=== PATIENT | male | born 1940 | race Caucasian/White ===

== ENCOUNTER → 2019-12-14 | Outpatient (CLI) | payer OTHER ==
[~2019-12-14] MED LIST: HOLD METFORMIN - RECEIVED CONTRAST 20 ML VIAL IV SCH; IOHEXOL 350 MG/ML 100 ML (OMNIPAQUE 350) VIAL IV ONE; NS 100 ML (IVPB) BAG IV ONE; RT-ALBUTEROL SULF 2.5 MG/3 ML PRE-MIX VIAL INH ONE
[2019-12-14 13:11] LABS: ABG BASE EXCESS -2.5 MMOL/L (-2.5-2.5); ABG OXYGEN SATURATION 98 % (94-100); ABG PCO2 32 MMHG (35-45); ABG PH 7.44 (7.37-7.43); ABG PO2 82 MMHG (79-93); ABG TCO2 22.3 MMOL/L (21.0-31.0)
[2019-12-14 13:12] LABS: ALLENS TEST YES-POS; INSPIRED O2 ROOM AIR; VENTILATOR NO
[2019-12-14 13:26] LABS: CREATININE SERUM 1.19 MG/DL (0.60-1.30)
--- NOTE | 2019-12-14 15:09 | Diagnostic Imaging Report ---
EXAMINATION: CT Chest with intravenous contrast. TECHNIQUE: Multiple contiguous axial images were obtained through the chest after the uneventful administration of intravenous contrast. All CT scans use one or more of the following dose optimizing techniques: automated exposure control, MA and/or KvP adjustment based on a patient size and exam type, or iterative reconstruction. HISTORY: COUGH,DYSPNEA... COMPARISON: None available. FINDINGS: There is no edema or pneumonia. No pleural effusion. No pneumothorax. No suspicious nodules. Heart size is normal. No pericardial effusion. Aorta is normal in caliber. There is no axillary or supraclavicular lymphadenopathy. There is no mediastinal lymphadenopathy. There are mild coronary artery calcifications. There is mild hepatic steatosis. There are no suspicious osseus lesions. IMPRESSION: 1. No acute abnormality in the chest. 2. Hepatic steatosis. Dictated by: Dictated on workstation # [id number]
== END ==
LOC: RAD 12:20
PROVIDERS: ATTEND Nurse Practitioner Family
DX: G47.33 Obstructive sleep apnea (adult) (pediatric) (principal); R06.89 Other abnormalities of breathing; R06.00 Dyspnea, unspecified; R05 Cough; K76.0 Fatty (change of) liver, not elsewhere classified; F17.200 Nicotine dependence, unspecified, uncomplicated
CPT/HCPCS: 36415; 71260; 82565; 82805; 84520; 94060; 94726; 94729

== ENCOUNTER → 2021-02-04 | Outpatient (CLI) | payer OTHER ==
--- NOTE | 2021-02-04 13:13 | Diagnostic Imaging Report ---
PROCEDURE: CT chest without contrast. TECHNIQUE: Multiple contiguous axial images were obtained through the chest without the use of intravenous contrast. Auto Exposure Controls were utilized during the CT exam to meet ALARA standards for radiation dose reduction. INDICATION: Right-sided chest pain, shortness of air, cough. CORRELATION: 12/14/2019. FINDINGS: Heart size normal with scattered mild to moderate coronary artery calcification. Thoracic aortic contour unremarkable. A few small subcentimeter mediastinal lymph nodes. No pathologically enlarged mediastinal lymph nodes. Small hiatal hernia is present. Evaluation of the mediastinal structures is limited given lack of contrast. The lung grayson are clear of infiltrate. There is prominent pericardial fat along the anterior mediastinum with slight asymmetrically elevated right anterior diaphragm accounting for blunting of the costophrenic angle. No effusion. There is a 17 mm exophytic mass off the anterior superior left renal pole. Mild hepatic steatosis. Mildly advanced degenerative changes thoracic spine. IMPRESSION: 1. Negative for acute abnormality of the chest. 2. Exophytic mass superior pole left kidney. While this may very well reflect a small cyst, it is incompletely characterized on this study. Consideration for renal ultrasound evaluation. 3. Small hiatal hernia. Dictated by: Dictated on workstation # [id number]
== END ==
LOC: RAD 10:20
PROVIDERS: ATTEND Nurse Practitioner Family
DX: J45.909 Unspecified asthma, uncomplicated (principal); N28.89 Other specified disorders of kidney and ureter; K44.9 Diaphragmatic hernia without obstruction or gangrene
CPT/HCPCS: 71250

== ENCOUNTER → 2021-04-16 | Outpatient (CLI) | payer OTHER ==
[2021-04-16 12:56] LABS: BASOPHILS % (AUTO) 0 % (0-10); EOSINOPHILS # (AUTO) 0.2 10^3/uL (0.0-0.3); EOSINOPHILS % (AUTO) 2 % (0-10); HEMATOCRIT 45 % (40-54); HEMOGLOBIN 15.2 g/dL (13.3-17.7); LYMPHOCYTES # (AUTO) 1.9 10^3/uL (1.0-4.0); LYMPHOCYTES % (AUTO) 21 % (12-44); MEAN CORPUSCULAR HEMOGLOBIN 29 pg (25-34); MEAN CORPUSCULAR HGB CONC 34 g/dL (32-36); MEAN CORPUSCULAR VOLUME 87 fL (80-99); MEAN PLATELET VOLUME 9.9 fL (9.0-12.2); MONOCYTES # (AUTO) 0.7 10^3/uL (0.0-1.0); MONOCYTES % (AUTO) 8 % (0-12); NEUTROPHILS # (AUTO) 6.5 10^3/uL (1.8-7.8); NEUTROPHILS % (AUTO) 69 % (42-75); PLATELET COUNT 301 10^3/uL (130-400); WHITE BLOOD COUNT 9.4 10^3/uL (4.3-11.0)
[2021-04-16 13:14] LABS: BAND NEUTROPHILS 0 %; BASOPHILS % (MANUAL) 0 %; EOSINOPHILS % (MANUAL) 3 %; LYMPHOCYTES % (MANUAL) 22 %; MONOCYTES % (MANUAL) 6 %; NEUTROPHILS % (MANUAL) 69 %; RBC MORPH NORMAL
--- NOTE | 2021-04-16 13:54 | Diagnostic Imaging Report ---
INDICATION: ASTHMA COMPARISON: None FINDINGS: Frontal and lateral views of the chest demonstrate normal heart size and pulmonary vascularity. The lungs are clear. There are no signs of infiltrate, pleural effusions or pneumothoraces. The visualized osseous structures show no acute abnormalities. IMPRESSION: 1. No acute process. No signs of infiltrates, effusions or pneumothoraces. Dictated by: Dictated on workstation # [id number]
== END ==
LOC: RAD 12:31
PROVIDERS: ATTEND Nurse Practitioner Family
DX: J45.909 Unspecified asthma, uncomplicated (principal)
CPT/HCPCS: 36415; 71046; 85007; 85027

== ENCOUNTER 2021-12-12 22:50 | Inpatient (IN) | payer MEDICARE, OTHER ==
[~2021-12-12] VITALS: Ht 175.3 cm; Wt 113.2 kg
[2021-12-13] VITALS (13 sets, daily range): BP systolic 111–157; BP diastolic 52–87
--- OUTSIDE RECORDS SUMMARY | 2021-12-13 00:03 | XMS REPORT | Encounter Summary ---
[facility] Address Unknown Phone Unavailable Care Team Providers Care Charge Auditor Name Role Phone YOSI TENORIO PCP Unavailable Insurance Providers: All historical and current Section Date Range: From patient's date of to the date document was create d. This section includes the names of all active insurance providers for the alejo nolasco Insurance Provider Type of Coverage Plan Name Start of Policy [place] End of Policy Coverage Group Number Member ID Insurance Provider's Telephone N umber Policy Clif[place]'s Name Patient's Relationship to Policy [place] MEDICARE (WNR) MEDICARE (M) PART A Sep 28, 2007 PART A [id number] SIMEONEFFIEY PATIENT MEDICARE (WNR) MEDICARE (M) PART B Sep 28, 2007 PART B [id number] SAMANTHA HENDRIX PATIENT Selected Encounter This section includes the information on record at [place] for the Encounter. Date/Time Encounter Type Encounter Description Reason Provider Source Mar 10, 2021 02:31 PM Outpatient Encounter ADMIN PAT ACTIVTIES (REBECCANO NCT) IHE Encounter Template Text not used by [facility] Assessments - Encounter Diagnoses No Data Provided for This Section Plan of Treatment: Future Appointments (+ 6 months) and Future Tests (+/- 45 day s) The Plan of Treatment section includes future care activities for the patient fr om all [place] treatment facilities. This section includes future appointments and fu ture orders which are active, pending or scheduled. Future Appointments This section includes appointments that were scheduled t o occur 6 months from the date of the Encounter, up to a maximum of 20 appointme nts. The data comes from all [place] treatment facilities. Appointment Date/Time Appointment Type Appointment Facili ty Name Mar 12, 2021 10:00 AM AMBULATORY - MEDICINE [facility] Mar 25, 2021 03:00 PM AMBULATORY - MEDICINE [facility] April 02, 2021 10:00 AM AMBULATORY - MEDICINE [facility] April 02, 2021 01:30 PM AMBULATORY - MEDICINE [facility] April 07, 2021 09:30 AM AMBULATORY - NONE [facility] April 16, 2021 10:00 AM AMBULATORY - MEDICINE [facility] Apr 30, 2021 10:00 AM AMBULATORY - MEDICINE [facility] May 04, 2021 11:30 AM AMBULATORY - REHAB MEDICINE [facility] May 07, 2021 10:00 AM AMBULATORY - MEDICINE [facility] May 07, 2021 12:30 PM AMBULATORY - MEDICINE [facility] May 14, 2021 10:00 AM AMBULATORY - MEDICINE [facility] May 22, 2021 08:00 AM AMBULATORY - NONE [facility] May 28, 2021 10:00 AM AMBULATORY - MEDICINE [facility] Jun 02, 2021 01:30 PM AMBULATORY - REHAB MEDICINE [facility] Jun 04, 2021 10:00 AM AMBULATORY - MEDICINE [facility] Jun 11, 2021 09:00 AM AMBULATORY - PSYCHIATRY [facility] Jun 11, 2021 10:00 AM AMBULATORY - MEDICINE [facility] Jun 15, 2021 08:00 AM AMBULATORY - NONE [facility] Jul 06, 2021 10:00 AM AMBULATORY - MEDICINE [facility] Jul 20, 2021 10:00 AM AMBULATORY - PSYCHIATRY [facility] Surgical Procedures: All associated to the encounter No Data Provided for This Section Lab Results: +/- 30 days of the encounter This section includes the Chemistry and Hematology Lab R esults on record with [place] for the patient. Radiology Reports and Pathology Report s are provided separately, in subsequent sections. Lab Results This section contains the Chemistry/Hematology Results chinmay t were resulted 30 days before or 30 days after the date of the Encounter. Date/Time Source Result Type Result - Unit Interpretation Reference Range Comment April 02, 2021 02:00 PM [facility] COVID-19 DIAGNOSTIC (RESP PANEL) Specimen Type: NASOPHARYNX No comment entered. Ordering Provider: YOSI TENORIO Report Released Date/Time: April 02, 2021 02:17 PM Reporting Lab: [facility] [address] [facility] [id number] Performing Lab: LEO RavindraMichelle [facility] [address] [facility] [phone] B.PERTUSSIS,PCR Not Detected Not Detect ed *B.PARAPERTUSSIS PCR Not Detected Not D etected *INFLUENZA A PCR Not Detected Not Detec eneida *INFLUENZA B PCR Not Detected Not Detec eneida *ADENOVIRUS PCR Not Detected Not Detect ed *PARAINF VIRUS 1 PCR Not Detected Not D etected *PARAINF VIRUS 2 PCR Not Detected Not D etected *PARAINF VIRUS 3 PCR Not Detected Not D etected *METAPNEUMOVIRUS,HUM Not Detected Not D etected *RSV RNA QUAL PCR Not Detected Not Dete cted *PARAINF VIRUS 4 PCR Not Detected Not D etected *CORONAVIRUS 229E Not Detected Not Dete cted *CORONAVIRUS NL63 Not Detected Not Dete cted *CORONAVIRUS HKU1 Not Detected Not Dete cted *CORONAVIRUS OC43 Not Detected Not Dete cted *CHLAMYDIA PNEUMONIAE PCR Not Detected Not Detected *MYCOPLASMA PNEUMONIAE PCR Not Detected Not Detected *RHINOVIRUS/ENTEROVIRUS Not Detected No t Detected COVID-19 (BIOFIRE) Not Detected Not Det ected Vital Signs: All taken on the encounter date No Data Provided for This Section Immunizations: All administered on the encounter date No Data Provided for This Section Social History: Smoking Status (Most current) and Tobacco Use (All prior to enco unter date) This section includes the most current, and the historical, smoking and tobacco- related health factors from the [place] facility where the Encounter took place. Current Smoking Status This section includes the most current smoking, or tobacco -related health factor, from the [place] facility where the Encounter took place. Date/Time Current Smoking Status Comment Facility Jan 20, 2021 11:30 AM [place]-TOBACCO NEVER USED [facility] Tobacco Use History This section includes a history of the smoking, or tobacco -related health factors, that were collected on or before the date of the Encoun ter. The data comes from the [place] facility where the Encounter took place. Date/Time Smoking Status/Tobacco Use Comment Facil ity Dec 21, 2018 02:42 PM NON-TOBACCO USER [facility] Dec 30, 2017 08:55 AM NON-TOBACCO USER [facility] Dec 09, 2014 09:17 AM CURRENT NON-SMOKER [facility] Dec 09, 2014 09:17 AM LIFETIME NON-TOBACCO USER [facility] Dec 12, 2013 01:11 PM CURRENT NON-SMOKER [facility] Dec 12, 2013 01:11 PM LIFETIME NON-TOBACCO USER [facility] Aug 07, 2012 12:47 PM CURRENT NON-SMOKER [facility] Aug 07, 2012 12:47 PM LIFETIME NON-TOBACCO USER [facility] Jun 05, 2012 12:37 PM NON-TOBACCO USER [facility] Nov 04, 2011 09:02 AM NON-TOBACCO USER has not smoked for 25 years [facility] Oct 12, 2011 08:23 AM CURRENT NON-SMOKER [facility] Oct 12, 2011 08:23 AM LIFETIME NON-TOBACCO USER [facility] Oct 12, 2011 08:23 AM NON-TOBACCO USER [facility] Aug 15, 2006 01:28 PM NON-SMOKER [facility] Aug 15, 2006 01:28 PM NON-TOBACCO USER [facility] Sep 07, 2005 09:58 AM NON-SMOKER [facility] Sep 07, 2005 09:58 AM NON-TOBACCO USER [facility] April 08, 2003 08:44 AM CURRENT NON-SMOKER [facility] April 08, 2003 08:44 AM LIFETIME NON-SMOKER [facility] April 08, 2003 08:44 AM LIFETIME NON-TOBACCO USER [facility] April 08, 2003 08:44 AM NON-SMOKER [facility] April 08, 2003 08:44 AM NON-TOBACCO USER [facility] Advance Directives: All historical and current No Data Provided for This Section Radiology Reports: +/- 30 days of the encounter No Data Provided for This Section Pathology Reports: +/- 30 days of the encounter No Data Provided for This Section Encounter Notes: All associated encounter notes This section contains the clinical notes associated to the Encounter. Date/Time Encounter Note(s) Provider Source Mar 10, 2021 02:31 PM ADMINISTRATIVE NOTE: LOCAL TITLE: [place]-ADMIN [facility] STANDARD TITLE: ADMINISTRATIVE NOTE DATE OF NOTE: MAR 10, 2021@14:31 ENTRY DATE: MAR 10, 2021@14:31:23 AUTHOR: HAMMAD PALMA EXP COSIGNER: URGENCY: STATUS: COMPLETED [facility] Administrative Note: RECORDS RECEIVED TODAY by: Fax Nature of report:encounter and procedure Date(s) of record(s):03/10/2021 Sending democrat:[place] [address] [place] /marty/ HAMMAD JOHN Signed: 03/10/2021 14:32 [facility]
--- OUTSIDE RECORDS SUMMARY | 2021-12-13 00:03 | XMS REPORT ---
Author Author [facility] SAMANTHA goldstein Organization Department [facility] Address Unknown Phone Unavailable Care Team Providers Care Novelty Worker Name Role Phone YOSI TENORIO PCP Unavailable [...] PART A Sep 28, 2007 PART A [id number] SIMEONEFFIEY PATIENT MEDICARE (WNR) MEDICARE (M) PART B Sep 28, 2007 PART B [id number] SIMEONSAMANTHA PATIENT Selected Encounter This section includes the information on [place] at [place] for the Encounter. Date/Time Encounter Type Encounter Description Reason Provider Source Mar 06, 2021 09:03 AM Outpatient Encounter ADMIN PAT ACTIVTIES (MASNO NCT) IHE Encounter Template Text not used by [place] Assessments - Encounter Diagnoses No Data Provided for This Section Plan of Treatment: Future Appointments (+ 6 months) and Future Tests (+/- 45 day s) The Plan of Treatment section includes future care activities for the patient fr om all [place] treatment facilities. This section includes future appointments and fu ture orders which are active, pending or scheduled. Future Appointments This section includes appointments that were scheduled t o occur 6 months from the date of the Encounter, up to a maximum of 20 appointme nts. The data comes from all [place] treatment facilities. Appointment Date/Time Appointment Type Appointment Chelseai tangela Vann Mar 12, 2021 10:00 AM AMBULATORY - MEDICINE [facility] Mar 25, 2021 03:00 PM AMBULATORY - MEDICINE [facility] April 02, 2021 10:00 AM AMBULATORY - MEDICINE [facility] April 02, 2021 01:30 PM AMBULATORY - MEDICINE [facility] April 07, 2021 09:30 AM AMBULATORY - NONE [facility] April 16, 2021 10:00 AM AMBULATORY - MEDICINE [facility] Apr 30, 2021 10:00 AM AMBULATORY - MEDICINE [facility] May 04, 2021 11:30 AM AMBULATORY - REHAB MEDICINE [facility] May 07, 2021 10:00 AM AMBULATORY - MEDICINE [facility] May 07, 2021 12:30 PM AMBULATORY - MEDICINE [facility] May 14, 2021 10:00 AM AMBULATORY - MEDICINE [facility] May 22, 2021 08:00 AM AMBULATORY - NONE [facility] May 28, 2021 10:00 AM AMBULATORY - MEDICINE [facility] Jun 02, 2021 01:30 PM AMBULATORY - REHAB MEDICINE [facility] Jun 04, 2021 10:00 AM AMBULATORY - MEDICINE [facility] Jun 11, 2021 09:00 AM AMBULATORY - PSYCHIATRY [facility] Jun 11, 2021 10:00 AM AMBULATORY - MEDICINE [facility] Jun 15, 2021 08:00 AM AMBULATORY - NONE [facility] Jul 06, 2021 10:00 AM AMBULATORY - MEDICINE [facility] Jul 20, 2021 10:00 AM AMBULATORY - PSYCHIATRY [facility] Active, Pending, and Scheduled Orders This section includes a listing of several types of activ e, pending, and scheduled orders, including clinic medications orders, diagnosti c test orders, procedure orders and consult orders; where the start date of th e order is 45 days before the date of the Encounter or 45 days after the date o f the Encounter. The data comes from all [place] treatment facilities. Test Date/Time Test Type Test Details Facility Name Jan 21, 2021 12:47 PM Laboratory - Chemistry Order CELIAC DI SEASE PANEL (QUEST) 2 RED SERUM-NO GEL SKB [facility] Surgical Procedures: All associated to the encounter No Data Provided for This Section Lab Results: +/- 30 days of the encounter This section includes the Chemistry and Hematology Lab R esults on record with [place] for the patient. Radiology Reports and Pathology Report s are provided separately, in subsequent sections. Lab Results This section contains the Chemistry/Hematology Results chinmay t were resulted 30 days before or 30 days after the date of the Encounter. Date/Time Source Result Type Result - Unit Interpretation Reference Range Comment April 02, 2021 02:00 PM [facility] COVID-19 DIAGNOSTIC (RESP PANEL) Specimen Type: NASOPHARYNX No comment entered. Ordering Provider: YOSI TENORIO Report Released Date/Time: April 02, 2021 02:17 PM Reporting Lab: [facility] [address] [facility] [id number] Performing Lab: [facility] [address] [id number] B.PERTUSSIS,PCR Not Detected Not Detect ed *B.PARAPERTUSSIS [...] and tobacco- related health factors from the [place] facility where the Encounter took place. Current Smoking Status This section includes the most current smoking, or tobacco -related health factor, from the [place] facility where the Encounter took place. Date/Time Current Smoking Status Comment Facility Jun 12, 2018 01:16 PM [place]-TOBACCO QUIT 15 YRS OR MORE [facility] Tobacco Use History This section includes a history of the smoking, or tobacco -related health factors, that were collected on or before the date of the Encoun ter. The data comes from the [place] facility where the Encounter took place. Date/Time Smoking Status/Tobacco Use Comment [facility] it Jun 12, 2018 01:16 PM [place]-TOB[place] QUIT 15 YRS OR MORE [facility] Sep 24, 2015 08:23 AM [facility] 07, 2014 12:58 PM NON-TOBACCO USER [facility] Oct 01, 2014 02:57 PM NON-TOBACCO USER [facility] Jul 08, 2011 11:42 AM NON-TOBACCO USER [facility] Sep 21, 2007 09:37 AM NON-TOBACCO USER Pt. reports he quit smoking over 20 years ago. [facility] Advance Directives: All historical and current No Data Provided for This Section Radiology Reports: +/- 30 days of the encounter No Data Provided for This Section Pathology Reports: +/- 30 days of the encounter No Data Provided for This Section Encounter Notes: All associated encounter notes This section contains the clinical notes associated to the Encounter. Date/Time Encounter Note(s) Provider Source Mar 06, 2021 09:03 AM RESPIRATORY THERAPY FLOWSHEE T: LOCAL TITLE: [place]-RESPIRATORY THERAPY. STANDARD TITLE: RESPIRATORY THERAPY FLOWSHEET DATE OF NOTE: MAR 06, 2021@09:03 ENTRY DATE: MAR 06, 2021@09:04:02 AUTHOR: ALMA DELIA THOMSON COSIGNER: RADHA ROLLE URGENCY: STATUS: COMPLETED Camila from Dr. Villanueva's office in [place], [place] called and left message with this clinic requesting a 30 day data download. Camila requested the download be faxed to [phone]. Pt's CPAP remotely accessed. 30 day download faxed via Right[employer]ax to requested number. AHI WNL with 97% compliance. /marty/ ALMA DELIA THOMSON CHARGE NURSE/CPFT Signed: 03/06/2021 09:08 /marty/ RADHA ROLLE STAFF PHYSICIAN/BLOCK SORTER Cosigned: 03/06/2021 09:20 ALMA DELIA THOMSON [facility]
--- OUTSIDE RECORDS SUMMARY | 2021-12-13 00:04 | XMS REPORT ---
Author Author [facility] SAMANTHA goldstein Organization Department [facility] Address Unknown Phone Unavailable Care Team Providers Care History Faculty Member Name Role Phone YOSI TENORIO PCP Unavailable [...] PART A Sep 28, 2007 PART A [id number] SIMEONEFFIEY PATIENT MEDICARE (WNR) MEDICARE (M) PART B Sep 28, 2007 PART B [id number] SIMEONSAMANTHA PATIENT Selected Encounter This section includes the information on record at [place] for the Encounter. Date/Time Encounter Type Encounter Description Reason Provider Source May 28, 2021 10:53 AM Outpatient Encounter ADMIN PAT ACTIVTIES (MASNO NCT) IHE Encounter Template Text not used by [place] Assessments - Encounter Diagnoses No Data Provided for This Section Plan of Treatment: Future Appointments (+ 6 months) and Future Tests (+/- 45 day s) The Plan of Treatment section includes future care activities for the patient fr om all [place] treatment facilities. This section includes future appointments and fu ture orders which are active, pending or scheduled. Future Appointments This section includes appointments that were scheduled t o occur 6 months from the date of the Encounter, up to a maximum of 20 appointme nts. The data comes from all [place] treatment facilities. Appointment Date/Time Appointment Type Appointment Facili ty Name Jun 02, 2021 01:30 PM AMBULATORY - REHAB MEDICINE [facility] Jun 04, 2021 10:00 AM AMBULATORY - MEDICINE LEO [facility]OPEZ [facility] Jun 11, 2021 09:00 AM AMBULATORY - PSYCHIATRY [facility] Jun 11, 2021 10:00 AM AMBULATORY - MEDICINE LEO [facility]OPE[facility] Jun 15, 2021 08:00 AM AMBULATORY - NONE [facility] Jul 06, 2021 10:00 AM AMBULATORY - MEDICINE [facility] Jul 20, 2021 10:00 AM AMBULATORY - PSYCHIATRY [facility] Aug 05, 2021 02:30 PM AMBULATORY - NONE [facility] Aug 13, 2021 09:30 AM AMBULATORY - PSYCHIATRY [facility] Aug 14, 2021 01:30 PM AMBULATORY - REHAB MEDICINE [facility]O [facility] Aug 25, 2021 02:00 PM AMBULATORY - PSYCHIATRY [facility] Aug 25, 2021 03:00 PM AMBULATORY - MEDICINE [facility] Sep 03, 2021 08:00 AM AMBULATORY - NONE [facility] Sep 03, 2021 10:00 AM AMBULATORY - MEDICINE LEO LOPE[facility] Sep 10, 2021 10:00 AM AMBULATORY - MEDICINE LEO LOPE[facility] Sep 17, 2021 10:00 AM AMBULATORY - MEDICINE LEO LOPE[facility] Sep 23, 2021 08:30 AM AMBULATORY - NONE [facility] [place] [facility] Oct 02, 2021 10:30 AM AMBULATORY - REHAB MEDICINE [facility] Nov 02, 2021 11:30 AM [facility]BULATORY - MEDICINE [facility] Nov 18, 2021 10:30 AM AMBULATORY - MEDICINE [facility] Surgical Procedures: All associated to the encounter No Data Provided for This Section Lab Results: +/- 30 days of the encounter No Data Provided for This Section Vital Signs: All taken on the encounter date No Data Provided for This Section Immunizations: All administered on the encounter date No Data Provided for This Section Social History: Smoking Status (Most current) and Tobacco Use (All prior to enco unter date) This section includes the most current, and the historical, smoking and tobacco- related health factors from the [place] facility where the Encounter took place. Current Smoking Status This section includes the most current smoking, or tobacco -related health factor, from the [place] facility where the Encounter took place. Date/Time Current Smoking Status Comment Facility Jun 12, 2018 01:16 PM VA-TOBACCO QUIT 15 YRS OR MORE [facility]ISTA L[facility] Tobacco Use History This section includes a history of the smoking, or tobacco -related health factors, that were collected on or before the date of the Encoun ter. The data comes from the [place] facility where the Encounter took place. Date/Time Smoking Status/Tobacco Use Comment [facility] Jun 12, 2018 01:16 PM [place]-TOBACCO QUIT 15 YRS OR MORE [facility]A LOPE[facility] Sep 24, 2015 08:23 AM NON-TOBACCO USER LEO LOPEZ [facility] Nov 07, 2014 12:58 PM NON-TOBACCO USER LEO LOPEZ [facility] Oct 01, 2014 02:57 PM NON-TOBACCO USER LEO LOPEZ [facility] Jul 08, 2011 11:42 AM NON-TOBACCO USER LEO RavindraMichelle LOPEZ [facility] Sep 21, 2007 09:37 AM NON-TOBACCO USER Pt. reports he quit smoking over 20 years ago. [facility] Advance Directives: All historical and current No Data Provided for This Section Radiology Reports: +/- 30 days of the encounter No Data Provided for This Section Pathology Reports: +/- 30 days of the encounter No Data Provided for This Section Encounter Notes: All associated encounter notes This section contains the clinical notes associated to the Encounter. Date/Time Encounter Note(s) Provider Source May 28, 2021 10:53 AM ADMINISTRATIVE NOTE: LOCAL TITLE: [place]-ADMIN [facility] STANDARD TITLE: ADMINISTRATIVE NOTE DATE OF NOTE: MAY 28, 2021@10:53 ENTRY DATE: MAY 28, 2021@10:53:41 AUTHOR: ELANA PATTERSON V EXP COSIGNER: URGENCY: STATUS: COMPLETED [facility] Administrative Note: C-1 For rtc with Ali, did answer but was busy and could not schedule at this time. letter sent as reminder /marty/ ELANA PATTERSON Signed: 05/28/2021 10:54 ELANA PATTERSON [facility]
--- OUTSIDE RECORDS SUMMARY | 2021-12-13 00:04 | XMS REPORT ---
Author Author [facility] SAMANTHA goldstein Organization Department [facility] Address Unknown Phone Unavailable Care Team Providers Care Consumer Loan Specialist Name Role Phone YOSI TENORIO PCP Unavailable [...] PART A Sep 28, 2007 PART A [id number] SIMEONEFFIEY PATIENT MEDICARE (WNR) MEDICARE (M) PART B Sep 28, 2007 PART B [id number] SIMEONSAMANTHA PATIENT Selected Encounter This section includes the information on record at [place] for the Encounter. Date/Time Encounter Type Encounter Description Reason Provider Source Jun 10, 2021 10:01 AM Outpatient Encounter ADMIN PAT ACTIVTIES (MASNO NCT) IHE Encounter Template Text not used by [place] Assessments - Encounter Diagnoses No Data Provided for This Section Plan of Treatment: Future Appointments (+ 6 months) and Future Tests (+/- 45 day s) The Plan of Treatment section includes future care activities for the patient fr om all [place] treatment facilities. This section includes future appointments and fu ture orders which are active, pending or scheduled. Future Appointments This section includes appointments that were scheduled t o occur 6 months from the date of the Encounter, up to a maximum of 20 appointme nts. The data comes from all [place] treatment facilities. Appointment Date/Time Appointment Type Appointment Facili ty Name Jun 11, 2021 09:00 AM AMBULATORY - PSYCHIATRY LEO LOPEZ [facility] Jun 11, 2021 10:00 AM AMBULATORY - MEDICINE LEO WaiteMichelle JESSICA [facility] Jun 15, 2021 08:00 AM AMBULATORY - NONE [facility] [place] [facility] Jul 06, 2021 10:00 AM AMBULATORY - MEDICINE [facility] Jul 20, 2021 10:00 AM AMBULATORY - PSYCHIATRY [facility] Aug 05, 2021 02:30 PM AMBULATORY - NONE [facility] [place] [facility] Aug 13, 2021 09:30 AM AMBULATORY - PSYCHIATRY LEO WaiteMichelle JESSICA [facility] Aug 14, 2021 01:30 PM AMBULATORY - REHAB MEDICINE LEO LOPEZ [facility] Aug 25, 2021 02:00 PM AMBULATORY - PSYCHIATRY [facility] Aug 25, 2021 03:00 PM AMBULATORY - MEDICINE [facility] Sep 03, 2021 08:00 AM AMBULATORY - NONE [facility] [place] Sep 03, 2021 10:00 AM AMBULATORY - MEDICINE LEO Chandler FRANKLINYohana [facility] Sep 10, 2021 10:00 AM AMBULATORY - MEDICINE LEO LOPEZ [facility] Sep 17, 2021 10:00 AM AMBULATORY - MEDICINE LEO LOPEZ [facility] Sep 23, 2021 08:30 AM AMBULATORY - NONE [facility] [place] [place] Oct 02, 2021 10:30 AM AMBULATORY - REHAB MEDICINE LEO LOPEZ [facility] Nov 02, 2021 11:30 AM AMBULATORY - MEDICINE [facility] Nov 18, 2021 10:30 AM AMBULATORY - MEDICINE [facility] Nov 19, 2021 01:00 PM AMBULATORY - REHAB MEDICINE LEO WaiteMichelle FRANKLINYohana [facility] Dec 07, 2021 06:30 PM AMBULATORY - PSYCHIATRY LEO LOPEZ [facility] Surgical Procedures: All associated to the encounter No Data Provided for This Section Lab Results: +/- 30 days of the encounter This section includes the Chemistry and Hematology Lab R esults on record with [place] for the patient. Radiology Reports and Pathology Report s are provided separately, in subsequent sections. Lab Results This section contains the Chemistry/Hematology Results chinmay t were resulted 30 days before or 30 days after the date of the Encounter. Date/Time Source Result Type Result - Unit Interpretation Reference Range Comment Jul 06, 2021 10:44 AM [facility] COMPREHENSIVE METABOLIC PA ASTON Specimen Type: PLASMA Comment: Race unknown, if multiply result by 1.210 Ordering Provider: YOSI TENORIO Report Released Date/Time: Jul 06, 2021 10:37 AM Reporting Lab: LEO LOPEZ [facility] [address] [facility] [address] Performing Lab: LEO LOPEZ [facility] [address] [facility] [address] *CREATININE 1.13 mg/dL 0.70-1.30 UREA NITROGEN mg/dL 13 mg/dL 9-25 GLUCOSE 180 mg/dL H 70-99 SODIUM 140 mEq/L 136-145 POTASSIUM 4.1 mEq/L 3.5-5 CALCIUM (mg/dL) 8.7 mg/dL 8.4-10.2 PROTEIN,TOTAL 7.0 g/dL 6-8.6 ALBUMIN 4.1 g/dL 3.4-5 TOTAL BILIRUBIN 0.4 mg/dL 0.2-1.0 ASPARTATE TRANSAMINASE 18 U/L 5-34 ALANINE AMINOTRANSFERASE 24 U/L 8-40 ANION GAP 10.2 8-16 CHLORIDE 107 mEq/L 98-107 CO2 23.0 mEq/L 22-31 ALKALINE PHOSPHATASE 77 U/L 40-150 EGFR 62.8 Jul 06, 2021 10:44 AM [facility] ERYTHROCYTE SEDIMENTATION RATE Specimen Type: BLOOD No comment entered. Ordering Provider: YOSI TENORIO Report Released Date/Time: Jul 06, 2021 10:37 AM Reporting Lab: LEO LOPEZ [facility] [address] [facility] [address] Performing Lab: LEO WaiteMichelle JESSICA [facility] [address] [facility] [address] ERYTHROCYTE SEDIMENTATION RATE 5 mm/hr 0-20 Jul 06, 2021 10:44 AM [facility] CBC & DIFF Specimen T ype: BLOOD No comment entered. Ordering Provider: YOSI TENORIO Report Released Date/Time: Jul 06, 2021 10:37 AM Reporting Lab: LEO LOPEZ [facility] [address] [facility] [address] Performing Lab: LEO LOPEZ [facility] [address] [facility] [address] WBC 6.4 K/cmm 3.60-11.20 RBC 4.89 M/ul 4.1-5.7 HGB 14.6 g/dl 13.1-16.8 HCT 43.3 % 38.2-48.4 MCV 88.5 fl 80.1-98.5 MCH 29.9 pg 27.0-34.0 MCHC 33.7 g/dl 33.0-36.0 PLATELET COUNT 298 K/cmm 150-400 MPV 10.1 fl 7.5-11.2 RDW 13.0 % 11.8-15.1 LYMPHOCYTES, AUTO% 20.2 % NEUTROPHILS, AUTO % 67.7 % MONOCYTES, AUTO% 7.5 % MONOCYTES, ABSOLUTE 0.5 K/cmm 0.19-0.80 NEUTROPHILS, ABSOLUTE 4.3 K/cmm 2.10-8.0 0 EOSINOPHILS, ABSOLUTE 0.2 K/cmm 0.00-0.6 0 BASOPHILS, ABSOLUTE 0.1 K/cmm 0.00-0.20 EOSINOPHILS, AUTO% 3.1 % BASOPHILS, AUTO% 0.9 % LYMPHOCYTES, ABSOLUTE 1.3 K/cmm 0.77-4.5 0 IMMATURE GRANS, ABSOLUTE 0.04 K/cmm 0.00 -0.05 IMMATURE GRANS, AUTO % 0.6 % Vital Signs: All taken on the encounter date No Data Provided for This Section Immunizations: All administered on the encounter date No Data Provided for This Section Social History: Smoking Status (Most current) and Tobacco Use (All prior to enco unter date) This section includes the most current, and the historical, smoking and tobacco- related health factors from the [place] facility where the Encounter took place. Current Smoking Status This section includes the most current smoking, or tobacco -related health factor, from the [place] facility where the Encounter took place. Date/Time Current Smoking Status [facility] Facility Jun 12, 2018 01:16 PM VA-TOBACCO QUIT 15 YRS OR MORE CALISTA LOPEZ [facility] Tobacco Use History This section includes a history of the smoking, or tobacco -related health factors, that were collected on or before the date of the Encoun ter. The data comes from the [place] facility where the Encounter took place. Date/Time Smoking Status/Tobacco Use Comment Chelsea salcedo Jun 12, 2018 01:16 PM VA-TOBACCO QUIT 15 YRS OR MORE CALISTA LOPEZ [facility] Sep 24, 2015 08:23 AM NON-TOBACCO USER LEO LOPEZ [facility] Honey Nov 07, 2014 12:58 PM NON-TOBACCO USER LEO LOPEZ [facility] Oct 01, 2014 02:57 PM NON-TOBACCO USER LEO Arteaga RIGOBERTOYohana [facility] Jul 08, 2011 11:42 AM NON-TOBACCO USER LEO LOPEZ [facility] Sep 21, 2007 09:37 AM NON-TOBACCO USER Pt. reports he quit smoking over 20 years ago. LEO LOPEZ [facility] Advance Directives: All historical and current No Data Provided for This Section Radiology Reports: +/- 30 days of the encounter No Data Provided for This Section Pathology Reports: +/- 30 days of the encounter No Data Provided for This Section Encounter Notes: All associated encounter notes This section contains the clinical notes associated to the Encounter. Date/Time Encounter Note(s) Provider Source Jun 10, 2021 10:01 AM ADMINISTRATIVE NOTE: LOCAL TITLE: [place]-ADMIN [facility] STANDARD TITLE: ADMINISTRATIVE NOTE DATE OF NOTE: JUN 10, 2021@10:01 ENTRY DATE: JUN 10, 2021@10:01:39 AUTHOR: HASMUKH LUCIA EXP COSIGNER: URGENCY: STATUS: COMPLETED [facility] Administrative Note: Administrative notes: Spoke with the to confirm 06/[address] Monterroso. /marty/ HASMUKH LUCIA Signed: 06/10/2021 10:01 [facility]UC[facility]
--- OUTSIDE RECORDS SUMMARY | 2021-12-13 00:04 | XMS REPORT | Encounter Summary ---
[facility] Address Unknown Phone Unavailable Care Team Providers Care Lawn Caretaker Name Role Phone YOSI TENORIO PCP Unavailable [...] PART A Sep 28, 2007 PART A [id number] SIMEONEFFIEY PATIENT MEDICARE (WNR) MEDICARE (M) PART B Sep 28, 2007 PART B [id number] SAMANTHA HENDRIX PATIENT Selected Encounter This section includes the information on record at [place] for the Encounter. Date/Time Encounter Type Encounter Description Reason Provider Source Jun 05, 2021 01:38 PM Outpatient Encounter ADMIN PAT ACTIVTIES (REBECCANO NCT) IHE Encounter Template Text not used by [facility] Assessments - Encounter Diagnoses No Data Provided for This Section Plan of Treatment: Future Appointments (+ 6 months) and Future Tests (+/- 45 day s) The Plan of Treatment section includes future care activities for the patient fr om all [place] treatment facilities. This section includes future appointments and fu ture orders which are active, pending or scheduled. Future Appointments This section includes appointments that were scheduled t o occur 6 months from the date of the Encounter, up to a maximum of 20 appointme nts. The data comes from all [place] treatment facilities. Appointment Date/Time Appointment Type Appointment Facili ty Name Jun 11, 2021 09:00 AM AMBULATORY - PSYCHIATRY LEO Arteaga JESSICA [facility] Jun 11, 2021 10:00 AM AMBULATORY - MEDICINE LEO LOPEZ [facility] Jun 15, 2021 08:00 AM AMBULATORY - NONE [facility] [place] [facility] Jul 06, 2021 10:00 AM AMBULATORY - MEDICINE [facility] Jul 20, 2021 10:00 AM AMBULATORY - PSYCHIATRY [facility] Aug 05, 2021 02:30 PM AMBULATORY - NONE [facility] [place] [facility] Aug 13, 2021 09:30 AM AMBULATORY - PSYCHIATRY LEO LOPEZ [facility] Aug 14, 2021 01:30 PM AMBULATORY - REHAB MEDICINE LEO LOPEZ [facility] Aug 25, 2021 02:00 PM AMBULATORY - PSYCHIATRY [facility] Aug 25, 2021 03:00 PM AMBULATORY - MEDICINE [facility] Sep 03, 2021 08:00 AM AMBULATORY - NONE [facility] [place] [facility] Sep 03, 2021 10:00 AM AMBULATORY - MEDICINE LEO LOPEZ [facility] Sep 10, 2021 10:00 AM AMBULATORY - MEDICINE LEO LOPEZ [facility] Sep 17, 2021 10:00 AM AMBULATORY - MEDICINE LEO LOPEZ [facility] Sep 23, 2021 08:30 AM AMBULATORY - NONE [facility] [place] [facility] Oct 02, 2021 10:30 AM AMBULATORY - REHAB MEDICINE LEO LOPEZ [facility] Nov 02, 2021 11:30 AM AMBULATORY - MEDICINE [facility] Nov 18, 2021 10:30 AM AMBULATORY - MEDICINE [facility] Nov 19, 2021 01:00 PM AMBULATORY - REHAB MEDICINE LEO LOPEZ [facility] Surgical Procedures: All associated to the [...] and tobacco- related health factors from the [place] facility where the Encounter took place. Current Smoking Status This section includes the most current smoking, or tobacco -related health factor, from the [place] facility where the Encounter took place. Date/Time Current Smoking Status Comment Facility Jan 20, 2021 11:30 AM VA-TOBACCO NEVER USED [facility] Tobacco Use History This section includes a history of the smoking, or tobacco -related health factors, that were collected on or before the date of the Encoun ter. The data comes from the [place] facility where the Encounter took place. Date/Time Smoking Status/Tobacco Use Comment [facility] it Dec 21, 2018 02:42 PM NON-TOBACCO USER [facility] Dec 30, 2017 08:55 AM NON-TOBACCO USER [facility] Dec 09, 2014 09:17 AM CURRENT NON-SMOKER [facility] Dec 09, 2014 09:17 AM LIFETIME NON-TOBACCO USER [facility] Dec 12, 2013 01:11 PM CURRENT NON-SMOKER [facility] Dec 12, 2013 01:11 PM LIFETIME NON-TOBACCO USER [facility] Aug 07, 2012 12:47 PM CURRENT NON-SMOKER [facility] Aug 07, 2012 12:47 PM LIFETIME NON-TOBACCO USER [facility] Jun 05, 2012 12:37 PM NON-TOBACCO USER [facility] Nov 04, 2011 09:02 AM NON-TOBACCO USER has not smoked for 25 years [facility] Oct 12, 2011 08:23 AM CURRENT NON-SMOKER [facility] Oct 12, 2011 08:23 AM LIFETIME NON-TOBACCO USER JOHN [facility] Oct 12, 2011 08:23 AM NON-TOBACCO USER [facility] Aug 15, 2006 01:28 PM NON-SMOKER [facility] Aug 15, 2006 01:28 PM NON-TOBACCO USER [facility] Sep 07, 2005 09:58 AM NON-SMOKER [facility] Sep 07, 2005 09:58 AM NON-TOBACCO USER [facility] April 08, 2003 08:44 AM CURRENT NON-SMOKER [facility] April 08, 2003 08:44 AM LIFETIME NON-SMOKER [facility] April 08, 2003 08:44 AM LIFETIME NON-TOBACCO USER [facility] April 08, 2003 08:44 AM NON-SMOKER [facility] April 08, 2003 08:44 AM NON-TOBACCO USER [facility] Advance Directives: All historical and current No Data Provided for This Section Radiology Reports: +/- 30 days of the encounter No Data Provided for This Section Pathology Reports: +/- 30 days of the encounter No Data Provided for This Section Encounter Notes: All associated encounter notes This section contains the clinical notes associated to the Encounter. Date/Time Encounter Note(s) Provider Source Jun 05, 2021 01:38 PM ADMINISTRATIVE NOTE: LOCAL TITLE: [place]-ADMIN [facility] STANDARD TITLE: ADMINISTRATIVE NOTE DATE OF NOTE: JUN 05, 2021@13:38 ENTRY DATE: JUN 05, 2021@13:39:01 AUTHOR: HAMMAD PALMA EXP COSIGNER: URGENCY: STATUS: COMPLETED [facility] Administrative Note: RECORDS RECEIVED TODAY by: Fax Nature of report:rx for ventolin Date(s) of record(s):06/05/2021 Sending constitution party:[place] [facility] // HAMMAD JOHN Signed: 06/05/2021 13:39 HAMMAD PALMA OC
--- OUTSIDE RECORDS SUMMARY | 2021-12-13 00:04 | XMS REPORT ---
Author Author [facility] SAMANTHA goldstein Organization Department [facility] Address Unknown Phone Unavailable Care Team Providers Care Adviser Sales Name Role Phone YOSI TENORIO PCP Unavailable [...] PART A Sep 28, 2007 PART A [id number] SIMEONEFFIEY PATIENT MEDICARE (WNR) MEDICARE (M) PART B Sep 28, 2007 PART B [id number] SIMEONSAMANTHA PATIENT Selected Encounter This section includes the information on record at [place] for the Encounter. Date/Time Encounter Type Encounter Description Reason Provider Source May 29, 2021 12:10 PM Outpatient Encounter ADMIN PAT ACTIVTIES (MASNO NCT) IHE Encounter Template Text not used by [place] Assessments - Encounter Diagnoses No Data Provided for This Section Plan of Treatment: Future Appointments (+ 6 months) and Future Tests (+/- 45 day s) The Plan of Treatment section includes future care activities for the patient fr om all [place] treatment facilities. This section includes future appointments and fu ture orders which are active, pending or scheduled. Future Appointments This section includes appointments that were scheduled t o occur 6 months from the date of the Encounter, up to a maximum of 20 appointme nts. The data comes from all [place] treatment facilities. Appointment Date/Time Appointment Type Appointment Facili ty Name Jun 02, 2021 01:30 PM AMBULATORY - REHAB MEDICINE LEO LOPEZ [facility] Jun 04, 2021 10:00 AM AMBULATORY - MEDICINE LEO LOPEZ [facility] Jun 11, 2021 09:00 AM AMBULATORY - PSYCHIATRY LEO LOPEZ [facility] Jun 11, 2021 10:00 AM AMBULATORY - MEDICINE LEO LOPEZ [facility] Jun 15, 2021 08:00 AM AMBULATORY - NONE [facility] [place] Jul 06, 2021 10:00 AM AMBULATORY - MEDICINE [facility] Jul 20, 2021 10:00 AM AMBULATORY - PSYCHIATRY [facility] Aug 05, 2021 02:30 PM AMBULATORY - NONE [facility] [place] [facility] Aug 13, 2021 09:30 AM AMBULATORY - PSYCHIATRY LEO LOPEZ [facility] Aug 14, 2021 01:30 PM AMBULATORY - REHAB MEDICINE LEO LOPEZ [facility] Aug 25, 2021 02:00 PM AMBULATORY - PSYCHIATRY [facility] Aug 25, 2021 03:00 PM AMBULATORY - MEDICINE [facility] Sep 03, 2021 08:00 AM AMBULATORY - NONE [facility] [place] [facility] Sep 03, 2021 10:00 AM AMBULATORY - MEDICINE LEO LOPEZ [facility] Sep 10, 2021 10:00 AM AMBULATORY - MEDICINE LEO LOPEZ [facility] Sep 17, 2021 10:00 AM AMBULATORY - MEDICINE LEO LOPEZ [facility] Sep 23, 2021 08:30 AM AMBULATORY - NONE [facility] [place] Oct 02, 2021 10:30 AM AMBULATORY - REHAB MEDICINE LEO LOPEZ [facility] Nov 02, 2021 11:30 AM AMBULATORY [...] and tobacco- related health factors from the [place] facility where the Encounter took place. Current Smoking Status This section includes the most current smoking, or tobacco -related health factor, from the [place] facility where the Encounter took place. Date/Time Current Smoking Status Comment Facility Jun 12, 2018 01:16 PM [place]-TOBACCO QUIT 15 YRS OR MORE [place]IST[place] LOPEZ [facility] Tobacco Use History This section includes a history of the smoking, or tobacco -related health factors, that were collected on or before the date of the Encoun ter. The data comes from the [place] facility where the Encounter took place. Date/Time Smoking Status/Tobacco Use Comment [facility] Jun 12, 2018 01:16 PM [place]-TOBACCO QUIT 15 YRS OR MORE [place] LOPEZ [facility] Sep 24, 2015 08:23 AM [facility] Nov 07, 2014 12:58 PM NON-TOBACCO USER LEO LOPEZ [facility] Oct 01, 2014 02:57 PM NON-TOBACCO USER LEO LOPEZ [facility] Jul 08, 2011 11:42 AM NON-TOBACCO USER LEO LOPEZ [facility] Sep 21, 2007 09:37 AM NON-TOBACCO USER Pt. reports he quit smoking over 20 years ago. LEO LOPEZ [facility] Advance Directives: All historical and current No Data Provided for This Section Radiology Reports: +/- 30 days of the encounter No Data Provided for This Section Pathology Reports: +/- 30 days of the encounter No Data Provided for This Section Encounter Notes: All associated encounter notes This section contains the clinical notes associated to the Encounter. Date/Time Encounter Note(s) Provider Source May 29, 2021 12:10 PM ADMINISTRATIVE NOTE: LOCAL TITLE: [place]-ADMIN MSA STANDARD TITLE: ADMINISTRATIVE NOTE DATE OF NOTE: MAY 29, 2021@12:10 ENTRY DATE: MAY 29, 2021@12:10:21 AUTHOR: MICHELLE HERNANDEZIGNER: URGENCY: STATUS: COMPLETED Patient was contacted prior to his upcoming appointment: 06/02/@1:30pm /marty/ MICHELLE HERNANDEZ MSA Signed: 05/29/2021 12:12 MICHELLE HERNANDEZ [facility]
--- OUTSIDE RECORDS SUMMARY | 2021-12-13 00:04 | XMS REPORT ---
Author Author [facility] SAMANTHA goldstein Organization Department [facility] Address Unknown Phone Unavailable Care Team Providers Care Home Health Care Respiratory Therapist Name Role Phone YOSI TENORIO PCP Unavailable [...] PART A Sep 28, 2007 PART A [id number] SIMEONEFFIEY PATIENT MEDICARE (WNR) MEDICARE (M) PART B Sep 28, 2007 PART B [id number] SIMEONEFFIEY PATIENT Selected Encounter This section includes the [place] at [place] for the Encounter. Date/Time Encounter Type Encounter Description Reason Provider Source May 27, 2021 10:29 AM Outpatient Encounter ADMIN PAT ACTIVTIES (MASNO NCT) IHE Encounter Template Text not used by [place] Assessments - Encounter Diagnoses No Data Provided [...] Date/Time Appointment Type Appointment Facili ty Name May 28, 2021 10:00 AM AMBULATORY - MEDICINE LEO LOPEZ [facility] Jun 02, 2021 01:30 PM AMBULATORY - REHAB MEDICINE LEO LOPEZ [facility] Jun 04, 2021 10:00 AM AMBULATORY - MEDICINE LEO WaiteMichelle JESSICA [facility] Jun 11, 2021 09:00 AM AMBULATORY - PSYCHIATRY LEO LOPEZ [facility] Jun 11, 2021 10:00 AM AMBULATORY - MEDICINE LEO LOPEZ [facility] Jun 15, 2021 08:00 AM AMBULATORY - NONE [place] [facility] [place] [facility] Jul 06, 2021 10:00 AM [facility] Jul 20, 2021 10:00 AM [facility] Aug 05, 2021 02:30 PM [facility] [place] Aug 13, 2021 09:30 AM AMBULATORY - PSYCHIATRY LEO WaiteMichelle JESSICA [facility] Aug 14, 2021 01:30 PM AMBULATORY - REHAB MEDICINE LEO LOPEZ [facility] Aug 25, 2021 02:00 PM AMBULATORY - PSYCHIATRY [facility] Aug 25, 2021 03:00 PM [facility] Sep 03, 2021 08:00 AM [facility] Sep 03, 2021 10:00 AM AMBULATORY - MEDICINE LEO WaiteMichelle JESSICA [facility] Sep 10, 2021 10:00 AM AMBULATORY - MEDICINE LEO RavindraMichelle RIGOBERTOYohana [facility] Sep 17, 2021 10:00 AM AMBULATORY - MEDICINE LEO RavindraMichelle LOPEZ [facility] Sep 23, 2021 08:30 AM [facility] Oct 02, 2021 10:30 AM AMBULATORY - REHAB MEDICINE LEO RavindraMichelle JESSICA [facility] Nov 02, 2021 11:30 AM AMBULATORY - MEDICINE [facility] Surgical Procedures: All associated to the [...] QUIT 15 YRS OR MORE [place] LOPEZ [facility] Tobacco Use History This section includes a history of the smoking, or tobacco -related health factors, that were collected on or before the date of the Encoun ter. The data comes from the [place] facility where the Encounter took place. Date/Time Smoking Status/Tobacco Use Comment [facility] Jun 12, 2018 01:16 PM [place]-TOBAC[place] QUIT 15 YRS OR MORE [place] LOPEZ [facility] Sep 24, 2015 08:23 AM NON-TOBACCO USER LEO WaiteMichelle LOPEZ [facility] Nov 07, 2014 12:58 PM NON-TOBACCO USER LEO LOPEZ [facility] Oct 01, 2014 02:57 PM NON-TOBACCO USER LEO RavindraMichelle LOPEZ [facility] Jul 08, 2011 11:42 AM NON-TOBACCO USER LEO RavindraMichelle LOPEZ [facility] Sep 21, 2007 09:37 AM NON-TOBACCO USER Pt. reports he quit smoking over 20 years ago. LEO LOPEZ [facility] Advance Directives: All historical and current No Data Provided for This Section Radiology Reports: +/- 30 days of the encounter No Data Provided for This Section Pathology Reports: +/- 30 days of the encounter No Data Provided for This Section Encounter Notes: All associated encounter notes This section contains the clinical notes associated to the Encounter. Date/Time Encounter Note(s) Provider Source May 27, 2021 10:29 AM ADMINISTRATIVE NOTE: LOCAL TITLE: [place]-ADMIN [facility] STANDARD TITLE: ADMINISTRATIVE NOTE DATE OF NOTE: MAY 27, 2021@10:29 ENTRY DATE: MAY 27, 2021@10:29:50 AUTHOR: DAVID ZULETA COSIGNER: URGENCY: STATUS: COMPLETED Scheduling: NO ANSWER/NO MACHINE On [id number] an attempt was made to contact to schedule appointment in [facility] [id number] clinic. There was no answer to my call and no way to leave message. [facility] [id number]. /es/ DAVID ZULETA Signed: 05/27/2021 10:30 DAVID ZULETA [facility]
--- OUTSIDE RECORDS SUMMARY | 2021-12-13 00:04 | XMS REPORT | Encounter Summary ---
[facility] Address Unknown Phone Unavailable Care Team Providers Care Core Winding Operator Name Role Phone YOSI TENORIO PCP Unavailable [...] PART A Sep 28, 2007 PART A [id number] SIMEONEFFIEY PATIENT MEDICARE (WNR) MEDICARE (M) PART B Sep 28, 2007 PART B [id number] SAMANTHA HENDRIX PATIENT Selected Encounter This section includes the information on record at [place] for the Encounter. Date/Time Encounter Type Encounter Description Reason Provider Source Jun 05, 2021 11:54 AM Outpatient Encounter ADMIN PAT ACTIVTIES (REBECCANO NCT) IHE Encounter Template Text not used by [place] Assessments - Encounter Diagnoses No Data Provided for This Section Plan of Treatment: Future Appointments (+ 6 months) and Future Tests (+/- 45 day s) The Plan of Treatment section includes future care activities for the patient fr om all [place] treatment facilities. This section includes future appointments and fu ture orders which are active, pending or scheduled. Future Appointments This section includes appointments that were scheduled t o occur 6 months from the date of the Encounter, up to a maximum of 20 appointme nts. The data comes from all [place] treatment facilities. Appointment Date/Time Appointment Type Appointment Facili ty Name Jun 11, 2021 09:00 AM AMBULATORY - PSYCHIATRY LEO Arteaga [facility] Jun 11, 2021 10:00 AM AMBULATORY - MEDICINE LEO LOPEZ [facility] Jun 15, 2021 08:00 AM AMBULATORY - NONE [facility] [place] [facility] Jul 06, 2021 10:00 AM AMBULATORY - MEDICINE [facility] Jul 20, 2021 10:00 AM AMBULATORY - PSYCHIATRY [facility] Aug 05, 2021 02:30 PM AMBULATORY - NONE [facility] [place] [facility] Aug 13, 2021 09:30 AM AMBULATORY - PSYCHIATRY LEO [facility] Aug 14, 2021 01:30 PM AMBULATORY - REHAB MEDICINE LEO LOPEZ [facility] Aug 25, 2021 02:00 PM AMBULATORY - PSYCHIATRY [facility] Aug 25, 2021 03:00 PM AMBULATORY - MEDICINE [facility] Sep 03, 2021 08:00 AM AMBULATORY - NONE [facility] [place] [facility] Sep 03, 2021 10:00 AM AMBULATORY - MEDICINE LEO LOPEZ [facility] Sep 10, 2021 10:00 AM AMBULATORY - MEDICINE LEO LOPEZ [facility] Sep 17, 2021 10:00 AM AMBULATORY - MEDICINE LEO LOPEZ [facility] Sep 23, 2021 08:30 AM AM[facility]UL[facility]ORY - NONE [facility] [place] [facility] Oct 02, 2021 10:30 AM AMBULATORY - REHAB MEDICINE LEO LOPE[facility] Nov 02, 2021 11:30 AM AMBULATORY - MEDICINE [facility] Nov 18, 2021 10:30 AM AMBULATORY - MEDICINE [facility] Nov 19, 2021 01:00 PM AMBULATORY - REHAB MEDICINE [facility]O [facility] Surgical Procedures: All associated to the encounter [...] and tobacco- related health factors from the [place] facility where the Encounter took place. Current Smoking Status This section includes the most current smoking, or tobacco -related health factor, from the [place] facility where the Encounter took place. Date/Time Current Smoking Status Comment Facility Jan 20, 2021 11:30 AM [place]-TOBACCO NEVER USED [facility] Tobacco Use History This section includes a history of the smoking, or tobacco -related health factors, that were collected on or before the date of the Encoun ter. The data comes from the [place] facility where the Encounter took place. Date/Time Smoking Status/Tobacco Use Comment [facility] it Dec 21, 2018 02:42 PM NON-TOBACCO USER [facility] Dec 30, 2017 08:55 AM NON-TOBACCO USER [facility] Dec 09, 2014 09:17 AM CURRENT NON-SMOKER [facility] Dec 09, 2014 09:17 AM LIFETIME NON-TOBACCO USER [facility] Dec 12, 2013 01:11 PM CURRENT NON-SMOKER JOHN [facility] Dec 12, 2013 01:11 PM LIFETIME NON-TOBACCO USER [facility] Aug 07, 2012 12:47 PM CURRENT NON-SMOKER JOHN [facility] Aug 07, 2012 12:47 PM LIFETIME NON-TOBACCO USER [facility] Jun 05, 2012 12:37 PM NON-TOBACCO USER [facility] Nov 04, 2011 09:02 AM NON-TOBACCO USER has not smoked for 25 years [facility] Oct 12, 2011 08:23 AM CURRENT NON-SMOKER JOHN [facility] Oct 12, 2011 08:23 AM LIFETIME NON-TOBACCO USER JOHN [facility] Oct 12, 2011 08:23 AM NON-TOBACCO USER [facility] Aug 15, 2006 01:28 PM NON-SMOKER JOHN [facility] Aug 15, 2006 01:28 PM NON-TOBACCO USER [facility] Sep 07, 2005 09:58 AM NON-SMOKER [facility] Sep 07, 2005 09:58 AM NON-TOBACCO USER [facility] April 08, 2003 08:44 AM CURRENT NON-SMOKER [facility] April 08, 2003 08:44 AM LIFETIME NON-SMOKER [facility] April 08, 2003 08:44 AM LIFETIME NON-TOBACCO USER [facility] April 08, 2003 08:44 AM NON-SMOKER JOHN [facility] April 08, 2003 08:44 AM NON-TOBACCO USER JOHN [facility] Advance Directives: All historical and current No [...] Encounter Note(s) Provider Source Jun 05, 2021 11:54 AM ADMINISTRATIVE NOTE: LOCAL TITLE: [place]-ADMIN [facility] STANDARD TITLE: ADMINISTRATIVE NOTE DATE OF NOTE: JUN 05, 2021@11:54 ENTRY DATE: JUN 05, 2021@11:54:12 AUTHOR: HAMMAD PALMA EXP COSIGNER: URGENCY: STATUS: COMPLETED [place] Administrative Note: RECORDS RECEIVED TODAY by: Fax Nature of report:progress notes Date(s) of record(s):05/22/2021 Sending green party:[place] [facility] // HAMMAD JOHN Signed: 06/05/2021 11:55 HAMMAD PALMA OC
--- OUTSIDE RECORDS SUMMARY | 2021-12-13 00:05 | XMS REPORT | Encounter Summary ---
[facility] Address Unknown Phone Unavailable Care Team Providers Care Card Dealer Name Role Phone YOSI TENORIO PCP Unavailable [...] PART A Sep 28, 2007 PART A [id number] SIMEONEFFIEY PATIENT MEDICARE (WNR) MEDICARE (M) PART B Sep 28, 2007 PART B [id number] SAMANTHA HENDRIX PATIENT Selected Encounter This section includes the information on record at [place] for the Encounter. Date/Time Encounter Type Encounter Description Reason Provider Source Jul 07, 2021 08:44 AM Outpatient Encounter ADMIN PAT ACTIVTIES (REBECCANO NCT) IHE Encounter Template Text not used by [place] Assessments - Encounter Diagnoses No Data Provided for This Section Plan of Treatment: Future Appointments (+ 6 months) and Future Tests (+/- 45 day s) The Plan of Treatment section includes future care activities for the patient fr om all [place] treatment facilities. This section includes future appointments and fu ture orders which are active, pending or scheduled. Future Appointments This section includes appointments that were scheduled t o occur 6 months from the date of the Encounter, up to a maximum of 20 appointme nts. The data comes from all [place] treatment facilities. Appointment Date/Time Appointment Type Appointment Facili ty Name Jul 20, 2021 10:00 AM AMBULATORY - PSYCHIATRY [facility] Aug 05, 2021 02:30 PM AMBULATORY - NONE [facility] [place] [facility] 15 Aug 13, 2021 09:30 AM AMBULATORY - PSYCHIATRY LEO LOPEZ [facility] Aug 14, 2021 01:30 PM AMBULATORY - REHAB MEDICINE LEO LOPEZ [facility] Aug 25, 2021 02:00 PM AMBULATORY - PSYCHIATRY [facility] Aug 25, 2021 03:00 PM AMBULATORY - MEDICINE [facility] Sep 03, 2021 08:00 AM [facility] [place] [facility] Sep 03, 2021 10:00 AM AMBULATORY - MEDICINE LEO LOPEZ [facility] Sep 10, 2021 10:00 AM AMBULATORY - MEDICINE LEO LOPEZ [facility] Sep 17, 2021 10:00 AM AMBULATORY - MEDICINE LEO LOPEZ [facility] Sep 23, 2021 08:30 AM AMBULATORY - NONE [facility] [place] [facility] Oct 02, 2021 10:30 AM AMBULATORY - REHAB MEDICINE LEO LOPEZ [facility] Nov 02, 2021 11:30 AM AMBULATORY - MEDICINE [facility] Nov 18, 2021 10:30 AM AMBULATORY - MEDICINE [facility] Nov 19, 2021 01:00 PM AMBULATORY - REHAB MEDICINE LEO LOPEZ [facility] Dec 07, 2021 06:30 PM AMBULATORY - PSYCHIATRY LEO LOPEZ [facility] Dec 10, 2021 03:00 PM AMBULATORY - NONE [facility] [place] [facility] Dec 21, 2021 01:30 PM AMBULATORY - NONE [facility] [place] [facility] 15 Dec 24, 2021 09:00 AM AMBULATORY - PSYCHIATRY [facility] Surgical Procedures: All associated to the encounter No Data Provided for This Section Lab Results: +/- 30 days of the encounter This section includes the Chemistry and Hematology Lab R esults on record with [place] for the patient. Radiology Reports and Pathology Report s are provided separately, in subsequent sections. Lab Results This section contains the Chemistry/Hematology Results chinmay t were resulted 30 days before or 30 days after the date of the Encounter. Date/Time Source Result Type Result - Unit Interpretation Reference Range Comment Jul 06, 2021 10:44 AM [facility] COMPREHENSIVE METABOLIC PA ASTON Specimen Type: PLASMA Comment: Race unknown, if multiply result by 1.210 Ordering Provider: YOSI TENORIO Report Released Date/Time: Jul 06, 2021 10:37 AM Reporting Lab: LEO LOPEZ [facility] [address] [facility] [id number] Performing Lab: LEO LOPEZ [facility] [address] [facility] [address] *CREATININE 1.13 mg/dL 0.70-1.30 UREA NITROGEN mg/dL [...] EGFR 62.8 Jul 06, 2021 10:44 AM [facility] ERYTHROCYTE SEDIMENTATION RATE Specimen Type: BLOOD No comment entered. Ordering Provider: YOSI TENORIO Report Released Date/Time: Jul 06, 2021 10:37 AM Reporting Lab: LEO LOPEZ [facility] [address] [facility] [address] Performing Lab: LEO LOPEZ [facility] [address] [facility] [address] ERYTHROCYTE SEDIMENTATION RATE 5 mm/hr 0-20 Jul 06, 2021 10:44 AM [facility] CBC & DIFF Specimen T ype: BLOOD No comment entered. Ordering Provider: YOSI TENORIO Report Released Date/Time: Jul 06, 2021 10:37 AM Reporting Lab: LEO LOPEZ [facility] [address] [facility] [address] Performing Lab: LEO LOPEZ [facility] [address] [facility] [address] WBC 6.4 K/cmm 3.60-11.20 RBC 4.89 M/ul [...] and tobacco- related health factors from the [place] facility where the Encounter took place. Current Smoking Status This section includes the most current smoking, or tobacco -related health factor, from the [place] facility where the Encounter took place. Date/Time Current Smoking Status Comment Facility Jan 20, 2021 11:30 AM [place]-TOBACCO NEVER USED [facility] Tobacco Use History This section includes a history of the smoking, or tobacco -related health factors, that were collected on or before the date of the Encoun ter. The data comes from the [place] facility where the Encounter took place. Date/Time Smoking Status/Tobacco Use Comment [facility] it Dec 21, 2018 02:42 PM NON-TOBACCO USER [facility] Dec 30, 2017 08:55 AM NON-TOBACCO USER [...] 08, 2003 08:44 AM NON-TOBACCO USER [facility] Advance Directives: All historical and current No Data Provided for This Section Radiology Reports: +/- 30 days of the encounter No Data Provided for This Section Pathology Reports: +/- 30 days of the encounter No Data Provided for This Section Encounter Notes: All associated encounter notes This section contains the clinical notes associated to the Encounter. Date/Time Encounter Note(s) Provider Source Jul 07, 2021 08:44 AM ADMINISTRATIVE NOTE: LOCAL TITLE: [place]-ADMINISTRATIVE NOTE (Gaudencio SWEENEY) STANDARD TITLE: ADMINISTRATIVE NOTE DATE OF NOTE: JUL 07, 2021@08:44 ENTRY DATE: JUL 07, 2021@08:44:16 AUTHOR: YOSI TENORIO COSIGNER: URGENCY: STATUS: COMPLETED [place]-ADMINISTRATIVE NOTE (BP,O) Has ADDENDA reviewed lab- lab is normal, glucose is elevated as pt. ate 2 donuts, please call and inform pt., thank you /marty/ YOSI CEJA Signed: 07/07/2021 08:44 Receipt Acknowledged By: 07/07/2021 09:17 /marty/ JOSE ROBERTO WALKER ACE, LPN 07/07/2021 ADDENDUM STATUS: COMPLETED [place]-DIAG RESULT (PERSON OR PHONE): LABORATORY Other results were normal. Comments: Lab normal. /marty/ JOSE ROBERTO GONZALEZ LPN Signed: 07/07/2021 09:19 YOSI TENORIO OC
--- OUTSIDE RECORDS SUMMARY | 2021-12-13 00:05 | XMS REPORT | Encounter Summary ---
Author [facility] Address Unknown Phone Unavailable Care Team Providers Care Director Paid Media Name Role Phone YOSI TENORIO PCP Unavailable [...] PART A Sep 28, 2007 PART A [id number] SIMEONEFFIEY PATIENT MEDICARE (WNR) MEDICARE (M) PART B Sep 28, 2007 PART B [id number] SAMANTHA HENDRIX PATIENT Selected Encounter This section includes the information on record at [place] for the Encounter. Date/Time Encounter Type Encounter Description Reason Provider Source Jan 29, 2021 03:58 PM Outpatient Encounter ADMIN PAT ACTIVTIES (MASNO NCT) IHE Encounter Template Text not used by [facility] Assessments - Encounter Diagnoses No Data Provided for This Section Plan of Treatment: Future Appointments (+ 6 months) and Future Tests (+/- 45 day s) The Plan of Treatment section includes future care activities for the patient fr om all [place] treatment facilities. This section includes future appointments and fu ture orders which are active, pending or scheduled. Future Appointments This section includes appointments that were scheduled t o occur 6 months from the date of the Encounter, up to a maximum of 20 appointme nts. The data comes from all [place] treatment facilities. Appointment Date/Time Appointment Type Appointment Facili tangela Vann Feb 26, 2021 02:00 PM AMBULATORY - MEDICINE [facility] Mar 12, 2021 10:00 AM AMBULATORY - MEDICINE [facility] Mar 25, 2021 03:00 PM [facility]INE [facility] April 02, 2021 10:00 AM AMBULATORY - MEDICINE [facility] April 02, 2021 01:30 PM AMBULATORY - MEDICINE [facility] April 07, 2021 09:30 AM AMBULATORY - NONE [facility] JOVANY MARQUIS April 16, 2021 10:00 AM AMBULATORY - MEDICINE [facility] Apr 30, 2021 10:00 AM AMBULATORY - MEDICINE [facility] May 04, 2021 11:30 AM AMBULATORY - REHAB MEDICINE [facility] May 07, 2021 10:00 AM AMBULATORY - MEDICINE [facility] May 07, 2021 12:30 PM AMBULATORY - MEDICINE [facility] May 14, 2021 10:00 AM AMBULATORY - MEDICINE [facility] May 22, 2021 08:00 AM AMBULATORY - NONE [facility] JOVANY MARQUIS May 28, 2021 10:00 AM AMBULATORY - MEDICINE [facility] Jun 02, 2021 01:30 PM AMBULATORY - REHAB MEDICINE [facility] Jun 04, 2021 10:00 AM AMBULATORY - MEDICINE [facility] Jun 11, 2021 09:00 AM AMBULATORY - PSYCHIATRY [facility] Jun 11, 2021 10:00 AM AMBULATORY - MEDICINE [facility] Jun 15, 2021 08:00 AM AMBULATORY - NONE [facility] DARREN MARQUISN Jul 06, 2021 10:00 AM AMBULATORY - MEDICINE [facility] Active, Pending, and Scheduled Orders This [...] the Encounter. The data comes from all [place] treatment facilities. Test Date/Time Test Type Test Details Facility Name Jan 21, 2021 12:47 PM Laboratory - Chemistry Order CELIAC DI SEASE PANEL (QUEST) 2 RED SERUM-NO GEL SKB D[facility]A PHILLIPS Surgical Procedures: All associated to the encounter No Data Provided for This Section Lab Results: +/- 30 days of the encounter This section includes the Chemistry and Hematology Lab R esults on record with [place] for the patient. Radiology Reports and Pathology Report s are provided separately, in subsequent sections. Lab Results This section contains the Chemistry/Hematology Results chinmay t were resulted 30 days before or 30 days after the date of the Encounter. Date/Time Source Result Type Result - Unit Interpretation Reference Range Comment Jan 20, 2021 09:06 AM [facility] COMPREHENSIVE METABOLIC PA ASTON Specimen Type: PLASMA Comment: Race unknown, if multiply result by 1.210 Ordering Provider: YOSI TENORIO Report Released Date/Time: Jan 08, 2021 10:27 AM Reporting Lab: [facility] [address] [facility] [address] Performing Lab: [facility] [address] [facility] [address] *CREATININE 1.07 mg/dL 0.70-1.30 UREA NITROGEN mg/dL 12 mg/dL 9-25 GLUCOSE 125 mg/dL H 70-99 SODIUM 139 mEq/L 136-145 POTASSIUM 4.2 mEq/L 3.5-5 CALCIUM (mg/dL) 8.6 mg/dL 8.4-10.2 PROTEIN,TOTAL 7.3 g/dL 6-8.6 ALBUMIN 4.4 g/dL 3.4-5 TOTAL BILIRUBIN 0.7 mg/dL 0.2-1.0 ASPARTATE TRANSAMINASE 31 U/L 5-34 ALANINE AMINOTRANSFERASE 47 U/L H 8-40 ANION GAP 8.3 8-16 CHLORIDE 107 mEq/L 98-107 CO2 24.0 mEq/L 22-31 ALKALINE PHOSPHATASE 73 U/L 40-150 EGFR 66.8 Jan 20, 2021 09:06 AM D[facility] PHILLIPS LIPID PROFILE(HDL,TRIG,CHO L,LDL) Specimen Type: PLASMA Comment: Race unknown, if multiply result by 1.210 Ordering Provider: YOSI TENORIO Report Released Date/Time: Jan 08, 2021 10:27 AM Reporting Lab: [facility] [address] [facility] [address] Performing Lab: [facility] [address] [facility] [address] CHOLESTEROL 219 mg/dL H 0-200 TRIGS 130 mg/dL 0-150 HDL-CHOLESTEROL 44 mg/dL > 40 LDL (CALC) 149.0 mg/dL Jan 20, 2021 09:06 AM [facility] TSH Specimen T ype: SERUM No comment entered. Ordering Provider: YOSI TENORIO Report Released Date/Time: Jan 08, 2021 10:27 AM Reporting Lab: [facility] [address] [facility] [address] Performing Lab: [facility] [place] [address] [facility] [address] TSH 2.99 uIU/mL 0.47-5 Jan 20, 2021 09:06 AM [facility] PROSTATIC SPECIFIC ANTIGEN (TOTAL) Specimen Type: SERUM No comment entered. Ordering Provider: YOSI TENORIO Report Released Date/Time: Jan 08, 2021 10:27 AM Reporting Lab: [facility] [place] [address] [facility] [address] Performing Lab: [facility] [address] [facility] [address] PROSTATIC SPECIFIC ANTIGEN(TOTAL) 0.4 ng/mL 0-4 Jan 20, 2021 09:06 AM [facility] CBC & DIFF Specimen T ype: BLOOD No comment entered. Ordering Provider: YOSI TENORIO Report Released Date/Time: Jan 08, 2021 10:27 AM Reporting Lab: [facility] [address] [facility] [address] Performing Lab: [facility] [place] [id number] [facility] [address] WBC 6.5 K/cmm 3.60-11.20 RBC 5.12 M/ul 4.1-5.7 HGB 15.2 g/dl 13.1-16.8 HCT 44.6 % 38.2-48.4 MCV 87.1 fl 80.1-98.5 MCH 29.7 pg 27.0-34.0 MCHC 34.1 g/dl 33.0-36.0 PLATELET COUNT 293 K/cmm 150-400 MPV 10.3 fl 7.5-11.2 RDW 12.4 % 11.8-15.1 LYMPHOCYTES, AUTO% 25.8 % NEUTROPHILS, AUTO % 59.4 % MONOCYTES, AUTO% 10.0 % MONOCYTES, ABSOLUTE 0.7 K/cmm 0.19-0.80 NEUTROPHILS, ABSOLUTE 3.9 K/cmm 2.10-8.0 0 EOSINOPHILS, ABSOLUTE 0.2 K/cmm 0.00-0.6 0 BASOPHILS, ABSOLUTE 0.0 K/cmm 0.00-0.20 EOSINOPHILS, AUTO% 3.7 % BASOPHILS, AUTO% 0.6 % LYMPHOCYTES, ABSOLUTE 1.7 K/cmm 0.77-4.5 0 IMMATURE GRANS, ABSOLUTE 0.03 K/cmm 0.00 -0.05 IMMATURE GRANS, AUTO % 0.5 % Vital Signs: All taken on the encounter date No Data Provided for This Section Immunizations: All administered on the encounter date No Data Provided for This Section Social History: Smoking Status (Most current) and Tobacco Use (All prior to enco unter date) This section includes the most current, and the historical, smoking and tobacco- related health factors from the [place] facility where the Encounter took place. Current Smoking Status This section includes the most current smoking, or tobacco -related health factor, from the [place] facility where the Encounter took place. Date/Time Current Smoking Status Comment Facility Jan 20, 2021 11:30 AM [place]-TOBACCO NEVER USED [facility] Tobacco Use History This section includes a history of the smoking, or tobacco -related health factors, that were collected on or before the date of the Encoun ter. The data comes from the [place] facility where the Encounter took place. Date/Time Smoking Status/Tobacco Use Comment [facility] Dec 21, 2018 02:42 PM NON-TOBACCO USER [...] the Encounter. Date/Time Encounter Note(s) Provider Source Jan 29, 2021 03:58 PM ADMINISTRATIVE NOTE: [facility] TITLE: TN-ADMINISTRATIVE NOTE (BP,O) STANDARD TITLE: ADMINISTRATIVE NOTE DATE OF NOTE: JAN 29, 2021@15:58 ENTRY DATE: JAN 29, 2021@15:58:40 AUTHOR: YOSI TENORIO COSIGNER: URGENCY: STATUS: COMPLETED reviewed lab- fbs sl. elevated at 125, limit sweets and carbs., chol. sl. elevated at 219, low fat diet, exercise as tolerated, the rest of the lab is normal, celiac panel is ordered, pt. needs to come in for this lab, he was asking about this, please call and inform pt., thank you /es/ YOSI PAGAN-DELFINA Signed: 01/29/2021 16:12 Receipt Acknowledged By: * AWAITING SIGNATURE * JOSE ROBERTO GONZALEZ,YOSI JOHN OC
--- OUTSIDE RECORDS SUMMARY | 2021-12-13 00:05 | XMS REPORT | Encounter Summary ---
[facility] Address Unknown Phone Unavailable Care Team Providers Care Insurance Sales Specialist Name Role Phone YOSI TENORIO PCP [...] PART A Sep 28, 2007 PART A [id number] SIMEONEFFIEY PATIENT MEDICARE (WNR) MEDICARE (M) PART B Sep 28, 2007 PART B [id number] SAMANTHA HENDRIX PATIENT Selected Encounter This section includes the information on record at [place] for the Encounter. Date/Time Encounter Type Encounter Description Reason Provider Source Jun 10, 2021 12:27 PM Outpatient Encounter ADMIN PAT ACTIVTIES (REBECCANO NCT) IHE Encounter Template Text not used by [facility] Assessments - Encounter Diagnoses No Data Provided for This Section Plan of Treatment: Future Appointments (+ 6 months) and Future Tests (+/- 45 day s) The Plan of Treatment section includes future care activities for the patient fr om all [place] treatment facilities. This section includes future appointments and fu ture orders which are active, pending or scheduled. Future Appointments This section includes appointments that were scheduled t o occur 6 months from the date of the Encounter, up to a maximum of 20 appointme nts. The data comes from all [place] treatment facilities. Appointment Date/Time Appointment Type Appointment Facili ty Name Jun 11, 2021 09:00 AM AMBULATORY - PSYCHIATRY [facility] WaiteMichelle [facility] Jun 11, 2021 10:00 AM AMBULATORY - MEDICINE [facility] Jun 15, 2021 08:00 AM AMBULATORY - NONE [facility] Jul 06, 2021 10:00 AM AMBULATORY - MEDICINE [facility] Jul 20, 2021 10:00 AM AMBULATORY - PSYCHIATRY [facility] Aug 05, 2021 02:30 PM AMBULATORY - NONE [facility] Aug 13, 2021 09:30 AM AMBULATORY - PSYCHIATRY [facility] Aug 14, 2021 01:30 PM AMBULATORY - REHAB MEDICINE [facility] Aug 25, 2021 02:00 PM AMBULATORY - PSYCHIATRY [facility] Aug 25, 2021 03:00 PM AMBULATORY - MEDICINE [facility] Sep 03, 2021 08:00 AM AMBULATORY - NONE [facility] Sep 03, 2021 10:00 AM AMBULATORY - MEDICINE [facility] Sep 10, 2021 10:00 AM AMBULATORY - MEDICINE [facility] Sep 17, 2021 10:00 AM AMBULATORY - MEDICINE [facility] Sep 23, 2021 08:30 AM AMBULATORY - NONE [facility] Oct 02, 2021 10:30 AM AMBULATORY - REHAB MEDICINE [facility] Nov 02, 2021 11:30 AM AMBULATORY - MEDICINE [facility] Nov 18, 2021 10:30 AM AMBULATORY - MEDICINE [facility] Nov 19, 2021 01:00 PM AMBULATORY - REHAB MEDICINE [facility] Dec 07, 2021 06:30 PM AMBULATORY - PSYCHIATRY [facility] Surgical Procedures: All associated to the encounter No Data Provided for This Section Lab Results: +/- 30 days of the encounter This section includes the Chemistry and Hematology Lab R esults on record with [place] for the patient. Radiology Reports and Pathology Report s are provided separately, in subsequent sections. Lab Results This section contains the Chemistry/Hematology Results chinmay t were resulted 30 days before or 30 days after the date of the Encounter. Date/Time Source Result Type Result - Unit Interpretation Reference Range Comment Jul 06, 2021 10:[address] [facility] COMPREHENSIVE METABOLIC PA ASTON Specimen Type: PLASMA Comment: Race unknown, if multiply result by 1.210 Ordering Provider: YOSI TENORIO Report Released Date/Time: Jul 06, 2021 10:37 AM Reporting Lab: [facility] [address] [facility] [place] [address] Performing Lab: [facility] [address] [facility] [place] [address] *CREATININE 1.13 mg/dL 0.70-1.30 UREA NITROGEN mg/dL [...] EGFR 62.8 Jul 06, 2021 10:[address] [facility] ERYTHROCYTE SEDIMENTATION RATE Specimen Type: BLOOD No comment entered. Ordering Provider: YOSI TENORIO Report Released Date/Time: Jul 06, 2021 10:37 AM Reporting Lab: [facility] [address] [facility] [place] [address] Performing Lab: [facility] [address] [facility] [place] [address] ERYTHROCYTE SEDIMENTATION RATE 5 mm/hr 0-20 Jul 06, 2021 10:[address] [facility] CBC & DIFF Specimen T ype: BLOOD No comment entered. Ordering Provider: YOSI TENORIO Report Released Date/Time: Jul 06, 2021 10:37 AM Reporting Lab: [facility] [address] [facility] [place] [address] Performing Lab: [facility] WaiteMichelle [facility] [address] [place] [address] WBC 6.4 K/cmm 3.60-11.20 RBC 4.89 M/ul [...] and tobacco- related health factors from the [place] facility where the Encounter took place. Current Smoking Status This section includes the most current smoking, or tobacco -related health factor, from the [place] facility where the Encounter took place. Date/Time Current Smoking Status Comment Facility Jan 20, 2021 11:30 AM [place]-TOBACCO NEVER USED [facility] Tobacco Use History This section includes a history of the smoking, or tobacco -related health factors, that were collected on or before the date of the Encoun ter. The data comes from the [place] facility where the Encounter took place. Date/Time [...] 2011 08:23 AM LIFETIME NON-TOBACCO USER JOHN OC Oct 12, 2011 08:23 AM NON-TOBACCO [...] Encounter Note(s) Provider Source Jun 10, 2021 12:27 PM ADMINISTRATIVE NOTE: LOCAL TITLE: OR-ADMIN MSA STANDARD TITLE: ADMINISTRATIVE NOTE DATE OF NOTE: JUN 10, 2021@12:27 ENTRY DATE: JUN 10, 2021@12:27:26 AUTHOR: PALMA,HAMMAD J EXP COSIGNER: URGENCY: STATUS: COMPLETED [facility] Administrative Note: RECORDS RECEIVED TODAY by: Fax Nature of report:rx for spiriva respimat Date(s) of record(s):06/10/2021 Sending alliance party:White [facility] [place] /marty/ HAMMAD JOHN Signed: 06/10/2021 12:28 HAMMAD PALMA OC
--- OUTSIDE RECORDS SUMMARY | 2021-12-13 00:05 | XMS REPORT | Encounter Summary ---
Author Author [facility] SAMANTHA goldstein Organization Department [facility] Address Unknown Phone Unavailable Care Team Providers Care Hazardous Materials Waste Technician Name Role Phone YOSI TENORIO PCP Unavailable [...] PART A Sep 28, 2007 PART A [id number] SIMEONEFFIEY PATIENT MEDICARE (WNR) MEDICARE (M) PART B Sep 28, 2007 PART B [id number] SIMEONSAMANTHA PATIENT Selected Encounter This section includes the information on record at [place] for the Encounter. Date/Time Encounter Type Encounter Description Reason Provider Source Dec 23, 2020 12:46 PM Outpatient Encounter ADMIN PAT ACTIVTIES (MASNO NCT) IHE Encounter Template Text not used by [place] Assessments - Encounter Diagnoses No Data Provided for This Section Plan of Treatment: Future Appointments (+ 6 months) and Future Tests (+/- 45 day s) The Plan of Treatment section includes future care activities for the patient fr om all [place] treatment facilities. This section includes future appointments and fu ture orders which are active, pending or scheduled. Future Appointments This section includes appointments that were scheduled t o occur 6 months from the date of the Encounter, up to a maximum of 20 appointme nts. The data comes from all [facility] facilities. Appointment Date/Time Appointment Type Appointment Melissa honeycutt Name Jan 20, 2021 11:30 AM AMBULATORY - MEDICINE [facility] Feb 26, 2021 02:00 PM AMBULATORY - MEDICINE [facility] Mar 12, 2021 10:00 AM AMBULATORY - MEDICINE [facility] Mar 25, 2021 03:00 PM AMBULATORY - MEDICINE [facility] April 02, 2021 10:00 AM AMBULATORY - MEDICINE [facility] April 02, 2021 01:30 PM AMBULATORY - MEDICINE [facility] April 07, 2021 09:30 AM AMBULATORY - NONE [facility] JOVANY Flood April 16, 2021 10:00 AM AMBULATORY - MEDICINE [facility] Apr 30, 2021 10:00 AM AMBULATORY - MEDICINE [facility] May 04, 2021 11:30 AM AMBULATORY - REHAB MEDICINE [facility] May 07, 2021 10:00 AM AMBULATORY - MEDICINE [facility] May 07, 2021 12:30 PM AMBULATORY - MEDICINE [facility] May 14, 2021 10:00 AM AMBULATORY - MEDICINE [facility] May 22, 2021 08:00 AM AMBULATORY - NONE [facility] JOVANY Flood May 28, 2021 10:00 AM AMBULATORY - MEDICINE [facility] Jun 02, 2021 01:30 PM AMBULATORY - REHAB MEDICINE [facility] Jun 04, 2021 10:00 AM AMBULATORY - MEDICINE [facility] Jun 11, 2021 09:00 AM AMBULATORY - PSYCHIATRY [facility] Jun 11, 2021 10:00 AM AMBULATORY - MEDICINE [facility] Jun 15, 2021 08:00 AM [facility] Active, Pending, and Scheduled Orders This section [...] the Encounter. The data comes from all [place] treatment facilities. Test Date/Time Test Type Test Details Facility Name Jan 21, 2021 12:47 PM Laboratory - Chemistry Order CELIAC DI SEASE PANEL (QUEST) 2 RED SERUM-NO GEL SKB WC [facility] Surgical Procedures: All associated to the encounter No Data Provided for This Section Lab Results: +/- 30 days of the encounter This section includes the Chemistry and Hematology Lab R esults on record with [place] for the patient. Radiology Reports and Pathology Report s are provided separately, in subsequent sections. Lab Results This section contains the Chemistry/Hematology Results chinmay t were resulted 30 days before or 30 days after the date of the Encounter. Date/Time Source Result Type Result - Unit Interpretation Reference Range Comment Jan 20, 2021 09:06 AM [facility] COMPREHENSIVE METABOLIC PA ASTON Specimen Type: PLASMA Comment: Race unknown, if multiply result by 1.210 Ordering Provider: YOSI TENORIO Report Released Date/Time: Jan 08, 2021 10:27 AM Reporting Lab: [facility] [address] [facility] [address] Performing Lab: [facility] [address] [facility] [address] *CREATININE 1.07 mg/dL 0.70-1.30 UREA NITROGEN mg/dL [...] 2021 10:27 AM Reporting Lab: [facility] [address] [facility] [address] Performing Lab: [facility] [address] [facility] [address] CHOLESTEROL 219 mg/dL H 0-200 TRIGS 130 mg/dL 0-150 HDL-CHOLESTEROL 44 mg/dL > 40 LDL (CALC) 149.0 mg/dL Jan 20, 2021 09:06 AM [facility] TSH Specimen T ype: SERUM No comment entered. Ordering Provider: YOSI TENORIO Report Released Date/Time: Jan 08, 2021 10:27 AM Reporting Lab: [facility] [address] [facility] [address] Performing Lab: [facility] [place] [address] [facility] [address] TSH 2.99 uIU/mL 0.47-5 Jan 20, 2021 09:06 AM [facility] PROSTATIC SPECIFIC ANTIGEN (TOTAL) Specimen Type: SERUM No comment entered. Ordering Provider: YOSI TENORIO Report Released Date/Time: Jan 08, 2021 10:27 AM Reporting Lab: [facility] [place] [id number] [facility] [address] Performing Lab: [facility] [place] [address] [facility] [address] PROSTATIC SPECIFIC ANTIGEN(TOTAL) 0.4 ng/mL 0-4 Jan 20, 2021 09:06 AM [facility] CBC & DIFF Specimen T ype: BLOOD No comment entered. Ordering Provider: YOSI TENORIO Report Released Date/Time: Jan 08, 2021 10:27 AM Reporting Lab: [facility] [address] [facility] [address] Performing Lab: [facility] [place] [address] [facility] [address] WBC 6.5 K/cmm 3.60-11.20 RBC 5.12 M/ul [...] and tobacco- related health factors from the [place] facility where the Encounter took place. Current Smoking Status This section includes the most current smoking, or tobacco -related health factor, from the [place] facility where the Encounter took place. Date/Time Current Smoking Status Comment Facility Jun 12, 2018 01:16 PM [place]-TOBACCO QUIT 15 YRS OR MORE [facility] Tobacco Use History This section includes a history of the smoking, or tobacco -related health factors, that were collected on or before the date of the Encoun ter. The data comes from the [place] facility where the Encounter took place. Date/Time Smoking Status/Tobacco Use Comment [facility] Jun 12, 2018 01:16 PM [place]-TOBACCO QUIT 15 YRS OR MORE [facility] Sep 24, 2015 08:23 AM NON-TOBACCO USER LEO Méndez Nov 07, 2014 12:58 PM NON-TOBACCO USER [facility] Oct 01, 2014 02:57 PM NON-TOBACCO USER [facility] Jul 08, 2011 11:42 AM NON-TOBACCO USER [facility] Sep 21, 2007 09:37 AM NON-TOBACCO USER Pt. reports he quit smoking over 20 years ago. [facility] Advance Directives: All historical and current No Data Provided for This Section Radiology Reports: +/- 30 days of the encounter No Data Provided for This Section Pathology Reports: +/- 30 days of the encounter No Data Provided for This Section Encounter Notes: All associated encounter notes This section contains the clinical notes associated to the Encounter. Date/Time Encounter Note(s) Provider Source Dec 23, 2020 12:46 PM RESPIRATORY THERAPY FLOWSHEE T: LOCAL TITLE: WI-RESPIRATORY THERAPY. STANDARD TITLE: RESPIRATORY THERAPY FLOWSHEET DATE OF NOTE: DEC 23, 2020@12:46 ENTRY DATE: DEC 23, 2020@12:46:33 AUTHOR: ALMA DELIA THOMSON COSIGNER: RADHA ROLLE URGENCY: STATUS: COMPLETED VM received from Dr. Villanueva's office requesting a 30-day compliance report be faxed to their office. Pt's CPAP remotely accessed. 30-day compliance report downloaded and sent via Right Fax. Pt's data showed and AHI WNL with 100% compliance. /marty/ ALMA DELIA THOMSON PUBLIC SPEAKER/CPFT Signed: 12/23/2020 12:49 /marty/ RADHA ROLLE STAFF PHYSICIAN/ASPARAGUS CUTTER Cosigned: 12/23/2020 13:54 [facility]
--- OUTSIDE RECORDS SUMMARY | 2021-12-13 00:05 | XMS REPORT | Encounter Summary ---
Author [facility] Address Unknown Phone Unavailable Care Team Providers Care Hack Saw Operator Name Role Phone YOSI TENORIO PCP [...] PART A Sep 28, 2007 PART A [id number] SIMEONEFFIEY PATIENT MEDICARE (WNR) MEDICARE (M) PART B Sep 28, 2007 PART B [id number] SAMANTHA HENDRIX PATIENT Selected Encounter This section includes the information on record at [place] for the Encounter. Date/Time Encounter Type Encounter Description Reason Provider Source Jan 30, 2021 11:18 AM Outpatient Encounter ADMIN PAT ACTIVTIES (REBECCANO NCT) IHE Encounter Template Text not used by [facility] Assessments - Encounter Diagnoses No Data Provided for This Section Plan of Treatment: Future Appointments (+ 6 months) and Future Tests (+/- 45 day s) The Plan of Treatment section includes future care activities for the patient fr om all [place] treatment facilities. This section includes future appointments and fu ture orders which are active, pending or scheduled. Future Appointments This section includes appointments that were scheduled t o occur 6 months from the date of the Encounter, up to a maximum of 20 appointme nts. The data comes from all [place] treatment facilities. Appointment Date/Time Appointment Type Appointment Facili tangela Vann Feb 26, 2021 02:00 PM AMBUL[facility]ORY - [facility]ICINE [facility] Mar 12, 2021 10:00 AM [facility]BUL[facility] - MEDICINE [facility] Mar 25, 2021 03:00 PM AMBULATORY - MEDICINE [facility] April 02, 2021 10:00 AM [facility] - MEDICINE [facility] April 02, 2021 01:30 PM AMBULATORY - MEDICINE [facility] April 07, 2021 09:30 AM AMBULATORY - NONE [facility] JOVANY [facility] April 16, 2021 10:00 AM AM[facility]UL[facility]ORY - MEDICINE [facility] Apr 30, 2021 10:00 AM AM[facility]UL[facility]ORY - MEDICINE [facility] May 04, 2021 11:30 AM AMBULATORY - REHAB MEDICINE [facility] May 07, 2021 10:00 AM AM[facility]ULATORY - MEDICINE [facility] May 07, 2021 12:30 PM AM[facility]UL[facility]ORY - MEDICINE [facility] May 14, 2021 10:00 AM AM[facility]UL[facility] - MEDICINE [facility] May 22, 2021 08:00 AM AMBULATORY - NONE [facility] May 28, 2021 10:00 AM AMBULATORY - MEDICINE [facility] Jun 02, 2021 01:30 PM AMBULATORY - REHAB MEDICINE [facility] [place] [facility] Jun 04, 2021 10:00 AM AMBULATORY - MEDICINE [facility] Jun 11, 2021 09:00 AM AMBULATORY - PSYCHIATRY [facility] [place] [facility] Jun 11, 2021 10:00 AM AMBULATORY - MEDICINE [facility] Jun 15, 2021 08:00 AM AMBULATORY - NONE [facility] DARREN [facility]QU[facility]N Jul 06, 2021 10:00 AM AMBULATORY - MEDICINE [facility] Active, Pending, and Scheduled Orders This section [...] the Encounter. The data comes from all [place] treatment facilities. Test Date/Time Test Type Test [...] Hematology Lab R esults on record with [place] for the patient. Radiology Reports and Pathology Report s are provided separately, in subsequent sections. Lab Results This section contains the Chemistry/Hematology Results chinmay t were resulted 30 days before or 30 days after the date of the Encounter. Date/Time Source Result Type Result - Unit Interpretation Reference Range Comment Jan 20, 2021 09:06 AM [facility] COMPREHENSIVE METABOLIC PA ASTON Specimen Type: PLASMA Comment: Race unknown, if multiply result by 1.210 Ordering Provider: YOSI TENORIO Report Released Date/Time: Jan 08, 2021 10:27 AM Reporting Lab: [facility] [place] [address] [facility] [address] Performing Lab: [facility] [place] [facility] [address] [facility] [address] *CREATININE 1.07 mg/dL 0.70-1.30 UREA NITROGEN mg/dL [...] 08, 2021 10:27 AM Reporting Lab: [place] [facility] [address] [facility] [address] Performing Lab: [place] [facility] [address] [facility] [address] CHOLESTEROL 219 mg/dL H 0-200 TRIGS 130 mg/dL 0-150 HDL-CHOLESTEROL 44 mg/dL > 40 LDL (CALC) 149.0 mg/dL Jan 20, 2021 09:06 AM [facility] TSH Specimen T ype: SERUM No comment entered. Ordering Provider: YOSI TENORIO Report Released Date/Time: Jan 08, 2021 10:27 AM Reporting Lab: [place] [facility] [address] [facility] [address] Performing Lab: [facility] [place] [address] [facility] [address] TSH 2.99 uIU/mL 0.47-5 Jan 20, 2021 09:06 AM [facility] PROSTATIC SPECIFIC ANTIGEN (TOTAL) Specimen Type: SERUM No comment entered. Ordering Provider: YOSI TENORIO Report Released Date/Time: Jan 08, 2021 10:27 AM Reporting Lab: [place] [address] [facility] [address] Performing Lab: [place] [facility] [address] [facility] [address] PROSTATIC SPECIFIC ANTIGEN(TOTAL) 0.4 ng/mL 0-4 Jan 20, 2021 09:06 AM [facility] CBC & DIFF Specimen T ype: BLOOD No comment entered. Ordering Provider: YOSI TENORIO Report Released Date/Time: Jan 08, 2021 10:27 AM Reporting Lab: [place] [facility] [address] [facility] [address] Performing Lab: [place] [place] [address] [facility] [address] WBC 6.5 K/cmm 3.60-11.20 RBC 5.12 M/ul [...] and tobacco- related health factors from the [place] facility where the Encounter took place. Current Smoking Status This section includes the most current smoking, or tobacco -related health factor, from the [place] facility where the Encounter took place. Date/Time Current Smoking Status Comment Facility Jan 20, 2021 11:30 AM [place]-TOBACCO NEVER USED [facility] Tobacco Use History This section includes a history of the smoking, or tobacco -related health factors, that were collected on or before the date of the Encoun ter. The data comes from the [place] facility where the Encounter took place. Date/Time Smoking Status/Tobacco Use Comment [facility] Dec 21, 2018 02:42 PM NON-TOBACCO USER [...] Encounter. Date/Time Encounter Note(s) Provider Source Jan 30, 2021 11:19 AM DIAGNOSTIC STUDY REPORT: LOCAL TITLE: WI-FORM LETTER DIAGNOSTIC RESULTS STANDARD TITLE: DIAGNOSTIC STUDY REPORT DATE OF NOTE: JAN 30, 2021@11:19 ENTRY DATE: JAN 30, 2021@11:19:11 AUTHOR: JOSE ROBERTO GONZALEZ COSIGNER: URGENCY: STATUS: COMPLETED Department of [facility] [address] [place] [place] [address] SAMANTHA HENDRIX [address], [place], [address] Jan Dear SAMANTHA HENDRIX, The purpose of this letter is to inform you of your test results done recently at the [facility],[place], [place]. LABORATORY glucose results were abnormal Comments: Fasting blood sugar slightly elevated at 125, limit sweets nad carbs, cholesterol slightly elevated at 219, low fat diet, exercise as tolerated, the rest of the lab is normal. celiac panel is ordered. Vet needs to come in for this lab. These test results are reported to you to keep you informed and involved in your health care. If you have any question about these results, please contact your health care provider at or . Option #2. Thank you! Your Primary Care Team. JOSE ROBERTO GONZALEZ OC
--- OUTSIDE RECORDS SUMMARY | 2021-12-13 00:06 | XMS REPORT | Encounter Summary ---
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 Date/Time Encounter Type Encounter Description Reason Provider Source Jul 13, 2021 10:06 AM Outpatient Encounter ADMIN PAT ACTIVTIES (REBECCANO [...] appointme nts. The data comes from all [place] treatment facilities. Appointment Date/Time Appointment Type Appointment Facili ty Name Jul 20, 2021 10:00 AM AMBULATORY - PSYCHIATRY [facility] Aug 05, 2021 02:30 PM AMBULATORY - NONE [facility], [facility] 15 Aug 13, 2021 09:30 AM AMBULATORY - PSYCHIATRY [facility] Aug 14, 2021 01:30 PM AMBULATORY - REHAB MEDICINE [facility] Aug 25, 2021 02:00 PM AMBULATORY - PSYCHIATRY [facility] Aug 25, 2021 03:00 PM AMBULATORY - MEDICINE [facility] Sep 03, 2021 08:00 AM [facility] Sep 03, 2021 10:00 AM AMBULATORY - MEDICINE [facility] Sep 10, 2021 10:00 AM AMBULATORY - MEDICINE [facility] Sep 17, 2021 10:00 AM AMBULATORY - MEDICINE [facility] Sep 23, 2021 08:30 AM [facility] Oct 02, 2021 10:30 AM AMBULATORY - REHAB MEDICINE [facility] Nov 02, 2021 11:30 AM AMBULATORY - MEDICINE [facility] Nov 18, 2021 10:30 AM AMBULATORY - MEDICINE [facility] Nov 19, 2021 01:00 PM AMBULATORY - REHAB MEDICINE [facility] Dec 07, 2021 06:30 PM AMBULATORY - PSYCHIATRY [facility] Dec 10, 2021 03:00 PM AMBULATORY - NONE [facility] 15 Dec 21, 2021 01:30 PM [facility] Dec 24, 2021 09:00 AM AMBULATORY - PSYCHIATRY [facility] Surgical Procedures: All associated to the encounter No Data Provided for This Section Lab Results: +/- 30 days of the encounter This section includes the Chemistry and Hematology Lab R esults on record with [place] for the patient. Radiology Reports and Pathology Report s are provided separately, in subsequent sections. Lab Results This section contains the Chemistry/Hematology Results chinmay t were resulted 30 days before or 30 days after the date of the Encounter. Date/Time Source Result Type Result - Unit Interpretation Reference Range Comment Jul 06, 2021 10:44 AM [facility] COMPREHENSIVE METABOLIC PA ASTON Specimen Type: PLASMA Comment: Race unknown, if multiply result by 1.210 Ordering Provider: YOSI TENORIO Report Released Date/Time: Jul 06, 2021 10:37 AM Reporting Lab: [facility] [address] [facility] [address] Performing Lab: [facility] [address] [facility] [address] *CREATININE 1.13 mg/dL 0.70-1.30 UREA NITROGEN mg/dL [...] 62.8 Jul 06, 2021 10:44 AM [facility] ERYTHROCYTE SEDIMENTATION RATE Specimen Type: BLOOD No comment entered. Ordering Provider: YOSI TENORIO Report Released Date/Time: Jul 06, 2021 10:37 AM Reporting Lab: [facility] [address] [facility] [address] Performing Lab: [facility] [address] [facility] [address] ERYTHROCYTE SEDIMENTATION RATE 5 mm/hr 0-20 Jul 06, 2021 10:44 AM [facility] CBC & DIFF Specimen T ype: BLOOD No comment entered. Ordering Provider: YOSI TENORIO Report Released Date/Time: Jul 06, 2021 10:37 AM Reporting Lab: [facility] [address] [facility] [address] Performing Lab: [facility] [address] [facility] [address] WBC 6.4 K/cmm 3.60-11.20 RBC 4.89 M/ul [...] place. Date/Time Current Smoking Status Comment Facility Mar 20, 2004 10:47 AM NON-TOBACCO USER [facility] J[facility]ANY [facility] 15 Tobacco Use History This section includes a history of the smoking, or tobacco -related health factors, that were collected on or before the date of the Encoun ter. The data comes from the [place] facility where the Encounter took place. Date/Time Smoking Status/Tobacco Use Comment [facility] Mar 20, 2004 10:47 AM NON-TOBACCO USER [facility] JOVANY [facility] 15 Advance Directives: All historical and current No Data Provided for This Section Radiology Reports: +/- 30 days of the encounter No Data Provided for This Section Pathology Reports: +/- 30 days of the encounter No Data Provided for This Section Encounter Notes: All associated encounter notes This section contains the clinical notes associated to the Encounter. Date/Time Encounter Note(s) Provider Source Jul 13, 2021 10:06 AM NONVA NOTE: LOCAL TITLE: COMMUNITY CARE-COORDINATION NOTE [place] STANDARD TITLE: NONVA NOTE DATE OF NOTE: JUL 13, 2021@10:06 ENTRY DATE: JUL 13, 2021@10:06:55 AUTHOR: LIZANDRO CENTENO EXP COSIGNER: URGENCY: STATUS: COMPLETED This CARLINEA spoke to regarding a bill that [facility] from the [facility] for $673.00. [place] provided this AMSA with the dates of 04/16/21 - 04/24/21 for services done thru [facility] in [place]. Looked up the information in [employer] for the claims. Located the imaging charge and it was paid for $32.00 for [facility]. also provided the information for the authorization of [id number] for dates of 04/16/21 - 05/23/2021. I advised [place] that I have that authorization # but for different dates of 05/22/2021 - 11/22/2021. He informed me that he had received that information from Megan. After reviewing the consult for Pulmonary. Megan had called in on 05/20/21 to try and obtain a back dated referral for 04/16/21 to cover the testing and f/u visit on 04/24/21. I advised that at that time the request for back dateing was sent to the supervisors for the okay and this request had been denied because it was more than 7-10 business days. verbalized understanding. This ASMSA advised to contact the billing office to see if there is a resolution that they could come to regarding the bill and the misinformation that Megan provided to him for coverage. [facility] ZOFIA advised that we dont just authorize for 1 month for referrals. verbalized understanding and will contact Megan back to discuss this matter. /marty/ LIZANDRO ARMIJO Signed: 07/13/2021 10:18 LIZANDRO CENTENO [facility]
--- OUTSIDE RECORDS SUMMARY | 2021-12-13 00:06 | XMS REPORT | Encounter Summary ---
[facility] Address Unknown Phone Unavailable Care Team Providers Care Equip Tech Name Role Phone JONA, YOSI PCP Unavailable Insurance Providers: All historical and [...] PART A Sep 28, 2007 PART A [id number] EFFIE HENDRIXY PATIENT MEDICARE (WNR) MEDICARE (M) PART B Sep 28, 2007 PART B [id number] SIMEONSAMANTHA PATIENT Selected Encounter This section includes the information on record at [facility] for the Encounter. Date/Time Encounter Type Encounter Description Reason Provider Source Jul 07, 2021 09:17 AM HC PRO PHONE CALL 5-10 MIN TELEPHONE PRIMA RY CARE ICD-10-CM Z71.2 Person consulting for explanation of exam or test findings with Provider Comments: Explanation of Exam or Test Finding JOSE ROBERTO GONZALEZ E Encounter Template Text not used by [facility] Assessments - Encounter Diagnoses This section includes the primary and secondary diag noses documented for the Encounter. Date/Time Primary/Secondary Diagnosis Diagnosis Name Provider Source Jul 07, 2021 09:17 AM PRIMARY Person consulting for explanation of exam or test findings JOSE ROBERTO GONZALEZ [facility] Plan of Treatment: Future Appointments (+ 6 [...] appointme nts. The data comes from all [facility]. Appointment Date/Time Appointment Type Appointment Facili ty Name Jul 20, 2021 10:00 AM AMBULATORY - PSYCHIATRY [facility] Aug 05, 2021 02:30 PM AMBULATORY - NONE [facility] T, [facility] Aug 13, 2021 09:30 AM AMBULATORY - PSYCHIATRY [facility] Aug 14, 2021 01:30 PM AMBULATORY - REHAB MEDICINE [facility] Aug 25, 2021 02:00 PM AMBULATORY - PSYCHIATRY [facility] Aug 25, 2021 03:00 PM AMBULATORY - MEDICINE [facility] Sep 03, 2021 08:00 AM AMBULATORY - NONE [facility] T, [facility] Sep 03, 2021 10:00 AM AMBULATORY - MEDICINE [facility] Sep 10, 2021 10:00 AM AMBULATORY - MEDICINE [facility] Sep 17, 2021 10:00 AM AMBULATORY - MEDICINE [facility] Sep 23, 2021 08:30 AM AMBULATORY - NONE [facility] [place] [facility] Oct 02, 2021 10:30 AM AMBULATORY - REHAB MEDICINE [facility] Nov 02, 2021 11:30 AM AMBULATORY - MEDICINE [facility] Nov 18, 2021 10:30 AM AMBULATORY - MEDICINE [facility] Nov 19, 2021 01:00 PM AMBULATORY - REHAB MEDICINE [facility] Dec 07, 2021 06:30 PM AMBULATORY - PSYCHIATRY [facility] Dec 10, 2021 03:00 PM AMBULATORY - NONE [facility] [place] [facility] Dec 21, 2021 01:30 PM AMBULATORY - NONE [facility] T, [facility] 15 Dec 24, 2021 09:00 AM AMBULATORY - PSYCHIATRY [facility] Surgical Procedures: All associated to the encounter This section includes all Surgical Procedures and Surgical Procedure Notes assoc iated to the Encounter. Surgical Procedures This section includes all Surgical Procedures associated to the Encounter. Surgical Procedure Date/Time Procedure Procedure Type Procedure Qualifiers Provider Source Jul 07, 2021 09:17 AM HC PRO PHONE CALL 5-10 MIN HC PRO PHONE CALL 5-10 MIN JOSE ROBERTO GONZALEZ [facility] Surgical Notes There are no notes associated with this procedure. Lab Results: +/- 30 days of the [...] Range Comment Jul 06, 2021 10:44 AM [facility] COMPREHENSIVE METABOLIC PA ASTON Specimen Type: PLASMA Comment: Race unknown, if multiply result by 1.210 Ordering Provider: YOSI TENORIO Report Released Date/Time: Jul 06, 2021 10:37 AM Reporting Lab: [facility] [address] [facility] [address] Performing Lab: [facility] [address] [facility] [address] *CREATININE 1.13 mg/dL 0.70-1.30 UREA NITROGEN mg/dL [...] EGFR 62.8 Jul 06, 2021 10:44 AM [facility] ERYTHROCYTE SEDIMENTATION RATE Specimen Type: BLOOD No comment entered. Ordering Provider: YOSI TENORIO Report Released Date/Time: Jul 06, 2021 10:37 AM Reporting Lab: [facility] [address] [facility] [address] Performing Lab: [facility] [address] [facility] [address] ERYTHROCYTE SEDIMENTATION RATE 5 mm/hr 0-20 Jul 06, 2021 10:44 AM [facility] CBC & DIFF Specimen T ype: BLOOD No comment entered. Ordering Provider: YOSI TENORIO Report Released Date/Time: Jul 06, 2021 10:37 AM Reporting Lab: [facility] [address] [facility] [address] Performing Lab: [facility] [address] [facility] [address] WBC 6.4 K/cmm 3.60-11.20 RBC 4.89 M/ul [...] 2021 11:30 AM [place]-TO[place]AC[place] NEVER USED [facility] Tobacco Use History This section includes a history of the smoking, or tobacco -related health factors, that were collected on or before the date of the Encoun ter. The data comes from the [place] facility where the Encounter took place. Date/Time Smoking Status/Tobacco Use Comment [facility] Dec 21, 2018 02:42 PM NON-TOBACCO USER [facility] Dec 30, 2017 08:55 AM NON-TOBACCO USER [facility] Dec 09, 2014 09:17 AM CURRENT NON-SMOKER [facility] Dec 09, 2014 09:17 AM LIFETIME NON-TOBACCO USER [facility] Dec 12, 2013 01:11 PM CURRENT NON-SMOKER [facility] Dec 12, 2013 01:11 PM LIFETIME NON-TOBACCO USER [facility] Aug 07, 2012 12:47 PM CURRENT NON-SMOKER [facility] Aug 07, 2012 12:47 PM LIFETIME NON-TOBACCO USER [facility] Jun 05, 2012 12:37 PM NON-TOBACCO USER [facility] Nov 04, 2011 09:02 AM NON-TOBACCO USER has not smoked for 25 years [facility] Oct 12, 2011 08:23 AM CURRENT NON-SMOKER [facility] Oct 12, 2011 08:23 AM LIFETIME NON-TOBACCO USER [facility] Oct 12, 2011 08:23 AM NON-TOBACCO USER [facility] Aug 15, 2006 01:28 PM NON-SMOKER [facility] Aug 15, 2006 01:28 PM NON-TOBACCO USER [facility] Sep 07, 2005 09:58 AM NON-SMOKER [facility] Sep 07, 2005 09:58 AM NON-TOBACCO USER [facility] April 08, 2003 08:44 AM CURRENT NON-SMOKER [facility] April 08, 2003 08:44 AM LIFETIME NON-SMOKER JOHN [facility] April 08, 2003 08:44 AM LIFETIME NON-TOBACCO USER [facility] April 08, 2003 08:44 AM NON-SMOKER [facility] April 08, 2003 08:44 AM NON-TOBACCO USER [facility] Advance Directives: All historical and current No Data Provided for This Section Radiology Reports: +/- 30 days of the encounter No Data Provided for This Section Pathology Reports: +/- 30 days of the encounter No Data Provided for This Section Encounter Notes: All associated encounter notes No Data Provided for This Section
--- OUTSIDE RECORDS SUMMARY | 2021-12-13 00:06 | XMS REPORT | Encounter Summary ---
[facility] Address Unknown Phone Unavailable Care Team Providers Care Review Assistant Name Role Phone YOSI TENORIO PCP Unavailable [...] PART A Sep 28, 2007 PART A [id number] SAMANTHA HENDRIX PATIENT MEDICARE (WNR) MEDICARE (M) PART B Sep 28, 2007 PART B [id number] EFFIE HENDRIXY PATIENT Selected Encounter This section includes the information on record at [place] for the Encounter. Date/Time Encounter Type Encounter Description Reason Provider Source Jul 06, 2021 10:00 AM OFFICE O/P EST LOW 20-29 MIN PRIMARY CARE/ MEDICINE ICD-10-CM R55 Syncope and collapse with Provider Comments: Syncope and collapse YOSI TENORIO Yohana Encounter Template Text not used by [facility] Assessments - Encounter Diagnoses This section includes the primary and secondary diag noses documented for the Encounter. Date/Time Primary/Secondary Diagnosis Diagnosis Name Provider Source Jul 06, 2021 10:41 AM PRIMARY Syncope and collapse ANDREY TENORIO [facility] Jul 06, 2021 10:41 AM SECONDARY Generalized anxiety disorder IRAM LOMASYOSI [facility] Jul 06, 2021 10:41 AM SECONDARY Other fatigue YOSI TENORIO [facility] Plan of Treatment: Future Appointments (+ 6 months) and Future Tests (+/- 45 day s) The Plan of Treatment section includes future care activities for the patient fr om all [place] treatment facilities. This section includes future appointments and fu ture orders which are active, pending or scheduled. Future Appointments This section includes appointments that were scheduled t o occur 6 months from the date of the Encounter, up to a maximum of 20 appointme nts. The data comes from all [place] treatment facilities. Appointment Date/Time Appointment Type Appointment Facili ty Name Jul 20, 2021 10:00 AM AMBULATORY - PSYCHIATRY [facility] Aug 05, 2021 02:30 PM AMBULATORY - NONE [facility] JOVANY [facility]QU[facility] Aug 13, 2021 09:30 AM AMBULATORY - [facility]IATRY [facility] Aug 14, 2021 01:30 PM AMBULATORY - REHAB MEDICINE [facility] Aug 25, 2021 02:00 PM AMBULATORY - PSYCHIATRY [facility] Aug 25, 2021 03:00 PM AMBULATORY - MEDICINE [facility] Sep 03, 2021 08:00 AM AMBULATORY - NONE [facility] JOVANY [facility] Sep 03, 2021 10:00 AM AMBULATORY - MEDICINE [facility] Sep 10, 2021 10:00 AM AMBULATORY - MEDICINE [facility] Sep 17, 2021 10:00 AM AMBULATORY - MEDICINE [facility] Sep 23, 2021 08:30 AM AMBULATORY - NONE [facility] DARREN [facility]QU[facility]N Oct 02, 2021 10:30 AM AMBULATORY - REHAB MEDICINE [facility] Nov 02, 2021 11:30 AM AMBULATORY - MEDICINE [facility] Nov 18, 2021 10:30 AM AMBULATORY - MEDICINE [facility] Nov 19, 2021 01:00 PM AMBULATORY - REHAB MEDICINE [facility] Dec 07, 2021 06:30 PM AMBULATORY - PSYCHIATRY [facility] Dec 10, 2021 03:00 PM AMBULATORY - NONE [facility] JOVANY [facility]QU[facility] 15 Dec 21, 2021 01:30 PM AMBULATORY - NONE [facility] JOVANY [facility]QU[facility] 15 Dec 24, 2021 09:00 AM AMBULATORY - PSYCHIATRY [facility] Surgical Procedures: All associated to the encounter This section includes all Surgical Procedures and Surgical Procedure Notes assoc iated to the Encounter. Surgical Procedures This section includes all Surgical Procedures associated to the Encounter. Surgical Procedure Date/Time Procedure Procedure Type Procedure Qualifiers Provider Source Jul 06, 2021 10:00 AM EKG Interpretation and report ELECTROCARDIOGR AM REPORT YOSI TENORIO [facility] Surgical Notes There are no notes associated with this procedure. Lab Results: +/- 30 days of the encounter This section includes the Chemistry and Hematology Lab R esults on record with [place] for the patient. Radiology Reports and Pathology Report s are provided separately, in subsequent sections. Lab Results This section contains the Chemistry/Hematology Results chinmay t were resulted 30 days before or 30 days after the date of the Encounter. Date/Time Source Result Type Result - Unit Interpretation Reference Range Comment Jul 06, 2021 10:44 AM [facility] COMPREHENSIVE METABOLIC PA ASTON Specimen Type: PLASMA Comment: Race unknown, if multiply result by 1.210 Ordering Provider: YOSI TENORIO Report Released Date/Time: Jul 06, 2021 10:37 AM Reporting Lab: [facility] [address] [facility] [phone] Performing Lab: [facility] [address] [facility] [phone] *CREATININE 1.13 mg/dL 0.70-1.30 UREA NITROGEN mg/dL [...] EGFR 62.8 Jul 06, 2021 10:44 AM [facility] ERYTHROCYTE SEDIMENTATION RATE Specimen Type: BLOOD No comment entered. Ordering Provider: YOSI TENORIO Report Released Date/Time: Jul 06, 2021 10:37 AM Reporting Lab: [facility] [address] [facility] [phone] Performing Lab: [facility] [address] [facility] [phone] ERYTHROCYTE SEDIMENTATION RATE 5 mm/hr 0-20 Jul 06, 2021 10:44 AM [facility] CBC & DIFF Specimen T ype: BLOOD No comment entered. Ordering Provider: YOSI TENORIO Report Released Date/Time: Jul 06, 2021 10:37 AM Reporting Lab: [facility] [address] [facility] [phone] Performing Lab: [facility] [address] [facility] [phone] WBC 6.4 K/cmm 3.60-11.20 RBC 4.89 M/ul [...] Immunizations: All administered on the encounter date This section contains immunizations associated to the Encounter. Immunization Series Date Issued Reaction Comments VR-OUTM-FOQ-2 IMM REFUSAL - UNS CVX 213 R Jul 06, 2021 [id number] VACCINE REFUSAL R Jul 06, 2021 Social History: Smoking Status (Most current) and Tobacco Use (All prior to enco unter date) This section includes the most current, and the historical, smoking and tobacco- related health factors from the [place] facility where the Encounter took place. Current Smoking Status This section includes the most current smoking, or tobacco -related health factor, from the [place] facility where the Encounter took place. Date/Time Current Smoking Status Comment Facility Jan 20, 2021 11:30 AM [place]-TOBACCO NEVER USED [facility] Tobacco Use History This section includes a history of the smoking, or tobacco -related health factors, that were collected on or before the date of the Encoun ter. The data comes from the [place] facility where the Encounter took place. Date/Time Smoking Status/Tobacco Use Comment [facility] Dec 21, 2018 02:42 PM NON-TOBACCO USER [facility] Dec 30, 2017 08:55 AM NON-TOBACCO USER [facility] Dec 09, 2014 09:17 AM CURRENT NON-SMOKER [facility] Dec 09, 2014 09:17 AM LIFETIME NON-TOBACCO USER [facility] Dec 12, 2013 01:11 PM CURRENT NON-SMOKER [facility] Dec 12, 2013 01:11 PM LIFETIME NON-TOBACCO USER [facility] Aug 07, 2012 12:47 PM CURRENT NON-SMOKER [facility] Aug 07, 2012 12:47 PM LIFETIME NON-TOBACCO USER [facility] Jun 05, 2012 12:37 PM NON-TOBACCO USER [facility] Nov 04, 2011 09:02 AM NON-TOBACCO USER has not smoked for 25 years [facility] Oct 12, 2011 08:23 AM CURRENT NON-SMOKER [facility] Oct 12, 2011 08:23 AM LIFETIME NON-TOBACCO USER [facility] Oct 12, 2011 08:23 AM NON-TOBACCO USER [facility] Aug 15, 2006 01:28 PM NON-SMOKER [facility] Aug 15, 2006 01:28 PM NON-TOBACCO USER [facility] Sep 07, 2005 09:58 AM NON-SMOKER [facility] Sep 07, 2005 09:58 AM NON-TOBACCO USER [facility] April 08, 2003 08:44 AM CURRENT [...] Encounter. Date/Time Encounter Note(s) Provider Source Jul 06, 2021 10:50 AM MEDICATION MGT NOTE: LOCAL TITLE: [place]-MEDICATION RECONCILIATION (BP,O) STANDARD TITLE: MEDICATION MGT NOTE DATE OF NOTE: JUL 06, 2021@10:50 ENTRY DATE: JUL 06, 2021@10:50:54 AUTHOR: YOSI TENORIO COSIGNER: URGENCY: STATUS: COMPLETED MEDICATION RECONCILIATION FACILITY ALLERGY/ADR -------- No Remote Allergy/ADR Data available for this patient [facility], VISN 15 LOVASTATIN [facility], V[facility] 15 VARDENAFIL [facility], [facility] 15 ZOCOR 40MG TAB Allergies reviewed, edited in CPRS as appropriate and confirmed by patient: Yes INCLUDED IN THIS LIST: Alphabetical list of active outpatient prescriptions dispensed from this [place] (local) and dispensed from another [place] or [facility] facility (remote) as well as inpatient orders (local pending and active), local clinic medications, locally documented non-VA medications, and local prescriptions that have or been discontinued in the past 90 days. Non-VA Meds Last Documented On: Dec 24, 2013 NOTE The display of VA prescriptions dispensed from another [place] or [facility] facility (remote) is limited to active outpatient prescription entries matched to National Drug File at the originating site and may not include some items such as investigational drugs, compounds, etc. NOT INCLUDED IN THIS LIST: Medications self-entered by the patient into personal health records (i.e. [employer]) are NOT included in this list. Non-VA medications documented outside this [place], remote inpatient orders (regardless of status) and remote clinic medications are NOT included in this list. The patient and provider must always discuss medications the patient is taking, regardless of where the medication was dispensed or obtained. OUTPT ALBUTEROL 90MCG (CFC-F) 200D ORAL INHL (Status = Discontinued) INHALE 2 PUFFS BY MOUTH FOUR TIMES A DAY NEEDED FOR BREATHING. SHAKE WELL. RINSE MOUTHPIECE FREQUENTLY TO PREVENT CLOGGING. Rx# [id number] Last Released: 09/26/20 Qty/Days Supply: 12/27 Rx Expiration Date: 09/25/21 Refills Remainin OUTPT ALBUTEROL 90MCG (CFC-F) 200D ORAL INHL (Status = Active) INHALE 2 PUFFS BY ORAL INHALATION EVERY 4-6 HOURS NEEDED FOR WHEEZING. SHAKE WELL. RINSE MOUTHPIECE FREQUENTLY TO PREVENT CLOGGING. Rx# [id number] Last Released: 06/15/21 Qty/Days Supply: Rx Expiration Date: 06/10/22 Refills Remainin Non-VA ASPIRIN 81MG EC TAB TAKE ONE TABLET BY MOUTH ONCE A DAY Patient wants to buy from Non-VA pharmacy. OUTPT BETAMETHASONE VALERATE 0.1% CREAM (Status = ) APPLY LIGHTLY TO AFFECTED AREA TWO TIMES A DAY NEEDED FOR EXTERNAL USE ONLY CAN MIX WITH CLOTRIMAZOLE CREAM Rx# [id number] Last Released: 04/30/21 Qty/Days Supply: Rx Expiration Date: 05/20/21 Refills Remainin OUTPT BUDESONIDE 160/FORMOTER 4.5MCG 120D INH (Status = Active) INHALE 2 PUFFS BY MOUTH TWO TIMES A DAY FOR BREATHING. SHAKE WELL. RINSE MOUTH AND SPIT AFTER EACH USE. Rx# [id number] Last Released: 06/17/21 Qty/Days Supply: Rx Expiration Date: 01/07/22 Refills Remainin OUTPT BUSPIRONE HCL 10MG TAB (Status = Discontinued) TAKE ONE TABLET BY MOUTH TWO TIMES A DAY FOR ANXIETY Rx# [id number] Last Released: 06/04/21 Qty/Days Supply: 60 Rx Expiration Date: 07/02/21 Refills Remainin OUTPT BUSPIRONE HCL 10MG TAB (Status = Active) TAKE ONE TABLET BY MOUTH TWO TIMES A DAY FOR ANXIETY Rx# [id number] Last Released: 06/16/21 Qty/Days Supply: Rx Expiration Date: 06/12/22 Refills Remainin OUTPT CLOTRIMAZOLE 1% TOP CREAM (Status = Active) APPLY LIGHTLY TO AFFECTED AREA TWO TIMES A DAY NEEDED FOR INFECTION-ANTIFUNGAL- FOR EXTERNAL USE Rx# [id number] Last Released: 05/05/21 Qty/Days Supply: Rx Expiration Date: 04/29/22 Refills Remainin OUTPT FLUTICASONE PROP 50MCG 120D NASAL INHL (Status = Active) INSTILL 1 SPRAY IN EACH NOSTRIL ONCE A DAY SHAKE GENTLY BEFORE USE! - MUST BE USED DIRECTED FOR 3 WEEKS TO PROVIDE BENEFIT. * NO EARLY REFILLS * 1 UNIT = 30 DAYS AT 4 SPRAYS/DAY OR 60 DAYS AT 2 SPRAYS/DAY Rx# [id number] Last Released: 05/13/21 Qty/Days Supply: Rx Expiration Date: 01/07/22 Refills Remainin OUTPT LORATADINE 10MG TAB (Status = Active) TAKE ONE TABLET BY MOUTH ONCE A DAY FOR ALLERGIES Rx# [id number] Last Released: 05/01/21 Qty/Days Supply: Rx Expiration Date: 01/07/22 Refills Remainin OUTPT LOSARTAN 50MG TAB (Status = ) TAKE ONE TABLET BY MOUTH ONCE A DAY FOR BLOOD PRESSURE Rx# [id number] Last Released: 03/24/21 Qty/Days Supply: Rx Expiration Date: 06/21/21 Refills Remainin OUTPT LOSARTAN 50MG TAB (Status = Active) TAKE ONE TABLET BY MOUTH ONCE A DAY FOR BLOOD PRESSURE Rx# [id number] Last Released: 06/24/21 Qty/Days Supply: Rx Expiration Date: 06/20/22 Refills Remainin OUTPT MONTELUKAST NA 10MG TAB (Status = Active) TAKE ONE TABLET BY MOUTH ONCE A DAY Rx# [id number] Last Released: 03/12/21 Qty/Days Supply: Rx Expiration Date: 03/11/22 Refills Remainin OUTPT TIOTROPIUM 1.25MCG/ACTUAT 60D ORAL INHL (Status = Discontinued) INHALE 2 PUFFS BY ORAL INHALATION ONCE A DAY FOR BREATHING. DON'T USE WITH IPRATROPIUM - Rx# [id number] Last Released: Qt Supply: Rx Expiration Date: 04/29/22 Refills Remainin OUTPT TIOTROPIUM 2.5MCG/ACTUAT 60D ORAL INHL (Status = Active) INHALE 2 PUFFS BY ORAL INHALATION ONCE A DAY FOR BREATHING. DON'T USE WITH IPRATROPIUM - Rx# [id number] Last Released: 06/12/21 Qty/Days Supply: 12/27 Rx Expiration Date: 06/11/22 Refills Remainin OUTPT VERAPAMIL HCL 120MG SA TAB (Status = Active) TAKE ONE TABLET BY MOUTH EVERY MORNING FOR THE HEART Rx# [id number] Last Released: 05/06/21 Qty/Days Supply: Rx Expiration Date: 09/20/21 Refills Remainin OUTPT VORTIOXETINE 10MG TAB (Status = Discontinued) TAKE ONE TABLET BY MOUTH ONCE A DAY Rx# [id number] Last Released: 04/14/21 Qty/Days Supply: Rx Expiration Date: 10/14/21 Refills Remainin OUTPT VORTIOXETINE 10MG TAB (Status = Discontinued) TAKE ONE TABLET BY MOUTH ONCE A DAY Rx# [id number] Last Released: 05/21/21 Qty/Days Supply: Rx Expiration Date: 05/20/22 Refills Remainin OUTPT VORTIOXETINE 10MG TAB (Status = Active) TAKE ONE TABLET BY MOUTH ONCE A DAY Rx# [id number] Last Released: 06/17/21 Qty/Days Supply: Rx Expiration Date: 06/12/22 Refills Remainin Non-VA ZMULTIVITAMIN TAB TAKE BY MOUTH ONCE A DAY SUPPLIES Patient/family/caregiver educated and evaluated for understanding on Medications. The list was reviewed with and given to the patient/family/caregiver who were also educated on importance of sharing medication list with all VA providers and non-VA providers. For questions, please call your team nurse. Pertinent lab reviewed: N/A. Level of Understanding: Unable to assess /marty/ YOSI TENORIO [facility]- Signed: 07/06/2021 10:51 YOSI TENORIO [facility] Jul 06, 2021 10:39 AM PRIMARY CARE PHYSICIAN OUTPA TIENT NOTE: LOCAL TITLE: [place]-GENERAL/PRIMARY CARE STANDARD TITLE: PRIMARY CARE PHYSICIAN OUTPATIENT NOTE DATE OF NOTE: JUL 06, 2021@10:39 ENTRY DATE: JUL 06, 2021@10:39:59 AUTHOR: YOSI TENORIO EXP COSIGNER: URGENCY: STATUS: COMPLETED s. pt. presents to [facility] for cont. medical care, cc today is fatigue, onset for quite some time, also near syncope, onst about a month ago, he states he was at [employer] shopping and he went down and caught himself on the cart, he states this hasnt happened again, he states he recently drove his to [facility] in [place] and he did fine, vs stable, hx. change with fatigue, near syncope, pt. states anxiety, he is wanting to get back in and talk to yobani, will add yobani to this note, lab today, pt. ate breakfast, 2 donuts, to review and update meds. o. affect=pleasant skin=w/d, afebrile general appearance is good, no acute distress cv=rrr, without murmur no edema noted lower ext. bilat. neuro grossly intact assessment/plan: syncope, near syncope, ecg done today in clinic is normal sinus rhythm, will order bilat. carotids, pt. had cardiac workup done recent with stress test which pt. states is normal fatigue, will order lab today to include cbc anxiety, will attach oybani to this note as pt. states he is having alot of anxiety and depression and this could be the cause of the fatigue lab today, pt. ate breakfast, meds. reviewed, updated rtc as needed /marty/ YOSI PAGAN- Signed: 07/06/2021 10:50 YOSI TENORIO [facility] Jul 06, 2021 10:00 AM NURSING OUTPATIENT NOTE: LOCAL TITLE: WI-NURSE/CBOC STANDARD TITLE: NURSING OUTPATIENT NOTE DATE OF NOTE: JUL 06, 2021@10:00 ENTRY DATE: JUL 06, 2021@10:00:25 AUTHOR: JOSE ROBERTO GONZALEZ COSIGNER: URGENCY: STATUS: COMPLETED Reason for appointment: PCP Appointment Reason for appointment: Other: appt for provider Is the patient diabetic? No - patient is not a diabetic What is your goal for today's visit? *Required Now we are going to discuss stress, is there anything in your life that worries or stresses you that we may assist you with today? *Required No Are you registered for [employer] ([facility])? No - Are you interested in registering? No If 'yes' please hand [place] [employer] brochure. WI-LATEX REVIEW: Latex review for allergy: ...Patient denies latex allergy. WI-PAIN: Pain Documentation: Pain level 3 or less. COVID-19 Immunization: Refuses all COVID-19 vaccines (current and future) Suicide Screen: C-SSRS Screening [place] Suicide Severity Rating Scale (C-SSRS) screener 1. Over the past month, have you wished you were or wished you could go to sleep and not wake up? No 2. Over the past month, have you had any actual thoughts of killing yourself? No 3. Over the past month, have you been thinking about how you might do this? Response not required due to responses to other questions. 4. Over the past month, have you had these thoughts and had some intention of acting on them? Response not required due to responses to other questions. 5. Over the past month, have you started to work out or worked out the details of how to kill yourself? Response not required due to responses to other questions. 6. If yes, at any time in the past month did you intend to carry out this plan? Response not required due to responses to other questions. 7. In your lifetime, have you ever done anything, started to do anything, or prepared to do anything to end your life (for example, collected pills, obtained a gun, gave away valuables, went to the roof but didn't jump)? No 8. If YES, was this within the past 3 months? Response not required due to responses to other questions. /marty/ JOSE ROBERTO GONAZLEZ LPN Signed: 07/06/2021 10:03 JOSE ROBERTO GONZALEZ [facility]
--- OUTSIDE RECORDS SUMMARY | 2021-12-13 00:07 | XMS REPORT | Encounter Summary ---
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 Date/Time Encounter Type Encounter Description Reason Provider Source Jun 05, 2021 02:28 PM Outpatient Encounter COMMUNITY CARE CONSULT IHE Encounter Template Text not used by [place] Assessments - Encounter Diagnoses No Data Provided [...] 2021 09:00 AM AMBULATORY - PSYCHIATRY LEO RavindraMichelle JESSICA [facility] Jun 11, 2021 10:00 AM AMBULATORY - MEDICINE LEO WaiteMichelle JESSICA [facility] Jun 15, 2021 08:00 AM AMBULATORY - NONE [facility] T, VISN Jul 06, 2021 10:00 AM AMBULATORY - MEDICINE [facility] Jul 20, 2021 10:00 AM AMBULATORY - PSYCHIATRY [facility] Aug 05, 2021 02:30 PM AMBULATORY - NONE [facility] T, [facility] Aug 13, 2021 09:30 AM AMBULATORY - PSYCHIATRY LEO WaiteMichelle LOPEZ [facility] Aug 14, 2021 01:30 PM AMBULATORY - REHAB MEDICINE LEO LOPEZ [facility] Aug 25, 2021 02:00 PM AMBULATORY - PSYCHIATRY [facility] Aug 25, 2021 03:00 PM AMBULATORY - MEDICINE [facility] Sep 03, 2021 08:00 AM AMBULATORY - NONE [facility] T, [facility] Sep 03, 2021 10:00 AM AMBULATORY - MEDICINE LEO Chandler [facility]OPEZ [facility] Sep 10, 2021 10:00 AM AMBULATORY - MEDICINE LEO LOPEZ [facility] Sep 17, 2021 10:00 AM AMBULATORY - MEDICINE LEO LOPEZ [facility] Sep 23, 2021 08:30 AM AMBULATORY - NONE [facility] T, VISN 15 Oct 02, 2021 10:30 AM AMBULATORY - REHAB MEDICINE LEO LOPEZ [facility] Nov 02, 2021 11:30 AM AMBULATORY - MEDICINE [facility] Nov 18, 2021 10:30 AM AMBULATORY - MEDICINE [facility] Nov 19, 2021 01:00 PM AMBULATORY - REHAB MEDICINE LEO WaiteMichelle LOPEZ [facility] Surgical Procedures: All associated to the [...] Mar 20, 2004 10:47 AM NON-TOBACCO USER [facility] T, VISN 15 Tobacco Use History This section includes a history of the smoking, or tobacco -related health factors, that were collected on or before the date of the Encoun ter. The data comes from the [place] facility where the Encounter took place. Date/Time Smoking Status/Tobacco Use Comment [facility] it Mar 20, 2004 10:47 AM NON-TOBACCO USER [facility] T, VISN 15 Advance Directives: All historical and current [...] Encounter Note(s) Provider Source Jun 05, 2021 02:28 PM NONVA NOTE: LOCAL TITLE: COMMUNITY CARE-REQUEST FOR SERVICE NOTE [place] STANDARD TITLE: NONVA NOTE DATE OF NOTE: JUN 05, 2021@14:28 ENTRY DATE: JUN 05, 2021@14:28:23 AUTHOR: LINDSEY TABARES EXP COSIGNER: URGENCY: STATUS: COMPLETED COMMUNITY CARE-REQUEST FOR SERVICE NOTE [place] Has ADDENDA A Request for Service (RFS) form has been received which includes the following: Name of ordering provider: Cecelia Sargent APRN Telephone number of ordering provider:[phone] ICD-Dx code listed on RFS:R06.00- Dyspnea Specific type(s) of service(s) ordered on RFS Physical therapy for pulmonary muscles strengthening. Signed RFS order/Supporting Medical Documentation is available in [facility] *MSA-Please index RFS with records to this note then alert TEAM 5 RN when complete, thank you. /sid TABARES RN Signed: 06/05/2021 14:31 Receipt Acknowledged By: 06/05/2021 15:29 /sid ARMIJO 06/05/2021 ADDENDUM STATUS: COMPLETED THE RFS AND NOTES ARE INDEXED TO THIS NOTE. /sid CENTENO AMSA Signed: 06/05/2021 15:34 Receipt Acknowledged By: * AWAITING SIGNATURE * MIKHAIL ORTIZ 06/08/2021 ADDENDUM STATUS: COMPLETED PT consult placed for review /es/ MIKHAIL ORTIZ RN Signed: 06/08/2021 13:28 LINDSEY TABARES [facility]
--- OUTSIDE RECORDS SUMMARY | 2021-12-13 00:07 | XMS REPORT | Encounter Summary ---
Author Author [facility] SAMANTHA goldstein Organization Department [facility] Address Unknown Phone Unavailable Care Team Providers Care Materials Scientist Name Role Phone JONA, YOSI PCP Unavailable [...] PART A Sep 28, 2007 PART A [id number] SIMEONEFFIEY PATIENT MEDICARE (WNR) MEDICARE (M) PART B Sep 28, 2007 PART B [id number] SIMEONSAMANTHA PATIENT Selected Encounter This section includes the information on record at [place] for the Encounter. Date/Time Encounter Type Encounter Description Reason Provider Source Jun 11, 2021 09:37 AM HC PRO PHONE CALL 5-10 MIN TELEPHONE PRIMA RY CARE ICD-10-CM Z71.89 Other specified counseling with Provider Comments: Other specified counseling CONSTANCE MARTÍNEZ Yohana Encounter Template Text not used by [facility] Assessments - Encounter Diagnoses This section includes the primary and secondary diag noses documented for the Encounter. Date/Time Primary/Secondary Diagnosis Diagnosis Name Provider Source Jun 11, 2021 09:37 AM PRIMARY Other specified counseling CONSTANCE MARTÍNEZ [facility] Plan of Treatment: Future Appointments (+ [...] appointme nts. The data comes from all [facility]. Appointment Date/Time Appointment Type Appointment Facili ty Name Jun 15, 2021 08:00 AM AMBULATORY - NONE [facility] Aleena, VISN 15 Jul 06, 2021 10:00 AM AMBULATORY - MEDICINE [facility] Jul 20, 2021 10:00 AM AMBULATORY - PSYCHIATRY [facility] Aug 05, 2021 02:30 PM AMBULATORY NONE [facility] Aleena, DARRENN 15 Aug 13, 2021 09:30 AM AMBULATORY - PSYCHIATRY [facility] Aug 14, 2021 01:30 PM AMBULATORY - REHAB MEDICINE [facility] Aug 25, 2021 02:00 PM AMBULATORY - PSYCHIATRY [facility] Aug 25, 2021 03:00 PM AMBULATORY - MEDICINE [facility] Sep 03, 2021 08:00 AM AMBULATORY NONE [facility] DARREN MARQUISN 15 Sep 03, 2021 10:00 AM AMBULATORY - MEDICINE [facility] LOPEZ [facility] Sep 10, 2021 10:00 AM AMBULATORY - MEDICINE [facility]O [facility]OPE[facility] Sep 17, 2021 10:00 AM AMBULATORY - MEDICINE [facility] Sep 23, 2021 08:30 AM AMBULATORY NONE [facility] DARREN MARQUISN 15 Oct 02, 2021 10:30 AM AMBULATORY - REHAB MEDICINE [facility] Nov 02, 2021 11:30 AM AMBULATORY - MEDICINE [facility] Nov 18, 2021 10:30 AM AMBULATORY - MEDICINE [facility] Nov 19, 2021 01:00 PM AMBULATORY - REHAB MEDICINE [facility] Dec 07, 2021 06:30 PM AMBULATORY - PSYCHIATRY [facility] Dec 10, 2021 03:00 PM AMBULATORY NONE [facility] DARREN MARQUISN 15 Surgical Procedures: All associated to the encounter This section includes all Surgical Procedures and Surgical Procedure Notes assoc iated to the Encounter. Surgical Procedures This section includes all Surgical Procedures associated to the Encounter. Surgical Procedure Date/Time Procedure Procedure Type Procedure Qualifiers Provider Source Jun 11, 2021 09:37 AM HC PRO PHONE CALL 5-10 MIN HC PRO PHONE CALL 5-10 MIN CONSTANCE MARTÍNEZ [facility] Surgical Notes There are no notes associated with this procedure. Lab Results: +/- 30 days of the encounter This section includes the Chemistry and Hematology Lab R esults on record with [place] for the patient. Radiology Reports and Pathology Report s are provided separately, in subsequent sections. Lab Results This section contains the Chemistry/Hematology Results chinmay t were resulted 30 days before or 30 days after the date of the Encounter. Date/Time Source Result Type Result - Unit Interpretation Reference Range Comment Jul 06, 2021 10:44 AM [facility] COMPREHENSIVE METABOLIC PA ASTON Specimen Type: PLASMA Comment: Race unknown, if multiply result by 1.210 Ordering Provider: YOSI TENORIO Report Released Date/Time: Jul 06, 2021 10:37 AM Reporting Lab: [facility] LOPE[facility] [address] [facility] [address] Performing Lab: [facility] [address] [facility] [id number] *CREATININE 1.13 mg/dL 0.70-1.30 UREA NITROGEN mg/dL [...] 62.8 Jul 06, 2021 10:44 AM [facility] ERYTHROCYTE SEDIMENTATION RATE Specimen Type: BLOOD No comment entered. Ordering Provider: YOSI TENORIO Report Released Date/Time: Jul 06, 2021 10:37 AM Reporting Lab: LEO LOPEZ [facility] [address] [facility] [id number] Performing Lab: [facility] LOPEZ [facility] [address] [facility] [id number] ERYTHROCYTE SEDIMENTATION RATE 5 mm/hr 0-20 Jul 06, 2021 10:44 AM [facility] CBC & DIFF Specimen T ype: BLOOD No comment entered. Ordering Provider: YOSI TENORIO Report Released Date/Time: Jul 06, 2021 10:37 AM Reporting Lab: [facility] LOPEZ [place] [id number] [facility] [address] Performing Lab: [facility] LOPE[facility] [address] [facility] [id number] WBC 6.4 K/cmm 3.60-11.20 RBC 4.89 M/ul [...] 2021 11:30 AM [place]-TOBACCO NEVER USED [facility] Tobacco Use History This section includes a history of the smoking, or tobacco -related health factors, that were collected on or before the date of the Encoun ter. The data comes from the [place] facility where the Encounter took place. Date/Time Smoking Status/Tobacco Use Comment [facility] Dec 21, 2018 02:42 PM NON-TOBACCO USER [facility] Dec 30, 2017 08:55 AM NON-TOBACCO USER [facility] Dec 09, 2014 09:17 AM CURRENT NON-SMOKER [facility] Dec 09, 2014 09:17 AM LIFETIME NON-TOBACCO USER [facility] Dec 12, 2013 01:11 PM CURRENT NON-SMOKER [facility] Dec 12, 2013 01:11 PM LIFETIME NON-TOBACCO USER [facility] Aug 07, 2012 12:47 PM CURRENT NON-SMOKER [facility] Aug 07, 2012 12:47 PM LIFETIME NON-TOBACCO USER [facility] Jun 05, 2012 12:37 PM NON-TOBACCO USER [facility] Nov 04, 2011 09:02 AM NON-TOBACCO USER has not smoked for 25 years [facility] Oct 12, 2011 08:23 AM CURRENT NON-SMOKER [facility] Oct 12, 2011 08:23 AM LIFETIME NON-TOBACCO USER [facility] Oct 12, 2011 08:23 AM NON-TOBACCO USER [facility] Aug 15, 2006 01:28 PM NON-SMOKER [facility] Aug 15, 2006 01:28 PM NON-TOBACCO USER [facility] Sep 07, 2005 09:58 AM NON-SMOKER [facility] Sep 07, 2005 09:58 AM NON-TOBACCO USER [facility] April 08, 2003 08:44 AM CURRENT NON-SMOKER [facility] April 08, 2003 08:44 AM LIFETIME NON-SMOKER [facility] April 08, 2003 08:44 AM LIFETIME NON-TOBACCO USER [facility] April 08, 2003 08:44 AM NON-SMOKER [facility] April 08, 2003 08:44 AM NON-TOBACCO USER [facility] Advance Directives: All historical and current No Data Provided for This Section Radiology Reports: +/- 30 days of the encounter No Data Provided for This Section Pathology Reports: +/- 30 days of the encounter No Data Provided for This Section Encounter Notes: All associated encounter notes This section contains the clinical notes associated to the Encounter. Date/Time Encounter Note(s) Provider Source Jun 11, 2021 09:45 AM PRIMARY CARE TELEPHONE ENCOU NTER NOTE: LOCAL TITLE: WI-PACT TELEPHONE CONTACT STANDARD TITLE: PRIMARY CARE TELEPHONE ENCOUNTER NOTE DATE OF NOTE: JUN 11, 2021@09:45 ENTRY DATE: JUN 11, 2021@09:45:11 AUTHOR: CONSTANCE MARTÍNEZ EXP COSIGNER: URGENCY: STATUS: COMPLETED [place]-PACT TELEPHONE CONTACT Has ADDENDA Patient Patient/Other contacted. Patient Patient Identifiers : Full Name, Telephone Number Chief complaint/Patient stated reason for call: Patient called states still has cough. [facility] [place] [facility] Jose FRASER. Order placed for telephone appt. /marty/ CONSTANCE MARTÍNEZ RN Signed: 06/11/2021 09:53 06/12/2021 ADDENDUM STATUS: COMPLETED Medication Spiriva 2.5mcg inhaler requested,for overnight. /sid MARTÍNEZ RN Signed: 06/12/2021 15:34 CONSTANCE MARTÍNEZ [facility]
--- OUTSIDE RECORDS SUMMARY | 2021-12-13 00:07 | XMS REPORT | Encounter Summary ---
Author Author [facility] [address] SAMANTHA goldstein Organization Department [facility] Address Unknown Phone Unavailable Care Team Providers Care Bilingual Inside Sales Representative Name Role Phone YOSI TENORIO PCP Unavailable [...] PART A Sep 28, 2007 PART A [id number] SIMEONEFFIEY PATIENT MEDICARE (WNR) MEDICARE (M) PART B Sep 28, 2007 PART B [id number] SAMANTHA HENDRIX PATIENT Selected Encounter This section includes the information [place] for the Encounter. Date/Time Encounter Type Encounter Description Reason Provider Source Jun 02, 2021 01:30 PM HEARING AID REPAIR/MODIFYING AUDIOLOGY ICD-10-CM Z46.1 Encounter for fitting and adjustment of hearing aid with Provider Comments: Encounter for Fitting and Adjustment of Hearing Aid SLEDGEJOSÉ MIGUEL Encounter Template Text not used by [facility] Assessments - Encounter Diagnoses This section includes the primary and secondary diag noses documented for the Encounter. Date/Time Primary/Secondary Diagnosis Diagnosis Name Provider Source Jun 02, 2021 03:25 PM PRIMARY Encounter for fitt ing and adjustment of hearing aid SLEDGE,JOSÉ MIGUEL Talley LEO RavindraMichelle LOPEZ [facility] Jun 02, 2021 03:25 PM SECONDARY Sensorineural hearing loss , bilateral SLEDGEJOSÉ MIGUEL LEO RavindraMichelle LOPEZ [facility] Jun 02, 2021 03:25 PM SECONDARY Tinnitus, bilateral SLEDGE,LOVELY Talley [facility] Plan of Treatment: Future Appointments (+ [...] appointme nts. The data comes from all [facility]. Appointment Date/Time Appointment Type Appointment Facili ty Name Jun 04, 2021 10:00 AM AMBULATORY - MEDICINE [facility] Jun 11, 2021 09:00 AM AMBULATORY - PSYCHIATRY [facility] Jun 11, 2021 10:00 AM AMBULATORY - MEDICINE [facility] Jun 15, 2021 08:00 AM AMBULATORY - NONE [facility] Aleena, VISN Jul 06, 2021 10:00 AM AMBULATORY - MEDICINE [facility] Jul 20, 2021 10:00 AM AMBULATORY - PSYCHIATRY [facility] Aug 05, 2021 02:30 PM AMBULATORY - NONE [facility] T, VISN Aug 13, 2021 09:30 AM AMBULATORY - PSYCHIATRY [facility] Aug 14, 2021 01:30 PM AMBULATORY - REHAB MEDICINE [facility] Aug 25, 2021 02:00 PM AMBULATORY - PSYCHIATRY [facility] Aug 25, 2021 03:00 PM AMBULATORY - MEDICINE [facility] Sep 03, 2021 08:00 AM AMBULATORY - NONE [facility] T, VISN Sep 03, 2021 10:00 AM AMBULATORY - MEDICINE [facility] Sep 10, 2021 10:00 AM AMBULATORY - MEDICINE [facility] Sep 17, 2021 10:00 AM AMBULATORY - MEDICINE [facility] Sep 23, 2021 08:30 AM AMBULATORY - NONE [facility] Flood, VISN Oct 02, 2021 10:30 AM [facility]UL[facility] Nov 02, 2021 11:30 AM AMBULATORY - MEDICINE [facility] Nov 18, 2021 10:30 AM AMBULATORY - MEDICINE [facility] Nov 19, 2021 01:00 PM AMBULATORY - REHAB MEDICINE [facility] Surgical Procedures: All associated to the encounter This section includes all Surgical Procedures and Surgical Procedure Notes assoc iated to the Encounter. Surgical Procedures This section includes all Surgical Procedures associated to the Encounter. Surgical Procedure Date/Time Procedure Procedure Type Procedure Qualifiers Provider Source Jun 02, 2021 01:30 PM Repair/Modification of Hearing Aid HEA RING AID REPAIR/MODIFYING 50-BILATERAL PROCEDURE [place] BAYSJOSÉ MIGUEL [facility] Surgical Notes There are no notes associated with this procedure. Surgical Procedure Date/Time Procedure Procedure Type Procedure Qualifiers Provider Source Jun 02, 2021 01:30 PM HEARING AID FITTING/CHECKING HEARING AID F ITTING/CHECKING 50-BILATERAL PROCEDURE [place] Mayank [facility] Surgical Notes There are no notes associated with this procedure. Surgical Procedure Date/Time Procedure Procedure Type Procedure Qualifiers Provider Source Jun 02, 2021 01:30 PM Hearing Aid Check, Binaural HEARING AID CHECK BOTH EARS [place] Mayank [facility] Surgical Notes There are no notes associated with this procedure. Surgical Procedure Date/Time Procedure Procedure Type Procedure Qualifiers Provider Source Jun 02, 2021 01:30 PM Education & Training, Indiv, Each 30 m in [facility] EDUC & TRAIN 1 PT [facility] A [facility] Surgical Notes There are no notes associated with this procedure. Surgical Procedure Date/Time Procedure Procedure Type Procedure Qualifiers Provider Source Jun 02, 2021 01:30 PM Conformity Evaluation CONFORMITY EVALUATIO N 50-BILATERAL PROCEDURE [place] Mayank [facility] Surgical Notes There are no notes associated with this procedure. Surgical Procedure Date/Time Procedure Procedure Type Procedure Qualifiers Provider Source Jun 02, 2021 01:30 PM ADDL SUPL MATRL&STAF TM PHE ADDL SUPL MATRL&S TAF TM PHE [place] [facility] Surgical Notes There are no notes [...] QUIT 15 YRS OR MORE [place] LOPEZ [facility] Tobacco Use History This section includes a history of the smoking, or tobacco -related health factors, that were collected on or before the date of the Encoun ter. The data comes from the [place] facility where the Encounter took place. Date/Time Smoking Status/Tobacco Use Comment [facility] Jun 12, 2018 01:16 PM [place] 15 YRS OR MORE [place] LOPEZ [facility] Sep 24, 2015 08:23 AM NON-TOBACCO USER LEO LOPEZ [facility] Nov 07, 2014 12:58 PM NON-TOBACCO USER LEO LOPEZ [facility] Oct 01, 2014 02:57 PM NON-TOBACCO USER LEO LOPEZ [facility] Jul 08, 2011 11:42 AM NON-TOBACCO USER LEO LOPEZ [facility] Sep 21, 2007 09:37 AM NON-TOBACCO USER Pt. reports he quit smoking over 20 years ago. LEO LOPEZ [facility] Advance Directives: All historical and current No Data Provided for This Section Radiology Reports: +/- 30 days of the encounter No Data Provided for This Section Pathology Reports: +/- 30 days of the encounter No Data Provided for This Section Encounter Notes: All associated encounter notes This section contains the clinical notes associated to the Encounter. Date/Time Encounter Note(s) Provider Source Jun 02, 2021 03:23 PM AUDIOLOGY DIAGNOSTIC STUDY N OTE: LOCAL TITLE: WI-AUDIOLOGY/HEARING AID/VERIFICATION&TRAINING STANDARD TITLE: AUDIOLOGY DIAGNOSTIC STUDY NOTE DATE OF NOTE: JUN 02, 2021@15:23 ENTRY DATE: JUN 02, 2021@15:23:22 AUTHOR: JOSÉ MIGUEL RUEDA COSIGNER: URGENCY: STATUS: COMPLETED S: returned for the hearing aid fitting. O: Otoscopy was unremarkable, bilaterally. A: Speechmapping was performed. Measurements approximated the NAL-NL2 target curves indicating is receiving adequate gain from the hearing aids. 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 Changed receivers on both HAs and they now sound good and are working well. [X] Gave IOI-VIGIL to complete and return after 6 weeks of VIGIL use. [X] [place]on seemed pleased with the fit and sound quality of the hearing aids. [X] [place]on was educated on use and care of his devices for approximately 30 minutes. The procedure was well tolerated without complications. was informed of today's results and counseled accordingly. was given the opportunity to ask questions and all questions were answered. voiced understanding. P: Short Term Goal: [place] to hearing aids. Return to clinic for additional follow-up if needed. Half-Way Goal: Successful use of hearing aids. WI-PATIENT EDUCATION: Patient education done at this encounter: Readiness to learn: Patient appears ready to learn. Audiology Education Information regarding the use, care and maintenance of hearing aids was reviewed with the patient. Level of Understanding: Good Characteristics that may affect teaching/compliance: ...Hearing Related to: Service Connected Condition Diagnoses: Encounter for Fitting and Adjustment of Hearing Aid (ICD-10-CM Z46.1) (Primary) Sensorineural hearing loss, bilateral (SCT [id number]) - Sensorineural hearing loss, bilateral (ICD-10-CM H90.3) Bilateral tinnitus (SCT [id number]) - Tinnitus, bilateral (ICD-10-CM H93.13) /marty/ JOSÉ MIGUEL Pizano, Doctor of Audiology Signed: 06/02/2021 15:25 JOSÉ MIGUEL RUEDA [facility]
--- OUTSIDE RECORDS SUMMARY | 2021-12-13 00:07 | XMS REPORT | Encounter Summary ---
Author Author [facility] SAMANTHA goldstein Organization Department [facility] Address Unknown Phone Unavailable Care Team Providers Care Documentation Engineer Name Role Phone YOSI TENORIO PCP Unavailable [...] PART A Sep 28, 2007 PART A [id number] SAMANTHA HENDRIX PATIENT MEDICARE (WNR) MEDICARE (M) PART B Sep 28, 2007 PART B [id number] EFFIE HENDRIXY PATIENT Selected Encounter This section includes the information on record at [place] for the Encounter. Date/Time Encounter Type Encounter Description Reason Provider Source Jun 11, 2021 09:00 AM PSYTX W PT W E/M 30 MIN TELEPHONE IC D-10-CM F33.0 Major depressive disorder, recurrent, mild with Provider Comments: Depression ([facility] [id number]) LACEY MONTERROSO IHYohana Encounter Template Text not used by [facility] Assessments - Encounter Diagnoses This section includes the primary and secondary diag noses documented for the Encounter. Date/Time Primary/Secondary Diagnosis Diagnosis Name Provider Source Jun 11, 2021 09:00 AM PRIMARY Major depressive disorder, recurrent, mild LACEY MONTERROSO [facility] Jun 11, 2021 09:00 AM SECONDARY Generalized anxiety disorder LACEY MONTERROSO [facility] Plan of Treatment: Future Appointments (+ 6 months) and Future Tests (+/- 45 day s) The Plan of Treatment section includes future care activities for the patient fr om all [place] treatment facilities. This section includes future appointments and fu ture orders which are active, pending or scheduled. Future Appointments This section includes appointments that were scheduled t o occur 6 months from the date of the Encounter, up to a maximum of 20 appointme nts. The data comes from all [place] treatment facilities. Appointment Date/Time Appointment Type Appointment Facili ty Name Jun 15, 2021 08:00 AM AMBULATORY - NONE [facility] JOVANY MARQUIS Jul 06, 2021 10:00 AM AMBULATORY - MEDICINE [facility] Jul 20, 2021 10:00 AM AMBULATORY - PSYCHIATRY [facility] Aug 05, 2021 02:30 PM AMBULATORY - NONE [facility] JOVANY MARQUIS Aug 13, 2021 09:30 AM AMBULATORY - PSYCHIATRY [facility] Aug 14, 2021 01:30 PM AMBULATORY - REHAB MEDICINE [facility] Aug 25, 2021 02:00 PM AMBULATORY - PSYCHIATRY [facility] Aug 25, 2021 03:00 PM AMBULATORY - MEDICINE [facility] Sep 03, 2021 08:00 AM AMBULATORY - NONE [facility] DARREN FloodN Sep 03, 2021 10:00 AM AMBULATORY - MEDICINE [facility] Sep 10, 2021 10:00 AM AMBULATORY - MEDICINE [facility] Sep 17, 2021 10:00 AM AMBULATORY - MEDICINE [facility] Sep 23, 2021 08:30 AM AMBULATORY - NONE [facility] D[facility] FloodN Oct 02, 2021 10:30 AM AMBULATORY - REHAB MEDICINE [facility] Nov 02, 2021 11:30 AM AMBULATORY - MEDICINE [facility] Nov 18, 2021 10:30 AM AMBULATORY - MEDICINE [facility] Nov 19, 2021 01:00 PM AMBULATORY - REHAB MEDICINE [facility] Dec 07, 2021 06:30 PM AMBULATORY - PSYCHIATRY [facility] Dec 10, 2021 03:00 PM AMBULATORY - NONE [facility] T, VISN 15 Surgical Procedures: All associated to the encounter This section includes all Surgical Procedures and Surgical Procedure Notes assoc iated to the Encounter. Surgical Procedures This section includes all Surgical Procedures associated to the Encounter. Surgical Procedure Date/Time Procedure Procedure Type Procedure Qualifiers Provider Source Jun 11, 2021 09:00 AM Psychotherapy, 30 minutes wi th Patient when Performed with an Evaluation and Management Service (List Separately in addition to the Code for Primary Procedure) PSYTX W PT W E/M 30 MIN LACEY MONTERROSO [facility] Surgical Notes There are no notes associated with this procedure. Lab Results: +/- 30 days of the encounter This section includes the Chemistry and Hematology Lab R esults on record with [place] for the patient. Radiology Reports and Pathology Report s are provided separately, in subsequent sections. Lab Results This section contains the Chemistry/Hematology Results chinmay t were resulted 30 days before or 30 days after the date of the Encounter. Date/Time Source Result Type Result - Unit Interpretation Reference Range Comment Jul 06, 2021 10:44 AM [facility] COMPREHENSIVE METABOLIC PA ASTON Specimen Type: PLASMA Comment: Race unknown, if multiply result by 1.210 Ordering Provider: YOSI TENORIO Report Released Date/Time: Jul 06, 2021 10:37 AM Reporting Lab: [facility] [address] [facility] [address] Performing Lab: [facility] [address] [facility] [address] *CREATININE 1.13 mg/dL 0.70-1.30 UREA NITROGEN mg/dL [...] 62.8 Jul 06, 2021 10:44 AM [facility] ERYTHROCYTE SEDIMENTATION RATE Specimen Type: BLOOD No comment entered. Ordering Provider: YOSI TENORIO Report Released Date/Time: Jul 06, 2021 10:37 AM Reporting Lab: [facility] [address] [facility] [address] Performing Lab: [facility] [address] [facility] [address] ERYTHROCYTE SEDIMENTATION RATE 5 mm/hr 0-20 Jul 06, 2021 10:44 AM [facility] CBC & DIFF Specimen T ype: BLOOD No comment entered. Ordering Provider: YOSI TENORIO Report Released Date/Time: Jul 06, 2021 10:37 AM Reporting Lab: [facility] [address] [facility] [address] Performing Lab: [facility] [address] [facility] [address] WBC 6.4 K/cmm 3.60-11.20 RBC 4.89 M/ul [...] and tobacco- related health factors from the [place] facility where the Encounter took place. Current Smoking Status This section includes the most current smoking, or tobacco -related health factor, from the [place] facility where the Encounter took place. Date/Time Current Smoking Status Comment Facility Jun 12, 2018 01:16 PM [place]-TOBAC[place] QUIT 15 YRS OR MORE [facility] Tobacco Use History This section includes a history of the smoking, or tobacco -related health factors, that were collected on or before the date of the Encoun ter. The data comes from the [place] facility where the Encounter took place. Date/Time Smoking Status/Tobacco Use Comment [facility] Jun 12, 2018 01:16 PM [place]-TO[place] QUIT 15 YRS OR MORE [facility] Sep 24, 2015 08:23 AM [facility] Nov 07[facility] 2014 12:58 PM NON-TOBACCO USER [facility] Oct 01, 2014 02:57 PM NON-TOBACCO USER [facility] Jul 08, 2011 11:42 AM NON-TOBACCO USER [facility] Sep 21, 2007 09:37 AM NON-TOBACCO [...] Encounter Note(s) Provider Source Jun 11, 2021 09:08 AM MENTAL HEALTH TELEPHONE ENCO UNTER NOTE: LOCAL TITLE: [place] [facility] STANDARD TITLE: MENTAL HEALTH TELEPHONE ENCOUNTER NOTE DATE OF NOTE: JUN 11, 2021@09:08 ENTRY DATE: JUN 11, 2021@09:08:29 AUTHOR: ALI,FITZGERALD M EXP COSIGNER: URGENCY: STATUS: COMPLETED understands there is an option to be seen in person at the [facility] office or [facility] for [id number] visit if that is preferred. Patient elects and consents to continue this follow-up contact via phone for convenience of location and time. 30 minutes spent on the phone with chip baez [place] understands there is an option to be seen in person at the [facility] office or [facility] for [id number] visit if that is preferred. Patient elects and consents to continue this follow-up contact via phone for convenience of location and time. Medication Reconciliation Are there any OTC medications, vitamins or herbal supplements in use but not listed? No Are there any prescription meds in use that are not listed? No Are there any medications no longer in use, or on hold? No The undersigned has discussed active and pending medications with the patient and/or caregiver. Changes have been made as appropriate. Yes Allergies reviewed, edited in CPRS as appropriate and confirmed by patient: Yes Copy of current medication list given to patient. No (phone visit) Patient verbalizes understanding: YES Discrepancies reported by the patient referred to prescribing physician. Physician notified via additional signer N/A Time spent in the visit: Phone visit, 30 mins with at least 16 minutes psychotherapy. Chief Complaint: "I'm okay" Relevant History: Patient reported doing "pretty good" except "old age", he reported "legs went out while leaving golf court", he did not go to doctor yet, he thinks mood is good pretty good", denied any crying or hopelessness, he spend time watching TV etc. He is using c-pap and thinks sleep 7-8 hours, denied any nightmares. he denied any alcohol or illicit drug use, he reported complaint with his meds and denied any s/e. Past Psych. Social, Family: Patient has been treated for psychiatric problem for last few years and has been tried on several medications in the past which include Cymbalta, Paxil, Prozac, Zoloft, Celexa, Wellbutrin, Effexor, gabapentin. He denied ever being admitted to the hospital for psychiatric reason, denied any prior history of suicide attempt. Patient is currently and have 6 children all grown up and 17 grandchildren. 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 Pertinent Mental Status Exam: Alert and oriented x 4 cooperative. Speech spontaneous, coherent with regular rate and rhythm. Mood pleasant. Thought process logical and goal directed. Patient denied any current suicidal, homicidal ideations or any future plans. He also denied any auditory, visual hallucinations, delusions or paranoia. Memory, concentration average. Insight and judgment is fair. Diagnostic Impression: MDD, rec. partial remission rule out chronic depressive disorder TAL Sleep apnea Rule out PTSD Target symptoms and Goals for Treatment: - goals in progress. Depression: Goal is to relieve symptoms of depression, goal is rating of 7 or more (1 being worse and 10 being best mood) with medications, developing coping skills, psychotherapy Irritability/anger outbursts- goal is 50% or greater reduction in severity. Sleep: Goal is to sleep 6-9 hours uninterrupted Nightmares- goal is less than 2 per week. Anxiety: - Goal is to relieve symptoms of anxiety, goal is rating of 7 or more (1 being worse and 10 being best) with help of medications, developing coping skills, psychotherapy Plan: 1. Patient will cont. Buspar 10mg bid he lp anxiety and mood. 2. Patient will cont. Trintellix 10mg q day to help with depression and anxiety 3. recommended patient to follow up with primary care to discuss for any and other medical concerns, 4. Patient already involved in therapy with Chelsea Fonseca 5. Provided supportive therapy/listening and psycho education offered about disease state and medications prescribed, patient expressed understanding. 6. Recommended to call back to [facility] if di sease state worsens or problems develop with medication. 7. RTC 2 months /marty/ Lacey Monterroso M.D. STAFF PSYCHIATRIST Signed: 06/11/2021 19:30 LACEY MONTERROSO [facility]
--- OUTSIDE RECORDS SUMMARY | 2021-12-13 00:07 | XMS REPORT | Encounter Summary ---
Author Author [facility] SAMANTHA goldstein Organization Department [facility] Address Unknown Phone Unavailable Care Team Providers Care Trades Helper Name Role Phone JONA, YOSI PCP Unavailable [...] PART A Sep 28, 2007 PART A [id number] SIMEONEFFIEY PATIENT MEDICARE (WNR) MEDICARE (M) PART B Sep 28, 2007 PART B [id number] SIMEONSAMANTHA PATIENT Selected Encounter This section includes the information on record at [place] for the Encounter. Date/Time Encounter Type Encounter Description Reason Provider Source Jun 18, 2021 10:46 AM HC PRO PHONE CALL 5-10 MIN TELEPHONE [facility] ICD-10-CM Z71.89 Other specified counseling with Provider Comments: Other specified counseling CONSTANCE MARTÍNEZ Yohana Encounter Template Text not used by [facility] Assessments - Encounter Diagnoses This section includes the primary and secondary diag noses documented for the Encounter. Date/Time Primary/Secondary Diagnosis Diagnosis Name Provider Source Jun 18, 2021 10:46 AM PRIMARY Other specified counseling CONSTANCE MARTÍNEZ [facility] Plan of Treatment: Future Appointments (+ 6 months) and Future Tests (+/- 45 day s) The Plan of Treatment section includes future care activities for the patient fr om all [place] treatment facilities. This section includes future appointments and fu ture orders which are active, pending or scheduled. Future Appointments This section includes appointments that were scheduled t o occur 6 months from the date of the Encounter, up to a maximum of 20 appointme nts. The data comes from all [facility]. Appointment Date/Time Appointment Type Appointment Facili ty Name Jul 06, 2021 10:00 AM AMBULATORY - MEDICINE [facility] Jul 20, 2021 10:00 AM AMBULATORY - PSYCHIATRY [facility] Aug 05, 2021 02:30 PM AMBULATORY - NONE [facility] MARQUISN 15 Aug 13, 2021 09:30 AM AMBULATORY - PSYCHIATRY [facility] Aug 14, 2021 01:30 PM AMBULATORY - REHAB MEDICINE [facility] Aug 25, 2021 02:00 PM AMBULATORY - PSYCHIATRY [facility] Aug 25, 2021 03:00 PM AMBULATORY - MEDICINE [facility] Sep 03, 2021 08:00 AM AMBULATORY NONE [facility] Flood, VISN 15 Sep 03, 2021 10:00 AM AMBULATORY - MEDICINE [facility] Sep 10, 2021 10:00 AM AMBULATORY - MEDICINE [facility] Sep 17, 2021 10:00 AM AMBULATORY - MEDICINE [facility] Sep 23, 2021 08:30 AM AMBULATORY NONE [facility] Flood, [facility] 15 Oct 02, 2021 10:30 AM AMBULATORY - REHAB MEDICINE [facility] Nov 02, 2021 11:30 AM AMBULATORY - MEDICINE [facility] Nov 18, 2021 10:30 AM AMBULATORY - MEDICINE [facility] Nov 19, 2021 01:00 PM AMBULATORY - REHAB MEDICINE [facility] Dec 07, 2021 06:30 PM AMBULATORY - PSYCHIATRY [facility] Dec 10, 2021 03:00 PM AMBULATORY - NONE [facility] 15 Surgical Procedures: All associated to the encounter This section includes all Surgical Procedures and Surgical Procedure Notes assoc iated to the Encounter. Surgical Procedures This section includes all Surgical Procedures associated to the Encounter. Surgical Procedure Date/Time Procedure Procedure Type Procedure Qualifiers Provider Source Jun 18, 2021 10:46 AM HC PRO PHONE CALL 5-10 MIN HC PRO PHONE CALL 5-10 MIN CONSTANCE MARTÍNEZ [facility] Surgical Notes There are no [...] Range Comment Jul 06, 2021 10:44 AM [facility] COMPREHENSIVE METABOLIC PA ASTON Specimen Type: PLASMA Comment: Race unknown, if multiply result by 1.210 Ordering Provider: YOSI TENORIO Report Released Date/Time: Jul 06, 2021 10:37 AM Reporting Lab: [facility] [address] [address] Performing Lab: [facility] [address] [address] *CREATININE 1.13 mg/dL 0.70-1.30 UREA NITROGEN mg/dL [...] EGFR 62.8 Jul 06, 2021 10:44 AM [facility] ERYTHROCYTE SEDIMENTATION RATE Specimen Type: BLOOD No comment entered. Ordering Provider: YOSI TENORIO Report Released Date/Time: Jul 06, 2021 10:37 AM Reporting [facility] [address] [address] Performing Lab: [facility] [address] [address] ERYTHROCYTE SEDIMENTATION RATE 5 mm/hr 0-20 Jul 06, 2021 10:44 AM [facility] CBC & DIFF Specimen T ype: BLOOD No comment entered. Ordering Provider: YOSI TENORIO Report Released Date/Time: Jul 06, 2021 10:37 AM Reporting Lab: [facility] [address] [address] Performing Lab: [facility] [address] [address] WBC 6.4 K/cmm 3.60-11.20 RBC 4.89 M/ul [...] and tobacco- related health factors from the [place] facility where the Encounter took place. Current Smoking Status This section includes the most current smoking, or tobacco -related health factor, from the [place] facility where the Encounter took place. Date/Time Current Smoking Status Comment Facility Jan 20, 2021 11:30 AM [place]-TOBACCO NEVER USED [facility] Tobacco Use History This section includes a history of the smoking, or tobacco -related health factors, that were collected on or before the date of the Encoun ter. The data comes from the [place] facility where the Encounter took place. Date/Time Smoking Status/Tobacco Use Comment [facility] Dec 21, 2018 02:42 PM NON-TOBACCO USER [facility] Dec 30, 2017 08:55 AM NON-TOBACCO USER [facility] Dec 09, 2014 09:17 AM CURRENT NON-SMOKER [facility] Dec 09, 2014 09:17 AM LIFETIME NON-TOBACCO USER [facility] Dec 12, 2013 01:11 PM CURRENT NON-SMOKER [facility] Dec 12, 2013 01:11 PM LIFETIME NON-TOBACCO USER [facility] Aug 07, 2012 12:47 PM CURRENT NON-SMOKER [facility] Aug 07, 2012 12:47 PM LIFETIME NON-TOBACCO USER [facility] Jun 05, 2012 12:37 PM NON-TOBACCO USER [facility] Nov 04, 2011 09:02 AM NON-TOBACCO USER has not smoked for 25 years [facility] Oct 12, 2011 08:23 AM CURRENT NON-SMOKER [facility] Oct 12, 2011 08:23 AM LIFETIME NON-TOBACCO USER [facility] Oct 12, 2011 08:23 AM NON-TOBACCO USER [facility] Aug 15, 2006 01:28 PM NON-SMOKER [facility] Aug 15, 2006 01:28 PM NON-TOBACCO USER [facility] Sep 07, 2005 09:58 AM NON-SMOKER [facility] Sep 07, 2005 09:58 AM NON-TOBACCO USER [facility] April 08, 2003 08:44 AM CURRENT NON-SMOKER [facility] April 08, 2003 08:44 AM LIFETIME NON-SMOKER [facility] April 08, 2003 08:44 AM LIFETIME NON-TOBACCO USER [facility] April 08, 2003 08:44 AM NON-SMOKER [facility] April 08, 2003 08:44 AM NON-TOBACCO USER [facility] Advance Directives: All historical and current No Data Provided for This Section Radiology Reports: +/- 30 days of the encounter No Data Provided for This Section Pathology Reports: +/- 30 days of the encounter No Data Provided for This Section Encounter Notes: All associated encounter notes This section contains the clinical notes associated to the Encounter. Date/Time Encounter Note(s) Provider Source Jun 18, 2021 10:46 AM PRIMARY CARE TELEPHONE ENCOU NTER NOTE: LOCAL TITLE: [place]-PACT TELEPHONE CONTACT STANDARD TITLE: PRIMARY CARE TELEPHONE ENCOUNTER NOTE DATE OF NOTE: JUN 18, 2021@10:46 ENTRY DATE: JUN 18, 2021@10:46:14 AUTHOR: CONSTANCE MARTÍNEZ EXP COSIGNER: URGENCY: STATUS: COMPLETED Patient Attempted to contact , regarding his Spiriva inhaler and how he is getting along. Requested for overnight deliver on 06/12/2021. No answer, left message to contact clinic if needed. /marty/ CONSTANCE MARTÍNEZ RN Signed: 06/18/2021 10:52 CONSTANCE MARTÍNEZ [facility]
--- OUTSIDE RECORDS SUMMARY | 2021-12-13 00:08 | XMS REPORT | Encounter Summary ---
Author Author [facility] SAMANTHA goldstein Organization [facility] Address Unknown Phone Unavailable Care Team Providers Care Roller Bearing Inspector Name Role Phone YOSI TENORIO PCP Unavailable [...] PART A Sep 28, 2007 PART A [id number] SAMANTHA HENDRIX PATIENT MEDICARE (WNR) MEDICARE (M) PART B Sep 28, 2007 PART B [id number] SAMANTHA HENDRIX PATIENT Selected Encounter This section includes the information on record at [place] for the Encounter. Date/Time Encounter Type Encounter Description Reason Provider Source May 22, 2021 09:40 AM Outpatient Encounter ADMIN PAT ACTIVTIES (REBECCANO NCT) IHE Encounter Template Text not used by [place] Assessments - Encounter Diagnoses No Data Provided for This Section Plan of Treatment: Future Appointments (+ 6 months) and Future Tests (+/- 45 day s) The Plan of Treatment section includes future care activities for the patient fr om all [place] treatment facilities. This section includes future appointments and fu ture orders which are active, pending or scheduled. Future Appointments This section includes appointments that were scheduled t o occur 6 months from the date of the Encounter, up to a maximum of 20 appointme nts. The data comes from all [facility] facilities. Appointment Date/Time Appointment Type Appointment Facili ty Name May 28, 2021 10:00 AM AMBULATORY - MEDICINE [facility]O LOPE[facility] Jun 02, 2021 01:30 PM AMBULATORY - REHAB MEDICINE [facility]OPE[facility] Jun 04, 2021 10:00 AM AMBULATORY - MEDICINE [facility] Jun 11, 2021 09:00 AM AMBULATORY - PSYCHIATRY [facility] Jun 11, 2021 10:00 AM AMBULATORY - MEDICINE LE[facility] LOPE[facility] Jun 15, 2021 08:00 AM AMBULATORY - NONE [facility], [facility] Jul 06, 2021 10:00 AM AMBULATORY - MEDICINE [facility] Jul 20, 2021 10:00 AM AMBULATORY - PSYCHIATRY [facility] Aug 05, 2021 02:30 PM AMBULATORY - NONE [facility] Aug 13, 2021 09:30 AM AMBULATORY - PSYCHIATRY LE[facility] WaiteMichelle [facility] Aug 14, 2021 01:30 PM AMBULATORY - REHAB MEDICINE [facility] Aug 25, 2021 02:00 PM AMBULATORY - PSYCHIATRY [facility] Aug 25, 2021 03:00 PM AMBULATORY - MEDICINE [facility] Sep 03, 2021 08:00 AM AMBULATORY - NONE [facility] [place] [facility] Sep 03, 2021 10:00 AM AMBULATORY - MEDICINE LEO WaiteMichelle [facility] Sep 10, 2021 10:00 AM AMBULATORY - MEDICINE LEO RavindraMichelle RIGOBERTOYohana [facility] Sep 17, 2021 10:00 AM AMBULATORY - MEDICINE LEO RavindraMichelle RIGOBERTOYohana [facility] Sep 23, 2021 08:30 AM AMBULATORY - NONE [facility] Oct 02, 2021 10:30 AM AMBULATORY - REHAB MEDICINE LEO WaiteMichelle [facility] Nov 02, 2021 11:30 AM AMBULATORY - MEDICINE [facility] Surgical Procedures: All associated to the encounter [...] and tobacco- related health factors from the [place] facility where the Encounter took place. Current Smoking Status This section includes the most current smoking, or tobacco -related health factor, from the [place] facility where the Encounter took place. Date/Time Current Smoking Status Comment Facility Mar 20, 2004 10:47 AM NON-TOBACCO USER [facility] [place] 15 Tobacco Use History This section includes a history of the smoking, or tobacco -related health factors, that were collected on or before the date of the Encoun ter. The data comes from the [place] facility where the Encounter took place. Date/Time Smoking Status/Tobacco Use Comment [facility] it Mar 20, 2004 10:47 AM NON-TOBACCO USER [facility] [place] [facility], [facility] 15 Advance Directives: All historical [...] Encounter. Date/Time Encounter Note(s) Provider Source May 22, 2021 09:40 AM NONVA CONSULT: LOCAL TITLE: COMMUNITY CARE CONSULT RESULTS NOTE [place] STANDARD TITLE: NONVA CONSULT DATE OF NOTE: MAY 22, 2021@09:40 ENTRY DATE: JUN 05, 2021@15:45:04 AUTHOR: LIZANDRO CENTENO EXP COSIGNER: URGENCY: STATUS: COMPLETED The following Non VA Care consult has been completed. See scanned document for report. NON VA Care Consult Results Pulmonology Comment: COMMUNITY CARE-PULM NOTES/[facility] KELLY/05/22/21 /marty/ LIZANDRO CENTENO AMSA Signed: 06/05/2021 15:46 LIZANDRO CENTENO [facility]
--- OUTSIDE RECORDS SUMMARY | 2021-12-13 00:08 | XMS REPORT | Encounter Summary ---
Author Author [facility] SAMANTHA goldstein Organization [facility] Address Unknown Phone Unavailable Care Team Providers Care Cage Supervisor Name Role Phone YOSI TENORIO PCP Unavailable [...] PART A Sep 28, 2007 PART A [id number] SIMEONEFFIEY PATIENT MEDICARE (WNR) MEDICARE (M) PART B Sep 28, 2007 PART B [id number] SAMANTHA HENDRIX PATIENT Selected Encounter This section includes the information on record at [place] for the Encounter. Date/Time Encounter Type Encounter Description Reason Provider Source May 14, 2021 02:34 PM Outpatient Encounter COMMUNITY CARE CONSULT IHE [...] appointme nts. The data comes from all [place] treatment facilities. Appointment Date/Time Appointment Type Appointment Facili ty Name May 22, 2021 08:00 AM AMBULATORY - NONE [facility] [place], [facility] 15 May 28, 2021 10:00 AM AMBULATORY - MEDICINE [facility] Jun 02, 2021 01:30 PM AMBULATORY - REHAB MEDICINE [facility]OPE[facility] Jun 04, 2021 10:00 AM AMBULATORY - MEDICINE [facility] LOPE[facility] Jun 11, 2021 09:00 AM AMBULATORY - PSYCHIATRY [facility] Jun 11, 2021 10:00 AM AMBULATORY - MEDICINE [facility] Jun 15, 2021 08:00 AM AMBULATORY - NONE [facility] [place], [place] Jul 06, 2021 10:00 AM AMBULATORY - MEDICINE [facility] Jul 20, 2021 10:00 AM AMBULATORY - PSYCHIATRY [facility] Aug 05, 2021 02:30 PM AMBULATORY - NONE [facility] [place], [place] 15 Aug 13, 2021 09:30 AM AMBULATORY - PSYCHIATRY [facility] Aug 14, 2021 01:30 PM AMBULATORY - REHAB MEDICINE [facility] Aug 25, 2021 02:00 PM AMBULATORY - PSYCHIATRY [facility] Aug 25, 2021 03:00 PM AMBULATORY - MEDICINE [facility] Sep 03, 2021 08:00 AM AMBULATORY - NONE [facility] [place], [place] Sep 03, 2021 10:00 AM AMBULATORY - MEDICINE [facility] Sep 10, 2021 10:00 AM AMBULATORY - MEDICINE [facility] Sep 17, 2021 10:00 AM AMBULATORY - MEDICINE [facility] Sep 23, 2021 08:30 AM AMBULATORY - NONE [facility] [place], [place] 15 Oct 02, 2021 10:30 AM AMBULATORY - REHAB MEDICINE [facility] Surgical Procedures: All associated to the [...] Mar 20, 2004 10:47 AM NON-TOBACCO USER [facility] [place], [place] 15 Tobacco Use History This section includes a history of the smoking, or tobacco -related health factors, that were collected on or before the date of the Encoun ter. The data comes from the [place] facility where the Encounter took place. Date/Time Smoking Status/Tobacco Use Comment Facil it Mar 20, 2004 10:47 AM NON-TOBACCO USER [facility] [place] [place] 15 Advance Directives: All [...] Encounter. Date/Time Encounter Note(s) Provider Source May 14, 2021 02:34 PM NONVA NOTE: LOCAL TITLE: COMMUNITY CARE-REQUEST FOR SERVICE NOTE [place] STANDARD TITLE: NONVA NOTE DATE OF NOTE: MAY 14, 2021@14:34 ENTRY DATE: MAY 14, 2021@14:34:19 AUTHOR: LINDSEY TABARES EXP COSIGNER: URGENCY: STATUS: COMPLETED COMMUNITY CARE-REQUEST FOR SERVICE NOTE [place] Has ADDENDA A Request for Service (RFS) form has been received which includes the following: Name of ordering provider:Cecelia Sargent APRN Telephone number of ordering provider:None Provided ICD-Dx code listed on RFS:Cough, R06.00-Dyspnea, G47.33-BRANDI, Tobacco user Specific type(s) of service(s) ordered on RFS is due for follow-up appointment on 05/22/2021 Signed RFS order/Supporting Medical Documentation is available in [facility] *MSA-Please index RFS with records to this note then alert TEAM 3 RN when complete, thank you. /marty/ LINDSEY TABARES RN Signed: 05/14/2021 14:39 Receipt Acknowledged By: 05/14/2021 16:35 /sid GOODRICH 05/14/2021 ADDENDUM STATUS: COMPLETED RFS AND RECORDS INDEXED TO THIS NOTE /sid SALVADOR Signed: 05/14/2021 16:38 Receipt Acknowledged By: * AWAITING SIGNATURE * LINDSEY TABARES [facility]
--- OUTSIDE RECORDS SUMMARY | 2021-12-13 00:08 | XMS REPORT | Encounter Summary ---
Author Author [facility] SAMANTHA goldstein Organization Department [facility] Address Unknown Phone Unavailable Care Team Providers Care Senior Qa Automation Engineer Name Role Phone YOSI TENORIO PCP [...] PART A Sep 28, 2007 PART A [id number] SIMEONEFFIEY PATIENT MEDICARE (WNR) MEDICARE (M) PART B Sep 28, 2007 PART B [id number] SIMEONSAMANTHA PATIENT Selected Encounter This section includes the information on record at [place] for the Encounter. Date/Time Encounter Type Encounter Description Reason Provider Source May 07, 2021 12:30 PM COLLJ & INTERPJ DATA EA 30 D SLEEP STUDY ICD-10-CM G47.33 Obstructive sleep apnea (adult) (pediatric) with Provider Comments: Obstructive sleep apnea of adult ([facility] [id number]) [place] DELIA THOSMON IHYohana Encounter Template Text not used by [facility] Assessments - Encounter Diagnoses This section includes the primary and secondary diag noses documented for the Encounter. Date/Time Primary/Secondary Diagnosis Diagnosis Name Provider Source May 07, 2021 12:56 PM PRIMARY Obstructive sleep apnea (a dult) (pediatric) [place] DELIA THOMSON [facility] Plan of Treatment: Future Appointments (+ 6 months) and Future Tests (+/- 45 day s) The Plan of Treatment section includes future care activities for the patient fr om all [place] treatment facilities. This section includes future appointments and fu ture orders which are active, pending or scheduled. Future Appointments This section includes appointments that were scheduled t o occur 6 months from the date of the Encounter, up to a maximum of 20 appointme nts. The data comes from all [place] treatment facilities. Appointment Date/Time Appointment Type Appointment Facili ty Name May 14, 2021 10:00 AM AMBULATORY - MEDICINE [facility]O LOPEZ [facility] May 22, 2021 08:00 AM AMBULATORY - NONE [facility] JOVANY MARQUIS May 28, 2021 10:00 AM AMBULATORY - MEDICINE LEO LOPEZ [facility] Jun 02, 2021 01:30 PM AMBULATORY - REHAB MEDICINE LOE LOPEZ [facility] Jun 04, 2021 10:00 AM AMBULATORY - MEDICINE LEO LOPEZ [facility] Jun 11, 2021 09:00 AM AMBULATORY - PSYCHIATRY [facility] LOPEZ [facility] Jun 11, 2021 10:00 AM AMBULATORY - MEDICINE [facility] LOPEZ [facility] Jun 15, 2021 08:00 AM AMBULATORY - NONE [facility] JOVANY MARQUIS Jul 06, 2021 10:00 AM AMBULATORY - MEDICINE [facility] Jul 20, 2021 10:00 AM AMBULATORY - PSYCHIATRY [facility] Aug 05, 2021 02:30 PM AMBULATORY - NONE [facility] JOVANY MARQUIS Aug 13, 2021 09:30 AM AMBULATORY - PSYCHIATRY [facility] Aug 14, 2021 01:30 PM AMBULATORY - REHAB MEDICINE LEO LOPEZ [facility] Aug 25, 2021 02:00 PM AMBULATORY - PSYCHIATRY [facility] Aug 25, 2021 03:00 PM AMBULATORY - MEDICINE [facility] Sep 03, 2021 08:00 AM AMBULATORY - NONE [facility] DARREN MARQUISN Sep 03, 2021 10:00 AM AMBULATORY - MEDICINE LEO LOPEZ [facility] Sep 10, 2021 10:00 AM AMBULATORY - MEDICINE LEO LOPEZ [facility] Sep 17, 2021 10:00 AM AMBULATORY - MEDICINE LEO LOPEZ [facility] Sep 23, 2021 08:30 AM AMBULATORY - NONE [facility] [place], [place] 15 Surgical Procedures: All associated to the encounter This section includes all Surgical Procedures and Surgical Procedure Notes assoc iated to the Encounter. Surgical Procedures This section includes all Surgical Procedures associated to the Encounter. Surgical Procedure Date/Time Procedure Procedure Type Procedure Qualifiers Provider Source May 07, 2021 12:30 PM COLLJ & INTERPJ DATA EA 30 D COLLJ & INTER PJ DATA EA 30 D [facility] DELIA THOMSON [facility] Surgical Notes There are no notes associated with this procedure. Surgical Procedure Date/Time Procedure Procedure Type Procedure Qualifiers Provider Source May 07, 2021 12:30 PM Continuous Positive Airway P ressure Ventilation (CPAP), Initiation and Management POS AIRWAY PRESSURE CPAP MELLISA THOMSON [facility] Surgical Notes There are no notes associated [...] and tobacco- related health factors from the [place] facility where the Encounter took place. Current Smoking Status This section includes the most current smoking, or tobacco -related health factor, from the [place] facility where the Encounter took place. Date/Time Current Smoking Status Comment Facility Jun 12, 2018 01:16 PM VA-TOBACCO QUIT 15 YRS OR MORE [facility] LOPE[facility] Tobacco Use History This section includes a history of the smoking, or tobacco -related health factors, that were collected on or before the date of the Encoun ter. The data comes from the [place] facility where the Encounter took place. Date/Time Smoking Status/Tobacco Use Comment [facility] Jun 12, 2018 01:16 PM [place]-TOBACCO QUIT 15 YRS OR MORE [place] LPOEZ [facility] Sep 24, 2015 08:23 AM [facility]AC[facility] Nov 07, 2014 12:58 PM NON-TOBACCO USER [facility] LOPEZ [facility] Oct 01, 2014 02:57 PM NON-TOBACCO USER [facility] Jul 08, 2011 11:42 AM NON-TOBACCO USER LEO LOPEZ [facility] C Sep 21, 2007 09:37 AM NON-TOBACCO USER Pt. reports he quit smoking over 20 years ago. [facility] LOPEZ [facility] Advance Directives: All historical and current No Data Provided for This Section Radiology Reports: +/- 30 days of the encounter No Data Provided for This Section Pathology Reports: +/- 30 days of the encounter No Data Provided for This Section Encounter Notes: All associated encounter notes This section contains the clinical notes associated to the Encounter. Date/Time Encounter Note(s) Provider Source May 07, 2021 12:40 PM RESPIRATORY THERAPY FLOWSHEE T: LOCAL TITLE: [place]-RESPIRATORY THERAPY. STANDARD TITLE: RESPIRATORY THERAPY FLOWSHEET DATE OF NOTE: MAY 07, 2021@12:40 ENTRY DATE: MAY 07, 2021@12:40:33 AUTHOR: AL[place] DELIA THOMSON COSIGNER: RADHA ROLLE URGENCY: STATUS: COMPLETED This appointment was conducted as a Clinical Video On Demand encounter. Consent for this encounter was obtained from the patient. Clinic room and pt's room were surveyed for additional attendees. Additional attendees documented. Virtual room was locked after all attendees were in place. E911, Emergency Call Relay Center - Telehealth phone number: [phone] [facility] Crisis Line phone number: [phone] Today's encounter will be his annual F/Up appointment, without sleep provider, from CPAP setup on 15 cmH2O via AirSense 10. He was last called by this clinic for data download on 04/28/20. Pt states that he is not having any daytime sleepiness. Pt has no issues to report with his assigned unit. Due to [facility] appt, the data was accessed remotely. Per Infer remote assist, the device is performing as expected. Pt's settings were reviewed with him. No changes were indicated. AHI is WNL with 96% compliance. He was commended for his efforts and encouraged to continue. His data showed a large leak, so proper mask fit technique was discussed. Re-educated pt on proper cleaning technique. Pt informed of the issues associated with using an ozone glass mould cleaner. Pt informed that use of ozone glass mould cleaner will nullify [employer] warranty of device. Pt voiced understanding. Pt info sent to [facility] to be schedule for his next annual F/Up appointment with this clinic and Sleep Dr via [facility] (email). Consult placed to mail annual supplies to pt's address on 04/28/21. Pt reminded of frequency to change out supplies. Pt voiced understanding. CPAP download REMOTE DOWNLOAD Date Range: 05/07/20 - 05/06/21 Days with Device Usage: 352 days Days without Device Usage: 13 days Percent of Days with Device Usage: 96% Percent of Days with Usage < 4 hours: 1% Average AHI: 0.5 Average leak: 14.4 lpm 95th percentile: 40.7 lpm Maximum: 54.8 lpm Average noc use: 10 hours 4 minutes CPAP pressure verified via AirView @ 15 cmH2O. CAN Score: 70 - No Palliative Care Consult required. /marty/ AL[place] DELIA THOMSON TOOL MACHINE SHOP SUPERVISOR/CPFT Signed: 05/07/2021 12:56 /marty/ RADHA ROLLE STAFF PHYSICIAN/JEWELRY MECHANIC Cosigned: 05/08/2021 15:18 [place] DELIA THOMSON [facility]
--- OUTSIDE RECORDS SUMMARY | 2021-12-13 00:08 | XMS REPORT | Encounter Summary ---
Author Author [facility] SAMANTHA goldstein Organization Department [facility] Address Unknown Phone Unavailable Care Team Providers Care Stockroom Worker Name Role Phone YOSI TENORIO PCP [...] PART A Sep 28, 2007 PART A [id number] SIMEONEFFIEY PATIENT MEDICARE (WNR) MEDICARE (M) PART B Sep 28, 2007 PART B [id number] SAMANTHA HENDRIX PATIENT Selected Encounter This section includes the [facility] at [facility]counter. Date/Time Encounter Type Encounter Description Reason Provider Source May 04, 2021 11:30 AM CLEAR OUTER EAR CANAL AUDIOLOGY ICD- 10-CM H90.3 Sensorineural hearing loss, bilateral with Provider Comments: Sensorineural hearing loss, bilateral [id number] JOSÉ MIGUEL UREDA Encounter Template Text not used by [facility] Assessments - Encounter Diagnoses This section includes the primary and secondary diag noses documented for the Encounter. Date/Time Primary/Secondary Diagnosis Diagnosis Name Provider Source May 04, 2021 03:26 PM PRIMARY Sensorineural hearing loss , bilateral SLEKARENEJOSÉ MIGUEL Mayank [facility] May 04, 2021 03:26 PM SECONDARY Tinnitus, bilateral SLEDGE,LOVELY Talley A [facility] Plan of Treatment: Future Appointments [...] Appointment Type Appointment Facili ty Name May 07, 2021 10:00 AM AMBULATORY - MEDICINE [facility] May 07, 2021 12:30 PM AMBULATORY - MEDICINE [facility] May 14, 2021 10:00 AM AMBULATORY - MEDICINE [facility] May 22, 2021 08:00 AM AMBULATORY - NONE [facility] JOVANY MARQUIS May 28, 2021 10:00 AM AMBULATORY - MEDICINE [facility] Jun 02, 2021 01:30 PM AMBULATORY - REHAB MEDICINE [facility] Jun 04, 2021 10:00 AM AMBULATORY - MEDICINE [facility] Jun 11, 2021 09:00 AM AMBULATORY - PSYCHIATRY [facility] Jun 11, 2021 10:00 AM AMBULATORY - MEDICINE [facility] Jun 15, 2021 08:00 AM AMBULATORY - NONE [facility] JOVANY MARQUIS Jul 06, 2021 10:00 AM AMBULATORY - MEDICINE [facility] Jul 20, 2021 10:00 AM AMBULATORY - PSYCHIATRY [facility] Aug 05, 2021 02:30 PM AMBULATORY - NONE [facility] JOVANY MARQUIS Aug 13, 2021 09:30 AM AMBULATORY - PSYCHIATRY [facility] Aug 14, 2021 01:30 PM AMBULATORY - REHAB MEDICINE [facility] Aug 25, 2021 02:00 PM AMBULATORY - PSYCHIATRY [facility] Aug 25, 2021 03:00 PM AMBULATORY - MEDICINE [facility] Sep 03, 2021 08:00 AM [facility] Sep 03, 2021 10:00 AM AMBULATORY - MEDICINE [facility] Sep 10, 2021 10:00 AM [facility] Procedures: All associated to the encounter This section includes all Surgical Procedures and Surgical Procedure Notes assoc iated to the Encounter. Surgical Procedures This section includes all Surgical Procedures associated to the Encounter. Surgical Procedure Date/Time Procedure Procedure Type Procedure Qualifiers Provider Source May 04, 2021 11:30 AM Remove Foreign Body CLEAR OUTER EAR CANAL RT- RIGHT SIDE [facility] Surgical Notes There are no notes associated with this procedure. Surgical Procedure Date/Time Procedure Procedure Type Procedure Qualifiers Provider Source May 04, 2021 11:30 AM Hearing Aid Check, Binaural HEARING AID CHECK BOTH EARS JOSÉ [facility]IGUEL [facility] Surgical Notes There are no notes associated with this procedure. Surgical Procedure Date/Time Procedure Procedure Type Procedure Qualifiers Provider Source May 04, 2021 11:30 AM Hearing Aid Assessment, Binaural HEARI NG AID EXAM BOTH EARS JOSÉ MIGUEL [facility] Surgical Notes There are no notes associated with this procedure. Surgical Procedure Date/Time Procedure Procedure Type Procedure Qualifiers Provider Source May 04, 2021 11:30 AM Tympanometry TYMPANOMETRY 50-BILATERAL PROCED URE JOSÉ MIGUEL [facility] Surgical Notes There are no notes associated with this procedure. Surgical Procedure Date/Time Procedure Procedure Type Procedure Qualifiers Provider Source May 04, 2021 11:30 AM Comprehensive Audiometry COMPREHENSIVE HEA RING TEST 50- BILATERAL PROCEDURE JOSÉ MIGUEL [facility] Surgical Notes There are no notes associated with this procedure. Surgical Procedure Date/Time Procedure Procedure Type Procedure Qualifiers Provider Source May 04, 2021 11:30 AM ADDL SUPL MATRL&STAF TM PHE ADDL SUPL MATRL&S TAF TM PHE JOSÉ MIGUEL [facility] Surgical Notes There are no [...] QUIT 15 YRS OR MORE [facility] Tobacco Use History This section includes a history of the smoking, or tobacco -related health factors, that were collected on or before the date of the Encoun ter. The data comes from the [place] facility where the Encounter took place. Date/Time Smoking Status/Tobacco Use Comment [facility] Jun 12, 2018 01:16 PM [place]-TOBACCO QUIT 15 YRS OR MORE [facility] Sep 24, 2015 08:23 AM NON-TOBACCO USER [facility] Nov 07, 2014 12:58 PM NON-TOBACCO USER [facility] Oct 01, 2014 02:57 PM NON-TOBACCO USER [facility] Jul 08, 2011 11:42 AM NON-TOBACCO USER [facility] Sep 21, 2007 09:37 AM NON-TOBACCO USER Pt. reports he quit smoking over 20 years ago. [facility] Advance Directives: All historical and [...] Encounter. Date/Time Encounter Note(s) Provider Source May 04, 2021 03:24 PM AUDIOLOGY NOTE: LOCAL TITLE: WI-AUDIOLOGY/HE STANDARD TITLE: AUDIOLOGY NOTE DATE OF NOTE: MAY 04, 2021@15:24 ENTRY DATE: MAY 04, 2021@15:24:59 AUTHOR: JOSÉ MIGUEL RUEDA COSIGNER: URGENCY: STATUS: COMPLETED WI-AUDIOLOGY/HE Has ADDENDA Report will be communicated via CPRS Notification to the requesting provider. S: requested a hearing evaluation. He reports he is pretty sure he currently has a dome stuck in his right ear canal. [place] reports the domes have come off in his ear frequently. Chief complaint: hearing loss History: [ ]New [X]Established patient Tinnitus: [ ] Denies [X] Constant [ ] Recurrent [X] Bilateral [ ] Unilateral - [ ] Right [ ] Left [X] denies ear infections, ear injury and ear surgery since last evaluated. O: General Impressions: [X] Alert, Cooperative [ ] Difficulty following directions Otoscopic Inspection: [L] Unremarkable [R] Irregular Comments: Dome was visible in right ear canal. Removed dome using alligator forceps with no issues. Right TM is now visible and WNLs. A: Audiologic Assessment: [X] A hearing loss was identified, bilat. Type of hearing loss: [X] Sensorineural [ ] Conductive [ ] Mixed Degree of hearing loss: Right ear: mild to profound Left ear: mild to profound Speech Tangible Personal Property Appraiser Thresholds: Speech Recognition Ability: Right ear: 25 Right ear: 96% at 65/35 (MCL) Left ear: 25 Left ear: 80% at 65/35 (MCL) Tympanometry: Intertest Consistency: Right ear: Jerger type A Right ear: Good Left ear: Jerger type A Left ear: Good [place]'s hearing loss has [X] remained stable, [ ] declined, since last tested. [X] Counseled regarding hearing loss and the benefits/limitations of amplification. [X] Hearing aids were selected and ordered. [X] A new dome was placed onto 's right VIGIL. Both HAs sound good and are working well. The procedure was well tolerated without complications. was informed of today's results and counseled accordingly. was given the opportunity to ask questions and all questions were answered. voiced understanding. P: [X] [place] was scheduled for an OLIVE appt. See Audiogram Display to view audiogram. Related to: Service Connected Condition Diagnoses: Sensorineural hearing loss, bilateral (SCT [id number]) - Sensorineural hearing loss, bilateral (ICD-10-CM H90.3) (Primary) Bilateral tinnitus (SCT [id number]) - Tinnitus, bilateral (ICD-10-CM H93.13) /marty/ JOSÉ MIGUEL Pizano, Doctor of Audiology Signed: 05/05/2021 10:59 05/08/2021 ADDENDUM STATUS: COMPLETED Vigil's rcvd. /es/ [facility] Signed: 05/08/2021 15:27 /es/ JOSÉ MIGUEL Pizano, Doctor of Audiology Cosigned: 05/08/2021 15:31 JOSÉ MIGUEL [facility]A [facility]
--- OUTSIDE RECORDS SUMMARY | 2021-12-13 00:08 | XMS REPORT | Encounter Summary ---
Author Author [facility] SAMANTHA goldstein Organization Department [facility] Address Unknown Phone Unavailable Care Team Providers Care Teacher Home Therapy Name Role Phone YOSI TENORIO PCP Unavailable [...] PART A Sep 28, 2007 PART A [id number] SIMEONEFFIEY PATIENT MEDICARE (WNR) MEDICARE (M) PART B Sep 28, 2007 PART B [id number] SIMEONSAMANTHA PATIENT Selected Encounter This section includes the information on record at [place] for the Encounter. Date/Time Encounter Type Encounter Description Reason Provider Source May 14, 2021 10:00 AM HLTH BHV IVNTJ GRP EA ADDL WEIGHT MGMT & M OVE! PROG - GRP ICD-10-CM Z71.3 Dietary counseling and surveillance with Provider Comments: Dietary counseling and surveillance MATHIEU CASTAÑEDA Encounter Template Text not used by [facility] Assessments - Encounter Diagnoses This section includes the primary and secondary diag noses documented for the Encounter. Date/Time Primary/Secondary Diagnosis Diagnosis Name Provider Source May 14, 2021 10:45 AM PRIMARY Dietary counseling and surveilla nce MADDYMATHIEU [facility] May 14, 2021 10:45 AM SECONDARY Body mass index [BMI] 37.0 -37.9, adult MADDYMATHIEU LOPEZ [facility] May 14, 2021 10:45 AM SECONDARY Other obesity due to exces s calories MADDYMATHIEU LOPEZ [facility] Plan of Treatment: Future Appointments (+ 6 [...] appointme nts. The data comes from all [facility]. Appointment Date/Time Appointment Type Appointment Facili ty Name May 22, 2021 08:00 AM AMBULATORY - NONE [facility] JOVANY MARQUIS May 28, 2021 10:00 AM AMBULATORY - MEDICINE [facility] Jun 02, 2021 01:30 PM AMBULATORY - REHAB MEDICINE [facility] Jun 04, 2021 10:00 AM AMBULATORY - MEDICINE [facility] Jun 11, 2021 09:00 AM AMBULATORY - PSYCHIATRY [facility] Jun 11, 2021 10:00 AM AMBULATORY - MEDICINE [facility] Jun 15, 2021 08:00 AM AMBULATORY - NONE [facility] JOVANY MARQUIS Jul 06, 2021 10:00 AM AMBULATORY - MEDICINE [facility] Jul 20, 2021 10:00 AM AMBULATORY - PSYCHIATRY [facility] Aug 05, 2021 02:30 PM AMBULATORY - NONE [facility] JOVANY MARQUIS Aug 13, 2021 09:30 AM AMBULATORY - PSYCHIATRY [facility] Aug 14, 2021 01:30 PM AMBULATORY - REHAB MEDICINE [facility] Aug 25, 2021 02:00 PM AMBULATORY - PSYCHIATRY [facility] Aug 25, 2021 03:00 PM AMBULATORY - MEDICINE [facility] Sep 03, 2021 08:00 AM AMBULATORY - NONE [facility] JOVANY MARQUIS Sep 03, 2021 10:00 AM AMBULATORY - MEDICINE [facility] Sep 10, 2021 10:00 AM AMBULATORY - MEDICINE [facility] Sep 17, 2021 10:00 AM AMBULATORY - MEDICINE [facility] Sep 23, 2021 08:30 AM AMBULATORY - NONE [facility] JOVANY MARQUIS Oct 02, 2021 10:30 AM AMBULATORY - REHAB MEDICINE [facility] Surgical Procedures: All associated to the encounter This section includes all Surgical Procedures and Surgical Procedure Notes assoc iated to the Encounter. Surgical Procedures This section includes all Surgical Procedures associated to the Encounter. Surgical Procedure Date/Time Procedure Procedure Type Procedure Qualifiers Provider Source May 14, 2021 10:00 AM Health Behavior Intervention , Group (2 or more Patients), [id number]; each additional 15 minutes (List Separately in addition to Code for Primary Service) [facility] IVNTJ GRP EA ADDL 95-SYNCHRONOUS TELEMEDICINE SERVICE [facility] Surgical Notes There are no notes associated with this procedure. Surgical Procedure Date/Time Procedure Procedure Type Procedure Qualifiers Provider Source May 14, 2021 10:00 AM Health Behavior Intervention , Group (2 or more Patients), [id number]; Initial 30 minutes [facility] IV[facility] GRP 1ST 30 95-SYNCHRONOUS TELEMEDICINE SERVICE [facility] Surgical Notes There are no notes associated with this procedure. Surgical Procedure Date/Time Procedure Procedure Type Procedure Qualifiers Provider Source May 14, 2021 10:00 AM [id number] WT MGT, 11-20PT, 1st 30M GROUP BEHAVE COUNS 2-10 MADDYMATHIEU [facility] Surgical Notes There are no notes associated with this procedure. Lab Results: +/- 30 days of the encounter No Data Provided for This Section Vital Signs: All taken on the encounter date This section contains inpatient and outpatient Vital Signs collected on the date of the Encounter. Date/Time Temperature Pulse Blood Pressure Respiratory Rate SP02 Pa in Height Weight Body Mass Index Source May 14, 2021 10:21 AM 232.4 lb 3 4 [facility] Immunizations: All administered on the encounter date [...] QUIT 15 YRS OR MORE [facility] Tobacco Use History This section includes a history of the smoking, or tobacco -related health factors, that were collected on or before the date of the Encoun ter. The data comes from the [place] facility where the Encounter took place. Date/Time Smoking Status/Tobacco Use Comment [facility] Jun 12, 2018 01:16 PM [place]-TO[place] QUIT 15 YRS OR MORE [facility] LOPE[facility] Sep 24, 2015 08:23 AM NON-TOBACCO USER [facility] Nov 07, 2014 12:58 PM NON-TOBACCO USER [facility] Oct 01, 2014 02:57 PM NON-TOBACCO USER [facility] Jul 08, 2011 11:42 AM NON-TOBACCO USER [facility] Sep 21, 2007 09:37 AM NON-TOBACCO USER Pt. reports he quit smoking over 20 years ago. [facility] Advance Directives: All historical and current [...] Encounter Note(s) Provider Source May 14, 2021 10:00 AM MOVE NOTE: LOCAL TITLE: WI-WEIGHT MANAGEMENT/MOVE! OUTPATIENT GROUP STANDARD TITLE: MOVE NOTE DATE OF NOTE: MAY 14, 2021@10:00 ENTRY DATE: MAY 14, 2021@10:27 AUTHOR: MATHIEU CASTAÑEDA COSIGNER: URGENCY: STATUS: COMPLETED [facility] Video Connect or Video to home VVC appointment information: The following items were reviewed: - The nature of telehealth, its benefits, and risks. - Confidentiality and its limits. - The importance of having a confidential location for the service. - The emergency plan. - The appointment should be treated like an in person appointment (no smoking or driving during session, showing up fully dressed, etc.) The Virtual Medical Room was locked for this encounter. A survey of the environment was conducted and it is appropriate to conduct a VVC/Video to home appointment. Patient Address/Contact & Emergency information confirmed as same as on CPRS facesheet: Yes attended MODULE 6 of [facility] class. ASSESSMENT: 1. completed Food and Activity Records Daily: no 2. actively participated during class by taking notes and asking appropriate questions. NUTRITION DIAGNOSIS: Overweight (BMI 29)/ Obesity (BMI 30-39.9/ Morbid Obesity (BMI >40) related to history of excessive energy intake and/or inadequate frequency/duration of physical activity AEB BMI revealing weight for height more than normative standards. INTERVENTION: - Food & Activity Journals were reviewed ; feedback provided. - A progress check-in completed assessin g Tropic's success in meeting previously set goals for this past week. Educational topics presented to group: Module 5: Get Fit For Life 1. Types of physical activity 2. How active should I be? 3. Measures of intensity 4. How active am I? 5. Preparing to get fit 6. Busting barriers Counseling Methods: Motivational/ Goal Setting/ Behavioral indicates understanding of education and concepts covered. MONITOR/EVALUATION: Action Plan includes: Individual exercise, behavioral and dietary goals. Complete daily food & activity log. Anthropometric Outcomes: Gradual weight loss of 0.5-2#/week Plan: Scheduled for future [facility] classes. /marty/ MATHIEU STALLINGS,SHAKIRA,LD,CDE CLINICAL DIETITIAN Signed: 05/14/2021 10:27 Receipt Acknowledged By: * AWAITING SIGNATURE * LEO RUTLEDGE,MATHIEU LOPEZ [facility]
--- OUTSIDE RECORDS SUMMARY | 2021-12-13 00:08 | XMS REPORT | Encounter Summary ---
Author Author [facility] SAMANTHA goldstein Organization Department [facility] Address Unknown Phone Unavailable Care Team Providers Care Compounder Name Role Phone YOSI TENORIO PCP Unavailable [...] PART A Sep 28, 2007 PART A [id number] SIMEONEFFIEY PATIENT MEDICARE (WNR) MEDICARE (M) PART B Sep 28, 2007 PART B [id number] SAMANTHA HENDRIX PATIENT Selected Encounter This section includes the information on record at MD for the Encounter. Date/Time Encounter Type Encounter Description Reason Provider Source May 18, 2021 01:24 PM CLINIC SERVICE TELEPHONE ICD-10-CM F33.1 Major depressive disorder, recurrent, moderate with Provider Comments: Chronic recurrent major depressive disorder (SCT [id number]) YAHIR ENGLAND Yohana Encounter Template Text not used by [facility] Assessments - Encounter Diagnoses This section includes the primary and secondary diag noses documented for the Encounter. Date/Time Primary/Secondary Diagnosis Diagnosis Name Provider Source May 18, 2021 01:24 PM PRIMARY Major depressive disorder, recurrent, moderate YAHIR ENGLAND [facility] May 18, 2021 01:24 PM SECONDARY Other specified counseling YAHIR ORTIZ [facility] Plan of Treatment: Future Appointments (+ 6 months) and Future Tests (+/- 45 day s) The Plan of Treatment section includes future care activities for the patient fr om all MD treatment facilities. This section includes future appointments and fu ture orders which are active, pending or scheduled. Future Appointments This section includes appointments that were scheduled t o occur 6 months from the date of the Encounter, up to a maximum of 20 appointme nts. The data comes from all MD treatment facilities. Appointment Date/Time Appointment Type Appointment Facili ty Name May 22, 2021 08:00 AM AMBULATORY - NONE [facility] JOVANY MARQUIS May 28, 2021 10:00 AM AMBULATORY - MEDICINE [facility]O [facility]OPE[facility] Jun 02, 2021 01:30 PM AMBULATORY - REHAB MEDICINE LEO LOPEZ [facility] Jun 04, 2021 10:00 AM AMBULATORY - MEDICINE [facility] Jun 11, 2021 09:00 AM AMBULATORY - PSYCHIATRY [facility]OPE[facility] Jun 11, 2021 10:00 AM AMBULATORY - MEDICINE [facility] Jun 15, 2021 08:00 AM AMBULATORY - NONE [facility] JOVANY [facility]QU[facility] Jul 06, 2021 10:00 AM AMBULATORY - MEDICINE [facility] Jul 20, 2021 10:00 AM AMBULATORY - PSYCHIATRY [facility] Aug 05, 2021 02:30 PM AMBULATORY - NONE [facility] J[facility]QU[facility] Aug 13, 2021 09:30 AM AMBULATORY - PSYCHIATRY [facility] LOPE[facility] Aug 14, 2021 01:30 PM AMBULATORY - REHAB MEDICINE ELO LOPEZ [facility] Aug 25, 2021 02:00 PM AMBULATORY - PS[facility]ATRY [facility] Aug 25, 2021 03:00 PM AMBULATORY - MEDICINE [facility] Sep 03, 2021 08:00 AM AMBULATORY - NONE [facility] JOVANY MARQUSI Sep 03, 2021 10:00 AM AMBULATORY - MEDICINE [facility] Sep 10, 2021 10:00 AM AMBULATORY - MEDICINE [facility] Sep 17, 2021 10:00 AM AMBULATORY - MEDICINE [facility] Sep 23, 2021 08:30 AM AMBULATORY - NONE [facility] JOVANY MARQUIS 15 Oct 02, 2021 10:30 AM AMBULATORY - REHAB MEDICINE LEO LOPEZ [facility] Surgical Procedures: All associated to the encounter This section includes all Surgical Procedures and Surgical Procedure Notes assoc iated to the Encounter. Surgical Procedures This section includes all Surgical Procedures associated to the Encounter. Surgical Procedure Date/Time Procedure Procedure Type Procedure Qualifiers Provider Source May 18, 2021 01:24 PM CLINIC SERVICE CLINIC SERVICE YAHIR DICKINSON [facility] Surgical Notes There are no notes associated with this procedure. Surgical Procedure Date/Time Procedure Procedure Type Procedure Qualifiers Provider Source May 18, 2021 01:24 PM RN SERVICES UP TO 15 MINUTES RN SERVICES U P TO 15 MINUTES YAHIR ENGLAND [facility] Surgical Notes There are no notes associated with this procedure. Surgical Procedure Date/Time Procedure Procedure Type Procedure Qualifiers Provider Source May 18, 2021 01:24 PM Phone Call 5-10 Min HC PRO PHONE CALL 5-10 DE N YAHIR ENGLAND [facility] Surgical Notes There are no notes associated [...] and tobacco- related health factors from the MD facility where the Encounter took place. Current Smoking Status This section includes the most current smoking, or tobacco -related health factor, from the [facility] facility where the Encounter took place. Date/Time Current Smoking Status Comment Facility Jun 12, 2018 01:16 PM VA-TOBACCO QUIT 15 YRS OR MORE [facility]ISTA LOPEZ [facility] Tobacco Use History This section includes a history of the smoking, or tobacco -related health factors, that were collected on or before the date of the Encoun ter. The data comes from the [place] facility where the Encounter took place. Date/Time Smoking Status/Tobacco Use Comment [facility] Jun 12, 2018 01:16 PM MD-TOBACCO QUIT 15 YRS OR MORE [facility] LOPEZ [facility] Sep 24, 2015 08:23 AM NON-TOBACCO USER LEO BHAGAT [facility] Nov 07, 2014 12:58 PM NON-TOBACCO USER [facility] Oct 01, 2014 02:57 PM NON-TOBACCO USER LEO LOPEZ [facility] Jul 08, 2011 11:42 AM NON-TOBACCO USER LEO Méndez Sep 21, 2007 09:37 AM NON-TOBACCO USER Pt. reports he quit smoking over 20 years ago. LEO LOPEZ [facility] Advance Directives: All historical and current No Data Provided for This Section Radiology Reports: +/- 30 days of the encounter No Data Provided for This Section Pathology Reports: +/- 30 days of the encounter No Data Provided for This Section Encounter Notes: All associated encounter notes This section contains the clinical notes associated to the Encounter. Date/Time Encounter Note(s) Provider Source May 18, 2021 01:24 PM MENTAL HEALTH TELEPHONE ENCO UNTER NOTE: LOCAL TITLE: [facility] PHONE [facility] STANDARD TITLE: MENTAL HEALTH TELEPHONE ENCOUNTER NOTE DATE OF NOTE: MAY 18, 2021@13:24 ENTRY DATE: MAY 18, 2021@13:24:19 AUTHOR: YAHIR ENGLAND EXP COSIGNER: URGENCY: STATUS: COMPLETED [facility] PHONE [facility] Has ADDENDA calls to request refill of: Dispense Drugs (units/dose): VORTIOXETINE 10MG TAB () Last Filled: 04/13/21 States he has approximately 9 days left of current supply. Denies any issue with medication side effect, reports medication working well, mood is stable. Denies any urgent mental health concerns at this time. [place] accepts call transfer to scheduling desk to obtain follow up appointment with [facility] provider. 5 minutes spent on the phone with alejo nolasco /marty/ YAHIR ENGLAND RN Signed: 05/18/2021 13:28 Receipt Acknowledged By: 05/19/2021 19:25 /sid Monterroso M.D. STAFF PSYCHIATRIST 05/19/2021 ADDENDUM STATUS: COMPLETED done /marty/ Lacey Monterroso M.D. STAFF PSYCHIATRIST Signed: 05/19/2021 19:26 Receipt Acknowledged By: * AWAITING SIGNATURE * YAHIR ENGLAND KRIS A ROBERT J. DOLE [facility]
--- OUTSIDE RECORDS SUMMARY | 2021-12-13 00:09 | XMS REPORT | Encounter Summary ---
Author Author [facility] SAMANTHA goldstein Organization Department [facility] Address Unknown Phone Unavailable Care Team Providers Care Airfreight Loading Supervisor Name Role Phone YOSI TENORIO PCP [...] PART A Sep 28, 2007 PART A [id number] SIMEONSAMANTHA PATIENT MEDICARE (WNR) MEDICARE (M) PART B Sep 28, 2007 PART B [id number] SAMANTHA HENDRIX PATIENT Selected Encounter This section includes the information on record at [place] for the Encounter. Date/Time Encounter Type Encounter Description Reason Provider Source Apr 28, 2021 02:34 PM HC PRO PHONE CALL 11-20 MIN TELEPHONE/MEDI CINE ICD-10-CM G47.33 Obstructive sleep apnea (adult) (pediatric) with Provider Comments: Obstructive sleep apnea of adult ([facility] [id number]) [place] DELIA THOMSON IHYohana Encounter Template Text not used by [facility] Assessments - Encounter Diagnoses This section includes the primary and secondary diag noses documented for the Encounter. Date/Time Primary/Secondary Diagnosis Diagnosis Name Provider Source Apr 28, 2021 02:34 PM PRIMARY Obstructive sleep apnea (a dult) (pediatric) [place] DELIA THOMSON [facility] Plan of Treatment: Future Appointments (+ 6 months) and Future Tests (+/- 45 day s) The Plan of Treatment section includes future care activities for the patient fr om all [place] treatment facilities. This section includes future appointments and fu ture orders which are active, pending or scheduled. Future Appointments This section includes appointments that were scheduled t o occur 6 months from the date of the Encounter, up to a maximum of 20 appointme nts. The data comes from all [place] treatment [facility]. Appointment Date/Time Appointment Type Appointment Facili ty Name Apr 30, 2021 10:00 AM AMBULATORY - MEDICINE [facility] May 04, 2021 11:30 AM AMBULATORY - REHAB MEDICINE LEO LOPEZ [facility] May 07, 2021 10:00 AM AMBULATORY - MEDICINE [facility] May 07, 2021 12:30 PM AMBULATORY - MEDICINE [facility] May 14, 2021 10:00 AM AMBULATORY - MEDICINE [facility] May 22, 2021 08:00 AM AMBULATORY - NONE [facility] JOVANY Flood May 28, 2021 10:00 AM AMBULATORY - MEDICINE [facility] Jun 02, 2021 01:30 PM AMBULATORY - REHAB MEDICINE LEO LOPEZ [facility] Jun 04, 2021 10:00 AM AMBULATORY - MEDICINE [facility] Jun 11, 2021 09:00 AM AMBULATORY - PSYCHIATRY LEO LOEPZ [facility] Jun 11, 2021 10:00 AM AMBULATORY - MEDICINE [facility]OPE[facility] Jun 15, 2021 08:00 AM AMBULATORY - NONE [facility] Jul 06, 2021 10:00 AM AMBULATORY - MEDICINE [facility] Jul 20, 2021 10:00 AM AMBUL[facility] Aug 05, 2021 02:30 PM AMBULATORY - NONE [facility] DARREN MARQUISN Aug 13, 2021 09:30 AM AMBULATORY - PSYCHIATRY LEO LOPEZ [facility] Aug 14, 2021 01:30 PM AMBULATORY - REHAB MEDICINE LEO LOPEZ [facility] Aug 25, 2021 02:00 PM AMBULATORY - PSYCHIATRY [facility] Aug 25, 2021 03:00 PM AMBULATORY - MEDICINE [facility] Sep 03, 2021 08:00 AM AMBULATORY - NONE [facility] T, VISN 15 Surgical Procedures: All associated to the encounter This section includes all Surgical Procedures and Surgical Procedure Notes assoc iated to the Encounter. Surgical Procedures This section includes all Surgical Procedures associated to the Encounter. Surgical Procedure Date/Time Procedure Procedure Type Procedure Qualifiers Provider Source Apr 28, 2021 02:34 PM HC PRO PHONE CALL 11-20 MIN HC PRO PHONE CALL 11-20 MIN [facility] Surgical Notes There are no notes [...] Range Comment April 02, 2021 02:00 PM [facility] COVID-19 DIAGNOSTIC (RESP PANEL) Specimen Type: NASOPHARYNX No comment entered. Ordering Provider: YOSI TENORIO Report Released Date/Time: April 02, 2021 02:17 PM Reporting Lab: LEO LOPEZ [facility] [address] [id number] Performing Lab: LEO Arteaga [facility] [address] [facility] [id number] B.PERTUSSIS,PCR Not Detected Not Detect ed *B.PARAPERTUSSIS [...] and tobacco- related health factors from the [place] facility where the Encounter took place. Current Smoking Status This section includes the most current smoking, or tobacco -related health factor, from the [place] facility where the Encounter took place. Date/Time Current Smoking Status Comment Facility Jun 12, 2018 01:16 PM [place]-TOBACCO QUIT 15 YRS OR MORE [facility] LOPEZ [facility] Tobacco Use History This section includes a history of the smoking, or tobacco -related health factors, that were collected on or before the date of the Encoun ter. The data comes from the [place] facility where the Encounter took place. Date/Time Smoking Status/Tobacco Use Comment [facility] Jun 12, 2018 01:16 PM [place]-TOBACCO QUIT 15 YRS OR MORE [facility] LOPEZ [facility] Sep 24, 2015 08:23 AM [facility] Nov 07, 2014 12:58 PM NON-TOBACCO USER LEO LOPEZ [facility] Oct 01, 2014 02:57 PM NON-TOBACCO USER LEO LOPEZ [facility] Jul 08, 2011 11:42 AM NON-TOBACCO USER LEO LOPEZ [facility] Sep 21, 2007 09:37 AM NON-TOBACCO USER Pt. reports he quit smoking over 20 years ago. LEO LOPEZ [facility] Advance Directives: All historical and current No Data Provided for This Section Radiology Reports: +/- 30 days of the encounter No Data Provided for This Section Pathology Reports: +/- 30 days of the encounter No Data Provided for This Section Encounter Notes: All associated encounter notes This section contains the clinical notes associated to the Encounter. Date/Time Encounter Note(s) Provider Source Apr 28, 2021 02:34 PM RESPIRATORY THERAPY FLOWSHEE T: LOCAL TITLE: [place]-RESPIRATORY THERAPY. STANDARD TITLE: RESPIRATORY THERAPY FLOWSHEET DATE OF NOTE: APR 28, 2021@14:34 ENTRY DATE: APR 28, 2021@14:34:55 AUTHOR: [place] DELIA THOMSON COSIGNER: RADHA ROLLE URGENCY: STATUS: COMPLETED Pt left VM with this clinic. Pt stated he possibly has conflicting appts on 05/07. Per chart review, pt has a [facility] Move appt at 1000, and a F2F with this clinic at 1230. Pt's CPAP is remotely accessible. Pt called pt given option for [facility] appt. Explained to pt how this clinic is able to obtain data from CPAP. Confirmed appt with pt and . MSA informed to change CPAP appt to [facility] (email). Discussed supplies. Consult entered to mailout his annual allotment of supplies. /marty/ [place] DELIA THOMSON NEWSPAPER CARRIER/CPFT Signed: 04/28/2021 14:37 /marty/ RADHA ROLLE STAFF PHYSICIAN/INSTALLERS MECHANICAL Cosigned: 04/28/2021 15:00 [place] DELIA THOMSON [facility]
--- OUTSIDE RECORDS SUMMARY | 2021-12-13 00:09 | XMS REPORT | Encounter Summary ---
Author Author 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 Date/Time Encounter Type Encounter Description Reason Provider Source April 07, 2021 08:00 AM Outpatient Encounter ADMIN PAT ACTIVTIES (REBECCANO NCT) IHE Encounter Template Text not used by [place] Assessments - Encounter Diagnoses No Data Provided [...] Date/Time Appointment Type Appointment Facili ty Name April 16, 2021 10:00 AM AMBULATORY - MEDICINE [facility] Apr 30, 2021 10:00 AM AMBULATORY - MEDICINE [facility] May 04, 2021 11:30 AM AMBULATORY - REHAB MEDICINE [facility] May 07, 2021 10:00 AM AMBULATORY - MEDICINE [facility] May 07, 2021 12:30 PM AMBULATORY - MEDICINE [facility] May 14, 2021 10:00 AM AMBULATORY - MEDICINE [facility] May 22, 2021 08:00 AM AMBULATORY - NONE [facility] JOVANY MARQUIS May 28, 2021 10:00 AM AMBULATORY - MEDICINE [facility]OPE[facility] Jun 02, 2021 01:30 PM AMBULATORY - REHAB MEDICINE LEO LOPEZ [facility] Jun 04, 2021 10:00 AM AMBULATORY - MEDICINE [facility]OPE[facility] Jun 11, 2021 09:00 AM AMBULATORY - PSYCHIATRY LE[facility] LOPEZ [facility] Jun 11, 2021 10:00 AM AMBULATORY - MEDICINE [facility]OPE[facility] Jun 15, 2021 08:00 AM AMBULATORY - NONE [facility] DARREN MARQUISN Jul 06, 2021 10:00 AM AMBULATORY - MEDICINE [facility] Jul 20, 2021 10:00 AM AMBULATORY - PSYCHIATRY [facility] Aug 05, 2021 02:30 PM AMBULATORY - NONE [facility] DARREN MARQUISN Aug 13, 2021 09:30 AM AMBULATORY - PSYCHIATRY LEO LOPEZ [facility] Aug 14, 2021 01:30 PM AMBULATORY - REHAB MEDICINE LEO LOPEZ [facility] Aug 25, 2021 02:00 PM AMBULATORY - PSYCHIATRY [facility] Aug 25, 2021 03:00 PM AMBULATORY - MEDICINE [facility] Surgical Procedures: All associated to the encounter [...] Range Comment April 02, 2021 02:00 PM [facility] COVID-19 DIAGNOSTIC (RESP PANEL) Specimen Type: NASOPHARYNX No comment entered. Ordering Provider: YOSI TENORIO Report Released Date/Time: April 02, 2021 02:17 PM Reporting Lab: LEO LOPEZ [facility] [address] [facility] [id number] Performing Lab: LEO WaiteMichelle JESSICA [facility] [address] [facility] [id number] B.PERTUSSIS,PCR Not Detected Not Detect ed *B.PARAPERTUSSIS [...] Mar 20, 2004 10:47 AM NON-TOBACCO USER [facility] JOVANY MARQUIS 15 Tobacco Use History This section includes a history of the smoking, or tobacco -related health factors, that were collected on or before the date of the Encoun ter. The data comes from the [place] facility where the Encounter took place. Date/Time Smoking Status/Tobacco Use Comment Facil ity Mar 20, 2004 10:47 AM NON-TOBACCO USER [facility] FloodJOVANY 15 Advance Directives: All historical and current No Data Provided for This Section Radiology Reports: +/- 30 days of the encounter No Data Provided for This Section Pathology Reports: +/- 30 days of the encounter No Data Provided for This Section Encounter Notes: All associated encounter notes This section contains the clinical notes associated to the Encounter. Date/Time Encounter Note(s) Provider Source April 07, 2021 08:00 AM NONVA CONSULT: LOCAL TITLE: COMMUNITY CARE CONSULT RESULTS NOTE [place] STANDARD TITLE: NONVA CONSULT DATE OF NOTE: APRIL 07, 2021@08:00 ENTRY DATE: APRIL 08, 2021@16:10:09 AUTHOR: AZEEM MEDRANO EXP COSIGNER: URGENCY: STATUS: COMPLETED The following Non VA Care consult has been completed. See scanned document for report. NON VA Care Consult Results Audiology Comment: COMMUNITY CARE-AUD/[facility]/04/07/21 /es/ AZEEM MEDRANO MSA Signed: 04/08/2021 16:10 AZEEM MEDRANO [facility]
--- OUTSIDE RECORDS SUMMARY | 2021-12-13 00:09 | XMS REPORT ---
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 Date/Time Encounter Type Encounter Description Reason Provider Source May 01, 2021 02:37 PM Outpatient Encounter ADMIN PAT ACTIVTIES (MASNO NCT) IHE Encounter Template Text not used by [facility] Assessments - Encounter Diagnoses No Data Provided for This Section Plan of Treatment: Future Appointments (+ 6 months) and Future Tests (+/- 45 day s) The Plan of Treatment section includes future care activities for the patient fr om all [place] treatment facilities. This section includes future appointments and fu ture orders which are active, pending or scheduled. Future Appointments This section includes appointments that were scheduled t o occur 6 months from the date of the Encounter, up to a maximum of 20 appointme nts. The data comes from all [place] treatment facilities. Appointment Date/Time Appointment Type Appointment Facili ty Name May 04, 2021 11:30 AM AMBULATORY - REHAB MEDICINE [facility] LOPEZ [facility] May 07, 2021 10:00 AM AMBULATORY - MEDICINE LEO LOPEZ [facility] May 07, 2021 12:30 PM AMBULATORY - MEDICINE LEO RavindraMichelle FRANKLINYohana [facility] May 14, 2021 10:00 AM AMBULATORY - MEDICINE LEO RavindraMichelle FRANKLINYohana [facility] May 22, 2021 08:00 AM AM[facility]ULATORY - NONE [facility] May 28, 2021 10:00 AM AMBULATORY - MEDICINE LEO RavindraMichelle LOPEZ [facility] Jun 02, 2021 01:30 PM AMBULATORY - REHAB MEDICINE [facility] LOPE[facility] Jun 04, 2021 10:00 AM AMBULATORY - MEDICINE LEO RavindraMichelle FRAKNLINYohana [facility] Jun 11, 2021 09:00 AM AMBULATORY - PSYCHIATRY LEO Chandler LOPEZ [facility] Jun 11, 2021 10:00 AM AMBULATORY - MEDICINE LEO RavindraMichelle JESSICA [facility] Jun 15, 2021 08:00 AM AMBULATORY - NONE [facility] Jul 06, 2021 10:00 AM AMBULATORY - MEDICINE [facility] Jul 20, 2021 10:00 AM AMBULATORY - PSYCHIATRY [facility] Aug 05, 2021 02:30 PM AMBULATORY - NONE [facility] Aug 13, 2021 09:30 AM AMBULATORY - PSYCHIATRY [facility] LOPE[facility] Aug 14, 2021 01:30 PM AMBULATORY - REHAB MEDICINE LEO WaiteMichelle JESSICA [facility] Aug 25, 2021 02:00 PM AMBULATORY - PSYCHIATRY [facility] Aug 25, 2021 03:00 PM AMBULATORY - MEDICINE [facility] Sep 03, 2021 08:00 AM AMBULATORY - NONE [facility] Sep 03, 2021 10:00 AM AMBULATORY - MEDICINE LEO LOPEZ [facility] Surgical Procedures: All associated to the encounter No Data Provided for This Section Lab Results: +/- 30 days of the encounter This section includes the Chemistry and Hematology Lab R esults on record with NE for the patient. Radiology Reports and Pathology [...] 2021 02:17 PM Reporting Lab: LEO LOPEZ [facility] [address] [facility] [place] [id number] Performing Lab: LOE LOPEZ [facility] [address] [facility] [id number] B.PERTUSSIS,PCR Not Detected Not Detect ed *B.PARAPERTUSSIS [...] and tobacco- related health factors from the NE facility where the Encounter took place. Current Smoking Status This section includes the most current smoking, or tobacco -related health factor, from the NE facility where the Encounter took place. Date/Time Current Smoking Status Comment Facility Jun 12, 2018 01:16 PM VA-TOBACCO QUIT 15 YRS OR MORE [place]ISTA LOPEZ [facility] Tobacco Use History This section includes a history of the smoking, or tobacco -related health factors, that were collected on or before the date of the Encoun ter. The data comes from the NE facility where the Encounter took place. Date/Time Smoking Status/Tobacco Use Comment Chelsea salcedo Jun 12, 2018 01:16 PM VA-TOBACCO QUIT 15 YRS OR MORE [facility]ISTA LOPEZ [facility] Sep 24, 2015 08:23 AM [facility] Nov 07, 2014 12:58 PM NON-TOBACCO USER LEO LOPEZ [facility] Oct 01, 2014 02:57 PM NON-TOBACCO USER LEO LOPEZ [facility] Jul 08, 2011 11:42 AM NON-TOBACCO USER LEO LOPEZ [facility] Sep 21, 2007 09:37 AM NON-TOBACCO USER Pt. reports he quit smoking over 20 years ago. LEO LOPEZ [facility] Advance Directives: All historical and current No Data Provided for This Section Radiology Reports: +/- 30 days of the encounter No Data Provided for This Section Pathology Reports: +/- 30 days of the encounter No Data Provided for This Section Encounter Notes: All associated encounter notes No Data Provided for This Section
--- OUTSIDE RECORDS SUMMARY | 2021-12-13 00:10 | XMS REPORT | Encounter Summary ---
[facility] Address Unknown Phone Unavailable Care Team Providers Care Client Architect Name Role Phone YOSI TENORIO PCP Unavailable [...] PART A Sep 28, 2007 PART A [id number] SIMEONEFFIEY PATIENT MEDICARE (WNR) MEDICARE (M) PART B Sep 28, 2007 PART B [id number] SAMANTHA HENDRIX PATIENT Selected Encounter This section includes the information on record at [facility] for the Encounter. Date/Time Encounter Type Encounter Description Reason Provider Source Jan 20, 2021 11:30 AM OFFICE O/P EST LOW 20-29 MIN PRIMARY CARE/ MEDICINE ICD-10-CM I10 Essential (primary) hypertension with Provider Comments: Essential (Primary) Hypertension YOSI TENORIO Yohana Encounter Template Text not used by [facility] Assessments - Encounter Diagnoses This section includes the primary and secondary diag noses documented for the Encounter. Date/Time Primary/Secondary Diagnosis Diagnosis Name Provider Source Jan 20, 2021 12:45 PM PRIMARY Essential (primary) hypertension JOSE ROBERTO GONZALEZ DORA [facility] Jan 20, 2021 12:45 PM SECONDARY Mild persistent asthma, un complicated JOSE ROBERTO GONZALEZ DORA [facility] Plan of Treatment: Future Appointments (+ [...] Date/Time Appointment Type Appointment Facili ty Name Feb 26, 2021 02:00 PM AMBULATORY - [facility]ICINE [facility] Mar 12, 2021 10:00 AM AMBULATORY - MEDICINE [facility] Mar 25, 2021 03:00 PM AMBULATORY - MEDICINE [facility] April 02, 2021 10:00 AM AMBULATORY - MEDICINE [facility] April 02, 2021 01:30 PM AMBULATORY - MEDICINE [facility] April 07, 2021 09:30 AM AMBULATORY - NONE [facility] April 16, 2021 10:00 AM AMBULATORY - MEDICINE [facility] Apr 30, 2021 10:00 AM AMBULATORY - MEDICINE [facility] May 04, 2021 11:30 AM AMBULATORY - REHAB MEDICINE [facility] May 07, 2021 10:00 AM AMBULATORY - MEDICINE [facility] May 07, 2021 12:30 PM AMBULATORY - MEDICINE [facility] May 14, 2021 10:00 AM AMBULATORY - MEDICINE [facility] May 22, 2021 08:00 AM AMBULATORY - NONE [facility] May 28, 2021 10:00 AM AMBULATORY - MEDICINE [facility] Jun 02, 2021 01:30 PM AMBULATORY - REHAB MEDICINE [facility] Jun 04, 2021 10:00 AM AMBULATORY - MEDICINE [facility] Jun 11, 2021 09:00 AM AMBULATORY - PSYCHIATRY [facility] Jun 11, 2021 10:00 AM AMBULATORY - MEDICINE [facility] Jun 15, 2021 08:00 AM AMBULATORY - NONE [facility] 15 Jul 06, 2021 10:00 AM AMBULATORY - MEDICINE [facility] Active, Pending, and Scheduled Orders This section [...] the Encounter. The data comes from all [facility] treatment facilities. Test Date/Time Test Type Test Details Facility Name Jan 21, 2021 12:47 PM Laboratory - Chemistry Order CELIAC DI SEASE PANEL (QUEST) 2 [facility] Surgical Procedures: All associated to the encounter No Data Provided for This Section Lab Results: +/- 30 days of the encounter This section includes the Chemistry and Hematology Lab R esults on record with [facility] for the patient. Radiology Reports and Pathology Report s are provided separately, in subsequent sections. Lab Results This section contains the Chemistry/Hematology Results chinmay t were resulted 30 days before or 30 days after the date of the Encounter. Date/Time Source Result Type Result - Unit Interpretation Reference Range Comment Jan 20, 2021 09:06 AM [facility] COMPREHENSIVE METABOLIC PA ASTON Specimen Type: PLASMA Comment: Race unknown, if multiply result by 1.210 Ordering Provider: YOSI TENORIO Report Released Date/Time: Jan 08, 2021 10:27 AM Reporting Lab: [facility] [address] [facility] [address] Performing Lab: [facility] [address] [facility] [address] *CREATININE 1.07 mg/dL 0.70-1.30 UREA NITROGEN mg/dL [...] EGFR 66.8 Jan 20, 2021 09:06 AM [facility] LIPID PROFILE(HDL,TRIG,CHO L,LDL) Specimen Type: PLASMA Comment: Race unknown, if multiply result by 1.210 Ordering Provider: YOSI TENORIO Report Released Date/Time: Jan 08, 2021 10:27 AM Reporting Lab: [facility] [address] [facility] [address] Performing Lab: [facility] [address] [facility] [address] CHOLESTEROL 219 mg/dL H 0-200 TRIGS 130 mg/dL 0-150 HDL-CHOLESTEROL 44 mg/dL > 40 LDL (CALC) 149.0 mg/dL Jan 20, 2021 09:06 AM [facility] TSH Specimen T ype: SERUM No comment entered. Ordering Provider: YOSI TENORIO Report Released Date/Time: Jan 08, 2021 10:27 AM Reporting Lab: [facility] [address] [facility] [address] Performing Lab: [facility] [address] [facility] [address] TSH 2.99 uIU/mL 0.47-5 Jan 20, 2021 09:06 AM [facility] PROSTATIC SPECIFIC ANTIGEN (TOTAL) Specimen Type: SERUM No comment entered. Ordering Provider: YOSI TENORIO Report Released Date/Time: Jan 08, 2021 10:27 AM Reporting Lab: [facility] [address] [facility] [address] Performing Lab: [facility] [address] [facility] [address] PROSTATIC SPECIFIC ANTIGEN(TOTAL) 0.4 ng/mL 0-4 Jan 20, 2021 09:06 AM [facility] CBC & DIFF Specimen T ype: BLOOD No comment entered. Ordering Provider: YOSI TENORIO Report Released Date/Time: Jan 08, 2021 10:27 AM Reporting Lab: [facility] [address] [facility] [address] Performing Lab: [facility] [address] [facility] [address] WBC 6.5 K/cmm 3.60-11.20 RBC 5.12 M/ul [...] in Height Weight Body Mass Index Source Jan 20, 2021 11:48 AM 97.9 F 61 /min 155/75 mm[Hg] 18 /min 93 % 69 in 253 lb 37 [facility] Immunizations: All administered on the encounter date [...] 20, 2021 11:30 AM VA-TOBACCO NEVER USED [facility] Tobacco Use History This section includes a history of the smoking, or tobacco -related health factors, that were collected on or before the date of the Encoun ter. The data comes from the [facility] facility where the Encounter took place. Date/Time Smoking Status/Tobacco Use Comment [facility] Dec 21, 2018 02:42 PM NON-TOBACCO USER [facility] Dec 30, 2017 08:55 AM NON-TOBACCO USER [facility] Dec 09, 2014 09:17 AM CURRENT NON-SMOKER [facility] Dec 09, 2014 09:17 AM LIFETIME NON-TOBACCO USER [facility] Dec 12, 2013 01:11 PM CURRENT NON-SMOKER [facility] Dec 12, 2013 01:11 PM LIFETIME NON-TOBACCO USER [facility] Aug 07, 2012 12:47 PM CURRENT NON-SMOKER [facility] Aug 07, 2012 12:47 PM LIFETIME NON-TOBACCO USER [facility] Jun 05, 2012 12:37 PM NON-TOBACCO USER [facility] Nov 04, 2011 09:02 AM NON-TOBACCO USER has not smoked for 25 years [facility] Oct 12, 2011 08:23 AM CURRENT NON-SMOKER [facility] Oct 12, 2011 08:23 AM LIFETIME NON-TOBACCO USER [facility] Oct 12, 2011 08:23 AM NON-TOBACCO USER [facility] Aug 15, 2006 01:28 PM NON-SMOKER [facility] Aug 15, 2006 01:28 PM NON-TOBACCO USER [facility] Sep 07, 2005 09:58 AM NON-SMOKER [facility] Sep 07, 2005 09:58 AM NON-TOBACCO USER [facility] April 08, 2003 08:44 AM CURRENT NON-SMOKER [facility] April 08, 2003 08:44 AM LIFETIME NON-SMOKER [facility] April 08, 2003 08:44 AM LIFETIME NON-TOBACCO USER [facility] April 08, 2003 08:44 AM NON-SMOKER [facility] April 08, 2003 08:44 AM NON-TOBACCO USER [facility] Advance Directives: All historical and current No Data Provided for This Section Radiology Reports: +/- 30 days of the encounter No Data Provided for This Section Pathology Reports: +/- 30 days of the encounter No Data Provided for This Section Encounter Notes: All associated encounter notes This section contains the clinical notes associated to the Encounter. Date/Time Encounter Note(s) Provider Source Jan 20, 2021 12:45 PM MEDICATION MGT NOTE: LOCAL TITLE: WI-MEDICATION RECONCILIATION (BP,O) STANDARD TITLE: MEDICATION MGT NOTE DATE OF NOTE: JAN 20, 2021@12:45 ENTRY DATE: JAN 20, 2021@12:45:31 AUTHOR: YOSI TENORIO COSIGNER: URGENCY: STATUS: COMPLETED MEDICATION RECONCILIATION FACILITY ALLERGY/ADR -------- No Remote Allergy/ADR Data available for this patient [facility] 15 LOVASTATIN [facility], [facility] 15 VARDENAFIL [facility] 15 ZOCOR 40MG TAB Allergies reviewed, edited in CPRS as appropriate and confirmed by patient: Yes INCLUDED IN THIS LIST: Alphabetical list of active outpatient prescriptions dispensed from this [facility] (local) and dispensed from another [facility] or [facility] facility (remote) as well as inpatient orders (local pending and active), local clinic medications, locally documented non-VA medications, and local prescriptions that have or been discontinued in the past 90 days. Non-VA Meds Last Documented On: Dec 24, 2013 NOTE The display of VA prescriptions dispensed from another [facility] or [facility] facility (remote) is limited to active outpatient prescription entries matched to National Drug File at the originating site and may not include some items such as investigational drugs, compounds, etc. NOT INCLUDED IN THIS LIST: Medications self-entered by the patient into personal health records (i.e. [employer]) are NOT included in this list. Non-VA medications documented outside this [facility], remote inpatient orders (regardless of status) and remote clinic medications are NOT included in this list. The patient and provider must always discuss medications the patient is taking, regardless of where the medication was dispensed or obtained. OUTPT ALBUTEROL 90MCG (CFC-F) 200D ORAL INHL (Status = Active) INHALE 2 PUFFS BY MOUTH FOUR TIMES A DAY NEEDED FOR BREATHING. SHAKE WELL. RINSE MOUTHPIECE FREQUENTLY TO PREVENT CLOGGING. Rx# [id number] Last Released: 09/26/20 Qty/Days Supply: 12/27 Rx Expiration Date: 09/25/21 Refills Remainin Non-VA ASPIRIN 81MG EC TAB TAKE ONE TABLET BY MOUTH ONCE A DAY Patient wants to buy from Non-VA pharmacy. OUTPT BETAMETHASONE VALERATE 0.1% CREAM (Status = Active) APPLY LIGHTLY TO AFFECTED AREA TWO TIMES A DAY NEEDED FOR EXTERNAL USE ONLY CAN MIX WITH CLOTRIMAZOLE CREAM Rx# [id number] Last Released: 05/21/20 Qty/Days Supply: Rx Expiration Date: 05/20/21 Refills Remainin OUTPT BUDESONIDE 160/FORMOTER 4.5MCG 120D INH (Status = Discontinued) INHALE 2 PUFFS BY MOUTH TWO TIMES A DAY FOR BREATHING. SHAKE WELL. RINSE MOUTH AND SPIT AFTER EACH USE. Rx# [id number] Last Released: 09/29/20 Qty/Days Supply: Rx Expiration Date: 09/25/21 Refills Remainin OUTPT BUDESONIDE 160/FORMOTER 4.5MCG 120D INH (Status = Active) INHALE 2 PUFFS BY MOUTH TWO TIMES A DAY FOR BREATHING. SHAKE WELL. RINSE MOUTH AND SPIT AFTER EACH USE. Rx# [id number] Last Released: 01/14/21 Qty/Days Supply: Rx Expiration Date: 01/07/22 Refills Remainin OUTPT BUSPIRONE HCL 10MG TAB (Status = Active) TAKE ONE TABLET BY MOUTH TWO TIMES A DAY FOR ANXIETY Rx# [id number] Last Released: 12/11/20 Qty/Days Supply: Rx Expiration Date: 04/04/21 Refills Remainin OUTPT FLUTICASONE PROP 50MCG 120D NASAL INHL (Status = Discontinued) INSTILL 1 SPRAY IN EACH NOSTRIL ONCE A DAY SHAKE GENTLY BEFORE USE! - MUST BE USED DIRECTED FOR 3 WEEKS TO PROVIDE BENEFIT. * NO EARLY REFILLS * 1 UNIT = 30 DAYS AT 4 SPRAYS/DAY OR 60 DAYS AT 2 SPRAYS/DAY Rx# [id number] Last Released: 09/29/20 Qty/Days Supply: Rx Expiration Date: 09/25/21 Refills Remainin OUTPT FLUTICASONE PROP 50MCG 120D NASAL INHL (Status = Active) INSTILL 1 SPRAY IN EACH NOSTRIL ONCE A DAY SHAKE GENTLY BEFORE USE! - MUST BE USED DIRECTED FOR 3 WEEKS TO PROVIDE BENEFIT. * NO EARLY REFILLS * 1 UNIT = 30 DAYS AT 4 SPRAYS/DAY OR 60 DAYS AT 2 SPRAYS/DAY Rx# [id number] Last Released: 01/14/21 Qty/Days Supply: Rx Expiration Date: 01/07/22 Refills Remainin OUTPT LORATADINE 10MG TAB (Status = Discontinued) TAKE ONE TABLET BY MOUTH ONCE A DAY FOR ALLERGIES Rx# [id number] Last Released: 10/06/20 Qty/Days Supply: Rx Expiration Date: 09/25/21 Refills Remainin OUTPT LORATADINE 10MG TAB (Status = Active) TAKE ONE TABLET BY MOUTH ONCE A DAY FOR ALLERGIES Rx# [id number] Last Released: 01/14/21 Qty/Days Supply: Rx Expiration Date: 01/07/22 Refills Remainin OUTPT LOSARTAN 50MG TAB (Status = Discontinued) TAKE ONE TABLET BY MOUTH ONCE A DAY FOR BLOOD PRESSURE Rx# [id number] Last Released: 10/09/20 Qty/Days Supply: Rx Expiration Date: 06/06/21 Refills Remainin OUTPT LOSARTAN 50MG TAB (Status = Active) TAKE ONE TABLET BY MOUTH ONCE A DAY FOR BLOOD PRESSURE Rx# [id number] Last Released: 12/23/20 Qty/Days Supply: Rx Expiration Date: 11/13/21 Refills Remainin OUTPT VERAPAMIL HCL 120MG SA TAB (Status = Active) TAKE ONE TABLET BY MOUTH EVERY MORNING FOR THE HEART Rx# [id number] Last Released: 01/06/21 Qty/Days Supply: Rx Expiration Date: 09/20/21 Refills Remainin OUTPT VORTIOXETINE 10MG TAB (Status = Active) TAKE ONE TABLET BY MOUTH ONCE A DAY Rx# [id number] Last Released: 12/23/20 Qty/Days Supply: Rx Expiration Date: 10/14/21 Refills Remainin Non-VA ZMULTIVITAMIN TAB TAKE BY [...] Understanding: Unable to assess /marty/ YOSI TENORIO [facility]- Signed: 01/20/2021 12:46 YOSI TENORIO [facility] Jan 20, 2021 12:36 PM PRIMARY CARE PHYSICIAN OUTPA [facility] NOTE: LOCAL TITLE: PR-GENERAL/PRIMARY CARE STANDARD TITLE: PRIMARY CARE PHYSICIAN OUTPATIENT NOTE DATE OF NOTE: JAN 20, 2021@12:36 ENTRY DATE: JAN 20, 2021@12:36:23 AUTHOR: YOSI TENORIO EXP COSIGNER: URGENCY: STATUS: COMPLETED Follow-Up Pos PTSD/Depression: I have reviewed the results of the Mental Health screens and have evaluated the patient. Based on the evaluation, the following disposition plan will be implemented: Already receiving needed treatment. Contact information and instructions for accessing emergency services provided. s. pt. presents to [facility] for cont. medical care, he states he is doing pretty good, he states his had covid, he states he didnt get covid, he states is now seeing a neurologist due to covid, pt. states he is doing well with present meds., he states he cont. to see dr. madrigal for pulmonary, pt. states he would like to loose weight, he states he is will to see dietary, will enter consult, vs stable, hx. change with weight gain, fasting lab today, to review and update meds. o. affect=pleasant skin=w/d, afebrile general appearance is good, no acute distress no edema noted lower ext. bilat. neuro grossly intact assessment/plan: htn, cont. 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 reviewed, updated rtc 12 months for annual exam /es/ YOSI TENORIO [facility]- Signed: 01/20/2021 12:45 YOSI TENORIO [facility] Jan 20, 2021 11:39 AM NURSING OUTPATIENT NOTE: LOCAL TITLE: WI-NURSE/CBOC STANDARD TITLE: NURSING OUTPATIENT NOTE DATE OF NOTE: JAN 20, 2021@11:39 ENTRY DATE: JAN 20, 2021@11:39:56 AUTHOR: JOSE ROBERTO GONZALEZ COSIGNER: URGENCY: STATUS: COMPLETED Reason for appointment: PCP Appointment Reason for appointment: Other: annual Is the patient diabetic? No - patient is not a diabetic What is your goal for today's visit? *Required Now we are going to discuss stress, is there anything in your life that worries or stresses you that we may assist you with today? *Required No Are you registered for [employer] ([facility])? No - Are you interested in registering? No If 'yes' please hand [employer] brochure. WI-ABUSE/NEGLECT SCREENING: Signs/Symptoms of Abuse: Abuse/Neglect Questions Does the patient feel safe in their current living arrangement? Yes Comments: Does the patient show any signs of abuse or neglect? No Comments: REPORT OF SUSPECTED ABUSE OR NEGLECT SOCIAL WORK CONSULTS: WI-LEARNING ASSESSMENT: Patient Learning Assessment Learning Needs Assessment ...Patient Readiness to Learn (Check if individual ready to learn): ...Patient is ready to learn. Will Patient Have Difficulty Understanding Information: ...No Characteristics that may affect teaching/compliance: ...Patient denies any barriers to language, cultural, living situation (social), rastafarian, financial (economic), age, physical, cognitive, hearing, speech, vision, and motivation for learning at this time. Preferred Method(s) of Learning: ...Doing Educational Needs: Do you need further information with: Safe & effective use of medications? ...No Safe & effective use of equipment? (Home O2, prosthetics, Rehab Medicine) ...No Potential food/drug interaction? ...No Modified diet? (If referral -- to Dietitian) ...No Rehabilitation techniques or help with independent function? (If referral -- to Rehab Medicine) ...No Patient taught on rehabilitation techniques today. Community resources (If referral -- to [facility]/) ...No When/how to obtain further treatment? ...No Patient responsibilities in the treatment process? (Booklet) ...No Hygiene? (If taught - Handout/PHE given that includes grooming, bathing, oral health, hair and nail care and use of toilet.) ...No Information about disease process? (If taught - appropriate handout given) ...No Advanced directives? (Booklet) ...No WI-PAIN: Pain Documentation: Pain level 3 or less. WI-FALL RISK OP: MARTINEZ FALL SCALE The Martinez Fall scale was performed and score was 45. This is indicative of high risk for falls. History of falling in past 3 months? Yes Secondary diagnosis: No Ambulatory aid: None/bedrest/nurse assist Intravenous therapy/Heparin lock: No Gait/Transferring: Impaired Mental Status: Oriented to own ability/knows own limitations OTHER RISK FACTORS History of Falling Fall History: couple times in last 3 mos. No history of injury with recent falls. Patient risk for falling: Medium/High Risk Pamphlet given to patient/family Is patient at risk for falling? Patient is at risk for falling. Will alert provider for follow-up. Is the patient 75 years of age or older? Yes Has the patient had any falls in the past 12 months? Yes Provider will be notified. Did the patient report any of the following: Two or more falls WI-ELLYN TRAN ADL: ACOVE TRAN INDEX ADL: Tran Index of [place] in Activities of Daily Living Activities Points (1 or 0) [place] (1 Point) NO supervision, direction or personal assistance Dependence (0 Points) WITH supervision, direction, personal assistance or total care BATHING 1 Points (1 POINT) Bathes self completely or needs help in bathing only a single part of the body such as the back, genital area or disabled extremity (0 POINTS) Need help with bathing more than one part of the body, getting in or out of the tub or shower. Requires total bathing DRESSING 1 Points (1 POINT) Get clothes from closets and drawers and puts on clothes and outer garments complete with fasteners. May have help tying shoes. (0 POINTS) Needs help with dressing self or needs to be completely dressed. TOILETING 1 Points (1 POINT) Goes to toilet, gets on and off, arranges clothes, cleans genital area without help. (0 POINTS) Needs help transferring to the toilet, cleaning self or uses bedpan or commode. TRANSFERRING 1 Points (1 POINT) Moves in and out of bed or chair unassisted. Mechanical transfer aids are acceptable (0 POINTS) Needs help in moving from bed to chair or requires a complete transfer. CONTINENCE 1 Points (1 POINT) Exercises complete self control over urination and defecation. (0 POINTS) Is partially or totally incontinent of FEEDING 1 Points (1 POINT) Gets food from plate into mouth without help. Preparation of food may be done by another person. (0 POINTS) Needs partial or total help with feeding or requires parenteral feeding. 6 Total Points Score of 6 = High, Patient is independent. Score of 0 = Low, patient is very dependent. Slightly adapted. Marc Pittman., YESICA Conte, Dylon, HR, et al. (1970) progress in the development of the index of ADL. Gerontologist 10:20-30. Copyright The [employer] of [place]. Reproduced by permission of the publisher. PTSD Screening: PC-PTSD-5 A PTSD screening test (PC-PTSD-5) was negative (score=3). Have you ever had any experience that was so frightening, horrible or upsetting that, IN THE PAST MONTH, you: Have you ever experienced this kind of event? YES 1. Had nightmares about the event(s) or thought about the event(s) when you did not want to? NO 2. Tried hard not to think about the event(s) or went out of your way to avoid situations that reminded you of the event(s)? NO 3. Been constantly on guard, watchful, or easily startled? YES 4. [place] numb or detached from people, activities, or your surroundings? YES 5. [place] guilty or unable to stop blaming yourself or others for the event(s) or any problems the event(s) may have caused? YES Tobacco Use Screening: The patient has never used tobacco. Alcohol Use Screen (AUDIT-C): Alcohol Screen: SCREEN FOR ALCOHOL (AUDIT-C) An alcohol screening test (AUDIT-C) was negative (score=0). 1. How often did you have a drink containing alcohol in the past year? Never 2. How many drinks containing alcohol did you have on a typical day when you were drinking in the past year? Response not required due to responses to other questions. 3. How often did you have six or more drinks on one occasion in the past year? Response not required due to responses to other questions. Suicide Screen: C-SSRS Screening [place] Suicide Severity Rating Scale (C-SSRS) screener 1. [...] required due to responses to other questions. WI-IADL: IADL Screen: Ability to use telephone: (1 point) Operates Telephone on own initiative; looks up and dials numbers. Shopping: (1 point) Takes care of all shopping needs independently. Food preparation: (1 point) Plans, prepares, and serves adequate meals independently. Housekeeping: (1 point) Maintains house alone with occasional assistance (heavy work). Laundry: (1 point) Does personal laundry completely. Mode of transportation: (1 point) Travels independently on public transportation or drives own car. Responsibility for own medications: (1 point) Is responsible for taking medications in correct dosages at correct times. Ability to handle finances: (1 point) Manages financial matters independently (budgets, writes checks, pays rent and bills, goes to bank); collects and keeps track of income. Total score: 8 points 8 = High function, independent 0 = Low function, dependent /es/ JOSE ROBERTO GONZALEZ LPN Signed: 01/20/2021 11:47 JOSE ROBERTO GONZALEZ [facility]
--- OUTSIDE RECORDS SUMMARY | 2021-12-13 00:10 | XMS REPORT | Encounter Summary ---
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 Date/Time Encounter Type Encounter Description Reason Provider Source April 02, 2021 01:30 PM OFFICE O/P EST SF 10-19 MIN PRIMARY CARE/M EDICINE ICD-10-CM R05 Cough with Provider Comments: YOSI Gomez Yohana Encounter Template Text not used by [facility] Assessments - Encounter Diagnoses This section includes the primary and secondary diag noses documented for the Encounter. Date/Time Primary/Secondary Diagnosis Diagnosis Name Provider Source April 03, 2021 01:31 PM PRIMARY Cough YOSI TENORIO [facility] April 03, 2021 01:31 PM SECONDARY Nasal congestion YOSI TENORIO [facility] Plan of Treatment: Future Appointments (+ 6 months) and Future Tests (+/- 45 day s) The Plan of Treatment section includes future care activities for the patient fr om all [place] treatment facilities. This section includes future appointments and fu ture orders which are active, pending or scheduled. Future Appointments This section includes appointments that were scheduled t o occur 6 months from the date of the Encounter, up to a maximum of 20 appointme nts. The data comes from all [place] treatment [facility]. Appointment Date/Time Appointment Type Appointment Facili ty Name April 07, 2021 09:30 AM AMBULATORY - NONE [facility] April 16, 2021 10:00 AM AMBULATORY - MEDICINE [facility] Apr 30, 2021 10:00 AM AMBULATORY - MEDICINE [facility] May 04, 2021 11:30 AM AMBULATORY - REHAB MEDICINE [facility] May 07, 2021 10:00 AM AMBULATORY - MEDICINE [facility] May 07, 2021 12:30 PM AMBULATORY - MEDICINE [facility] May 14, 2021 10:00 AM AMBULATORY - MEDICINE [facility] May 22, 2021 08:00 AM AMBULATORY - NONE [facility] May 28, 2021 10:00 AM AMBULATORY - MEDICINE [facility] Jun 02, 2021 01:30 PM AMBULATORY - REHAB MEDICINE [facility] Jun 04, 2021 10:00 AM AMBULATORY - MEDICINE [facility] Jun 11, 2021 09:00 AM AMBULATORY - PSYCHIATRY [facility] Jun 11, 2021 10:00 AM AMBULATORY - MEDICINE [facility] Jun 15, 2021 08:00 AM AMBULATORY - NONE [facility] Jul 06, 2021 10:00 AM AMBULATORY - MEDICINE [facility] Jul 20, 2021 10:00 AM AMBULATORY - PSYCHIATRY [facility] Aug 05, 2021 02:30 PM AMBULATORY - NONE [facility] Aug 13, 2021 09:30 AM AMBULATORY - PSYCHIATRY [facility] Aug 14, 2021 01:30 PM AMBULATORY - REHAB MEDICINE [facility] Aug 25, 2021 02:00 PM AMBULATORY - PSYCHIATRY [facility] Surgical Procedures: All associated to the encounter [...] Range Comment April 02, 2021 02:00 PM [facility] COVID-19 DIAGNOSTIC (RESP PANEL) Specimen Type: NASOPHARYNX No comment entered. Ordering Provider: YOSI TENORIO Report Released Date/Time: April 02, 2021 02:17 PM Reporting Lab: [place] [facility] [address] [address] Performing Lab: [facility] [address] [id number] B.PERTUSSIS,PCR Not Detected Not Detect ed *B.PARAPERTUSSIS [...] in Height Weight Body Mass Index Source April 02, 2021 02:43 PM 0 [facility] Immunizations: All administered on the encounter date No Data Provided for This Section Social History: Smoking Status (Most current) and Tobacco Use (All prior to enco unter date) This section includes the most current, and the historical, smoking and tobacco- related health factors from the [place] facility where the Encounter took place. Current Smoking Status This section includes the most current smoking, or tobacco -related health factor, from the [place] facility where the Encounter took place. Date/Time Current Smoking Status Comment Facility Jan 20, 2021 11:30 AM VA-TOBACCO NEVER USED [facility] Tobacco Use History This section includes a history of the smoking, or tobacco -related health factors, that were collected on or before the date of the Encoun ter. The data comes from the [place] facility where the Encounter took place. Date/Time Smoking Status/Tobacco Use Comment [facility] Dec 21, 2018 02:42 PM NON-TOBACCO USER [facility] Dec 30, 2017 08:55 AM NON-TOBACCO USER [facility] Dec 09, 2014 09:17 AM CURRENT NON-SMOKER [facility] Dec 09, 2014 09:17 AM LIFETIME NON-TOBACCO USER [facility] Dec 12, 2013 01:11 PM CURRENT NON-SMOKER [facility] Dec 12, 2013 01:11 PM LIFETIME NON-TOBACCO USER [facility] Aug 07, 2012 12:47 PM CURRENT NON-SMOKER [facility] Aug 07, 2012 12:47 PM LIFETIME NON-TOBACCO USER [facility] Jun 05, 2012 12:37 PM NON-TOBACCO USER [facility] Nov 04, 2011 09:02 AM NON-TOBACCO USER has not smoked for 25 years [facility] Oct 12, 2011 08:23 AM CURRENT NON-SMOKER [facility] Oct 12, 2011 08:23 AM LIFETIME NON-TOBACCO USER [facility] Oct 12, 2011 08:23 AM NON-TOBACCO USER [facility] Aug 15, 2006 01:28 PM NON-SMOKER [facility] Aug 15, 2006 01:28 PM NON-TOBACCO USER [facility] Sep 07, 2005 09:58 AM NON-SMOKER [facility] Sep 07, 2005 09:58 AM NON-TOBACCO USER JOHN [facility] April 08, 2003 08:44 AM CURRENT NON-SMOKER JOHN [facility] April 08, 2003 08:44 AM LIFETIME NON-SMOKER [facility] April 08, 2003 08:44 AM LIFETIME [...] Encounter. Date/Time Encounter Note(s) Provider Source April 02, 2021 02:55 PM MEDICATION MGT NOTE: LOCAL TITLE: WI-MEDICATION RECONCILIATION (BP,O) STANDARD TITLE: MEDICATION MGT NOTE DATE OF NOTE: APRIL 02, 2021@14:55 ENTRY DATE: APRIL 02, 2021@14:55:32 AUTHOR: YOSI TENORIO COSIGNER: URGENCY: STATUS: COMPLETED MEDICATION RECONCILIATION FACILITY ALLERGY/ADR -------- No Remote Allergy/ADR Data available for this patient [facility] 15 LOVASTATIN [facility] VARDENAFIL [facility] 15 ZOCOR 40MG TAB Allergies reviewed, edited in CPRS as appropriate and confirmed by patient: Yes INCLUDED IN THIS LIST: Alphabetical list of active outpatient prescriptions dispensed from this [place] (local) and dispensed from another [place] or [facility] facility (remote) as well as inpatient orders (local pending and active), local clinic medications, locally documented non-VA medications, and local prescriptions that have or been discontinued in the past 90 days. Non-VA Meds Last Documented On: Dec 24, 2013 NOTE The display of VA prescriptions dispensed from another [place] or [facility] facility (remote) is limited to active outpatient prescription entries matched to National Drug File at the originating site and may not include some items such as investigational drugs, compounds, etc. NOT INCLUDED IN THIS LIST: Medications self-entered by the patient into personal health records (i.e. [employer]) are NOT included in this list. Non-VA medications documented outside this [place], remote inpatient orders (regardless of status) and [...] RINSE MOUTHPIECE FREQUENTLY TO PREVENT CLOGGING. Rx# [id number] Last Released: 09/26/20 Qty/Days Supply: 12/27 Rx Expiration Date: 09/25/21 Refills Remainin Non-VA ASPIRIN 81MG EC TAB TAKE ONE TABLET BY MOUTH ONCE A DAY Patient wants to buy from Non-VA pharmacy. OUTPT BETAMETHASONE VALERATE 0.1% CREAM (Status = Active) APPLY LIGHTLY TO AFFECTED AREA TWO TIMES A DAY NEEDED FOR EXTERNAL USE ONLY CAN MIX WITH CLOTRIMAZOLE CREAM Rx# [id number] Last Released: 05/21/20 Qty/Days Supply: Rx Expiration Date: 05/20/21 Refills Remainin OUTPT BUDESONIDE 160/FORMOTER 4.5MCG 120D INH (Status = Discontinued) INHALE 2 PUFFS BY MOUTH TWO TIMES A DAY FOR BREATHING. SHAKE WELL. RINSE MOUTH AND SPIT AFTER EACH USE. Rx# [id number] Last Released: 09/29/20 Qty/Days Supply: Rx Expiration Date: 09/25/21 Refills Remainin OUTPT BUDESONIDE 160/FORMOTER 4.5MCG 120D INH (Status = Active) INHALE 2 PUFFS BY MOUTH TWO TIMES A DAY FOR BREATHING. SHAKE WELL. RINSE MOUTH AND SPIT AFTER EACH USE. Rx# [id number] Last Released: 01/14/21 Qty/Days Supply: 3/90 Rx Expiration Date: 01/07/22 Refills Remainin OUTPT BUSPIRONE HCL 10MG TAB (Status = Active) TAKE ONE TABLET BY MOUTH TWO TIMES A DAY FOR ANXIETY Rx# [id number] Last Released: 03/09/21 Qty/Days Supply: Rx Expiration Date: 04/04/21 Refills Remainin OUTPT FLUTICASONE PROP 50MCG 120D NASAL INHL (Status = Discontinued) INSTILL 1 SPRAY IN EACH NOSTRIL ONCE A DAY SHAKE GENTLY BEFORE USE! - MUST BE USED DIRECTED FOR 3 WEEKS TO PROVIDE BENEFIT. * NO EARLY REFILLS * 1 UNIT = 30 DAYS AT 4 SPRAYS/DAY OR 60 DAYS AT 2 SPRAYS/DAY Rx# [id number] Last Released: 09/29/20 Qty/Days Supply: Rx Expiration [...] OR 60 DAYS AT 2 SPRAYS/DAY Rx# [id number] Last Released: 01/14/21 Qty/Days Supply: Rx Expiration Date: 01/07/22 Refills Remainin OUTPT LORATADINE 10MG TAB (Status = Discontinued) TAKE ONE TABLET BY MOUTH ONCE A DAY FOR ALLERGIES Rx# [id number] Last Released: 10/06/20 Qty/Days Supply: Rx Expiration Date: 09/25/21 Refills Remainin OUTPT LORATADINE 10MG TAB (Status = Active) TAKE ONE TABLET BY MOUTH ONCE A DAY FOR ALLERGIES Rx# [id number] Last Released: 01/14/21 Qty/Days Supply: Rx Expiration Date: 01/07/22 Refills Remainin OUTPT LOSARTAN 50MG TAB (Status = Discontinued) TAKE ONE TABLET BY MOUTH ONCE A DAY FOR BLOOD PRESSURE Rx# [id number] Last Released: 01/27/21 Qty/Days Supply: Rx Expiration Date: 11/13/21 Refills Remainin OUTPT LOSARTAN 50MG TAB (Status = Active) TAKE ONE TABLET BY MOUTH ONCE A DAY FOR BLOOD PRESSURE Rx# [id number] Last Released: 03/24/21 Qty/Days Supply: Rx Expiration Date: 06/21/21 Refills Remainin OUTPT MONTELUKAST NA 10MG TAB (Status = Active) TAKE ONE TABLET BY MOUTH ONCE A DAY Rx# [id number] Last Released: 03/12/21 Qty/Days Supply: Rx Expiration Date: 03/11/22 Refills Remainin OUTPT VERAPAMIL HCL 120MG SA TAB (Status = Active) TAKE ONE TABLET BY MOUTH EVERY MORNING FOR THE HEART Rx# [id number] Last Released: 01/06/21 Qty/Days Supply: Rx Expiration Date: 09/20/21 Refills Remainin OUTPT VORTIOXETINE 10MG TAB (Status = Active) TAKE ONE TABLET BY MOUTH ONCE A DAY Rx# [id number] Last Released: 03/09/21 Qty/Days Supply: Rx Expiration Date: 10/14/21 Refills [...] of Understanding: Unable to assess /marty/ YOSI CEJA Signed: 04/02/2021 14:56 YOSI TENORIO [facility] April 02, 2021 02:42 PM PRIMARY CARE PHYSICIAN GUICHO BEEBE NOTE: LOCAL TITLE: WI-GENERAL/PRIMARY CARE STANDARD TITLE: PRIMARY CARE PHYSICIAN OUTPATIENT NOTE DATE OF NOTE: APRIL 02, 2021@14:42 ENTRY DATE: APRIL 02, 2021@14:42:52 AUTHOR: YOSI TENORIO EXP COSIGNER: URGENCY: STATUS: COMPLETED WI-GENERAL/PRIMARY CARE Has ADDENDA WI-PAIN: Pain Reassessment-Patient's updated pain score after intervention is: PAIN Score 0 Pain Documentation: Pain level 3 or less. s. pt. c/o cough and congestion, he states his has been sick, she tested positive with covid-19 a few weeks ago, pt. states he went to [facility] and it was raining and the weather was damp, he states he started getting sick after this trip which was a couple of weeks ago, pt. states productive cough, congestion, denies any fever or chills, advised pt. will do covid-19 swab today, we will have the results back tomorrow morning, nurse will call pt. the results, in the meantime he is to go home and self isolate, pt. understands this plan, /marty/ YOSI TENORIO [facility] Signed: 04/02/2021 14:54 04/03/2021 ADDENDUM STATUS: COMPLETED WI-DIAG RESULT (PERSON OR PHONE): LABORATORY Other results were normal. Comments:Called patient and reported negative covid test. Patient verbalized understanding. Patient is to f/u Tuesday if no improvement. /marty/ DERIAN DAIGLEPradip STAFF NURSE Signed: 04/03/2021 13:31 YOSI TENORIO [facility]
--- OUTSIDE RECORDS SUMMARY | 2021-12-13 00:10 | XMS REPORT | Encounter Summary ---
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 Date/Time Encounter Type Encounter Description Reason Provider Source Mar 25, 2021 03:00 PM Outpatient Encounter TELEPHONE PRIMARY CAR E ICD-10-CM H91.8X3 Other specified hearing loss, bilateral with Provider Comments: Other specified Hearing Loss, Bilateral YOSI TENORIO IHYohana Encounter Template Text not used by VA Assessments - Encounter Diagnoses This section includes the primary and secondary diag noses documented for the Encounter. Date/Time Primary/Secondary Diagnosis Diagnosis Name Provider Source Mar 25, 2021 03:00 PM PRIMARY Other specified hearing lo ss, bilateral YOSI TENORIO [facility] Plan of Treatment: Future Appointments (+ [...] The data comes from all [place] treatment [facility]. Appointment Date/Time Appointment Type Appointment Facili ty Name April 02, 2021 10:00 AM AMBULATORY - MEDICINE [facility] April 02, 2021 01:30 PM AMBULATORY - MEDICINE [facility] April 07, 2021 09:30 AM AMBULATORY - NONE [facility] April 16, 2021 10:00 AM AMBULATORY - MEDICINE [facility] Apr 30, 2021 10:00 AM AMBULATORY - MEDICINE [facility] May 04, 2021 11:30 AM AMBULATORY - REHAB MEDICINE [facility] May 07, 2021 10:00 AM AMBULATORY - MEDICINE [facility] May 07, 2021 12:30 PM AMBULATORY - MEDICINE [facility] May 14, 2021 10:00 AM AMBULATORY - MEDICINE [facility] May 22, 2021 08:00 AM AMBULATORY - NONE [facility] May 28, 2021 10:00 AM AMBULATORY - MEDICINE [facility] Jun 02, 2021 01:30 PM AMBULATORY - REHAB MEDICINE LE[facility]OPE[facility] Jun 04, 2021 10:00 AM AMBULATORY - MEDICINE [facility] Jun 11, 2021 09:00 AM AMBULATORY - PSYCHIATRY [facility] Jun 11, 2021 10:00 AM AMBULATORY - MEDICINE [facility] Jun 15, 2021 08:00 AM AMBULATORY - NONE [facility] Jul 06, 2021 10:00 AM AMBULATORY - MEDICINE [facility] Jul 20, 2021 10:00 AM AMBULATORY - PSYCHIATRY [facility] Aug 05, 2021 02:30 PM AMBULATORY NONE [facility] Aug 13, 2021 09:30 AM AMBULATORY - PSYCHIATRY [facility]OPE[facility] Surgical Procedures: All associated to the [...] Range Comment April 02, 2021 02:00 PM [facility] DIAGNOSTIC (RESP PANEL) Specimen Type: NASOPHARYNX No comment entered. Ordering Provider: YOSI TENORIO Report Released Date/Time: April 02, 2021 02:17 PM Reporting Lab: LE[facility] WaiteMichelle FRANKLINYohana [facility] [address] [address] Performing Lab: LEO WaiteMichelle [facility] [address] [facility] [id number] B.PERTUSSIS,PCR Not Detected Not Detect ed *B.PARAPERTUSSIS [...] took place. Date/Time Smoking Status/Tobacco Use Comment [facility] Dec 21, 2018 02:42 PM [...] 07, 2012 12:47 PM CURRENT NON-SMOKER [facility] Aug 07, 2012 12:47 PM LIFETIME [...] Aug 15, 2006 01:28 PM NON-SMOKER [facility] Aug 15, 2006 01:28 PM NON-TOBACCO USER [facility] Sep 07, 2005 09:58 AM NON-SMOKER [facility] Sep 07, 2005 09:58 AM NON-TOBACCO USER [facility] April 08, 2003 08:44 AM CURRENT NON-SMOKER [facility] April 08, 2003 08:44 AM LIFETIME NON-SMOKER [facility] April 08, 2003 08:44 AM LIFETIME NON-TOBACCO USER [facility] April 08, 2003 08:44 AM NON-SMOKER [facility] April 08, 2003 08:44 AM NON-TOBACCO USER [facility] Advance Directives: All historical and current No Data Provided for This Section Radiology Reports: +/- 30 days of the encounter No Data Provided for This Section Pathology Reports: +/- 30 days of the encounter No Data Provided for This Section Encounter Notes: All associated encounter notes This section contains the clinical notes associated to the Encounter. Date/Time Encounter Note(s) Provider Source Mar 25, 2021 03:34 PM MEDICATION MGT NOTE: LOCAL TITLE: WI-MEDICATION RECONCILIATION (BP,O) STANDARD TITLE: MEDICATION MGT NOTE DATE OF NOTE: MAR 25, 2021@15:34 ENTRY DATE: MAR 25, 2021@15:34:27 AUTHOR: YOSI TENORIO COSIGNER: URGENCY: STATUS: COMPLETED MEDICATION RECONCILIATION FACILITY ALLERGY/ADR -------- No Remote Allergy/ADR Data available for this patient [facility], VISN 15 LOVASTATIN [facility], [facility] 15 VARDENAFIL [facility], VISN 15 ZOCOR 40MG TAB Allergies reviewed, edited in CPRS as appropriate and confirmed by patient: Yes INCLUDED IN THIS LIST: Alphabetical list of active outpatient prescriptions dispensed from this [place] (local) and dispensed from another [place] or [facility] facility (remote) as well as inpatient orders (local pending and active), local clinic medications, locally documented non-VA medications, and local prescriptions that have or been discontinued in the past 90 days. Non-VA Meds Last Documented On: Dec 24, 2013 NOTE The display of VA prescriptions dispensed from another [place] or [facility] facility (remote) is limited to active outpatient prescription entries matched to National Drug File at the originating site and may not include some items such as investigational drugs, compounds, etc. NOT INCLUDED IN THIS LIST: Medications self-entered by the patient into personal health records (i.e. [employer]) are NOT included in this list. Non-VA medications documented outside this [place], remote inpatient orders (regardless of status) and [...] RINSE MOUTHPIECE FREQUENTLY TO PREVENT CLOGGING. Rx# [id number] Last Released: 09/26/20 Qty/Days Supply: 12/27 Rx Expiration Date: 09/25/21 Refills Remainin Non-VA ASPIRIN 81MG EC TAB TAKE ONE TABLET BY MOUTH ONCE A DAY Patient wants to buy from Non-[place] pharmacy. OUTPT BETAMETHASONE VALERATE 0.1% CREAM (Status = Active) APPLY LIGHTLY TO AFFECTED AREA TWO TIMES A DAY NEEDED FOR EXTERNAL USE ONLY CAN MIX WITH CLOTRIMAZOLE CREAM Rx# [id number] Last Released: 05/21/20 Qty/Days Supply: Rx Expiration Date: 05/20/21 Refills Remainin OUTPT BUDESONIDE 160/FORMOTER 4.5MCG 120D INH (Status = Discontinued) INHALE 2 PUFFS BY MOUTH TWO TIMES A DAY FOR BREATHING. SHAKE WELL. RINSE MOUTH AND SPIT AFTER EACH USE. Rx# [id number] Last Released: 09/29/20 Qty/Days Supply: Rx Expiration Date: 09/25/21 Refills Remainin OUTPT BUDESONIDE 160/FORMOTER 4.5MCG 120D INH (Status = Active) INHALE 2 PUFFS BY MOUTH TWO TIMES A DAY FOR BREATHING. SHAKE WELL. RINSE MOUTH AND SPIT AFTER EACH USE. Rx# [id number] Last Released: 01/14/21 Qty/Days Supply: Rx Expiration Date: 01/07/22 Refills Remainin OUTPT BUSPIRONE HCL 10MG TAB (Status = Active) TAKE ONE TABLET BY MOUTH TWO TIMES A DAY FOR ANXIETY Rx# [id number] Last Released: 03/09/21 Qty/Days Supply: 60/30 Rx Expiration Date: 04/04/21 Refills Remainin OUTPT FLUTICASONE PROP 50MCG 120D NASAL INHL (Status = Discontinued) INSTILL 1 SPRAY IN EACH NOSTRIL ONCE A DAY SHAKE GENTLY BEFORE USE! - MUST BE USED DIRECTED FOR 3 WEEKS TO PROVIDE BENEFIT. * NO EARLY REFILLS * 1 UNIT = 30 DAYS AT 4 SPRAYS/DAY OR 60 DAYS AT 2 SPRAYS/DAY Rx# [id number] Last Released: 09/29/20 Qty/Days Supply: Rx Expiration [...] OR 60 DAYS AT 2 SPRAYS/DAY Rx# [id number] Last Released: 01/14/21 Qty/Days Supply: Rx Expiration Date: 01/07/22 Refills Remainin OUTPT LORATADINE 10MG TAB (Status = Discontinued) TAKE ONE TABLET BY MOUTH ONCE A DAY FOR ALLERGIES Rx# [id number] Last Released: 10/06/20 Qty/Days Supply: Rx Expiration Date: 09/25/21 Refills Remainin OUTPT LORATADINE 10MG TAB (Status = Active) TAKE ONE TABLET BY MOUTH ONCE A DAY FOR ALLERGIES Rx# [id number] Last Released: 01/14/21 Qty/Days Supply: Rx Expiration Date: 01/07/22 Refills Remainin OUTPT LOSARTAN 50MG TAB (Status = Discontinued) TAKE ONE TABLET BY MOUTH ONCE A DAY FOR BLOOD PRESSURE Rx# [id number] Last Released: 01/27/21 Qty/Days Supply: Rx Expiration Date: 11/13/21 Refills Remainin OUTPT LOSARTAN 50MG TAB (Status = Active) TAKE ONE TABLET BY MOUTH ONCE A DAY FOR BLOOD PRESSURE Rx# [id number] Last Released: 03/24/21 Qty/Days Supply: Rx Expiration Date: 06/21/21 Refills Remainin OUTPT MONTELUKAST NA 10MG TAB (Status = Active) TAKE ONE TABLET BY MOUTH ONCE A DAY Rx# [id number] Last Released: 03/12/21 Qty/Days Supply: Rx Expiration Date: 03/11/22 Refills Remainin OUTPT VERAPAMIL HCL 120MG SA TAB (Status = Active) TAKE ONE TABLET BY MOUTH EVERY MORNING FOR THE HEART Rx# [id number] Last Released: 01/06/21 Qty/Days Supply: Rx Expiration Date: 09/20/21 Refills Remainin OUTPT VORTIOXETINE 10MG TAB (Status = Active) TAKE ONE TABLET BY MOUTH ONCE A DAY Rx# [id number] Last Released: 03/09/21 Qty/Days Supply: Rx Expiration [...] Understanding: Unable to assess /marty/ YOSI TENORIO [facility] Signed: 03/25/2021 15:34 YOSI TENORIO [facility] Mar 25, 2021 03:29 PM NURSE PRACTITIONER TELEPHONE ENCOUNTER NOTE: LOCAL TITLE: FL-WEBMASTER/TELEPHONE STANDARD TITLE: NURSE PRACTITIONER TELEPHONE ENCOUNTER NOTE DATE OF NOTE: MAR 25, 2021@15:29 ENTRY DATE: MAR 25, 2021@15:29:12 AUTHOR: YOSI TENORIO EXP COSIGNER: URGENCY: STATUS: COMPLETED s. pt. states he is having difficulity hearing, he states he has hearing aides that are several years old, he states he is wanting to go to pmd dr. enriquez in [place] for hearing consult, dr. enriquez is ent specialist, pt. states he has been seeing [facility]md [facility] [place] dr. madrigal, he states he is using inhalers and jose a faye, pt. states dr. madrigal is leaving [place] the end of march, advised pt. to call if he has any questions or concerns, /marty/ YOSI TENORIO [facility]- Signed: 03/25/2021 15:34 [facility]
--- OUTSIDE RECORDS SUMMARY | 2021-12-13 00:10 | XMS REPORT | Encounter Summary ---
Author Author [facility] [address] SAMANTHA goldstein Organization [facility] Address Unknown Phone Unavailable Care Team Providers Care Rn Radiology Name Role Phone YOSI TENORIO PCP Unavailable [...] PART A Sep 28, 2007 PART A [id number] SIMEONEFFIEY PATIENT MEDICARE (WNR) MEDICARE (M) PART B Sep 28, 2007 PART B [id number] SAMANTHA HENDRIX PATIENT Selected Encounter This section includes the information on [place] at [place] for the Encounter. Date/Time Encounter Type Encounter Description Reason Provider Source Jan 20, 2021 12:00 AM Outpatient Encounter EVENT (HISTORICAL) IHE Encounter Template Text not used by [...] 02:00 PM AMBULATORY - MEDICINE [facility]O [facility] Mar 12, 2021 10:00 AM AMBULATORY - MEDICINE [facility] Mar 25, 2021 03:00 PM AMBULATORY - MEDICINE [facility] April 02, 2021 10:00 AM AMBULATORY - MEDICINE [facility]OPE[facility] April 02, 2021 01:30 PM AMBULATORY - MEDICINE [facility] April 07, 2021 09:30 AM AMBULATORY - NONE [facility] Aleena, DARRENN April 16, 2021 10:00 AM AMBULATORY - MEDICINE [facility]O [facility]OPE[facility] Apr 30, 2021 10:00 AM AMBULATORY - MEDICINE LEO LOPE[facility] May 04, 2021 11:30 AM AMBULATORY - REHAB MEDICINE LEO LOPE[facility] May 07, 2021 10:00 AM AMBULATORY - MEDICINE LEO [facility]OPE[facility] May 07, 2021 12:30 PM AMBULATORY - MEDICINE LEO LOPE[facility] May 14, 2021 10:00 AM AMBULATORY - MEDICINE [facility] May 22, 2021 08:00 AM AMBULATORY - NONE [facility] DARREN MARQUISN May 28, 2021 10:00 AM AMBULATORY - MEDICINE LEO [facility]OPE[facility] Jun 02, 2021 01:30 PM AMBULATORY - REHAB MEDICINE LEO LOPEZ [facility] Jun 04, 2021 10:00 AM AMBULATORY - MEDICINE LEO [facility]OPE[facility] Jun 11, 2021 09:00 AM AMBULATORY - PSYCHIATRY [facility] Jun 11, 2021 10:00 AM AMBULATORY - MEDICINE [facility]OPE[facility] Jun 15, 2021 08:00 AM AMBULATORY - NONE [facility] Aleena VISN Jul 06, 2021 10:00 AM AMBULATORY - MEDICINE [facility] Active, Pending, and Scheduled Orders This [...] the Encounter. The data comes from all [place] treatment facilities. Test Date/Time Test Type Test Details Facility Name Jan 21, 2021 12:47 PM Laboratory - Chemistry Order CELIAC DI SEASE PANEL (QUEST) 2 RED SERUM-NO GEL SKB WC [facility] Surgical Procedures: All associated to the encounter No Data Provided for This Section Lab Results: +/- 30 days of the encounter This section includes the Chemistry and Hematology Lab R esults on record with [place] for the patient. Radiology Reports and Pathology Report s are provided separately, in subsequent sections. Lab Results This section contains the Chemistry/Hematology Results chinmay t were resulted 30 days before or 30 days after the date of the Encounter. Date/Time Source Result Type Result - Unit Interpretation Reference Range Comment Jan 20, 2021 09:06 AM [facility] COMPREHENSIVE METABOLIC PA ASTON Specimen Type: PLASMA Comment: Race unknown, if multiply result by 1.210 Ordering Provider: YOSI TENORIO Report Released Date/Time: Jan 08, 2021 10:27 AM Reporting Lab: [facility] [address] [facility] [address] Performing Lab: LEO WaiteMichelle EJSSICA [facility] [address] [facility] [address] *CREATININE 1.07 mg/dL 0.70-1.30 UREA NITROGEN mg/dL [...] LEO LOPEZ [facility] [address] [facility] [address] Performing Lab: LEO LOPEZ [facility] [address] [facility] [address] CHOLESTEROL 219 mg/dL H 0-200 TRIGS 130 mg/dL 0-150 HDL-CHOLESTEROL 44 mg/dL > 40 LDL (CALC) 149.0 mg/dL Jan 20, 2021 09:06 AM [facility] TSH Specimen T ype: SERUM No comment entered. Ordering Provider: YOSI TENORIO Report Released Date/Time: Jan 08, 2021 10:27 AM Reporting Lab: LEO LOPE[facility] [address] [facility] [address] Performing Lab: LEO LOPEZ [place] [address] [facility] [address] TSH 2.99 uIU/mL 0.47-5 Jan 20, 2021 09:06 AM [facility] PROSTATIC SPECIFIC ANTIGEN (TOTAL) Specimen Type: SERUM No comment entered. Ordering Provider: YOSI TENORIO Report Released Date/Time: Jan 08, 2021 10:27 AM Reporting Lab: LEO LOPEZ [place] [address] [facility] [address] Performing Lab: LEO LOPE[facility] [place] [address] [facility] [address] PROSTATIC SPECIFIC ANTIGEN(TOTAL) 0.4 ng/mL 0-4 Jan 20, 2021 09:06 AM [facility] CBC & DIFF Specimen T ype: BLOOD No comment entered. Ordering Provider: YOSI TENORIO Report Released Date/Time: Jan 08, 2021 10:27 AM Reporting Lab: LE[facility] LOPEZ [place] [address] [facility] [address] Performing Lab: LEO LOPEZ [address] [address] WBC 6.5 K/cmm 3.60-11.20 RBC 5.12 M/ul [...] Mar 20, 2004 10:47 AM NON-TOBACCO USER [facility] JOVANY MARQUIS 15 Tobacco Use History This section includes a history of the smoking, or tobacco -related health factors, that were collected on or before the date of the Encoun ter. The data comes from the [place] facility where the Encounter took place. Date/Time Smoking Status/Tobacco Use Comment [facility] ity Mar 20, 2004 10:47 AM NON-TOBACCO USER [facility] GORDON Flood VISN 15 Advance Directives: All historical and current No Data Provided for This Section Radiology Reports: +/- 30 days of the encounter No Data Provided for This Section Pathology Reports: +/- 30 days of the encounter No Data Provided for This Section Encounter Notes: All associated encounter notes No Data Provided for This Section
--- OUTSIDE RECORDS SUMMARY | 2021-12-13 00:11 | XMS REPORT | Encounter Summary ---
Author Author [facility] SAMANTHA goldstein Organization [facility] Address Unknown Phone Unavailable Care Team Providers Care Bank Compliance Officer Name Role Phone JONA YOSI PCP Unavailable Insurance Providers: All historical [...] PART A Sep 28, 2007 PART A [id number] SAMANTHA HENDRIX PATIENT MEDICARE (WNR) MEDICARE (M) PART B Sep 28, 2007 PART B [id number] EFFIE HENDRIXY PATIENT Selected Encounter This section includes the information on record at [place] for the Encounter. Date/Time Encounter Type Encounter Description Reason Provider Source Jan 13, 2021 11:09 AM HC PRO PHONE CALL 5-10 MIN TELEPHONE PRIMA RY CARE ICD-10-CM Z71.89 Other specified counseling with Provider Comments: Other specified counseling AISHA SHIPMAN Encounter Template Text not used by [facility] Assessments - Encounter Diagnoses This section includes the primary and secondary diag noses documented for the Encounter. Date/Time Primary/Secondary Diagnosis Diagnosis Name Provider Source Jan 13, 2021 11:09 AM PRIMARY Other specified counseling AISHA HAMMER CB Plan of Treatment: Future Appointments (+ 6 months) and Future Tests (+/- 45 day s) The Plan of Treatment section includes future care activities for the patient fr om all [place] treatment facilities. This section includes future appointments and fu ture orders which are active, pending or scheduled. Future Appointments This section includes appointments that were scheduled t o occur 6 months from the date of the Encounter, up to a maximum of 20 appointme nts. The data comes from all [place] treatment facilities. Appointment Date/Time Appointment Type Appointment Facili ty Name Jan 20, 2021 11:30 AM AMBULATORY - MEDICINE [facility] Feb 26, 2021 02:00 PM AMBULATORY - MEDICINE [facility]O LOPE[facility] Mar 12, 2021 10:00 AM AMBULATORY - MEDICINE [facility]OPE[facility] Mar 25, 2021 03:00 PM AMBULATORY - MEDICINE [facility] April 02, 2021 10:00 AM AMBULATORY - MEDICINE [facility] April 02, 2021 01:30 PM AMBULATORY - MEDICINE [facility] April 07, 2021 09:30 AM AMBULATORY - NONE [facility] JOVANY Flood April 16, 2021 10:00 AM AMBULATORY - MEDICINE [facility]OPE[facility] Apr 30, 2021 10:00 AM AMBULATORY - MEDICINE [facility] LOPE[facility] May 04, 2021 11:30 AM AMBULATORY - REHAB MEDICINE [facility] May 07, 2021 10:00 AM AMBULATORY - MEDICINE [facility]OPE[facility] May 07, 2021 12:30 PM AMBULATORY - MEDICINE [facility]OPE[facility] May 14, 2021 10:00 AM AMBULATORY - MEDICINE [facility]OPE[facility] May 22, 2021 08:00 AM AMBULATORY - NONE [facility] JOVANY Flood 15 May 28, 2021 10:00 AM AMBULATORY - MEDICINE [facility]O LOPE[facility] Jun 02, 2021 01:30 PM AMBULATORY - REHAB MEDICINE [facility] Jun 04, 2021 10:00 AM AMBULATORY - MEDICINE LEO LOPE[facility] Jun 11, 2021 09:00 AM AMBULATORY - PSYCHIATRY [facility] Jun 11, 2021 10:00 AM AMBULATORY - MEDICINE [facility]O LOPE[facility] Jun 15, 2021 08:00 AM AMBULATORY - NONE [facility] T, VISN 15 Active, Pending, and Scheduled Orders This section [...] the Encounter. The data comes from all [place] treatment facilities. Test Date/Time Test Type Test Details Facility Name Jan 21, 2021 12:47 PM Laboratory - Chemistry Order CELIAC DI SEASE PANEL (QUEST) 2 RED SERUM-NO GEL SKB [facility] Surgical Procedures: All associated to the encounter This section includes all Surgical Procedures and Surgical Procedure Notes assoc iated to the Encounter. Surgical Procedures This section includes all Surgical Procedures associated to the Encounter. Surgical Procedure Date/Time Procedure Procedure Type Procedure Qualifiers Provider Source Jan 13, 2021 11:09 AM HC PRO PHONE CALL 5-10 MIN HC PRO PHONE CALL 5-10 MIN AISHA SHIPMAN [facility] Surgical Notes There are no notes associated with this procedure. Lab Results: +/- 30 days of the encounter This section includes the Chemistry and Hematology Lab R esults on record with [place] for the patient. Radiology Reports and Pathology Report s are provided separately, in subsequent sections. Lab Results This section contains the Chemistry/Hematology Results chinmay t were resulted 30 days before or 30 days after the date of the Encounter. Date/Time Source Result Type Result - Unit Interpretation Reference Range Comment Jan 20, 2021 09:06 AM [facility] COMPREHENSIVE METABOLIC PA ASTON Specimen Type: PLASMA Comment: Race unknown, if multiply result by 1.210 Ordering Provider: YOSI TENORIO Report Released Date/Time: Jan 08, 2021 10:27 AM Reporting Lab: [facility] [address] [facility] [address] Performing Lab: LEO [facility] [address] [facility] [address] *CREATININE 1.07 mg/dL 0.70-1.30 UREA NITROGEN mg/dL [...] EGFR 66.8 Jan 20, 2021 09:06 AM [facility] LIPID PROFILE(HDL,TRIG,CHO L,LDL) Specimen Type: PLASMA Comment: Race unknown, if multiply result by 1.210 Ordering Provider: YOSI TENORIO Report Released Date/Time: Jan 08, 2021 10:27 AM Reporting Lab: [facility] [address] [facility] [address] Performing Lab: [facility] [address] [facility] [address] CHOLESTEROL 219 mg/dL H 0-200 TRIGS 130 mg/dL 0-150 HDL-CHOLESTEROL 44 mg/dL > 40 LDL (CALC) 149.0 mg/dL Jan 20, 2021 09:06 AM [facility] TSH Specimen T ype: SERUM No comment entered. Ordering Provider: YOSI TENORIO Report Released Date/Time: Jan 08, 2021 10:27 AM Reporting Lab: [facility] [address] [facility] [address] Performing Lab: [facility] [address] [facility] [address] TSH 2.99 uIU/mL 0.47-5 Jan 20, 2021 09:06 AM [facility] PROSTATIC SPECIFIC ANTIGEN (TOTAL) Specimen Type: SERUM No comment entered. Ordering Provider: YOSI TENORIO Report Released Date/Time: Jan 08, 2021 10:27 AM Reporting Lab: [facility] [address] [facility] [address] Performing Lab: [facility] [address] [facility] [address] PROSTATIC SPECIFIC ANTIGEN(TOTAL) 0.4 ng/mL 0-4 Jan 20, 2021 09:06 AM [facility] CBC & DIFF Specimen T ype: BLOOD No comment entered. Ordering Provider: YOSI TENORIO Report Released Date/Time: Jan 08, 2021 10:27 AM Reporting Lab: [facility] [address] [facility] [address] Performing Lab: [facility] [address] [facility] [address] WBC 6.5 K/cmm 3.60-11.20 RBC 5.12 M/ul [...] and tobacco- related health factors from the [place] facility where the Encounter took place. Current Smoking Status This section includes the most current smoking, or tobacco -related health factor, from the ID facility where the Encounter took place. Date/Time Current Smoking Status Comment Facility Dec 21, 2018 02:42 PM NON-TOBACCO USER [facility] Tobacco Use History This section includes a history of the smoking, or tobacco -related health factors, that were collected on or before the date of the Encoun ter. The data comes from the [place] facility where the Encounter took place. Date/Time Smoking Status/Tobacco Use Comment Chelsea salcedo Dec 30, 2017 08:55 AM NON-TOBACCO USER [...] Encounter. Date/Time Encounter Note(s) Provider Source Jan 13, 2021 11:09 AM ADMINISTRATIVE NOTE: LOCAL TITLE: [place]-COVID-19 SCREENING STANDARD TITLE: ADMINISTRATIVE NOTE DATE OF NOTE: JAN 13, 2021@11:09 ENTRY DATE: JAN 13, 2021@11:09:09 AUTHOR: AISHA SHIPMAN EXP COSIGNER: URGENCY: STATUS: COMPLETED Coronavirus Disease 2019 (COVID-19) Screen The patient reports no COVID-19 diagnosis. The patient reports not waiting for the results of a COVID-19 lab test. The patient reports no fever. The patient reports no new or worsening cough or shortness of breath. The patient reports no cold or flu-like symptoms. The patient reports no new onset of diarrhea, nausea or vomiting. The patient reports no new onset of headache, loss of taste or loss of smell. The patient reports no exposure to someone with COVID-19 within the past 2 weeks. Result: Screen is negative. COVID-19 Immunization Status There is no record of COVID-19 vaccination. /marty/ AISHA PHILLIPS SLIP COVER SEWER Signed: 01/13/2021 11:09 AISHA SHIPMAN
--- OUTSIDE RECORDS SUMMARY | 2021-12-13 00:11 | XMS REPORT | Encounter Summary ---
Author Author [facility] SAMANTHA goldstein Organization Department [facility] Address Unknown Phone Unavailable Care Team Providers Care Packaging Line Attendant Name Role Phone YOSI TENORIO PCP Unavailable [...] PART A Sep 28, 2007 PART A [id number] SIMEONEFFIEY PATIENT MEDICARE (WNR) MEDICARE (M) PART B Sep 28, 2007 PART B [id number] SIMEONEFFIEY PATIENT Selected Encounter This section includes the information on record at [place] for the Encounter. Date/Time Encounter Type Encounter Description Reason Provider Source Dec 15, 2020 10:04 AM Outpatient Encounter TELEPHONE TRIAGE KONRAD CARTER Encounter Template Text not used by MD Assessments - Encounter Diagnoses No Data Provided [...] appointme nts. The data comes from all [facility]. Appointment Date/Time Appointment Type Appointment Facili ty Name Jan 20, 2021 11:30 AM AMBULATORY - MEDICINE [facility] Feb 26, 2021 02:00 PM AMBULATORY - MEDICINE [facility]O LOPE[facility] Mar 12, 2021 10:00 AM AMBULATORY - MEDICINE [facility] Mar 25, 2021 03:00 PM AMBULATORY - MEDICINE [facility] April 02, 2021 10:00 AM AMBULATORY - MEDICINE [facility] April 02, 2021 01:30 PM AMBULATORY - MEDICINE [facility] April 07, 2021 09:30 AM AMBULATORY - NONE [facility] JOVANY MARQUIS April 16, 2021 10:00 AM AMBULATORY - MEDICINE [facility] Apr 30, 2021 10:00 AM AMBULATORY - MEDICINE [facility] May 04, 2021 11:30 AM AMBULATORY - REHAB MEDICINE [facility] May 07, 2021 10:00 AM AMBULATORY - MEDICINE [facility] May 07, 2021 12:30 PM AMBULATORY - MEDICINE [facility] May 14, 2021 10:00 AM AMBULATORY - MEDICINE [facility] May 22, 2021 08:00 AM AMBULATORY - NONE [facility] JOVANY MARQUIS May 28, 2021 10:00 AM AMBULATORY - MEDICINE [facility] Jun 02, 2021 01:30 PM AMBULATORY - REHAB MEDICINE [facility] Jun 04, 2021 10:00 AM AMBULATORY - MEDICINE [facility] Jun 11, 2021 09:00 AM AMBULATORY - PSYCHIATRY [facility] Jun 11, 2021 10:00 AM AMBULATORY - MEDICINE [facility] Active, Pending, and Scheduled Orders [...] the Encounter. The data comes from all [facility]. Test Date/Time Test Type Test Details Facility Name Jan 21, 2021 12:47 PM Laboratory - Chemistry Order CELIAC DI SEASE PANEL (QUEST) 2 RED SERUM-NO GEL SKB [facility] Surgical Procedures: All associated to the encounter [...] or tobacco -related health factor, from the [place] facility where the Encounter took place. Date/Time Current Smoking Status Comment Facility Jun 12, 2018 01:16 PM MD-TOBACCO QUIT 15 YRS OR MORE [facility] [facility] Tobacco Use History This section includes a history of the smoking, or tobacco -related health factors, that were collected on or before the date of the Encoun ter. The data comes from the [place] facility where the Encounter took place. Date/Time Smoking Status/Tobacco Use Comment [facility] Jun 12, 2018 01:16 PM MD-TOBACCO QUIT 15 YRS OR MORE [facility] [facility] Sep 24, 2015 08:23 AM NON-TOBACCO USER [facility] Nov 07, 2014 12:58 PM NON-TOBACCO USER LEO LOPEZ [facility] Oct 01, 2014 02:57 PM NON-TOBACCO USER [facility] Jul 08, 2011 11:42 AM NON-TOBACCO USER LEO LOPEZ [facility] Sep 21, 2007 09:37 AM NON-TOBACCO USER Pt. reports he quit smoking over 20 years ago. [facility] Advance Directives: All historical and current No Data Provided for This Section Radiology Reports: +/- 30 days of the encounter No Data Provided for This Section Pathology Reports: +/- 30 days of the encounter No Data Provided for This Section Encounter Notes: All associated encounter notes This section contains the clinical notes associated to the Encounter. Date/Time Encounter Note(s) Provider Source Dec 15, 2020 10:04 AM TELEPHONE ENCOUNTER NOTE: [facility] TITLE: TELEPHONE ENCOUNTER NOTE DATE OF NOTE: DEC 15, 2020@10:04:58 ENTRY DATE: DEC 15, 2020@10:14:53 AUTHOR: KONRAD CARTER COSIGNER: URGENCY: STATUS: COMPLETED The following identifiers were used to verify this patient: . SSN. Type of call: *PHARMACY FU REQUIRED. PCMM Provider Info: [facility] ([id number]) PACT: No Local PACT Assigned. [facility] Psychiatrist || Lacey Monterroso || PHONE:[phone] || PAGER:[phone] [facility] ([id number]) || [facility] ([id number]) PACT: YOAV [facility] 2 *WH* (Focus: [facility]om[facility]) Primary Care Provider: Yosi Tenorio || PHONE:[phone] Materials Engineering Technician: Bonnie Saini || PHONE:[phone] || PAGER:[phone] Clinical Associate: Jesus Torres || PHONE:[phone] Lighting Fixture Installer: Froy Billy || PHONE:[phone] PACT Clinical Pharmacist: Laura Aguilar || PHONE:[phone] Surrogate Materials Engineering Technician: Ida Munguia || PHONE:[phone] Clinical POC: Materials Engineering Technician || Bonnie Saini || PHONE:[phone] || PAGER:[phone] Administrative POC: Lighting Fixture Installer || Froy Billy || PHONE:[phone] Caller Area: [facility] Caller Response: *OTHER The patient, SAMANTHA HENDRIX ([id number]) called the call center. Contact Comments: [place] calls with concerns about medication received Tuesday delivered via [employer]. Delivered in sealed package. Lid was loose and no seal. States that there is normally a seal. Denies any opening in sealed package. Medication does not look compromised. Encouraged to call and speak with pharmacy with any questions or concerns tomorrow as today is holiday. Denies any other questions or needs at this time. Evaluation/Management Code: HC PRO PHONE CALL 5-10 MIN ([phone]). Starting at: 12/15/2020 @ 10:04:58 AM Ending at: 12/15/2020 @ 10:11:02 AM Length: 6 minutes. Author: KONRAD CARTER Chief Complaint: Not applicable to call. Class Code: Other specified counseling. /marty/ KONRAD CARTER RN Signed: 12/15/2020 10:14 KONRAD CARTER [facility]"
[2021-12-13] MEDS ORDERED: NS IV 1000 ML 1,000 ML IV SCH (00:15)
[2021-12-13] MEDS ORDERED: fentaNYL INJ 100 MCG/2 ML AMP IVP PRN ×2 (00:15→18:15)
[2021-12-13] MEDS ORDERED: ACETAMINOPHEN 650 MG SUPP (TYLENOL) PR PRN (00:15)
[2021-12-13] MEDS ORDERED: ONDANSETRON 4 MG/2 ML (SDV) Z0FRAN IV PRN ×2 (00:15)
[2021-12-13] MEDS ORDERED: ONDANSETRON 4 MG/2 ML (SDV) Z0FRAN IVP PRN ×3 (00:15→17:30)
--- OUTSIDE RECORDS SUMMARY | 2021-12-13 00:19 | XMS REPORT | Encounter Summary ---
Author Author [facility] SAMANTHA goldstein Organization [facility] Address Unknown Phone Unavailable Care Team Providers Care Silk Screen Cutter Name Role Phone YOSI TENORIO PCP Unavailable [...] PART A Sep 28, 2007 PART A [id number] SAMANTHA HENDRIX PATIENT MEDICARE (WNR) MEDICARE (M) PART B Sep 28, 2007 PART B [id number] EFFIE HENDRIXY PATIENT Selected Encounter This section includes the information [facility] record at [facility] for [facility]counter. Date/Time Encounter Type Encounter Description Reason Provider Source Jul 20, 2021 10:00 AM PSYTX W PT 60 MINUTES [facility] - IND ICD-10-CM F33.0 Major depressive disorder, recurrent, mild with Provider Comments: Major Depressive Disorder,Recurrent,Mild DORA TORRES Encounter Template Text not used by [facility] Assessments - Encounter Diagnoses This section includes the primary and secondary diag noses documented for the Encounter. Date/Time Primary/Secondary Diagnosis Diagnosis Name Provider Source Jul 21, 2021 05:45 PM PRIMARY Major depressive disorder, recurrent, mild DORA TORRES [facility] Plan of Treatment: Future Appointments (+ 6 months) and Future Tests (+/- 45 day s) The Plan of Treatment section includes future care activities for the patient fr om all [facility] facilities. This section includes future appointments and fu ture orders which are active, pending or scheduled. Future Appointments This section includes appointments that were scheduled t o occur 6 months from the date of the Encounter, up to a maximum of 20 appointme nts. The data comes from all [facility] [address] Appointment Date/Time Appointment Type Appointment Facili ty Name Aug 05, 2021 02:30 PM AMBULATORY - NONE [facility] T, [place] Aug 13, 2021 09:30 AM AMBULATORY - PSYCHIATRY [facility] Aug 14, 2021 01:30 PM AMBULATORY - REHAB MEDICINE [facility] Aug 25, 2021 02:00 PM AMBULATORY - PSYCHIATRY [facility] Aug 25, 2021 03:00 PM AMBULATORY - MEDICINE [facility] Sep 03, 2021 08:00 AM AMBULATORY - NONE [facility] [place], [place] Sep 03, 2021 10:00 AM AMBULATORY - MEDICINE [facility] Sep 10, 2021 10:00 AM AMBULATORY - MEDICINE [facility] Sep 17, 2021 10:00 AM AMBULATORY - MEDICINE [facility] Sep 23, 2021 08:30 AM AMBULATORY - NONE [facility] [place], [facility] Oct 02, 2021 10:30 AM AMBULATORY - REHAB MEDICINE [facility] Nov 02, 2021 11:30 AM AMBULATORY - MEDICINE [facility] Nov 18, 2021 10:30 AM AMBULATORY - MEDICINE [facility] Nov 19, 2021 01:00 PM AMBULATORY - REHAB MEDICINE [facility] Dec 07, 2021 06:30 PM AMBULATORY - PSYCHIATRY [facility] Dec 10, 2021 03:00 PM AMBULATORY - NONE [facility] T, [facility] Dec 21, 2021 01:30 PM AMBULATORY - NONE [facility] [place], [facility] Dec 24, 2021 09:00 AM AMBULATORY - PSYCHIATRY [facility] Jan 20, 2022 08:30 AM AMBULATORY - MEDICINE [facility] Surgical Procedures: All associated to the encounter This section includes all Surgical Procedures and Surgical Procedure Notes assoc iated to the Encounter. Surgical Procedures This section includes all Surgical Procedures associated to the Encounter. Surgical Procedure Date/Time Procedure Procedure Type Procedure Qualifiers Provider Source Jul 20, 2021 10:00 AM PSYTX PT &/OR FAMILY 60 MIN PSYTX W PT 60 MINUTES AJ- CLINICAL SHED BOSS DORA TORRES [facility] Surgical Notes There are no notes associated with this procedure. Lab Results: +/- 30 days of the encounter This section includes the Chemistry and Hematology Lab R esults on record with [place] for the patient. Radiology Reports and Pathology Report s are provided separately, in subsequent sections. Lab Results This section contains the Chemistry/Hematology Results chinmay t were resulted 30 days before or 30 days after the date of the Encounter. Date/Time Source Result Type Result - Unit Interpretation Reference Range Comment Jul 06, 2021 10:44 AM [facility] COMPREHENSIVE METABOLIC PA ASTON Specimen Type: PLASMA Comment: Race unknown, if multiply result by 1.210 Ordering Provider: YOSI TENORIO Report Released Date/Time: Jul 06, 2021 10:37 AM Reporting Lab: [facility] [address] [facility] [address] Performing Lab: LEO Arteaga [facility] [address] [facility] [address] *CREATININE 1.13 mg/dL 0.70-1.30 UREA NITROGEN mg/dL [...] 62.8 Jul 06, 2021 10:44 AM [facility] ERYTHROCYTE SEDIMENTATION RATE Specimen Type: BLOOD No comment entered. Ordering Provider: YOSI TENORIO Report Released Date/Time: Jul 06, 2021 10:37 AM Reporting Lab: [facility] [address] [facility] [id number] Performing Lab: [facility] [address] [address] ERYTHROCYTE SEDIMENTATION RATE 5 mm/hr 0-20 Jul 06, 2021 10:44 AM [facility] CBC & DIFF Specimen T ype: BLOOD No comment entered. Ordering Provider: YOSI TENORIO Report Released Date/Time: Jul 06, 2021 10:37 AM Reporting Lab: [facility] [address] [address] Performing Lab: [facility] [address] [facility] [address] WBC 6.4 K/cmm 3.60-11.20 RBC 4.89 M/ul [...] and tobacco- related health factors from the [place] facility where the Encounter took place. Current Smoking Status This section includes the most current smoking, or tobacco -related health factor, from the [place] facility where the Encounter took place. Date/Time Current Smoking Status Comment Facility Jan 20, 2021 11:30 AM VA-TOBACCO NEVER USED [facility] Tobacco Use History This section includes a history of the smoking, or tobacco -related health factors, that were collected on or before the date of the Encoun ter. The data comes from the [place] facility where the Encounter took place. Date/Time Smoking Status/Tobacco Use Comment [facility] Dec 21, 2018 02:42 PM NON-TOBACCO USER [facility] Dec 30, 2017 08:55 AM NON-TOBACCO USER [facility] Dec 09, 2014 09:17 AM CURRENT NON-SMOKER [facility] Dec 09, 2014 09:17 AM LIFETIME NON-TOBACCO USER [facility] Dec 12, 2013 01:11 PM CURRENT NON-SMOKER [facility] Dec 12, 2013 01:11 PM LIFETIME NON-TOBACCO USER [facility] Aug 07, 2012 12:47 PM CURRENT NON-SMOKER [facility] Aug 07, 2012 12:47 PM LIFETIME NON-TOBACCO USER [facility] Jun 05, 2012 12:37 PM NON-TOBACCO USER [facility] Nov 04, 2011 09:02 AM NON-TOBACCO USER has not smoked for 25 years [facility] Oct 12, 2011 08:23 AM CURRENT NON-SMOKER [facility] Oct 12, 2011 08:23 AM LIFETIME NON-TOBACCO USER [facility] Oct 12, 2011 08:23 AM NON-TOBACCO USER [facility] Aug 15, 2006 01:28 PM NON-SMOKER [facility] Aug 15, 2006 01:28 PM NON-TOBACCO USER [facility] Sep 07, 2005 09:58 AM NON-SMOKER [facility] Sep 07, 2005 09:58 AM NON-TOBACCO USER [facility] April 08, 2003 08:44 AM CURRENT NON-SMOKER [facility] April 08, 2003 08:44 AM LIFETIME NON-SMOKER [facility] April 08, 2003 08:44 AM LIFETIME NON-TOBACCO USER [facility] April 08, 2003 08:44 AM NON-SMOKER [facility] April 08, 2003 08:44 AM NON-TOBACCO [...] Encounter. Date/Time Encounter Note(s) Provider Source Jul 20, 2021 02:46 PM MENTAL HEALTH NOTE: LOCAL TITLE: [facility] PROVIDER FOLLOW-UP STANDARD TITLE: MENTAL HEALTH NOTE DATE OF NOTE: JUL 20, 2021@14:46 ENTRY DATE: JUL 20, 2021@14:46:21 AUTHOR: DORA TORRES COSIGNER: URGENCY: STATUS: COMPLETED DATE OF SESSION: Jun LENGTH OF SESSION: 60 MINUTES,10:00-11:00 CURRENT CLINICAL STATUS: The was on time, oriented x4, had good eye contact, affect was congruent with mood, hygiene was good, no SI/HI CONTENT OF SESSION: The had not been in to see the provider in several months, said that things were going better back then and then when COVID hit they didn't want to get out much. Spent the hour going over all that had how happened with his and her health since she got COVID last year and how she has been very sick since then. Now he is having some health issues that they are trying to figure out what is going on and so far they have not. Said that he is scared and is not sure what is wrong with him but he does want to find out. Went over how his Primary care doctor has been running test and wanted him also to come back in for therapy to make sure that it was not that. Went over how it did not sound like an mental issue to this provider it sounded like an physical issue. The said that he has been having some anxiety but this feels like an low blood sugar drop to him. Said that he will just be doing something and then he will feel dizzy and will need to sit down and then feels like his feet are off the ground but they are not. Went over how they are still working on figuring out what is wrong and he hopes to get some results that will how let them know what he needs to do to not have these episodes. Went over tracking his episodes on an calendar to see if there is an pattern to them. The is going to work on this. We will meet again on aug 17 ASSESSMENT: The was able to talk and shared openly in the therapy setting. STRENGTHS: 1. The has an very supportive , he is also motivated to make positive changes in his life. WEAKNESS: 1. The has an difficult time with getting short with others. DIAGNOSIS: Major Depressive Disorder, Anxiety Disorder NOS GOALS: 1.To reduce depression by 50% over the next year 2. To work on reducing his anxiety by 50% over the next year. 3. To work on issues in marriage due to his Depression and to reduce these symptoms by 50% over the next year. PLAN OF CARE: 1.To take medication as prescribed and to come to scheduled appointments. /marty/ DORA TORRES [facility] Signed: 07/21/2021 17:45 DORA TORRES [facility]
--- OUTSIDE RECORDS SUMMARY | 2021-12-13 00:20 | XMS REPORT | Encounter Summary ---
Author [facility] Address Unknown Phone Unavailable Care Team Providers Care Newspaper Delivery Driver Name Role Phone YOSI TENORIO PCP Unavailable [...] PART A Sep 28, 2007 PART A [id number] [phone] SIMEONEFFIEY PATIENT MEDICARE (WNR) MEDICARE (M) PART B Sep 28, 2007 PART B [id number] SAMANTHA HENDRIX PATIENT Selected Encounter This section includes the information on record at [place] for the Encounter. Date/Time Encounter Type Encounter Description Reason Provider Source Sep 01, 2021 01:51 PM Outpatient Encounter ADMIN PAT ACTIVTIES (MASNO NCT) IHE Encounter Template Text not used by [facility] Assessments - Encounter Diagnoses No Data Provided for This Section Plan of Treatment: Future Appointments (+ 6 months) and Future Tests (+/- 45 day s) The Plan of Treatment section includes future care activities for the patient fr om all [place] treatment facilities. This section includes future appointments and fu ture orders which are active, pending or scheduled. Future Appointments This section includes appointments that were scheduled t o occur 6 months from the date of the Encounter, up to a maximum of 20 appointme nts. The data comes from all [place] treatment facilities. Appointment Date/Time Appointment Type Appointment Facili tangela Vann Sep 03, 2021 08:00 AM AMBULATORY - NONE [facility] [place], [facility] 15 Sep 03, 2021 10:00 AM AMBULATORY - MEDICINE [facility] Sep 10, 2021 10:00 AM AMBULATORY - MEDICINE [facility] Sep 17, 2021 10:00 AM AMBULATORY - MEDICINE [facility] Sep 23, 2021 08:30 AM AMBULATORY - NONE [facility] [place], [place] Oct 02, 2021 10:30 AM AMBULATORY - REHAB MEDICINE [facility] Nov 02, 2021 11:30 AM AMBULATORY - MEDICINE [facility] Nov 18, 2021 10:30 AM AMBULATORY - MEDICINE [facility] Nov 19, 2021 01:00 PM AMBULATORY - REHAB MEDICINE [facility] Dec 07, 2021 06:30 PM AMBULATORY - PSYCHIATRY [facility] Dec 10, 2021 03:00 PM AMBULATORY - NONE [facility] T, [facility] Dec 21, 2021 01:30 PM AMBULATORY - NONE [facility] T, [place] 15 Dec 24, 2021 09:00 AM AMBULATORY - PSYCHIATRY [facility] Jan 20, 2022 08:30 AM AMBULATORY - MEDICINE [facility] Surgical Procedures: All associated to [...] and tobacco- related health factors from the [place] facility where the Encounter took place. Current Smoking Status This section includes the most current smoking, or tobacco -related health factor, from the [place] facility where the Encounter took place. Date/Time Current Smoking Status [facility] Facility Jan 20, 2021 11:30 AM VA-TOBACCO NEVER USED [facility] Tobacco Use History This section includes a history of the smoking, or tobacco -related health factors, that were collected on or before the date of the Encoun ter. The data comes from the [place] facility where the Encounter took place. Date/Time [...] Sep 07, 2005 09:58 AM NON-SMOKER [facility] Sep 07, 2005 09:58 AM NON-TOBACCO USER [facility] April 08, 2003 08:44 AM CURRENT NON-SMOKER [facility] April 08, 2003 08:44 AM LIFETIME NON-SMOKER [facility] April 08, 2003 08:44 AM LIFETIME NON-TOBACCO USER [facility] April 08, 2003 08:44 AM NON-SMOKER [facility] April 08, 2003 08:44 AM NON-TOBACCO USER [facility] Advance Directives: All historical and current No Data Provided for This Section Radiology Reports: +/- 30 days of the encounter No Data Provided for This Section Pathology Reports: +/- 30 days of the encounter No Data Provided for This Section Encounter Notes: All associated encounter notes This section contains the clinical notes associated to the Encounter. Date/Time Encounter Note(s) Provider Source Sep 01, 2021 01:51 PM DIAGNOSTIC STUDY REPORT: LOCAL TITLE: [place]-FORM LETTER DIAGNOSTIC RESULTS STANDARD TITLE: DIAGNOSTIC STUDY REPORT DATE OF NOTE: SEP 01, 2021@13:51 ENTRY DATE: SEP 01, 2021@13:51:22 AUTHOR: JOSE ROBERTO GONZALEZ COSIGNER: URGENCY: STATUS: COMPLETED [facility] [address] [place] [address] SAMANTHA HENDRIX [address], [place], [address] Aug Dear SAMANTHA HENDRIX, The purpose of this letter is to inform you of your test [facility] [place] IMAGING Other:Ultra sound results were abnormal. Results and Comments: bilateral carotid Ultra sound done at [facility] findings low grade right sided atherosclerotic plaque. No Stenosis. These test results are reported to you to keep you informed and involved in your health care. If you have any question about these results, please contact your health care provider at or . Option #2. Thank you! Your Primary Care Team. JOSE ROBERTO GONZALEZ OC
--- OUTSIDE RECORDS SUMMARY | 2021-12-13 00:20 | XMS REPORT | Encounter Summary ---
[facility] Address Unknown Phone Unavailable Care Team Providers Care Assembler Product Name Role Phone YOSI TENORIO PCP Unavailable [...] PART A Sep 28, 2007 PART A [id number] SIMEONEFFIEY PATIENT MEDICARE (WNR) MEDICARE (M) PART B Sep 28, 2007 PART B [id number] SAMANTHA HENDRIX PATIENT Selected Encounter This section includes the information on record at [place] for the Encounter. Date/Time Encounter Type Encounter Description Reason Provider Source Aug 27, 2021 04:40 PM Outpatient Encounter ADMIN PAT ACTIVTIES (MASNO [...] 03, 2021 08:00 AM AMBULATORY - NONE [facility] [place], [facility] 15 Sep 03, 2021 10:00 AM AMBULATORY - MEDICINE [facility] Sep 10, 2021 10:00 AM AMBULATORY - MEDICINE [facility] Sep 17, 2021 10:00 AM AMBULATORY - MEDICINE [facility] Sep 23, 2021 08:30 AM AMBULATORY - NONE [facility], [place] Oct 02, 2021 10:30 AM AMBULATORY - REHAB MEDICINE [facility] Nov 02, 2021 11:30 AM AMBULATORY - MEDICINE [facility] Nov 18, 2021 10:30 AM AMBULATORY - MEDICINE [facility] Nov 19, 2021 01:00 PM AMBULATORY - REHAB MEDICINE [facility] Dec 07, 2021 06:30 PM AMBULATORY - PSYCHIATRY [facility] Dec 10, 2021 03:00 PM AMBULATORY - NONE [facility] T, [facility] Dec 21, 2021 01:30 PM AMBULATORY - NONE [facility] T, [place]IS[place] 15 Dec 24, 2021 09:00 AM AMBULATORY - PSYCHIATRY [facility] Jan 20, 2022 08:30 AM AMBULATORY - MEDICINE [facility] Surgical Procedures: All associated to [...] 2021 11:30 AM VA-TOBACCO NEVER USED [facility] Tobacco Use History This section [...] April 08, 2003 08:44 AM NON-TOBACCO USER [facility] Advance Directives: All historical and current No Data Provided for This Section Radiology Reports: +/- 30 days of the encounter No Data Provided for This Section Pathology Reports: +/- 30 days of the encounter No Data Provided for This Section Encounter Notes: All associated encounter notes This section contains the clinical notes associated to the Encounter. Date/Time Encounter Note(s) Provider Source Aug 27, 2021 04:40 PM ADMINISTRATIVE NOTE: LOCAL TITLE: WI-ADMINISTRATIVE NOTE (BP,O) STANDARD TITLE: ADMINISTRATIVE NOTE DATE OF NOTE: AUG 27, 2021@16:40 ENTRY DATE: AUG 27, 2021@16:40:24 AUTHOR: YOSI TENORIO EXP COSIGNER: URGENCY: STATUS: COMPLETED bilat. carotid US done at [facility]- findings-low grade righ sided atherosclerotic plaque, No stenosis, please call and inform pt., thank you /marty/ YOSI TENORIO [facility]- Signed: 08/27/2021 16:43 Receipt Acknowledged By: * AWAITING SIGNATURE * JOSE ROBERTO GONZALEZ MICHAEL B PARSONS [facility]
--- OUTSIDE RECORDS SUMMARY | 2021-12-13 00:20 | XMS REPORT | Encounter Summary ---
Author Author [facility] SAMANTHA goldstein Organization [facility] Address Unknown Phone Unavailable Care Team Providers Care Hansard Reporter Name Role Phone YOSI TENORIO PCP Unavailable [...] PART A Sep 28, 2007 PART A [id number] SIMEONEFFIEY PATIENT MEDICARE (WNR) MEDICARE (M) PART B Sep 28, 2007 PART B [id number] SIMEONSAMANTHA PATIENT Selected Encounter This section includes the information [facility] at [facility]counter. Date/Time Encounter Type Encounter Description Reason Provider Source Aug 25, 2021 02:00 PM PSYTX W PT 60 MINUTES [facility] - IND ICD-10-CM F33.1 Major depressive disorder, recurrent, moderate with Provider Comments: Chronic recurrent major depressive disorder ([facility] [id number]) DORA TORRES Encounter Template Text not used by [facility] Assessments - Encounter Diagnoses This section includes the primary and secondary diag noses documented for the Encounter. Date/Time Primary/Secondary Diagnosis Diagnosis Name Provider Source Aug 26, 2021 01:00 PM PRIMARY Major depressive disorder, recurrent, moderate DORA TORRES Aug 26, 2021 01:00 PM SECONDARY Anxiety disorder, unspecified DORA BARTLETT [facility] Plan of Treatment: Future Appointments (+ [...] appointme nts. The data comes from all [facility]. Appointment Date/Time Appointment Type Appointment Facili ty Name Sep 03, 2021 08:00 AM AMBULATORY - NONE [facility] T, [facility] 15 Sep 03, 2021 10:00 AM AMBULATORY - MEDICINE LEO LOPEZ [facility] Sep 10, 2021 10:00 AM AMBULATORY - MEDICINE LEO LOPEZ [facility] Sep 17, 2021 10:00 AM AMBULATORY - MEDICINE LEO LOPEZ [facility] Sep 23, 2021 08:30 AM AMBULATORY - NONE [facility] T, [facility] Oct 02, 2021 10:30 AM AMBULATORY - REHAB MEDICINE LEO LOPEZ [facility] Nov 02, 2021 11:30 AM AMBULATORY - MEDICINE [facility] Nov 18, 2021 10:30 AM AMBULATORY - MEDICINE [facility] Nov 19, 2021 01:00 PM AMBULATORY - REHAB MEDICINE LEO LOPEZ [facility] Dec 07, 2021 06:30 PM AMBULATORY - PSYCHIATRY LEO LOPEZ [facility] Dec 10, 2021 03:00 PM AMBULATORY - NONE [facility] T, [facility] Dec 21, 2021 01:30 PM AMBULATORY - NONE [facility] T, [facility] 15 Dec 24, 2021 09:00 AM AMBULATORY - PSYCHIATRY [facility] Jan 20, 2022 08:30 AM AMBULATORY - MEDICINE [facility] Surgical Procedures: All associated to the encounter This section includes all Surgical Procedures and Surgical Procedure Notes assoc iated to the Encounter. Surgical Procedures This section includes all Surgical Procedures associated to the Encounter. 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 The data comes from the [place] facility where the Encounter took place. Date/Time Smoking Status/Tobacco Use Comment [facility] Dec 21, 2018 02:42 PM NON-TOBACCO USER JOHN [facility] Dec 30, 2017 08:55 AM NON-TOBACCO USER JOHN [facility] Dec 09, 2014 09:17 AM CURRENT NON-SMOKER JOHN [facility] Dec 09, 2014 09:17 AM LIFETIME NON-TOBACCO USER [facility] Dec 12, 2013 01:11 PM CURRENT NON-SMOKER [facility] Dec 12, 2013 01:11 PM LIFETIME NON-TOBACCO USER [facility] Aug 07, 2012 12:47 PM CURRENT NON-SMOKER JOHN [facility] Aug 07, 2012 12:47 PM LIFETIME NON-TOBACCO USER [facility] Jun 05, 2012 12:37 PM NON-TOBACCO USER JOHN [facility] Nov 04, 2011 09:02 AM NON-TOBACCO USER has not smoked for 25 years JOHN [facility] Oct 12, 2011 08:23 AM CURRENT NON-SMOKER JOHN [facility] Oct 12, 2011 08:23 AM LIFETIME [...] Encounter. Date/Time Encounter Note(s) Provider Source Aug 25, 2021 03:16 PM MENTAL HEALTH NOTE: [facility] TITLE: [facility]-/[facility] PROVIDER FOLLOW-UP STANDARD TITLE: MENTAL HEALTH NOTE DATE OF NOTE: AUG 25, 2021@15:16 ENTRY DATE: AUG 25, 2021@15:16:44 AUTHOR: DORA TORRES COSIGNER: URGENCY: STATUS: COMPLETED DATE OF SESSION: Jul LENGTH OF SESSION: 60 minutes, 2:05-3:05 CURRENT CLINICAL STATUS: The was on time,oriented x4, had good eye contact, affect was congruent with mood, hygiene was good, no SI/HI CONTENT OF SESSION: The reported that he had sustained on his goal progress. Continued to work on goals and reviewed the issues that he has been having with his irritabilty towards others. Said that he was just "an grumpy man" most days now, said that it goes up and down during the day and it depends on who he is around and what is being said. Said that the person that gets to him the most is the preacher (his preacher). Worked on this and went over how many times an week he was around the preacher and he reported three to four times an week. Said that last week the preacher got to him and he snapped back at him and the preacher walked away. Worked on why he gets to him so much and the at first said that it was his attitude and how he will say things to him and the other people in the mormonism. Said that he will basically tell everyone that this is how it is going to be and that is it, they have to do it this way. Reviewed how this reminded him of generals and other high ranking officers in the and he never liked or respected any of them. Went over why this was and then went over if this was why he didn't get along with the preacher because he was like the high ranking officers that he didn't like. The thought about it and said that maybe it was and he had not thought about that before. Worked on being able to let some of the things go that really don't make any difference. Also worked on being able to be more respectful to the preacher and that could improve the way that they commmunicate with each other. The kunal did say that he and his were getting along better but he worries about her and the after effect that COVID had on her. Will meet again on Sep 22 at 2pm. ASSESSMENT: The was able to talk and [...] to scheduled appointments. /marty/ DORA TORRES [facility] Signed: 08/26/2021 13:00 DORA TORRES [facility]
--- OUTSIDE RECORDS SUMMARY | 2021-12-13 00:20 | XMS REPORT | Encounter Summary ---
Author Author [facility] SAMANTHA goldstein Organization Department [facility] Address Unknown Phone Unavailable Care Team Providers Care Steel Hanger Name Role Phone YOSI TENORIO PCP Unavailable [...] PART A Sep 28, 2007 PART A [id number] SIMEONEFFIEY PATIENT MEDICARE (WNR) MEDICARE (M) PART B Sep 28, 2007 PART B [id number] SIMEONSAMANTHA PATIENT Selected Encounter This section includes the information on record at [place] for the Encounter. Date/Time Encounter Type Encounter Description Reason Provider Source Aug 18, 2021 04:02 PM Outpatient Encounter ADMIN PAT ACTIVTIES (MASNO NCT) IHE Encounter Template Text not used by [place] Assessments - Encounter Diagnoses No Data Provided for This Section Plan of Treatment: Future Appointments (+ 6 months) and Future Tests (+/- 45 day s) The Plan of Treatment section includes future care activities for the patient fr om all [place] treatment facilities. This section includes future appointments and fu ture orders which are active, pending or scheduled. Future Appointments This section includes appointments that were scheduled t o occur 6 months from the date of the Encounter, up to a maximum of 20 appointme nts. The data comes from all [place] treatment facilities. Appointment Date/Time Appointment Type Appointment Facili ty Name Aug 25, 2021 02:00 PM AMBULATORY - PSYCHIATRY [facility] Aug 25, 2021 03:00 PM AMBULATORY - MEDICINE [facility] Sep 03, 2021 08:00 AM AMBULATORY - NONE [facility] T, [facility] Sep 03, 2021 10:00 AM AMBULATORY - MEDICINE LEO LOPEZ [facility] Sep 10, 2021 10:00 AM AMBULATORY - MEDICINE LEO LOPEZ [facility] Sep 17, 2021 10:00 AM AMBULATORY - MEDICINE LEO LOPEZ [facility] Sep 23, 2021 08:30 AM AMBULATORY - NONE [facility] T, [facility] Oct 02, 2021 10:30 AM AMBULATORY - REHAB MEDICINE LEO LOPEZ [facility] Nov 02, 2021 11:30 AM AMBULATORY - MEDICINE [facility] Nov 18, 2021 10:30 AM AMBULATORY - MEDICINE [facility] Nov 19, 2021 01:00 PM AMBULATORY - REHAB MEDICINE LEO LOPEZ [facility] Dec 07, 2021 06:30 PM AMBULATORY - PSYCHIATRY [facility]OPEZ [facility] Dec 10, 2021 03:00 PM AMBULATORY - NONE [facility] T, [facility] Dec 21, 2021 01:30 PM AMBULATORY - NONE [facility] T, V[facility]N 15 Dec 24, 2021 09:00 AM AMBULATORY - PSYCHIATRY [facility] Jan 20, 2022 08:30 AM AMBULATORY - MEDICINE [facility] Surgical Procedures: All associated to the [...] Encounter took place. Date/Time Current Smoking Status [facility] Jun 12, 2018 01:16 PM VA-TOBACCO QUIT 15 YRS OR MORE [place] [facility] Tobacco Use History This section includes a history of the smoking, or tobacco -related health factors, that were collected on or before the date of the Encoun ter. The data comes from the [place] facility where the Encounter took place. Date/Time Smoking Status/Tobacco Use Comment Chelsea salcedo Jun 12, 2018 01:16 PM [place]-TOBACCO QUIT 15 YRS OR MORE [place] [facility] Sep 24, 2015 08:23 AM [facility] Nov 07, 2014 12:58 PM NON-TOBACCO USER LEO LOPEZ [facility] Oct 01, 2014 02:57 PM [facility] Jul 08, 2011 11:42 AM NON-TOBACCO USER LEO LOPEZ [facility] Sep 21, 2007 09:37 AM NON-TOBACCO USER Pt. reports he quit smoking over 20 years ago. BEND Chandler LOPEZ [facility] Advance Directives: All historical and [...] Encounter. Date/Time Encounter Note(s) Provider Source Aug 18, 2021 04:02 PM ADMINISTRATIVE NOTE: LOCAL TITLE: [place] [facility] STANDARD TITLE: ADMINISTRATIVE NOTE DATE OF NOTE: AUG 18, 2021@16:02 ENTRY DATE: AUG 18, 2021@16:02:15 AUTHOR: DAVID ZULETA EXP COSIGNER: URGENCY: STATUS: COMPLETED [facility] Administrative Note: Returned pt's call. Pt states he was seen on 08/14/21 and received new domes temporarily while waiting on his hearing aids. He said it sounds like he is having a head cold. Offered a EST appt. Pt declined. Discussed if domes are bothering him again to call back for an appt. /marty/ DAVID ZULETA Signed: 08/18/2021 16:05 DAVID ZULETA [facility]
--- OUTSIDE RECORDS SUMMARY | 2021-12-13 00:20 | XMS REPORT ---
Author Author [facility] SAMANTHA goldstein Organization Department [facility] Address Unknown Phone Unavailable Care Team Providers Care Cue Selector Name Role Phone YOSI TENORIO PCP Unavailable [...] PART A Sep 28, 2007 PART A [id number] SIMEONEFFIEY PATIENT MEDICARE (WNR) MEDICARE (M) PART B Sep 28, 2007 PART B [id number] SIMEONSAMANTHA PATIENT Selected Encounter This section includes the information on record at [place] for the Encounter. Date/Time Encounter Type Encounter Description Reason Provider Source Aug 12, 2021 10:17 AM Outpatient Encounter ADMIN PAT ACTIVTIES (MASNO [...] Date/Time Appointment Type Appointment Chelseai tangela Vann Aug 13, 2021 09:30 AM AMBULATORY - PSYCHIATRY LEO LOPEZ [facility] Aug 14, 2021 01:30 PM AMBULATORY - REHAB MEDICINE LEO LOPEZ [facility] Aug 25, 2021 02:00 PM AMBULATORY - PSYCHIATRY [facility] Aug 25, 2021 03:00 PM AMBULATORY - MEDICINE [facility] Sep 03, 2021 08:00 AM AMBULATORY - NONE [facility], [facility] Sep 03, 2021 10:00 AM AMBULATORY - MEDICINE LEO LOPEZ [facility] Sep 10, 2021 10:00 AM AMBULATORY - MEDICINE LEO LOPEZ [facility] Sep 17, 2021 10:00 AM AMBULATORY - MEDICINE LEO LOPE[facility] Sep 23, 2021 08:30 AM AMBULATORY - NONE [facility], [facility] Oct 02, 2021 10:30 AM AMBULATORY - REHAB MEDICINE LEO LOPEZ [facility] Nov 02, 2021 11:30 AM AMBULATORY - MEDICINE [facility] Nov 18, 2021 10:30 AM AMBULATORY - MEDICINE [facility] Nov 19, 2021 01:00 PM AMBULATORY - REHAB MEDICINE LEO LOPEZ [facility] Dec 07, 2021 06:30 PM AMBULATORY - PSYCHIATRY LEO LOPEZ [facility] Dec 10, 2021 03:00 PM AMBULATORY - NONE [facility], [facility] Dec 21, 2021 01:30 PM AMBULATORY - NONE [facility], [facility] 15 Dec 24, 2021 09:00 AM AMBULATORY - PSYCHIATRY [facility] Jan 20, 2022 08:30 AM AMBULATORY - MEDICINE [facility] Surgical Procedures: All associated to the encounter [...] QUIT 15 YRS OR MORE [place] LOPEZ [facility] Tobacco Use History This section includes a history of the smoking, or tobacco -related health factors, that were collected on or before the date of the Encoun ter. The data comes from the [place] facility where the Encounter took place. Date/Time Smoking Status/Tobacco Use Comment [facility] Jun 12, 2018 01:16 PM VA-TOBACCO QUIT 15 YRS OR MORE [facility] LOPEZ [facility] Sep 24, 2015 08:23 AM [facility] Nov 07, 2014 12:58 PM NON-TOBACCO USER LEO LOPEZ [facility] Oct 01, 2014 02:57 PM NON-TOBACCO USER LEO LOPEZ [facility] Jul 08, 2011 11:42 AM NON-TOBACCO USER LEO LOPEZ [facility] Sep 21, 2007 09:37 AM NON-TOBACCO USER Pt. reports he quit smoking over 20 years ago. LEO LOPEZ [facility] Advance Directives: All historical and current No Data Provided for This Section Radiology Reports: +/- 30 days of the encounter No Data Provided for This Section Pathology Reports: +/- 30 days of the encounter No Data Provided for This Section Encounter Notes: All associated encounter notes This section contains the clinical notes associated to the Encounter. Date/Time Encounter Note(s) Provider Source Aug 12, 2021 10:17 AM ADMINISTRATIVE NOTE: LOCAL TITLE: [place] [facility] STANDARD TITLE: ADMINISTRATIVE NOTE DATE OF NOTE: AUG 12, 2021@10:17 ENTRY DATE: AUG 12, 2021@10:17:16 AUTHOR: HASMUKH LUCIA EXP COSIGNER: URGENCY: STATUS: COMPLETED [facility] Administrative Note: Administrative notes: Spoke with the to confirm 08/[address] Monterroso. /marty/ HASMUKH LUCIA Signed: 08/12/2021 10:17 HASMUKH LUCIA [facility]
--- OUTSIDE RECORDS SUMMARY | 2021-12-13 00:21 | XMS REPORT ---
[facility] Address Unknown Phone Unavailable Care Team Providers Care Store Director Name Role Phone YOSI TENORIO PCP Unavailable [...] PART A Sep 28, 2007 PART A [id number] SIMEONEFFIEY PATIENT MEDICARE (WNR) MEDICARE (M) PART B Sep 28, 2007 PART B [id number] [phone] SIMEONSAMANTHA PATIENT Selected Encounter This section includes the information [facility] at [facility] for [facility]. Date/Time Encounter Type Encounter Description Reason Provider Source Aug 25, 2021 03:00 PM OFFICE O/P EST LOW 20-29 MIN PRIMARY CARE/ MEDICINE ICD-10-CM M25.562 Pain in left knee with Provider Comments: Pain in left Knee YOSI TENORIO Yohana Encounter Template Text not used by [facility] Assessments - Encounter Diagnoses This section includes the primary and secondary diag noses documented for the Encounter. Date/Time Primary/Secondary Diagnosis Diagnosis Name Provider Source Aug 25, 2021 03:52 PM PRIMARY Pain in left knee YOSI TENORIO [facility] Aug 25, 2021 03:52 PM SECONDARY Encounter for immunization JOSE ROBERTO ALAS [facility] Plan of Treatment: Future Appointments (+ [...] The data comes from all [place] treatment [facility]. Appointment Date/Time Appointment Type Appointment Facili ty Name Sep 03, 2021 08:00 AM AMBULATORY - NONE [facility] Flood, VISN 15 Sep 03, 2021 10:00 AM [facility]ICINE [facility] Sep 10, 2021 10:00 AM AMBUL[facility]ORY - MEDICINE [facility] Sep 17, 2021 10:00 AM AMBUL[facility]ORY - MEDICINE [facility] Sep 23, 2021 08:30 AM AMBULATORY NONE [facility] Flood, VISN Oct 02, 2021 10:30 AM AMBULATORY - REHAB MEDICINE [facility] Nov 02, 2021 11:30 AM AMBULATORY - MEDICINE [facility] Nov 18, 2021 10:30 AM AMBULATORY - MEDICINE [facility] Nov 19, 2021 01:00 PM AMBULATORY - [facility]AB MEDICINE [facility] Dec 07, 2021 06:30 PM AMBULATORY - PSYCHIATRY [facility] Dec 10, 2021 03:00 PM AMBULATORY - NONE [facility] Aleena, VISN Dec 21, 2021 01:30 PM AMBULATORY - NONE [facility] Aleena, VISN 15 Dec 24, 2021 09:00 AM AMBULATORY - PSYCHIATRY [facility] Jan 20, 2022 08:30 AM AMBULATORY - MEDICINE [facility] Surgical Procedures: All associated to the encounter This section includes all Surgical Procedures and Surgical Procedure Notes assoc iated to the Encounter. Surgical Procedures This section includes all Surgical Procedures associated to the Encounter. Surgical Procedure Date/Time Procedure Procedure Type Procedure Qualifiers Provider Source Aug 25, 2021 03:00 PM Immunization Administration (Includes Percutaneous, Intradermal, Subcutaneous, or Intramuscular Injections); 1 Vaccine (single or Combination Vaccine/Toxoid) IMMUNIZATION ADMIN P ARSONS [facility] Surgical Notes There are no notes [...] Aug 25, 2021 03:51 PM 1 [facility] Aug 25, 2021 03:20 PM 89 F 67 /min 146/71 mm[Hg] 18 /min 95 % 238 lb 35 JOHN [facility] Immunizations: All administered on the encounter date This section contains immunizations associated to the Encounter. Immunization Series Date Issued Reaction Comments INFLUENZA, INJECTABLE, QUADRIVALENT, PRESERVATIVE FREE Aug 25, 2021 [id number] IMM REFUSAL - UNS CVX 213 R Aug 25, 2021 [id number] VACCINE REFUSAL R Aug 25, 2021 Social History: Smoking Status (Most current) [...] Comment Facility Jan 20, 2021 11:30 AM [place]-TOBACCO NEVER USED [facility] Tobacco Use History This section includes a history of the smoking, or tobacco -related health factors, that were collected on or before the date of the Encoun ter. The data comes from the [place] facility where the Encounter took place. Date/Time Smoking Status/Tobacco Use Comment [facility] Dec 21, 2018 02:42 PM NON-TOBACCO USER [facility] Dec 30, 2017 08:55 AM NON-TOBACCO USER [facility] Dec 09, 2014 09:17 AM CURRENT NON-SMOKER [facility] Dec 09, 2014 09:17 AM LIFETIME NON-TOBACCO USER [facility] Dec 12, 2013 01:11 PM CURRENT NON-SMOKER [facility] Dec 12, 2013 01:11 PM LIFETIME NON-TOBACCO USER [facility] Aug 07, 2012 12:47 PM CURRENT NON-SMOKER [...] Encounter Note(s) Provider Source Aug 25, 2021 03:59 PM MEDICATION MGT NOTE: LOCAL TITLE: WI-MEDICATION RECONCILIATION (BP,O) STANDARD TITLE: MEDICATION MGT NOTE DATE OF NOTE: AUG 25, 2021@15:59 ENTRY DATE: AUG 25, 2021@15:59:27 AUTHOR: YOSI TENORIO COSIGNER: URGENCY: STATUS: COMPLETED MEDICATION RECONCILIATION FACILITY ALLERGY/ADR -------- No Remote Allergy/ADR Data available for this patient [facility], V[facility]N 15 LOVASTATIN [facility], [facility] 15 VARDENAFIL [facility], [facility] 15 ZOCOR 40MG TAB Allergies reviewed, edited in CPRS as appropriate and confirmed by patient: Yes INCLUDED IN THIS LIST: Alphabetical list of active outpatient prescriptions dispensed from this [place] (local) and dispensed from another [place] or [facility] facility (remote) as well as inpatient orders (local pending and active), local clinic medications, locally documented non-VA medications, and local prescriptions that have or been discontinued in the past 90 days. Non-VA Meds Last Documented On: Dec 24, 2013 NOTE The display of VA prescriptions dispensed from another [place] or [facility] facility (remote) is limited to active outpatient prescription entries matched to National Drug File at the originating site and may not include some items such as investigational drugs, compounds, etc. NOT INCLUDED IN THIS LIST: Medications self-entered by the patient into personal health records (i.e. [employer]) are NOT included in this list. Non-VA [...] RINSE MOUTHPIECE FREQUENTLY TO PREVENT CLOGGING. Rx# [id number] Last Released: 09/26/20 Qty/Days Supply: 12/27 Rx Expiration Date: 09/25/21 Refills Remainin OUTPT ALBUTEROL 90MCG (CFC-F) 200D ORAL INHL (Status = Active) INHALE 2 PUFFS BY ORAL INHALATION EVERY 4-6 HOURS NEEDED FOR WHEEZING. SHAKE WELL. RINSE MOUTHPIECE FREQUENTLY TO PREVENT CLOGGING. Rx# [id number] Last Released: 06/15/21 Qty/Days Supply: Rx Expiration Date: 06/10/22 Refills Remainin Non-VA ASPIRIN 81MG EC TAB TAKE ONE TABLET BY MOUTH ONCE A DAY Patient wants to buy from Non-VA pharmacy. OUTPT BUDESONIDE 160/FORMOTER 4.5MCG 120D INH (Status = Active) INHALE 2 PUFFS BY MOUTH TWO TIMES A DAY FOR BREATHING. SHAKE WELL. RINSE MOUTH AND SPIT AFTER EACH USE. Rx# [id number] Last Released: 06/17/21 Qty/Days Supply: Rx Expiration Date: 01/07/22 Refills Remainin OUTPT BUSPIRONE HCL 10MG TAB (Status = Discontinued) TAKE ONE TABLET BY MOUTH TWO TIMES A DAY FOR ANXIETY Rx# [id number] Last Released: 06/04/21 Qty/Days Supply: 60 Rx Expiration Date: 07/02/21 Refills Remainin OUTPT BUSPIRONE HCL 10MG TAB (Status = Active) TAKE ONE TABLET BY MOUTH TWO TIMES A DAY FOR ANXIETY Rx# [id number] Last Released: 06/16/21 Qty/Days Supply: Rx Expiration Date: 06/12/22 Refills Remainin OUTPT CLOTRIMAZOLE 1% TOP CREAM (Status = Active) APPLY LIGHTLY TO AFFECTED AREA TWO TIMES A DAY NEEDED FOR INFECTION-ANTIFUNGAL- FOR EXTERNAL USE Rx# [id number] Last Released: 05/05/21 Qty/Days Supply: 60 Rx Expiration Date: 04/29/22 Refills Remainin OUTPT FLUTICASONE PROP 50MCG 120D NASAL INHL (Status = Active) INSTILL 1 SPRAY IN EACH NOSTRIL ONCE A DAY SHAKE GENTLY BEFORE USE! - MUST BE USED DIRECTED FOR 3 WEEKS TO PROVIDE BENEFIT. * NO EARLY REFILLS * 1 UNIT = 30 DAYS AT 4 SPRAYS/DAY OR 60 DAYS AT 2 SPRAYS/DAY Rx# [id number] Last Released: 05/13/21 Qty/Days Supply: Rx Expiration Date: 01/07/22 Refills Remainin OUTPT LORATADINE 10MG TAB (Status = Active) TAKE ONE TABLET BY MOUTH ONCE A DAY FOR ALLERGIES Rx# [id number] Last Released: 07/24/21 Qty/Days Supply: 90 Rx Expiration Date: 01/07/22 Refills Remainin OUTPT LOSARTAN 50MG TAB (Status = ) TAKE ONE TABLET BY MOUTH ONCE A DAY FOR BLOOD PRESSURE Rx# [id number] Last Released: 03/24/21 Qty/Days Supply: Rx Expiration Date: 06/21/21 Refills Remainin OUTPT LOSARTAN 50MG TAB (Status = Active) TAKE ONE TABLET BY MOUTH ONCE A DAY FOR BLOOD PRESSURE Rx# [id number] Last Released: 06/24/21 Qty/Days Supply: Rx Expiration Date: 06/20/22 Refills Remainin OUTPT MONTELUKAST NA 10MG TAB (Status = Active) TAKE ONE TABLET BY MOUTH ONCE A DAY Rx# [id number] Last Released: 03/12/21 Qty/Days Supply: Rx Expiration Date: 03/11/22 Refills Remainin OUTPT TIOTROPIUM 1.25MCG/ACTUAT 60D ORAL INHL (Status = Discontinued) INHALE 2 PUFFS BY ORAL INHALATION ONCE A DAY FOR BREATHING. DON'T USE WITH IPRATROPIUM - Rx# [id number] Last Released: Qt Supply: Rx Expiration Date: 04/29/22 Refills Remainin OUTPT TIOTROPIUM 2.5MCG/ACTUAT 60D ORAL INHL (Status = Active) INHALE 2 PUFFS BY ORAL INHALATION ONCE A DAY FOR BREATHING. DON'T USE WITH IPRATROPIUM - Rx# [id number] Last Released: 07/28/21 Qty/Days Supply: 12/27 Rx Expiration Date: 06/11/22 Refills Remainin OUTPT VERAPAMIL HCL 120MG SA TAB (Status = Active) TAKE ONE TABLET BY MOUTH EVERY MORNING FOR THE HEART Rx# [id number] Last Released: 08/04/21 Qty/Days Supply: Rx Expiration Date: 09/20/21 Refills Remainin OUTPT VORTIOXETINE 10MG TAB (Status = Discontinued) TAKE ONE TABLET BY MOUTH ONCE A DAY Rx# [id number] Last Released: 05/21/21 Qty/Days Supply: Rx Expiration Date: 05/20/22 Refills Remainin OUTPT VORTIOXETINE 10MG TAB (Status = Active) TAKE ONE TABLET BY MOUTH ONCE A DAY Rx# [id number] Last Released: 06/17/21 Qty/Days Supply: Rx Expiration Date: 06/12/22 Refills Remainin Non-VA ZMULTIVITAMIN TAB TAKE BY MOUTH ONCE A DAY SUPPLIES If the list for review does not include a component, then it was not applicable to this patient. Patient/family/caregiver educated and evaluated for understanding on Medications. The list was reviewed with and given to the patient/family/caregiver who were also educated on importance of sharing medication list with all VA providers and non-VA providers. For questions, please call your team nurse. Pertinent lab reviewed: N/A. Level of Understanding: Unable to assess /marty/ YOSI TENORIO [facility] Signed: 08/25/2021 15:59 YOSI TENORIO [facility] Aug 25, 2021 03:51 PM PRIMARY CARE PHYSICIAN OUTROME BEEBE NOTE: LOCAL TITLE: UT-GENERAL/PRIMARY CARE STANDARD TITLE: PRIMARY CARE PHYSICIAN OUTPATIENT NOTE DATE OF NOTE: AUG 25, 2021@15:51 ENTRY DATE: AUG 25, 2021@15:51:30 AUTHOR: YOSI TENORIO EXP COSIGNER: URGENCY: STATUS: COMPLETED WI-GENERAL/PRIMARY CARE Has ADDENDA WI-PAIN: Pain Reassessment-Patient's updated pain score after intervention is: PAIN Score 1 Pain Documentation: Pain level 3 or less. s. pt. presents to [facility] for cont. medical care, cc today is left knee pain, onset for a few weeks, pt. states he doesnt remember hurting or injuring, he states the pain is on both side of the knee, inner and outer aspects of the left knee, vs stable, hx. change with c/o left knee pain, to review and update meds. o. affect=pleasant skin=w/d, afebrile general appearance is good, no acute distress ms-c/o left knee pain, pt. can walk on left knee, he does have some moderate pain, he has fairly good range of motion, pain on inner and outer portion of patella no edema noted lower ext. bilat. neuro grossly intact assessment/plan: left knee pain, will order xray to start, pt. declined physical therapy at this time, will consider mri after xray complete meds. reviewed, updated rtc as needed /es/ YOSI CEJA Signed: 08/25/2021 15:59 10/25/2021 ADDENDUM STATUS: COMPLETED WI-ACTION/ATTENTION NEEDED: ACTION/ATTENTION NEEDED: By Primary Care Please note the following information: vetern requesting a work up of his left knee, MRI & ortho evaluation /es/ ODELL GAONA RN Signed: 10/25/2021 20:43 Receipt Acknowledged By: * AWAITING SIGNATURE * [facility]ER[facility] JONES [facility] Aug 25, 2021 03:10 PM NURSING OUTPATIENT NOTE: LOCAL TITLE: WI-NURSE/[facility] STANDARD TITLE: NURSING OUTPATIENT NOTE DATE OF NOTE: AUG 25, 2021@15:10 ENTRY DATE: AUG 25, 2021@15:10:42 AUTHOR: JOSE ROBERTO GONZALEZ COSIGNER: URGENCY: STATUS: COMPLETED Reason for appointment: PCP Appointment Reason for appointment: Acute illness left knee Is the patient diabetic? No - patient is not a diabetic What is your goal for today's visit? *Required Now we are going to discuss stress, is there anything in your life that worries or stresses you that we may assist you with today? *Required No Are you registered for [employer] ([facility])? No - Are you interested in registering? No If 'yes' please hand Heath [employer] brochure. Influenza Immunization: The patient was given the influenza VIS which lists the benefits and side effects of the vaccine and which reviews the risks of not receiving the flu vaccine. The VIS was reviewed with the patient and they were given an opportunity to ask questions. The patient was provided education on how to decrease the risk of influenza infection including social distancing and use of good hand hygiene. The patient denied any prior severe reaction to the flu vaccine or its components. The patient gave verbal consent to receive the vaccine. The seasonal influenza vaccine VIS given to the patient: VIS version date Jun. The patient received seasonal influenza vaccine today - Influenza, Quadrivalent preservative free (Afluria) 0.5 ml IM today in Left Deltoid. Garnisher: [id number] Lot # and Expiration Date: [id number]: 05/27/2022 Administered by protocol/policy WI-PAIN: Pain Documentation: Pain Assessment: Do you have pain now? ...Yes - updated pain score 6 COVID-19 Immunization: Refuses all COVID-19 vaccines (current and future) /marty/ JOSE ROBERTO GONZALEZ LPN Signed: 08/25/2021 15:17 JOSE ROBERTO GONZALEZ OC
--- OUTSIDE RECORDS SUMMARY | 2021-12-13 00:21 | XMS REPORT | Encounter Summary ---
[facility] Address Unknown Phone Unavailable Care Team Providers Care Scale Tester Name Role Phone YOSI TENORIO PCP Unavailable [...] PART A Sep 28, 2007 PART A [id number] SAMANTHA HENDRIX PATIENT MEDICARE (WNR) MEDICARE (M) PART B Sep 28, 2007 PART B [id number] EFFIE HENDRIXY PATIENT Selected Encounter This section includes the information on record at [place] for the Encounter. Date/Time Encounter Type Encounter Description Reason Provider Source Aug 13, 2021 09:30 AM Outpatient Encounter TELEPHONE ICD-1 0-CM F33.0 Major depressive disorder, recurrent, mild with Provider Comments: Depression ([facility] [id number]) LACEY MONTERROSO IHYohana Encounter Template Text not used by [place] Assessments - Encounter Diagnoses This section includes the primary and secondary diag noses documented for the Encounter. Date/Time Primary/Secondary Diagnosis Diagnosis Name Provider Source Aug 13, 2021 09:30 AM PRIMARY Major depressive disorder, recurrent, mild LACEY MONTERROSOE [facility] Aug 13, 2021 09:30 AM SECONDARY Generalized anxiety disorder LACEY MONTERROSO [facility] Plan of Treatment: Future Appointments (+ 6 months) and Future Tests (+/- 45 day s) The Plan of Treatment section includes future care activities for the patient fr om all [place] treatment facilities. This section includes future appointments and fu ture orders which are active, pending or scheduled. Future Appointments This section includes appointments that were scheduled t o occur 6 months from the date of the Encounter, up to a maximum of 20 appointme nts. The data comes from all [facility]. Appointment Date/Time Appointment Type Appointment Facili ty Name Aug 14, 2021 01:30 PM AMBULATORY - REHAB MEDICINE [facility] Aug 25, 2021 02:00 PM AMBULATORY - PSYCHIATRY [facility] Aug 25, 2021 03:00 PM AMBULATORY - MEDICINE [facility] Sep 03, 2021 08:00 AM AMBULATORY - NONE [facility] DARREN MARQUISN Sep 03, 2021 10:00 AM AMBULATORY - MEDICINE [facility] Sep 10, 2021 10:00 AM AMBULATORY - MEDICINE [facility] Sep 17, 2021 10:00 AM AMBULATORY - MEDICINE [facility] Sep 23, 2021 08:30 AM AMBULATORY - NONE [facility] Flood VISN Oct 02, 2021 10:30 AM AMBULATORY - REHAB MEDICINE [facility] Nov 02, 2021 11:30 AM AMBULATORY - MEDICINE [facility] Nov 18, 2021 10:30 AM AMBULATORY - MEDICINE [facility] Nov 19, 2021 01:00 PM AMBULATORY - REHAB MEDICINE [facility] Dec 07, 2021 06:30 PM AMBULATORY - PSYCHIATRY [facility] Dec 10, 2021 03:00 PM AMBULATORY - NONE [facility] GORD[facility] T VISN Dec 21, 2021 01:30 PM AMBULATORY - NONE [facility] Aleena VISN Dec 24, 2021 09:00 AM AMBULATORY - PSYCHIATRY [facility] Jan 20, 2022 08:30 AM AMBULATORY - MEDICINE [facility] Surgical Procedures: All associated to the [...] and tobacco- related health factors from the [place] facility where the Encounter took place. Current Smoking Status This section includes the most current smoking, or tobacco -related health factor, from the [place] facility where the Encounter took place. Date/Time Current Smoking Status Comment Facility Jun 12, 2018 01:16 PM [place]-TOBACCO QUIT 15 YRS OR MORE [facility] Tobacco Use History This section includes a history of the smoking, or tobacco -related health factors, that were collected on or before the date of the Encoun ter. The data comes from the [place] facility where the Encounter took place. Date/Time Smoking Status/Tobacco Use Comment [facility] Jun 12, 2018 01:16 PM [place]-TOBACCO QUIT 15 YRS OR MORE [facility] Sep 24, 2015 08:23 AM NON-TOBACCO USER [facility] Nov 07, 2014 12:58 PM NON-TOBACCO USER [facility] Oct 01, 2014 02:57 PM NON-TOBACCO USER [facility] Jul 08, 2011 11:42 AM NON-TOBACCO USER [facility] Sep 21, 2007 09:37 AM NON-TOBACCO USER Pt. reports he quit smoking over 20 years ago. [facility] Advance Directives: All historical and current No Data Provided for This Section Radiology Reports: +/- 30 days of the encounter No Data Provided for This Section Pathology Reports: +/- 30 days of the encounter No Data Provided for This Section Encounter Notes: All associated encounter notes This section contains the clinical notes associated to the Encounter. Date/Time Encounter Note(s) Provider Source Aug 13, 2021 09:37 AM MENTAL HEALTH TELEPHONE ENCO UNTER NOTE: LOCAL TITLE: WI- PHONE [facility] STANDARD TITLE: MENTAL HEALTH TELEPHONE ENCOUNTER NOTE DATE OF NOTE: AUG 13, 2021@09:37 ENTRY DATE: AUG 13, 2021@09:37:22 AUTHOR: LACEY MONTERROSO COSIGNER: URGENCY: STATUS: COMPLETED understands there is an option to be seen in person at the [facility] office or [facility] for [id number] visit if that is preferred. Patient elects and consents to continue this follow-up contact via phone for convenience of location and time. 25 minutes spent on the phone with chip baez understands there is an option to be seen in person at the [facility] office or CB for [id number] visit if that is preferred. Patient elects [...] N/A Time spent in the visit: Phone visit 25 mins Chief Complaint: " I'm okay" Relevant History: Patient reported doing well, denied any recent changes or problems except on going medical issues. He reported mood generally stable, denies any difficulty with depression or anxiety, denies any recent stress. He is trying to stay active, planning to come to [place] to take care of some medical appointments. Patient reported sleeping well and does not have any difficulty with nightmares. He reported compliant with his psychotropic medications, denies any problems or side effects. He would like to keep his medication same. Past Psych. Social, Family: Patient has been [...] understanding. 6. Recommended to call back to [facility] if di sease state worsens or problems develop with medication. 7. RTC 2 months /marty/ Lacey Monterroso M.D. STAFF PSYCHIATRIST Signed: 08/13/2021 19:01 LACEY MONTERROSO [facility]
--- OUTSIDE RECORDS SUMMARY | 2021-12-13 00:21 | XMS REPORT | Encounter Summary ---
Author Author [facility] SAMANTHA goldstein Organization Department [facility] Address Unknown Phone Unavailable Care Team Providers Care Corporate Planner Name Role Phone YOSI TENORIO PCP Unavailable [...] PART A Sep 28, 2007 PART A [id number] SIMEONEFFIEY PATIENT MEDICARE (WNR) MEDICARE (M) PART B Sep 28, 2007 PART B [id number] SIMEONSAMANTHA PATIENT Selected Encounter This section includes the information on record at [place] for the Encounter. Date/Time Encounter Type Encounter Description Reason Provider Source Aug 14, 2021 01:30 PM ADDL SUPL MATRL&STAF TM PHE AUDIOLOGY ICD-10-CM H90.3 Sensorineural hearing loss, bilateral with Provider Comments: Sensorineural hearing loss, bilateral (SCT [id number]) ADA JASMINE IHYohana Encounter Template Text not used by [facility] Assessments - Encounter Diagnoses This section includes the primary and secondary diag noses documented for the Encounter. Date/Time Primary/Secondary Diagnosis Diagnosis Name Provider Source Aug 14, 2021 01:46 PM PRIMARY Sensorineural hearing loss , bilateral ADA JASMINE [facility] Plan of Treatment: Future Appointments (+ 6 months) and Future Tests (+/- 45 day s) The Plan of Treatment section includes future care activities for the patient fr om all [place] treatment facilities. This section includes future appointments and fu ture orders which are active, pending or scheduled. Future Appointments This section includes appointments that were scheduled t o occur 6 months from the date of the Encounter, up to a maximum of 20 appointme nts. The data comes from all [place] treatment [facility]. Appointment Date/Time Appointment Type Appointment Facili ty Name Aug 25, 2021 02:00 PM AMBULATORY - PSYCHIATRY [facility] Aug 25, 2021 03:00 PM AMBULATORY - MEDICINE [facility] Sep 03, 2021 08:00 AM AMBULATORY - NONE [facility] T, VISN Sep 03, 2021 10:00 AM AMBULATORY - MEDICINE [facility] Sep 10, 2021 10:00 AM AMBULATORY - MEDICINE [facility] Sep 17, 2021 10:00 AM AMBULATORY - MEDICINE [facility] Sep 23, 2021 08:30 AM AMBULATORY - NONE [facility] T, [facility] Oct 02, 2021 10:30 AM AMBULATORY - REHAB MEDICINE [facility] Nov 02, 2021 11:30 AM AMBULATORY - MEDICINE [facility] Nov 18, 2021 10:30 AM AMBULATORY - MEDICINE [facility] Nov 19, 2021 01:00 PM AMBULATORY - REHAB MEDICINE [facility] Dec 07, 2021 06:30 PM AMBULATORY - PSYCHIATRY [facility] Dec 10, 2021 03:00 PM AMBULATORY - NONE [facility] T, [facility] Dec 21, 2021 01:30 PM AMBULATORY - NONE [facility] T, [facility] Dec 24, 2021 09:00 AM AMBULATORY - PSYCHIATRY [facility] Jan 20, 2022 08:30 AM AMBULATORY - MEDICINE [facility] Surgical Procedures: All associated to the encounter This section includes all Surgical Procedures and Surgical Procedure Notes assoc iated to the Encounter. Surgical Procedures This section includes all Surgical Procedures associated to the Encounter. Surgical Procedure Date/Time Procedure Procedure Type Procedure Qualifiers Provider Source Aug 14, 2021 01:30 PM ADDL SUPL MATRL&STAF TM PHE ADDL SUPL MATRL&S TAF TM PHE ADA JASMINE [facility] Surgical Notes There are no notes associated with this procedure. Surgical Procedure Date/Time Procedure Procedure Type Procedure Qualifiers Provider Source Aug 14, 2021 01:30 PM Repair/Modification of Hearing Aid HEA RING AID REPAIR/MODIFYING 50-BILATERAL PROCEDURE [facility] Surgical Notes There are no notes associated with this procedure. Surgical Procedure Date/Time Procedure Procedure Type Procedure Qualifiers Provider Source Aug 14, 2021 01:30 PM Ear Impression, Each EAR IMPRESSION ADA [facility] Surgical Notes There are no notes [...] and tobacco- related health factors from the [place] facility where the Encounter took place. Current Smoking Status This section includes the most current smoking, or tobacco -related health factor, from the [place] facility where the Encounter took place. Date/Time Current Smoking Status Comment Facility Jun 12, 2018 01:16 PM VA-TOBACCO QUIT 15 YRS OR MORE [facility] LOPE[facility] Tobacco Use History This section includes a history of the smoking, or tobacco -related health factors, that were collected on or before the date of the Encoun ter. The data comes from the [place] facility where the Encounter took place. Date/Time Smoking Status/Tobacco Use Comment [facility] Jun 12, 2018 01:16 PM [place]-TOBACCO QUIT 15 YRS OR MORE [facility] LOPE[facility] Sep 24, 2015 08:23 AM NON-TOBACCO USER [facility]O [facility] Nov 07, 2014 12:58 PM NON-TOBACCO USER [facility] Oct 01, 2014 02:57 PM NON-TOBACCO USER [facility] Jul 08, 2011 11:42 AM NON-TOBACCO USER [facility] Sep 21, 2007 09:37 AM NON-TOBACCO USER Pt. reports he quit smoking over 20 years ago. LEO WaiteMichelle FRANKLINYohana [facility] Advance Directives: All historical and current No Data Provided for This Section Radiology Reports: +/- 30 days of the encounter No Data Provided for This Section Pathology Reports: +/- 30 days of the encounter No Data Provided for This Section Encounter Notes: All associated encounter notes This section contains the clinical notes associated to the Encounter. Date/Time Encounter Note(s) Provider Source Aug 14, 2021 01:44 PM AUDIOLOGY NOTE: LOCAL TITLE: WI-AUDIOLOGY/ESTABLISHED STANDARD TITLE: AUDIOLOGY NOTE DATE OF NOTE: AUG 14, 2021@13:44 ENTRY DATE: AUG 14, 2021@13:44:11 AUTHOR: ADA JASMINE EXP COSIGNER: URGENCY: STATUS: COMPLETED WI-AUDIOLOGY/ESTABLISHED Has ADDENDA WI-AUDIOLOGY/ESTABLISHED S: [place] presents to [facility] for: [ ] Otoscopy [ ] Hearing aid check [ ] Ear impressions [ ] Hearing aid modification [ ] Batteries [ ] Hearing aid evaluation [ ] Hearing aid adjustment [ x ] Other: retention problems O: [ x ] Otoscopy [ x ] Normal [ ] Irregular Comments: A: [place] reported trying the small and medium vented domes and neither will stay in his ears. Phonak RICs were cleaned/checked; filters, domes, and retention tails were replaced. Medium was replaced with large vented domes. Ear impressions were taken without incident. EMs will be ordered for better retention. P: [ ] RTC as needed. [ x ] Other: [place] will be contacted to schedule an EMF appointment upon receipt of EMs. Service Connected Condition Diagnoses: Sensorineural hearing loss, bilateral ([facility] [id number]) - Sensorineural hearing loss, bilateral (ICD-10-CM H90.3) /marty/ ADA JASMINE trial consultant Signed: 08/14/2021 13:49 09/10/2021 ADDENDUM STATUS: COMPLETED Received a call from today and is would like to know the status of VIGIL sent out for repairs. /marty/ MICHELLE HERNANDEZ MSA Signed: 09/10/2021 08:50 Receipt Acknowledged By: 09/11/2021 09:43 /es/ ADA TAN trial consultant 09/18/2021 ADDENDUM STATUS: COMPLETED [place] rcvd. 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 DOLE [facility]
--- OUTSIDE RECORDS SUMMARY | 2021-12-13 00:22 | XMS REPORT | Encounter Summary ---
Author Author [facility] SAMANTHA goldstein Organization [facility] Address Unknown Phone Unavailable Care Team Providers Care Pipe Organ Technician Name Role Phone YOSI TENORIO PCP [...] PART A Sep 28, 2007 PART A [id number] SAMANTHA HENDRIX PATIENT MEDICARE (WNR) MEDICARE (M) PART B Sep 28, 2007 PART B [id number] SAMANTHA HENDRIX PATIENT Selected Encounter This section includes the information on record at [place] for the Encounter. Date/Time Encounter Type Encounter Description Reason Provider Source Jan 06, 2021 01:20 PM Outpatient Encounter ADMIN PAT ACTIVTIES (REBECCANO [...] appointme nts. The data comes from all [facility] facilities. Appointment Date/Time Appointment Type Appointment Melissa honeycutt Name Jan 20, 2021 11:30 AM AMBULATORY - MEDICINE [facility] Feb 26, 2021 02:00 PM AMBULATORY - MEDICINE [facility] Mar 12, 2021 10:00 AM AMBULATORY - MEDICINE [facility] Mar 25, 2021 03:00 PM AMBULATORY - MEDICINE [facility] April 02, 2021 10:00 AM AMBULATORY - MEDICINE [facility] April 02, 2021 01:30 PM AMBULATORY - MEDICINE [facility] April 07, 2021 09:30 AM [facility] 16, 2021 10:00 AM AMBULATORY - MEDICINE [facility] Apr 30, 2021 10:00 AM AMBULATORY - MEDICINE [facility] May 04, 2021 11:30 AM AMBULATORY - REHAB MEDICINE [facility] May 07, 2021 10:00 AM AMBULATORY - MEDICINE [facility] May 07, 2021 12:30 PM AMBULATORY - MEDICINE [facility] May 14, 2021 10:00 AM AMBULATORY - MEDICINE [facility] May 22, 2021 08:00 AM AMBULATORY - NONE [facility] JOVANY Flood May 28, 2021 10:00 AM AMBULATORY - MEDICINE LEO OLPEZ [facility] Jun 02, 2021 01:30 PM AMBULATORY - REHAB MEDICINE [facility] Jun 04, 2021 10:00 AM AMBULATORY - MEDICINE [facility] Jun 11, 2021 09:00 AM AMBULATORY - PSYCHIATRY [facility] Jun 11, 2021 10:00 AM AMBULATORY - MEDICINE [facility] Jun 15, 2021 08:00 AM [facility] Active, Pending, and Scheduled Orders This section [...] the Encounter. The data comes from all [place] treatment facilities. Test Date/Time Test Type Test Details Facility Name Jan 21, 2021 12:47 PM Laboratory - Chemistry Order CELIAC DI SEASE PANEL (QUEST) 2 RED SERUM-NO GEL SKB WC DROA [facility] Surgical Procedures: All associated to [...] Comment Jan 20, 2021 09:06 AM DORA [facility] COMPREHENSIVE METABOLIC PA ASTON Specimen Type: PLASMA Comment: Race unknown, if multiply result by 1.210 Ordering Provider: YOSI TENORIO Report Released Date/Time: Jan 08, 2021 10:27 AM Reporting Lab: [facility]O [facility] [address] [address] Performing Lab: [facility] [address] [address] *CREATININE 1.07 mg/dL 0.70-1.30 UREA NITROGEN mg/dL [...] 66.8 Jan 20, 2021 09:06 AM DORA ALEXEI LIPID PROFILE(HDL,TRIG,CHO L,LDL) Specimen Type: PLASMA Comment: Race unknown, if multiply result by 1.210 Ordering Provider: YOSI TENORIO Report Released Date/Time: Jan 08, 2021 10:27 AM Reporting Lab: [facility] [address] [address] Performing Lab: [facility] [address] [address] CHOLESTEROL 219 mg/dL H 0-200 TRIGS 130 mg/dL 0-150 HDL-CHOLESTEROL 44 mg/dL > 40 LDL (CALC) 149.0 mg/dL Jan 20, 2021 09:06 AM [facility] TSH Specimen T ype: SERUM No comment entered. Ordering Provider: YOSI TENORIO Report Released Date/Time: Jan 08, 2021 10:27 AM Reporting Lab: [facility] [address] [address] Performing Lab: LEO LOPE[facility] [place] [address] [address] TSH 2.99 uIU/mL 0.47-5 Jan 20, 2021 09:06 AM [facility] PROSTATIC SPECIFIC ANTIGEN (TOTAL) Specimen Type: SERUM No comment entered. Ordering Provider: YOSI TENORIO Report Released Date/Time: Jan 08, 2021 10:27 AM Reporting Lab: [facility] [address] [address] Performing Lab: [facility] [address] [address] PROSTATIC SPECIFIC ANTIGEN(TOTAL) 0.4 ng/mL 0-4 Jan 20, 2021 09:06 AM [facility] CBC & DIFF Specimen T ype: BLOOD No comment entered. Ordering Provider: YOSI TENORIO Report Released Date/Time: Jan 08, 2021 10:27 AM Reporting Lab: [facility] [address] [address] Performing Lab: LEO LOPE[facility] [place] [address] [address] WBC 6.5 K/cmm 3.60-11.20 RBC 5.12 M/ul [...] Mar 20, 2004 10:47 AM NON-TOBACCO USER MEDICINE [facility] DARREN FloodN 15 Tobacco Use History This section includes a history of the smoking, or tobacco -related health factors, that were collected on or before the date of the Encoun ter. The data comes from the [place] facility where the Encounter took place. Date/Time Smoking Status/Tobacco Use Comment [facility] it Mar 20, 2004 10:47 AM NON-TOBACCO USER MEDICINE [facility] Aleena VISN 15 Advance Directives: All historical and [...] Encounter Note(s) Provider Source Mar 10, 2021 10:30 AM NONVA CONSULT: LOCAL TITLE: COMMUNITY CARE CONSULT RESULTS NOTE WI STANDARD TITLE: NONVA CONSULT DATE OF NOTE: MAR 10, 2021@10:30 ENTRY DATE: AUG 21, 2021@16:10:28 AUTHOR: LIZANDRO CENTENO EXP COSIGNER: URGENCY: STATUS: COMPLETED The following Non VA Care consult has been completed. See scanned document for report. NON VA Care Consult Results Pulmonology Comment: COMMUNITY CARE-PULM NOTES/[facility] PULM/03/10/2021 /marty/ LIZANDRO CENTENO AMSA Signed: 08/21/2021 16:11 LIZANDRO CENTENO [facility] Jan 06, 2021 01:20 PM NONVA CONSULT: LOCAL TITLE: COMMUNITY CARE CONSULT RESULTS NOTE WI STANDARD TITLE: NONVA CONSULT DATE OF NOTE: JAN 06, 2021@13:20 ENTRY DATE: AUG 21, 2021@16:01:05 AUTHOR: LIZANDRO CENTENO EXP COSIGNER: URGENCY: STATUS: COMPLETED The following Non VA Care consult has been completed. See scanned document for report. NON VA Care Consult Results Pulmonology Comment: COMMUNITY CARE-PULM NOTES/[facility] PULM/01/06/2021 /marty/ LIZANDRO CENTENO AMSA Signed: 08/21/2021 16:06 LIZANDRO CENTENO [facility]
--- OUTSIDE RECORDS SUMMARY | 2021-12-13 00:22 | XMS REPORT | Encounter Summary ---
Author Author [facility] [address] SAMANTHA goldstein Organization [facility] Address Unknown Phone Unavailable Care Team Providers Care Residential Door Installer Name Role Phone YOSI TENROIO PCP Unavailable Insurance Providers: All historical and [...] PART A Sep 28, 2007 PART A [id number] SIMEONEFFIEY PATIENT MEDICARE (WNR) MEDICARE (M) PART B Sep 28, 2007 PART B [id number] SAMANTHA HENDRIX PATIENT Selected Encounter This section includes the information on record at [place] for the Encounter. Date/Time Encounter Type Encounter Description Reason Provider Source Aug 11, 2021 08:00 AM Outpatient Encounter COMMUNITY CARE CONSULT IHE Encounter Template Text not used by [place] Assessments - Encounter Diagnoses No Data Provided for This Section Plan of Treatment: Future Appointments (+ 6 months) and Future Tests (+/- 45 day s) The Plan of Treatment section includes future care activities for the patient fr om all [place] treatment facilities. This section includes future appointments and fu ture orders which are active, pending or scheduled. Future Appointments This section includes appointments that were scheduled t o occur 6 months from the date of the Encounter, up to a maximum of 20 appointme nts. The data comes from all [place] treatment facilities. Appointment Date/Time Appointment Type Appointment Facili ty Name Aug 13, 2021 09:30 AM AMBULATORY - PSYCHIATRY [facility]O LOPE[facility] Aug 14, 2021 01:30 PM AMBULATORY - REHAB MEDICINE LEO [facility]OPE[facility] Aug 25, 2021 02:00 PM AMBULATORY - PSYCHIATRY [facility] Aug 25, 2021 03:00 PM AMBULATORY - MEDICINE [facility] Sep 03, 2021 08:00 AM AMBULATORY - NONE [facility] T, VISN Sep 03, 2021 10:00 AM AMBULATORY - MEDICINE LEO LOPE[facility] Sep 10, 2021 10:00 AM AMBULATORY - MEDICINE [facility] Sep 17, 2021 10:00 AM AMBULATORY - MEDICINE [facility] Sep 23, 2021 08:30 AM AMBULATORY - NONE [facility] [place] T, [facility]ISN Oct 02, 2021 10:30 AM AMBULATORY - REHAB MEDICINE LE[facility]OPE[facility] Nov 02, 2021 11:30 AM AMBULATORY - MEDICINE [facility] Nov 18, 2021 10:30 AM AMBULATORY - MEDICINE [facility] Nov 19, 2021 01:00 PM AMBULATORY - REHAB MEDICINE [facility]OPE[facility] Dec 07, 2021 06:30 PM AMBULATORY - PSYCHIATRY [facility] Dec 10, 2021 03:00 PM AMBULATORY - NONE [facility] [place] T, [facility] Dec 21, 2021 01:30 PM [facility] Dec 24, 2021 09:00 AM AMBULATORY - PSYCHIATRY [facility] Jan 20, 2022 08:30 AM AMBULATORY - MEDICINE [facility] Surgical Procedures: All associated to [...] and tobacco- related health factors from the [place] facility where the Encounter took place. Current Smoking Status This section includes the most current smoking, or tobacco -related health factor, from the [place] facility where the Encounter took place. Date/Time Current Smoking Status Comment Facility Mar 20, 2004 10:47 AM NON-TOBACCO USER [facility] [place] T, VISN 15 Tobacco Use History This section includes a history of the smoking, or tobacco -related health factors, that were collected on or before the date of the Encoun ter. The data comes from the [place] facility where the Encounter took place. Date/Time Smoking Status/Tobacco Use Comment [facility] it Mar 20, 2004 10:47 AM NON-TOBACCO USER [facility] [place] T, VISN 15 Advance Directives: All [...] Encounter. Date/Time Encounter Note(s) Provider Source Aug 11, 2021 08:00 AM NONVA CONSULT: LOCAL TITLE: COMMUNITY CARE CONSULT RESULTS NOTE WI STANDARD TITLE: NONVA CONSULT DATE OF NOTE: AUG 11, 2021@08:00 ENTRY DATE: AUG 14, 2021@15:18:20 AUTHOR: JORGE BANSAL EXP COSIGNER: URGENCY: STATUS: COMPLETED The following Non VA Care consult has been completed. See scanned document for report. NON VA Care Consult Results Radiology Comment: COMMUNITY CARE-ULTRASOUND/[facility]/08/11/2021 /marty/ JORGE BANSAL AMSA Signed: 08/14/2021 15:19 JORGE BANSAL [facility]
--- OUTSIDE RECORDS SUMMARY | 2021-12-13 00:24 | XMS REPORT | Encounter Summary ---
Author Author [facility] SAMANTHA goldstein Organization Department [facility] Address Unknown Phone Unavailable Care Team Providers Care Agricultural Sciences Professor Name Role Phone YOSI TENORIO PCP Unavailable [...] PART A Sep 28, 2007 PART A [id number] SIMEONEFFIEY PATIENT MEDICARE (WNR) MEDICARE (M) PART B Sep 28, 2007 PART B [id number] SAMANTHA HENDRIX PATIENT Selected Encounter This section includes the information on record at [place] for the Encounter. Date/Time Encounter Type Encounter Description Reason Provider Source Sep 03, 2021 10:00 AM HLTH BHV IVNTJ GRP 1ST 30 WEIGHT MGMT & MO VE! PROG - GRP ICD-10-CM Z71.3 Dietary counseling and surveillance with Provider Comments: Dietary counseling and surveillance MATHIEU CASTAÑEDA Encounter Template Text not used by [facility] Assessments - Encounter Diagnoses This section includes the primary and secondary diag noses documented for the Encounter. Date/Time Primary/Secondary Diagnosis Diagnosis Name Provider Source Sep 03, 2021 12:09 PM PRIMARY Dietary counseling and surveilla nce MADDYMATHIEU JamesMichelle LOPEZ [facility] Sep 03, 2021 12:09 PM SECONDARY Body mass index [BMI] 35.0 -35.9, adult MATHIEU CASTAÑEDAMichelle LOPEZ [facility] Sep 03, 2021 12:09 PM SECONDARY Other obesity due to exces s calories MADDYMATHIEU LEO LOPEZ [facility] Plan of Treatment: Future Appointments (+ 6 months) and Future Tests (+/- 45 day s) The Plan of Treatment section includes future care activities for the patient fr om all [place] treatment facilities. This section includes future appointments and fu ture orders which are active, pending or scheduled. Future Appointments This section includes appointments that were scheduled t o occur 6 months from the date of the Encounter, up to a maximum of 20 appointme nts. The data comes from all [facility]. Appointment Date/Time Appointment Type Appointment Facili ty Name Sep 10, 2021 10:00 AM AMBULATORY - MEDICINE LEO LOPEZ [facility] Sep 17, 2021 10:00 AM AMBULATORY - MEDICINE LEO LOPEZ [facility] Sep 23, 2021 08:30 AM AMBULATORY - NONE [facility] T, VISN Oct 02, 2021 10:30 AM AMBULATORY - REHAB MEDICINE LEO LOPEZ [facility] Nov 02, 2021 11:30 AM AMBULATORY - MEDICINE [facility] Nov 18, 2021 10:30 AM AMBULATORY - MEDICINE [facility] Nov 19, 2021 01:00 PM AMBULATORY - REHAB MEDICINE LEO LOPEZ [facility] Dec 07, 2021 06:30 PM AMBULATORY - PSYCHIATRY LEO LOPEZ [facility] Dec 10, 2021 03:00 PM AMBULATORY - NONE [facility] T, [facility] Dec 21, 2021 01:30 PM AMBULATORY - NONE [facility] T, [facility] Dec 24, 2021 09:00 AM [...] Procedure Procedure Type Procedure Qualifiers Provider Source Sep 03, 2021 10:00 AM Health Behavior Intervention , Group (2 or more Patients), [id number]; Initial 30 minutes HLTH BHV IVNTJ GRP 30 95-SYNCHRONOUS TELEMEDICINE SERVICE LEO RUTLEDGE [facility] Surgical Notes There are no notes associated with this procedure. Surgical Procedure Date/Time Procedure Procedure Type Procedure Qualifiers Provider Source Sep 03, 2021 10:00 AM [id number] PT ED GP, 2-5PT, 1st 30M PT EDUCATION NOC GROUP [facility] Surgical Notes There are no notes associated with this procedure. Surgical Procedure Date/Time Procedure Procedure Type Procedure Qualifiers Provider Source Sep 03, 2021 10:00 AM [id number] WT MGT, 2-5PT, 1st 30M GROUP BEHAVE CO UNS 2-10 [facility]U [facility] Surgical Notes There are no notes associated [...] and tobacco- related health factors from the [place] facility where the Encounter took place. Current Smoking Status This section includes the most current smoking, or tobacco -related health factor, from the [place] facility where the Encounter took place. Date/Time Current Smoking Status Comment Facility Jun 12, 2018 01:16 PM VA-TOBACCO QUIT 15 YRS OR MORE [place] LOPEZ [facility] Tobacco Use History This section includes a history of the smoking, or tobacco -related health factors, that were collected on or before the date of the Encoun ter. The data comes from the [place] facility where the Encounter took place. Date/Time Smoking Status/Tobacco Use Comment [facility] Jun 12, 2018 01:16 PM [place]-TOBACCO QUIT 15 YRS OR MORE [place] LOPEZ [facility] Sep 24, 2015 08:23 AM NON-TOBACCO USER LEO LOPEZ [facility] Nov 07, 2014 12:58 PM NON-TOBACCO USER LEO LOPEZ [facility] Oct 01, 2014 02:57 PM NON-TOBACCO USER LEO LOPEZ [facility] Jul 08, 2011 11:42 AM NON-TOBACCO USER LEO LOPEZ [facility] Sep 21, 2007 09:37 AM NON-TOBACCO USER Pt. reports he quit smoking over 20 years ago. LEO LOPEZ [facility] Advance Directives: All historical and current No Data Provided for This Section Radiology Reports: +/- 30 days of the encounter No Data Provided for This Section Pathology Reports: +/- 30 days of the encounter No Data Provided for This Section Encounter Notes: All associated encounter notes This section contains the clinical notes associated to the Encounter. Date/Time Encounter Note(s) Provider Source Sep 03, 2021 10:57 AM MOVE NOTE: LOCAL TITLE: [place]-WEIGHT MANAGEMENT/MOVE! OUTPATIENT GROUP STANDARD TITLE: MOVE NOTE DATE OF NOTE: SEP 03, 2021@10:57 ENTRY DATE: SEP 03, 2021@10:57:57 AUTHOR: MATHIEU CASTAÑEDA COSIGNER: URGENCY: STATUS: COMPLETED attended MODULE 16 of MOVE! Forward class. [place] Video Connect or Video to home VVC [...] as same as on CPRS facesheet: Yes ASSESSMENT: Weight: 238 lb [108.2 kg] (08/25/2021 15:20) Height: 69 in [175.3 cm] (01/20/2021 11:48) BMI: 35.2 Weight Change: Measurement DT WEIGHT LB(KG)[BMI] 08/25/2021 15:20 238(107.95)[35*] 05/14/2021 10:21 232.4(105.41)[34*] 01/20/2021 11:48 253(114.76)[37*] 01/29/2020 08:18 241(109.32)[36*] 12/28/2019 09:07 248.6(112.76)[37*] 11/16/2019 09:00 247.4(112.22)[37*] Total weight loss/gain: Pertinent Lab Results: Collection DT Spec CHOL TGL HDL LDL-LUCILA 01/20/2021 09:06 PLASM 219 H 130 44 149.0 12/28/2019 08:51 PLASM 221 H 247 H 41 130.6 H 12/28/2018 08:35 PLASM 213 H 189 H 45 130.2 H 12/30/2017 08:30 PLASM 197 114 34 L 140.2 H 12/23/2016 09:00 PLASM 201 H 131 40 134.8 H ____ 1. Completed Food and Activity Records D aily: No 2. actively participated during class by taking notes and asking appropriate questions. 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 INTERVENTION: - Food & Activity Journals were reviewed ; feedback provided. - A progress check-in completed assessin g [place]'s success in meeting previously set goals for this past week. Educational topics presented to group: Module 16: Maintain Your Progress 1. Maintaining your weight loss 2. Body image 3. Staying motivated 4. Review your weight management toolkit Activities were based on this 's ability, offerings for both lower and higher impact versions provided. Counseling Methods: Motivational/ Goal Setting/ Behavioral [place] indicates understanding of education and concepts covered. MONITOR/EVALUATION: Action Plan includes: Individual exercise, behavioral and dietary goals. Continue to monitor dietary intake by keeping a daily food journal - Get support from family, friends and o thers; to help with motivation - Set a weight loss or maintenance goal for the next 6 months - Develop short term goals to help meet your weight targets - Monitor your weight at least weekly - Review the past 16 lessons; work on nu trition improvements as needed Anthropometric Outcomes: - Gradual weight loss of 0.5-2#/week or maintenance at goal weight Follow up: - MOVE! Clinician contact information pr ovided for additional support. - Schedule for additional [facility] MOVE! Forw nithin classes until [place] completes all modules. At which time, [place] may be scheduled for MOVE! Support Group. /marty/ MATHIEU STALLINGS,RD,LD,CDE CLINICAL DIETITIAN Signed: 09/03/2021 10:58 MADDY,MATHIEU LOPEZ [facility]
--- OUTSIDE RECORDS SUMMARY | 2021-12-13 00:25 | XMS REPORT | Encounter Summary ---
[facility] Address Unknown Phone Unavailable Care Team Providers Care Corporate Investigator Name Role Phone YOSI TENORIO PCP Unavailable [...] PART A Sep 28, 2007 PART A [id number] SIMEONEFFIEY PATIENT MEDICARE (WNR) MEDICARE (M) PART B Sep 28, 2007 PART B [id number] SAMANTHA HENDRIX PATIENT Selected Encounter This section includes the information on record at [place] for the Encounter. Date/Time Encounter Type Encounter Description Reason Provider Source Sep 04, 2021 01:19 PM Outpatient Encounter ADMIN PAT ACTIVTIES (MASNO NCT) IHE Encounter Template Text not used by [facility] Assessments - Encounter Diagnoses No Data Provided for This Section Plan of Treatment: Future Appointments (+ 6 months) and Future Tests (+/- 45 day s) The Plan of Treatment section includes future care activities for the patient fr om all [place] treatment facilities. This section includes future appointments and fu ture orders which are active, pending or scheduled. Future Appointments This section includes appointments that were scheduled t o occur 6 months from the date of the Encounter, up to a maximum of 20 appointme nts. The data comes from all [place] treatment facilities. Appointment Date/Time Appointment Type Appointment Facili ty Name Sep 10, 2021 10:00 AM AMBULATORY - MEDICINE LEO LOPEZ [facility] Sep 17, 2021 10:00 AM AMBULATORY - MEDICINE LEO LOPEZ [facility] Sep 23, 2021 08:30 AM AMBULATORY - NONE [facility] T, [facility] 15 Oct 02, 2021 10:30 AM AMBULATORY - REHAB MEDICINE LEO LOPEZ [facility] Nov 02, 2021 11:30 AM AMBULATORY - MEDICINE [facility] Nov 18, 2021 10:30 AM AMBULATORY - MEDICINE [facility] Nov 19, 2021 01:00 PM AMBULATORY - REHAB MEDICINE LEO LOPEZ [facility] Dec 07, 2021 06:30 PM AMBULATORY - PSYCHIATRY LEO LOPEZ [facility] Dec 10, 2021 03:00 PM AMBULATORY - NONE [facility] T, VISN 15 Dec 21, 2021 01:30 PM AMBULATORY - NONE [facility] Aleena, VISN 15 Dec 24, 2021 09:00 AM AMBULATORY - PSYCHIATRY [facility] Jan 20, 2022 08:30 AM AMBULATORY - MEDICINE [facility] Surgical [...] and tobacco- related health factors from the [place] facility where the Encounter took place. Current Smoking Status This section includes the most current smoking, or tobacco -related health factor, from the [place] facility where the Encounter took place. Date/Time Current Smoking Status Comment Facility Jan 20, 2021 11:30 AM VA-TOBACCO NEVER USED [facility] Tobacco Use History This section includes a history of the smoking, or tobacco -related health factors, that were collected on or before the date of the Encoun ter. The data comes from the [place] facility where the Encounter took place. Date/Time Smoking Status/Tobacco Use Comment [facility] Dec 21, 2018 02:42 PM [...] Encounter. Date/Time Encounter Note(s) Provider Source Sep 04, 2021 01:21 PM ADMINISTRATIVE NOTE: LOCAL TITLE: [place]-ADMIN [facility] STANDARD TITLE: ADMINISTRATIVE NOTE DATE OF NOTE: SEP 04, 2021@13:21 ENTRY DATE: SEP 04, 2021@13:21:13 AUTHOR: HAMMAD PALMA COSIGNER: URGENCY: STATUS: [facility] Has ADDENDA [facility] Administrative Note: RECORDS RECEIVED TODAY by: Fax Nature of report:rx's for ventolin and flonase Date(s) of record(s):09/04/2021 Sending republican:[place] [facility] [place] [facility] /marty/ HAMMAD JOHN Signed: 09/04/2021 13:22 09/04/2021 ADDENDUM STATUS: COMPLETED xray done at [facility]- left knee pain- findings-mod. deg. changes of the medial and patellofemoral compartments, low grade deg. 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 like to start physical therapy? please call and inform pt., thank you /marty/ YOSI TENORIO [facility] Signed: 09/04/2021 14:04 Receipt Acknowledged By: * AWAITING SIGNATURE * DERIAN JONES 09/08/2021 ADDENDUM STATUS: COMPLETED [place] has returned a call to the clinic for the above x-ray results. [place] notified of the above and questions answered to his satisfaction. He verbalizes understanding and agrees to a trial of physical therapy. /marty/ GRAEME MANNING RN Signed: 09/08/2021 13:23 Receipt Acknowledged By: * AWAITING SIGNATURE * DERIAN JONES * AWAITING SIGNATURE * YOSI TENORIO MELISSA J [facility] Sep 04, 2021 01:19 PM ADMINISTRATIVE NOTE: LOCAL TITLE: [facility] STANDARD TITLE: ADMINISTRATIVE NOTE DATE OF NOTE: SEP 04, 2021@13:19 ENTRY DATE: SEP 04, 2021@13:20:01 AUTHOR: HAMMAD PALMA EXP COSIGNER: URGENCY: STATUS: COMPLETED [facility] Administrative Note: RECORDS RECEIVED TODAY by: Fax Nature of report:left knee 3 views Date(s) of record(s):09/03/2021 Sending republican:[facility] /marty/ HAMMAD JOHN Signed: 09/04/2021 13:20 HAMMAD PALMA OC
--- OUTSIDE RECORDS SUMMARY | 2021-12-13 00:25 | XMS REPORT ---
Author Author [facility] SAMANTHA goldstein Organization Department [facility] Address Unknown Phone Unavailable Care Team Providers Care Drop Crew Laborer Name Role Phone YOSI TENORIO PCP Unavailable [...] PART A Sep 28, 2007 PART A [id number] SIMEONEFFIEY PATIENT MEDICARE (WNR) MEDICARE (M) PART B Sep 28, 2007 PART B [id number] SIMEONSAMANTHA PATIENT Selected Encounter This section includes the information on record at [place] for the Encounter. Date/Time Encounter Type Encounter Description Reason Provider Source Sep 18, 2021 04:33 PM Outpatient Encounter ADMIN PAT ACTIVTIES (MASNO NCT) IHE Encounter Template Text not used by [place] Assessments - Encounter Diagnoses No Data Provided for This Section Plan of Treatment: Future Appointments (+ 6 months) and Future Tests (+/- 45 day s) The Plan of Treatment section includes future care activities for the patient fr om all [place] treatment facilities. This section includes future appointments and fu ture orders which are active, pending or scheduled. Future Appointments This section includes appointments that were scheduled t o occur 6 months from the date of the Encounter, up to a maximum of 20 appointme nts. The data comes from all [facility]. Appointment Date/Time Appointment Type Appointment Facili ty Name Sep 23, 2021 08:30 AM AM[facility]ULATORY - NONE [facility] 15 Oct 02, 2021 10:30 AM AMBULATORY - REHAB MEDICINE LEO LOPEZ [facility] Nov 02, 2021 11:30 AM AMBULATORY - MEDICINE [facility] Nov 18, 2021 10:30 AM AMBULATORY - MEDICINE [facility] Nov 19, 2021 01:00 PM AMBULATORY - REHAB MEDICINE LEO LOPEZ [facility] Dec 07, 2021 06:30 PM AMBULATORY - PSYCHIATRY LEO LOPEZ [facility] Dec 10, 2021 03:00 PM AM[facility]ULATORY - NONE [facility] Dec 21, 2021 01:30 PM AM[facility]ATORY - NONE [facility] Dec 24, 2021 09:00 AM AMBULATORY - PSYCHIATRY [facility] Jan 20, 2022 08:30 AM AMBULATORY - MEDICINE [facility] Active, Pending, and Scheduled Orders [...] the Encounter. The data comes from all [facility]. Test Date/Time Test Type Test Details Facility Name Oct 21, 2021 04:01 PM Consult Order [place]-PULMONARY OUTPA [id number] [facility] [place] [facility] Oct 27, 2021 09:13 AM Consult Order [place]-SURGERY ORTHOPE DICS [id number] [facility] [place] [facility] Surgical Procedures: All associated to [...] and tobacco- related health factors from the [place] facility where the Encounter took place. Current Smoking Status This section includes the most current smoking, or tobacco -related health factor, from the [place] facility where the Encounter took place. Date/Time Current Smoking Status Comment Facility Jun 12, 2018 01:16 PM VA-TOBACCO QUIT 15 YRS OR MORE [place] LOPEZ [facility] Tobacco Use History This section includes a history of the smoking, or tobacco -related health factors, that were collected on or before the date of the Encoun ter. The data comes from the [place] facility where the Encounter took place. Date/Time Smoking Status/Tobacco Use Comment [facility] Jun 12, 2018 01:16 PM [place]-TOBACCO QUIT 15 YRS OR MORE [place] LOPEZ [facility] Sep 24, 2015 08:23 AM NON-TOBACCO USER LEO LOPEZ [facility] Nov 07, 2014 12:58 PM NON-TOBACCO USER LEO LOPEZ [facility] Oct 01, 2014 02:57 PM NON-TOBACCO USER LEO LOPEZ [facility] Jul 08, 2011 11:42 AM NON-TOBACCO USER LEO LOPEZ [facility] Sep 21, 2007 09:37 AM NON-TOBACCO USER Pt. reports he quit smoking over 20 years ago. [place] LOPEZ [facility] Advance Directives: All historical and current No Data Provided for This Section Radiology Reports: +/- 30 days of the encounter No Data Provided for This Section Pathology Reports: +/- 30 days of the encounter No Data Provided for This Section Encounter Notes: All associated encounter notes This section contains the clinical notes associated to the Encounter. Date/Time Encounter Note(s) Provider Source Sep 18, 2021 04:33 PM ADMINISTRATIVE NOTE: LOCAL TITLE: [place]-ADMIN [facility] STANDARD TITLE: ADMINISTRATIVE NOTE DATE OF NOTE: SEP 18, 2021@16:33 ENTRY DATE: SEP 18, 2021@16:33:38 AUTHOR: DAVID ZULETA EXP COSIGNER: URGENCY: STATUS: COMPLETED Scheduling: ANSWERING MACHINE MESSAGE On [id number] an attempt was made contact [place] to schedule appointment in :deEveoaudio est 1. A message including the purpose of the call and a call back number was left on an answering machine. [facility] [id number] [place]ette/ /marty/ DAVID ZULETA Signed: 09/18/2021 16:34 [facility]
--- OUTSIDE RECORDS SUMMARY | 2021-12-13 00:25 | XMS REPORT | Encounter Summary ---
Author Author [facility] SAMANTHA goldstein Organization [facility] Address Unknown Phone Unavailable Care Team Providers Care Financial Assistance Specialist Name Role Phone YOSI TENORIO PCP [...] PART A Sep 28, 2007 PART A [id number] SIMEONEFFIEY PATIENT MEDICARE (WNR) MEDICARE (M) PART B Sep 28, 2007 PART B [id number] SAMANTHA HENDRIX PATIENT Selected Encounter This section includes the information on record at [place] for the Encounter. Date/Time Encounter Type Encounter Description Reason Provider Source Sep 03, 2021 08:00 AM Outpatient Encounter COMMUNITY CARE CONSULT IHE Encounter Template Text not used by [place] Assessments - Encounter Diagnoses No Data Provided [...] The data comes from all [place] treatment facilities. Appointment Date/Time Appointment Type Appointment Facili ty Name Sep 10, 2021 10:00 AM AMBULATORY - MEDICINE LEO LOPEZ [facility] Sep 17, 2021 10:00 AM AMBULATORY - MEDICINE LEO LOPEZ [facility] Sep 23, 2021 08:30 AM AMBULATORY - NONE [facility] T, [facility]N 15 Oct 02, 2021 10:30 AM AMBULATORY - REHAB MEDICINE LEO LOPEZ [facility] Nov 02, 2021 11:30 AM AMBULATORY - MEDICINE [facility] Nov 18, 2021 10:30 AM AMBULATORY - MEDICINE [facility] Nov 19, 2021 01:00 PM AMBULATORY - REHAB MEDICINE LEO LOPEZ [facility] Dec 07, 2021 06:30 PM AMBULATORY - PSYCHIATRY LEO LOPEZ [facility] Dec 10, 2021 03:00 PM AMBULATORY - NONE [facility] T, VISN 15 Dec 21, 2021 01:30 PM AMBULATORY - NONE [facility] Aleena, VISN 15 Dec 24, 2021 09:00 AM AMBULATORY - PS[facility]CHIATRY [facility] Jan 20, 2022 08:30 AM AMBULATORY - MEDICINE [facility] Surgical Procedures: All associated to the [...] Mar 20, 2004 10:47 AM NON-TOBACCO USER [facility] T, VISN 15 Tobacco Use History This section includes a history of the smoking, or tobacco -related health factors, that were collected on or before the date of the Encoun ter. The data comes from the [place] facility where the Encounter took place. Date/Time Smoking Status/Tobacco Use Comment Facil ity Mar 20, 2004 10:47 AM NON-TOBACCO USER [facility] AleenaJOVANY 15 Advance Directives: All historical and current [...] Encounter Note(s) Provider Source Sep 03, 2021 08:00 AM NONVA CONSULT: LOCAL TITLE: COMMUNITY CARE CONSULT RESULTS NOTE [place] STANDARD TITLE: NONVA CONSULT DATE OF NOTE: SEP 03, 2021@08:00 ENTRY DATE: SEP 09, 2021@15:49:57 AUTHOR: JORGE BANSAL EXP COSIGNER: URGENCY: STATUS: COMPLETED The following Non VA Care consult has been completed. See scanned document for report. NON VA Care Consult Results Radiology Comment: COMMUNITY CARE-[facility]/09/03/2021 /marty/ JORGE BANSAL AMSA Signed: 09/09/2021 15:51 JORGE BANSAL [facility]
--- OUTSIDE RECORDS SUMMARY | 2021-12-13 00:25 | XMS REPORT | Encounter Summary ---
Author Author [facility] SAMANTHA goldstein Organization Department [facility] Address Unknown Phone Unavailable Care Team Providers Care Graphics Specialist Name Role Phone YOSI TENORIO PCP [...] PART A Sep 28, 2007 PART A [id number] SIMEONEFFIEY PATIENT MEDICARE (WNR) MEDICARE (M) PART B Sep 28, 2007 PART B [id number] SAMANTHA HENDRIX PATIENT Selected Encounter This section includes the information on record at [place] for the Encounter. Date/Time Encounter Type Encounter Description Reason Provider Source Sep 11, 2021 10:54 AM HC PRO PHONE CALL 5-10 MIN TELEPHONE/BRENDON CHAN ICD-10-CM H90.3 Sensorineural hearing loss, bilateral with Provider Comments: Sensorineural hearing loss, bilateral ([facility] [id number]) ADA JASMINE Encounter Template Text not used by [facility] Assessments - Encounter Diagnoses This section includes the primary and secondary diag noses documented for the Encounter. Date/Time Primary/Secondary Diagnosis Diagnosis Name Provider Source Sep 11, 2021 10:54 AM PRIMARY Sensorineural hearing loss , bilateral ADA JASMINEMichelle FRANKLINYohana [facility] Plan of Treatment: Future Appointments (+ 6 months) and Future Tests (+/- 45 day s) The Plan of Treatment section includes future care activities for the patient fr om all [facility]. This section includes future appointments and fu ture orders which are active, pending or scheduled. Future Appointments This section includes appointments that were scheduled t o occur 6 months from the date of the Encounter, up to a maximum of 20 appointme nts. The data comes from all [facility]. Appointment Date/Time Appointment Type Appointment Facili ty Name Sep 17, 2021 10:00 AM AMBULATORY - MEDICINE LEO LOPE[facility] Sep 23, 2021 08:30 AM AMBULATORY - NONE [facility] JOVANY Flood Oct 02, 2021 10:30 AM AMBULATORY - REHAB MEDICINE LEO RavindraMichelle [facility] Nov 02, 2021 11:30 AM AMBULATORY - MEDICINE [facility] Nov 18, 2021 10:30 AM AMBULATORY - MEDICINE [facility] Nov 19, 2021 01:00 PM AMBULATORY - REHAB MEDICINE LEO RavindraMichelle [facility] Dec 07, 2021 06:30 PM AMBULATORY - PSYCHIATRY [facility]ind[facility]le [facility] Dec 10, 2021 03:00 PM AMBULATORY - NONE [facility] DARREN FloodN Dec 21, 2021 01:30 PM AMBULATORY - NONE [facility] Aleena VISN Dec 24, 2021 09:00 AM AMBULATORY - PSYCHIATRY [facility] Jan 20, 2022 08:30 AM AMBULATORY - MEDICINE [facility] Active, Pending, and Scheduled Orders This section [...] the Encounter. The data comes from all [facility]. Test Date/Time Test Type Test Details Facility Name Oct 21, 2021 04:01 PM Consult Order [place]-PULMONARY OUTPA [id number] Cons Warehouse Order Puller[facility] Choice [facility] Surgical Procedures: All associated to the encounter This section includes all Surgical Procedures and Surgical Procedure Notes assoc iated to the Encounter. Surgical Procedures This section includes all Surgical Procedures associated to the Encounter. Surgical Procedure Date/Time Procedure Procedure Type Procedure Qualifiers Provider Source Sep 11, 2021 10:54 AM HC PRO PHONE CALL 5-10 MIN HC PRO PHONE CALL 5-10 MIN ADA JASMINE [facility] Surgical Notes There are no notes [...] and tobacco- related health factors from the [place] facility where the Encounter took place. Current Smoking Status This section includes the most current smoking, or tobacco -related health factor, from the [place] facility where the Encounter took place. Date/Time Current Smoking Status Comment Facility Jun 12, 2018 01:16 PM [place]-TOBACCO QUIT 15 YRS OR MORE [place] LOPE[facility] Tobacco Use History This section includes a history of the smoking, or tobacco -related health factors, that were collected on or before the date of the Encoun ter. The data comes from the [place] facility where the Encounter took place. Date/Time Smoking Status/Tobacco Use Comment [facility] Jun 12, 2018 01:16 PM [place]-TOBACCO QUIT 15 YRS OR MORE [place] LOPEZ [...] Encounter. Date/Time Encounter Note(s) Provider Source Sep 11, 2021 10:54 AM AUDIOLOGY TELEPHONE ENCOUNTE R NOTE: LOCAL TITLE: WI-AUDIOLOGY/TELEPHONE STANDARD TITLE: AUDIOLOGY TELEPHONE ENCOUNTER NOTE DATE OF NOTE: SEP 11, 2021@10:54 ENTRY DATE: SEP 11, 2021@10:54:19 AUTHOR: ADA JASMINE EXP COSIGNER: URGENCY: STATUS: COMPLETED 5 minutes spent on the phone with alejo nolasco Dixon was given an update on the status of his EMs. 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 They are almost caught up on the backorder and will ship EMs as soon as they are completed. was advised that he would be contacted to schedule an EMF appointment upon receipt of aids. He reported not liking the large domes and was instructed to wear the domes he was previously wearing. 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
--- OUTSIDE RECORDS SUMMARY | 2021-12-13 00:26 | XMS REPORT | Encounter Summary ---
Author Author [facility] SAMANTHA goldstein Organization Department [facility] Address Unknown Phone Unavailable Care Team Providers Care Tour Bus Driver Name Role Phone YOSI TENORIO PCP [...] PART A Sep 28, 2007 PART A [id number] SAMANTHA HENDRIX PATIENT MEDICARE (WNR) MEDICARE (M) PART B Sep 28, 2007 PART B [id number] SIMEONEFFIEY PATIENT Selected Encounter This section includes the information on record at [place] for the Encounter. Date/Time Encounter Type Encounter Description Reason Provider Source Oct 02, 2021 10:30 AM ADDL SUPL MATRL&STAF TM PHE AUDIOLOGY ICD-10-CM Z46.1 Encounter for fitting and adjustment of hearing aid with Provider Comments: Encounter for Fitting and Adjustment of Hearing Aid ADA JASMINE Encounter Template Text not used by [facility] Assessments - Encounter Diagnoses This section includes the primary and secondary diag noses documented for the Encounter. Date/Time Primary/Secondary Diagnosis Diagnosis Name Provider Source Oct 02, 2021 10:45 AM PRIMARY Encounter for fitt ing and adjustment of hearing aid ADA JASMINE [facility]OPE[facility] Oct 02, 2021 10:45 AM SECONDARY Sensorineural hearing loss , bilateral ADA JASMINE [facility] Plan of Treatment: Future Appointments (+ 6 months) and Future Tests (+/- 45 day s) The Plan of Treatment section includes future care activities for the patient fr om all [facility] facilities. This section includes future appointments and fu ture orders which are active, pending or scheduled. Future Appointments This section includes appointments that were scheduled t o occur 6 months from the date of the Encounter, up to a maximum of 20 appointme nts. The data comes from all [facility]. Appointment Date/Time Appointment Type Appointment Facili ty Name Nov 02, 2021 11:30 AM AMBULATORY - MEDICINE [facility] Nov 18, 2021 10:30 AM AMBULATORY - MEDICINE [facility] Nov 19, 2021 01:00 PM AMBULATORY - REHAB MEDICINE LEO Arteaga [facility] Dec 07, 2021 06:30 PM AMBULATORY - PSYCHIATRY LEO Chandler [facility] Dec 10, 2021 03:00 PM AMBULATORY - NONE [facility] T, VISN Dec 21, 2021 01:30 PM AMBULATORY - NONE [facility] T, VISN Dec 24, 2021 09:00 AM AMBULATORY - PSYCHIATRY [facility] Jan 20, 2022 08:30 AM AMBULATORY - MEDICINE [facility] Active, Pending, and Scheduled Orders This section [...] the Encounter. The data comes from all [facility]. Test Date/Time Test Type Test Details Facility Name Oct 21, 2021 04:01 PM Consult Order WI-PULMONARY OUTPA [id number] Cons Building [facility] Oct 27, 2021 09:13 AM Consult Order WI-SURGERY ORTHOPE DICS [id number] Cons Building [facility] Surgical Procedures: All associated to the encounter This section includes all Surgical Procedures and Surgical Procedure Notes assoc iated to the Encounter. Surgical Procedures This section includes all Surgical Procedures associated to the Encounter. Surgical Procedure Date/Time Procedure Procedure Type Procedure Qualifiers Provider Source Oct 02, 2021 10:30 AM ADDL SUPL MATRL&STAF TM PHE ADDL SUPL MATRL&S TAF TM PHE [facility] Surgical Notes There are no notes associated with this procedure. Surgical Procedure Date/Time Procedure Procedure Type Procedure Qualifiers Provider Source Oct 02, 2021 10:30 AM Repair of Prosthetic Device PROSTHETIC DEV ICE REPAIR REP 50-BILATERAL PROCEDURE ADA JASMINE [facility] Surgical Notes There are no notes associated with this procedure. Surgical Procedure Date/Time Procedure Procedure Type Procedure Qualifiers Provider Source Oct 02, 2021 10:30 AM Repair/Modification of Hearing Aid HEA RING AID REPAIR/MODIFYING 50-BILATERAL PROCEDURE ADA JASMINE [facility] Surgical Notes There are no notes associated with this procedure. Surgical Procedure Date/Time Procedure Procedure Type Procedure Qualifiers Provider Source Oct 02, 2021 10:30 AM Conformity Evaluation CONFORMITY EVALUATION ADA JASMINE [facility] Surgical Notes There are no notes [...] QUIT 15 YRS OR MORE [facility] LOPEZ [facility] Tobacco Use History This section includes a history of the smoking, or tobacco -related health factors, that were collected on or before the date of the Encoun ter. The data comes from the [place] facility where the Encounter took place. Date/Time Smoking Status/Tobacco Use Comment [facility] Jun 12, 2018 01:16 PM [place]-TOBACCO QUIT 15 YRS OR MORE [place] LOPEZ [facility] Sep 24, 2015 08:23 AM NON-TOBACCO USER LEO Méndez Nov 07, 2014 12:58 PM NON-TOBACCO USER LEO Méndez Oct 01, 2014 02:57 PM NON-TOBACCO USER LEO Méndez Jul 08, 2011 11:42 AM NON-TOBACCO USER LEO Méndez Sep 21, 2007 09:37 AM NON-TOBACCO USER Pt. reports he quit smoking over 20 years ago. LEO LOPEZ [facility] Advance Directives: All [...] the Encounter. Date/Time Encounter Note(s) Provider Source Oct 02, 2021 10:40 AM AUDIOLOGY NOTE: LOCAL TITLE: WI-AUDIOLOGY/ESTABLISHED STANDARD TITLE: AUDIOLOGY NOTE DATE OF NOTE: OCT 02, 2021@10:40 ENTRY DATE: OCT 02, 2021@10:40:30 AUTHOR: ADA JASMINE EXP COSIGNER: URGENCY: STATUS: COMPLETED WI-AUDIOLOGY/ESTABLISHED S: presents to [facility] for: [ ] Otoscopy [ ] Hearing aid check [ ] Ear impressions [ ] Hearing aid modification [ ] Batteries [ ] Hearing aid evaluation [ ] Hearing aid adjustment [ x ] Other: EMF O: [ x ] Otoscopy [ x ] Normal [ ] Irregular Comments: A: reported that his right aid quit working. He was fit with [facility] EMs. Receivers with domes were given to to use in case the EMs need to go in for repair. Aids were programmed for EMs. Speech mapping was performed and real ear measurements approximated NAL-NL2 targets. Rufus reported good sound quality. He was advised to return if the molds hurt his ear as the wire might be slightly too short. P: [ x ] RTC as needed. 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
--- NOTE | 2021-12-13 00:30 | Tele-ICU Consult ---
Progress Note 81 y/o male admitted with Covid PNA and hx of a bowel perforation No labs or xrays avialable PLAN: ICU admission General surgery consult Decadron started Focused Exam Height, Weight, BMI Height: '" Weight: lbs. oz. kg; BMI Method: REMI BARKER MD Dec 13, 2021 00:30
[2021-12-13] MEDS ORDERED: NS IV 1000 ML 1,000 ML ONE (00:42)
[2021-12-13 00:50] LABS: CLARITY,URINE CLEAR; COLOR,URINE YELLOW; GLUCOSE, URINE (UA) NEGATIVE (NEGATIVE); KETONES,URINE NEGATIVE (NEGATIVE); LEUKOCYTE ESTERASE ,URINE NEGATIVE (NEGATIVE); NITRITE,URINE NEGATIVE (NEGATIVE); PH,URINE 5.5 (5-9); PROTEIN,URINE 1+ (NEGATIVE)
[2021-12-13] MEDS ORDERED: LOSA50TA63 PO (00:50)
[2021-12-13] MEDS ORDERED: VERA120T15 PO (00:50)
[2021-12-13] MEDS ORDERED: MELO10CA3 PO (00:50)
[2021-12-13] MEDS ORDERED: MONT-40 PO (00:50)
[2021-12-13] MEDS ORDERED: OMEG1CAP58 PO (00:50)
[2021-12-13] MEDS ORDERED: VORT10TA PO (00:50)
[2021-12-13] MEDS ORDERED: GARL10002 PO (00:50)
[2021-12-13] MEDS ORDERED: LORA-53 PO (00:50)
[2021-12-13] MEDS ORDERED: ASPI-999 PO (00:50)
[2021-12-13] MEDS ORDERED: BUSP10TA95 PO (00:50)
[2021-12-13] MEDS ORDERED: FLUT1BLS9 IH (00:50)
[2021-12-13] MEDS ORDERED: TIOT4MIS2 IH (00:50)
[2021-12-13] MEDS ORDERED: RT-ALBUINH IH (00:50)
[2021-12-13] MEDS ORDERED: MULT400T5 PO (00:50)
[2021-12-13] MEDS ORDERED: FLUT16SP22 NSEACH (00:50)
[2021-12-13] MEDS: NS IV 1000 ML 1,000 ML IV SCH ×4 (00:53→20:56)
[2021-12-13 00:57] LABS: BILIRUBIN,URINE NEGATIVE (NEGATIVE)
[2021-12-13 00:58] LABS: BACTERIA,URINE FEW /HPF
[2021-12-13 00:59] LABS: HYALINE CASTS, URINE 0-2 /LPF
[2021-12-13 01:31] LABS: ABG BASE EXCESS -5.4 MMOL/L (-2.5-2.5); ABG OXYGEN SATURATION 97 % (94-100); ABG PCO2 32 MMHG (35-45); ABG PH 7.38 (7.37-7.43); ABG PO2 86 MMHG (79-93); ABG TCO2 20.1 MMOL/L (21.0-31.0); ALLENS TEST YES-POS; INSPIRED O2 80% BIPAP; PATIENT TEMP 35.8; VENTILATOR NO
[2021-12-13] MEDS: fentaNYL INJ 100 MCG/2 ML AMP IVP PRN ×3 (03:29→11:26)
[2021-12-13 05:22] LABS: PHOSPHORUS 3.6 MG/DL (2.3-4.7)
[2021-12-13 05:24] LABS: MAGNESIUM 2.1 MG/DL (1.6-2.4)
[2021-12-13 05:58] LABS: BASOPHILS # (AUTO) 0.1 10^3/uL (0.0-0.1); BASOPHILS % (AUTO) 1 % (0-10); EOSINOPHILS % (AUTO) 0 % (0-10); HEMATOCRIT 47 % (40-54); HEMOGLOBIN 15.6 g/dL (13.3-17.7); LYMPHOCYTES # (AUTO) 0.3 10^3/uL (1.0-4.0); LYMPHOCYTES % (AUTO) 4 % (12-44); MEAN CORPUSCULAR HEMOGLOBIN 29 pg (25-34); MEAN CORPUSCULAR HGB CONC 33 g/dL (32-36); MEAN CORPUSCULAR VOLUME 89 fL (80-99); MEAN PLATELET VOLUME 10.5 fL (9.0-12.2); MONOCYTES # (AUTO) 0.3 10^3/uL (0.0-1.0); MONOCYTES % (AUTO) 3 % (0-12); NEUTROPHILS # (AUTO) 8.5 10^3/uL (1.8-7.8); NEUTROPHILS % (AUTO) 91 % (42-75); PLATELET COUNT 397 10^3/uL (130-400); WHITE BLOOD COUNT 9.4 10^3/uL (4.3-11.0)
[2021-12-13] MEDS ORDERED: POTASSIUM CL 10MEQ/50ML IVPB 50 ML IV SCH ×3 (06:00)
[2021-12-13] MEDS ORDERED: metroNIDAZOLE 500MG/100ML IVPB 100 ML IV SCH (06:00)
[2021-12-13] MEDS ORDERED: MAGNESIUM 1 GM/100 ML IVPB 100 ML IV SCH ×3 (06:00)
[2021-12-13] MEDS ORDERED: KCL 20 MEQ TAB (K-DUR) PO SCH ×3 (06:00)
[2021-12-13 06:07] LABS: ALBUMIN 3.1 GM/DL (3.2-4.5); POTASSIUM 5.2 MMOL/L (3.6-5.0)
[2021-12-13 06:08] LABS: CALCIUM 8.3 MG/DL (8.5-10.1)
[2021-12-13 06:10] LABS: TOTAL PROTEIN 6.7 GM/DL (6.4-8.2)
[2021-12-13 06:11] LABS: BILIRUBIN,TOTAL 2.3 MG/DL (0.1-1.0)
[2021-12-13 06:13] LABS: CREATININE SERUM 1.33 MG/DL (0.60-1.30)
[2021-12-13 06:20] LABS: BAND NEUTROPHILS 6 %; LYMPHOCYTES % (MANUAL) 4 %; MONOCYTES % (MANUAL) 2 %; NEUTROPHILS % (MANUAL) 86 %; NUCLEATED RED BLOOD CELLS 1; RBC MORPH NORMAL
--- NOTE | 2021-12-13 06:22 | History & Physical-Hospitalist ---
History of Present Illness HPI/Chief Complaint Chief complaint: Bowel perforation with COVID-19 pneumonia History of present illness: This is a 81-year-old white male who presented from [facility] ER for higher level of care due to bowel perforation and C OVID-19 pneumonia with acute hypoxic respiratory failure requiring oxygen. Family wanted DO NOT INTUBATE. BiPAP was placed with 16/10 and 80%. Potassium 5.4 and creatinine 1.3 with decreased urinary output. Patient was placed on Levaquin and Flagyl empirically. Dr. Craig will take him to surgery but high risk for intubation long-term. Source: patient Exam Limitations: clinical condition Date Seen 12/13/21 Time Seen by a Provider: 10:00 Attending Physician Margy Caba DO PCP Gasper Ernst Referring Physician Date of Admission Dec 12, 2021 at 23:49 Home Medications & Allergies Home Medications Reviewed patient Home Medication Reconciliation performed by pharmacy medication reconciliations phlebotomy technician and/or nursing. Patients Allergies have been reviewed. Allergies Allergies Coded Allergies Penicillins (Unverified Allergy, Intermediate, ITCHING, 12/14/19) Past Fjufcya-Ctlyws-Ywfhlq Hx Patient Social History Marrital Status: Employed/Student: retired Tobacco Use?: No Tobacco type used: Cigarettes Smoking Status: Former Smoker Use of E-Cig and/or Vaping dev: No Substance use?: No Alcohol Use?: No Pt feels they are or have been: No Immunizations Up To Date Date of Influenza Vaccine: Oct 13, 2021 Current Status Advance Directives: Yes Communicates: Verbally Primary Language: Urdu Sensory deficits: Vision impairment, Hearing impairment Implanted or Applied Medical D: None Past Medical History COPD High Cholesterol, Hypertension Anxiety, Depression Review of Systems ROS-Unable to Obtain: Clinical condition Constitutional: see HPI Gastrointestinal: abdominal pain Physical Exam Physical Exam Vital Signs Vital Signs - First Documented 12/13/21 00:00 Temp 35.8 Pulse 100 Resp 18 B/P (MAP) 157/86 Pulse Ox 94 O2 Delivery NIV Bilevel O2 Flow Rate 80.00 FiO2 80 Capillary Refill : Less Than 3 Seconds Height, Weight, BMI Height: '" Weight: lbs. oz. kg; 33.35 BMI Method: General Appearance: Anxious, Chronically ill, Moderate Distress, Obese Neck: Full Range of Motion, Normal Inspection, Non Tender Respiratory: No Accessory Muscle Use, No Respiratory Distress, Decreased Breath Sounds Neurologic/Psychiatric: Alert, Oriented x3, No Motor/Sensory Deficits, Normal Mood/Affect Results Results/Procedures Labs Laboratory Tests 12/13/21 04:45 12/13/21 04:55 12/13/21 13:00 12/14/21 03:37 Patient resulted labs reviewed. Assessment/Plan Admission Diagnosis Assessment: Acute bowel perforation COVID-19 pneumonia Acute hypoxic respiratory failure Obesity with BMI 33 Mental illness Hypertension COPD Former smoker Plan: Surgery benefits outweigh medical risks Monitor lung function Admission Status: Inpatient Order (span 2 midnights) Reason for Inpatient Admission: Bowel perforation with COVID-19 pneumonia Diagnosis/Problems Diagnosis/Problems (1) Bowel perforation (2) Acute respiratory failure with hypoxia (3) COPD (chronic obstructive pulmonary disease) (4) Smoker (5) Pneumonia due to human coronavirus Clinical Quality Measures DVT/VTE Risk/Contraindication: Contraindications-Pharm: Other *list below* Other: needs OR for bowel perforation MARGY CABA DO Dec 13, 2021 06:22
[2021-12-13] MEDS: MAGNESIUM 1 GM/100 ML IVPB 100 ML IV SCH (06:42)
[2021-12-13] MEDS: POTASSIUM CL 10MEQ/50ML IVPB 50 ML IV SCH (06:42)
[2021-12-13] MEDS: KCL 20 MEQ TAB (K-DUR) PO SCH (06:43)
--- NOTE | 2021-12-13 07:43 | Diagnostic Imaging Report ---
CHEST 1 VIEW, AP/PA ONLY Indication: Pneumonia Comparison: 04/16/2021 Findings: Low lung volumes with bibasilar irregular consolidations, greater on the right. No pleural effusion or pneumothorax. Normal heart size. Impression: 1. New basilar irregular opacities are likely on the basis of pneumonia. Additionally, there is potential scarring present. Advise followup PA and lateral chest radiographs in 4 weeks after appropriate medical management to ensure resolution. Dictated by: Dictated on workstation # [id number]
[2021-12-13] MEDS: metroNIDAZOLE 500MG/100ML IVPB 100 ML IV SCH ×2 (08:06→20:56)
--- NOTE | 2021-12-13 11:46 | Tele-ICU Consult ---
History of Present Illness History of Present Illness Date Seen by Provider: Dec 13, 2021 Time Seen by Provider: 10:03 Date of Admission Allergies and Home Medications Allergies Coded Allergies: Penicillins (Unverified Allergy, Intermediate, ITCHING, 12/14/19) Home Medications Albuterol Sulfate 1 Puff Puff, 2 PUFF IH Q4H, (Reported) 1 PUFF = 90 MCG Aspirin 81 Mg Tab.chew, 81 MG PO HS, (Reported) Buspirone HCl 10 Mg Tablet, 10 MG PO BID, (Reported) Fluticasone Propion/Salmeterol 1 Each Blst.w.dev, 1 EACH IH DAILY, (Reported) Fluticasone Propionate 16 Gm [place].susp, 50 MCG NSEACH DAILY, (Reported) Garlic 1,000 Mg Capsule, 1,000 MG PO DAILY, (Reported) Loratadine 10 Mg Tab.rapdis, 10 MG PO DAILY, (Reported) Losartan Potassium 50 Mg Tablet, 50 MG PO DAILY, (Reported) Meloxicam, Submicronized 10 Mg Capsule, 15 MG PO DAILY, (Reported) Montelukast Sodium 10 Mg Tablet, 10 MG PO HS, (Reported) Multivitamin with Folic Acid 400 Mcg Tablet, 400 MCG PO DAILY, (Reported) [place]-3 Fatty Acids/Fish Oil 1 Each Capsule, 1 EACH PO DAILY, (Reported) Tiotropium [place] 4 Gm Mist.inhal, 2 PUFF IH BID, (Reported) Verapamil HCl 120 Mg Tablet, 120 MG PO DAILY, (Reported) Vortioxetine Hydrobromide 10 Mg Tablet, 10 MG PO DAILY, (Reported) Past Medical/Social/Family Hx Patient Social History Tobacco Use?: No Tobacco type used: Cigarettes Smoking Status: Former Smoker Use of E-Cig and/or Vaping dev: No Substance use?: No Alcohol Use?: No Pt stated abuse/neglect: No Immunizations Up To Date Influenza Vaccine Up-to-Date: Yes; Up-to-Date Current Status Advance Directives: Yes Communicates: Verbally Primary Language: [place] Sensory deficits: Vision impairment, Hearing impairment Implanted or Applied Medical D: None Review of Systems Constitutional: see HPI Focused Exam Height, Weight, BMI Height: '" Weight: lbs. oz. kg; 33.35 BMI Method: Exam Exam Patient acknowledged, consented, and participated in this virtual visit which was conducted using real time audio/video Vital Signs Date Time Temp Pulse Resp B/P (MAP) Pulse Ox O2 Delivery O2 Flow Rate FiO2 12/13/21 11:00 96 32 142/89 94 NIV Bilevel 80.00 12/13/21 10:34 101 36 93 80.00 12/13/21 10:00 105 149/84 92 NIV Bilevel 80.00 12/13/21 09:00 102 32 156/84 93 NIV Bilevel 80.00 12/13/21 08:00 94 NIV Bilevel 80 12/13/21 08:00 108 31 142/97 92 NIV Bilevel 80.00 12/13/21 07:08 106 31 93 80.00 12/13/21 07:00 106 12/13/21 07:00 112 30 150/76 92 NIV Bilevel 80.00 12/13/21 06:00 101 23 135/75 92 NIV Bilevel 80.00 12/13/21 05:00 97 19 130/82 92 NIV Bilevel 80.00 12/13/21 04:00 92 NIV Bilevel 80 12/13/21 04:00 98 18 145/82 94 NIV Bilevel 80.00 12/13/21 03:16 37.9 12/13/21 03:00 111 24 166/84 92 NIV Bilevel 80.00 12/13/21 02:00 116 24 150/85 92 NIV Bilevel 80.00 12/13/21 01:30 103 16 153/88 94 NIV Bilevel 80.00 12/13/21 01:00 98 14 112/83 94 NIV Bilevel 80.00 12/13/21 00:55 105 12/13/21 00:45 98 14 143/82 94 NIV Bilevel 80.00 12/13/21 00:30 99 14 142/97 94 NIV Bilevel 80.00 12/13/21 00:15 105 31 145/86 93 NIV Bilevel 80.00 12/13/21 00:08 102 12/13/21 00:03 107 21 92 80.00 12/13/21 00:00 35.8 100 18 157/86 94 NIV Bilevel 80.00 12/13/21 00:00 NIV Bilevel 80 I & O 12/13/21 07:00 Intake Total 0 ml Output Total 350 ml Balance -350 ml Height & Weight Height: '" Weight: lbs. oz. kg; 33.35 BMI Method: General Appearance: No Apparent Distress Capillary Refill: Less Than 3 Seconds Results Lab Laboratory Tests 12/13/21 04:45 12/13/21 04:55 Assessment/Plan Assessment/Plan (Tele-ICU Physician , consultation) Available chart/ vitals / labs / Images reviewed H&P is not available - TRANSFERRED Now in ICU, hemodynamically stable Video assessment done using teleICU camera, rest of exam as per RN Discussed with RN. Consultants: Hospital course: 12/12 transfer- ? bowel per, ARF A/P ARF - bipap 12/09 80 % rr 18 - tv 800 - follow abg ALVARADO, suspected , anuric - follow bmp , chin in - hydration suspected perf bowel as per RN repost - await sx consult - ? images in other faclility COvid _ - on steroids -? remdesiovir - as per bedise will need to start lovenox when ok with SX Lines : (Central Line Necessity Reviewed) Chin: + OG: Nutrition: Analgesia: Anxiety/ delirium VTE Prophylaxis: Stress Ulcer Prophylaxis: Plans in collaboration with bedside consultants and IM MDs. Discussed with RN to reach out if any questions or concerns A total of 31 minutes of critical care time was devoted to this patient today, required to treat and/or prevent further deterioration of critical care condit ion ( as above) . BERRY AGUERO MD Dec 13, 2021 11:46
[2021-12-13] MEDS ORDERED: ALBUTEROL/IPRATROP (COMBIVENT RESPIMAT) 4 GM INHALER IH SCH (13:00)
[2021-12-13 13:32] LABS: POTASSIUM 5.1 MMOL/L (3.6-5.0)
[2021-12-13 13:33] LABS: CALCIUM 8.1 MG/DL (8.5-10.1)
[2021-12-13 13:38] LABS: CREATININE SERUM 1.25 MG/DL (0.60-1.30)
[2021-12-13] MEDS ORDERED: ONDANSETRON 4 MG/2 ML (SDV) Z0FRAN ONE (14:25)
[2021-12-13] MEDS ORDERED: proPOfol 200 MG/20 ML (DIPRIVAN) VIAL IV ONE (14:25)
[2021-12-13] MEDS ORDERED: MIDAZOLAM 2 MG/2 ML (VERSED) VIAL ONE ×2 (14:25→16:42)
[2021-12-13] MEDS ORDERED: SEVOFLURANE (ULTANE) 15 ML INHAL SOLN ONE (14:25)
[2021-12-13] MEDS ORDERED: fentaNYL INJ 100 MCG/2 ML AMP ONE ×2 (14:25→15:52)
[2021-12-13] MEDS ORDERED: LIDOCAINE PF 2% 5 ML (XYLOCAINE) VIAL ONE (14:25)
[2021-12-13] MEDS: UMECLIDINIUM BROMIDE (INCRUSE ELLIPTA) 7'S IH SCH (14:27)
[2021-12-13] MEDS: RT-ALBUTEROL HFA 8.5 GM INHALER IH SCH ×3 (14:27→21:49)
--- NOTE | 2021-12-13 14:32 | Consultation - Surgery ---
History of Present Illness History of Present Illness Patient Consulted On(gina/time) 12/13/21 14:26 Time Seen by Provider: 12:47 History of Present Illness Surgery asked to consult regarding bowel perforation. HPI: pt is a 81yo male sent over from [place] because of Covid + respiratory failure and pneumoperitoneum. When I saw pt he had BiPap on and was still only satting 92%. He kept repeating that he wanted water and I really couldn't get him to listen to me and answer questions. Nurse states he is confused. He did repeat the word surgery when I asked him what I was talking to him about, but then went right back to asking for water. He did say he had abdominal pain when I asked him. I talked to his a little bit and she said they had been trying to treat him at home for the Covid and he didn't want to go to the hospital, but once the abdominal pain started he asked to go to ER. Pain has been severe, not controlled with pain meds and he has appeared to be in discomfort; relayed by TRIMMER OPERATOR in ER and nursing in ICU. also states he has been "burping" last 4 days; which he usually never does. Allergies and Home Medications Allergies Coded Allergies: Penicillins (Unverified Allergy, Intermediate, ITCHING, 12/14/19) Patient Home Medication List Home Medication List Reviewed: Yes Albuterol Sulfate (Proair Hfa) 1 Puff Puff, 2 PUFF IH Q4H, (Reported) Entered as Reported by: HERRERA MORENO on 12/13/2149 Last Action: New Order Aspirin (Aspirin) 81 Mg Tab.chew, 81 MG PO HS, (Reported) Entered as Reported by: HERRERA MORENO on 12/13/2149 Last Action: New Order Buspirone HCl (Buspirone HCl) 10 Mg Tablet, 10 MG PO BID, (Reported) Entered as Reported by: HERRERA MORENO on 12/13/2149 Last Action: New Order Fluticasone Propion/Salmeterol (Wixela 250-50 Inhub) 1 Each Blst.w.dev, 1 EACH IH DAILY, (Reported) Entered as Reported by: HERRERA MORENO on 12/13/2149 Last Action: New Order Fluticasone Propionate (Fluticasone Propionate) 16 Gm Pearl.susp, 50 MCG NSEACH DAILY, (Reported) Entered as Reported by: HERRERA MORENO on 12/13/2149 Last Action: New Order Garlic (Garlic) 1,000 Mg Capsule, 1,000 MG PO DAILY, (Reported) Entered as Reported by: HERRERA MORENO on 12/13/2149 Last Action: New Order Loratadine (Loratadine) 10 Mg Tab.rapdis, 10 MG PO DAILY, (Reported) Entered as Reported by: HERRERA MORENO on 12/13/2149 Last Action: New Order Losartan Potassium (Losartan Potassium) 50 Mg Tablet, 50 MG PO DAILY, (Reported) Entered as Reported by: HERRERA MORENO on 12/13/2149 Last Action: New Order Meloxicam, Submicronized (Meloxicam) 10 Mg Capsule, 15 MG PO DAILY, (Reported) Entered as Reported by: HERRERA MORENO on 12/13/2149 Last Action: New Order Montelukast Sodium (Montelukast Sodium) 10 Mg Tablet, 10 MG PO HS, (Reported) Entered as Reported by: HERRERA MORENO on 12/13/2149 Last Action: New Order Multivitamin with Folic Acid (One Daily Multivitamin Tablet) 400 Mcg Tablet, 400 MCG PO DAILY, (Reported) Entered as Reported by: HERRERA MORENO on 12/13/2149 Last Action: New Order [place]-3 Fatty Acids/Fish Oil ([place] 3 1,000 mg Softgel) 1 Each Capsule, 1 EACH PO DAILY, (Reported) Entered as Reported by: HERRERA MORENO on 12/13/2149 Last Action: New Order Tiotropium Babcock (Spiriva Respimat 2.5MCG/ACTUATION) 4 Gm Mist.inhal, 2 PUFF IH BID, (Reported) Entered as Reported by: HERRERA MORENO on 12/13/2149 Last Action: New Order Verapamil HCl (Verapamil HCl) 120 Mg Tablet, 120 MG PO DAILY, (Reported) Entered as Reported by: HERRERA MORENO on 12/13/2149 Last Action: New Order Vortioxetine Hydrobromide (Trintellix) 10 Mg Tablet, 10 MG PO DAILY, (Reported) Entered as Reported by: HERRERA MORENO on 12/13/21 0050 Last Action: New Order Past Wvnquaq-Gqsnop-Smgqrp Hx Patient Social History Smoking Status: Former Smoker Alcohol Use?: No Have you traveled recently?: No Immunizations Up To Date Date of Influenza Vaccine: Oct 13, 2021 Respiratory History of Respiratory Disorde: Yes Respiratory Disorders: Pneumonia (Covid), COPD Cardiovascular History of Cardiac Disorders: Yes Cardiac Disorders: Hypertension Gastrointestinal History of Gastrointestinal Di: Yes (shrapnel in abdomen from [place]) Family Medical History Significant Family History: No Pertinent Family Hx (unable to obtain from pt, unsure) Review of Systems-General ROS-Unable to Obtain: pt not answering questions Respiratory: short of breath Cardiovascular: No chest pain Gastrointestinal: abdominal pain Physical Exam-General Problems Physical Exam Vital Signs Vital Signs - First Documented 12/13/21 00:00 Temp 35.8 Pulse 100 Resp 18 B/P (MAP) 157/86 Pulse Ox 94 O2 Delivery NIV Bilevel O2 Flow Rate 80.00 FiO2 80 Capillary Refill : Less Than 3 Seconds General Appearance: severe distress Eyes: Bilateral Eye PERRL, Bilateral Eye EOMI HEENT: No scleral icterus (R), No scleral icterus (L); other (mucous membranes dry, pt on BiPap) Neck: non-tender, supple Respiratory: respiratory distress, decreased breath sounds, accessory muscle use, crackles, wheezing Cardiovascular: no murmur, tachycardia Gastrointestinal: distended, guarding (involuntary), tenderness (diffusely to light touch) Extremities: no pedal edema, no calf tenderness Neurologic/Psychiatric: disoriented x 3 Skin: normal color, warm/dry Lymphatic: no adenopathy (neck, axilla or groin) Data Review Labs Laboratory Tests 12/13/21 00:15: Urine Color YELLOW, Urine Clarity CLEAR, Urine pH 5.5, Urine Specific [place] >=1.030, Urine Protein 1+H, Urine Glucose (UA) NEGATIVE, Urine Ketones NEGATIVE, Urine Nitrite NEGATIVE, Urine Bilirubin NEGATIVE, Urine Urobilinogen 2.0, Urine Leukocyte Esterase NEGATIVE, Urine RBC (Auto) NEGATIVE, Urine RBC NONE, Urine WBC 2-5, Urine Crystals NONE, Urine Bacteria FEWH, Urine Casts PRESENT, Urine Hyaline Casts 0-2H, Urine Mucus NEGATIVE, Urine Culture Indicated YES 12/13/21 00:24: Blood Gas Puncture Site RIGHT RADIAL, Blood Gas Patient Temperature 35.8, Arterial Blood pH 7.38, Arterial Blood Partial Pressure CO2 32L, Arterial Blood Partial Pressure O2 86, Arterial Blood HCO3 19L, Arterial Blood Total CO2 20.1L, Arterial Blood Oxygen Saturation 97, Arterial Blood Base Excess -5.4L, Mikhail Test YES-POS, Blood Gas Ventilator Setting NO, Blood Gas Inspired Oxygen 80% BIPAP 12/13/21 04:44: Phosphorus Level 3.6, Magnesium Level 2.1 12/13/21 04:45: White Blood Count 9.4, Red Blood Count 5.31, Hemoglobin 15.6, Hematocrit 47, Mean Corpuscular Volume 89, Mean Corpuscular Hemoglobin 29, Mean Corpuscular Hemoglobin Concent 33, Red Cell Distribution Width 12.8, Platelet Count 397, Mean Platelet Volume 10.5, Immature Granulocyte % (Auto) 2, Neutrophils (%) (Auto) 91H, Lymphocytes (%) (Auto) 4L, Monocytes (%) (Auto) 3, Eosinophils (%) (Auto) 0, Basophils (%) (Auto) 1, Neutrophils # (Auto) 8.5H, Lymphocytes # (Auto) 0.3L, Monocytes # (Auto) 0.3, Eosinophils # (Auto) 0.0, Basophils # (Auto) 0.1, Immature Granulocyte # (Auto) 0.1, Neutrophils % (Manual) 86, Lymphocytes % (Manual) 4, Monocytes % (Manual) 2, Band Neutrophils 6, Nucleated Red Blood Cells 1, Reactive Lymphocytes , Blood Morphology Comment NORMAL 12/13/21 04:55: Sodium Level 140, Potassium Level 5.2H, Chloride Level 111H, Carbon Dioxide Level 14L, Anion Gap 15H, Blood Urea Nitrogen 32H, Creatinine 1.33H, Estimat Glomerular Filtration Rate 54, BUN/Creatinine Ratio 24, Glucose Level 182H, Calcium Level 8.3L, Corrected Calcium 9.0, Total Bilirubin 2.3H, Aspartate Amino Transf (AST/SGOT) 32, Alanine Aminotransferase (ALT/SGPT) 39, Alkaline Phosphatase 57, Total Protein 6.7, Albumin 3.1L 12/13/21 11:22: Glucometer 165H 12/13/21 13:00: Sodium Level 139, Potassium Level 5.1H, Chloride Level 112H, Carbon Dioxide Lev el 14L, Anion Gap 13, Blood Urea Nitrogen 33H, Creatinine 1.25, Estimat Glomerular Filtration Rate 59, BUN/Creatinine Ratio 26, Glucose Level 176H, Calcium Level 8.1L Assessment/Plan Assessment/Plan Assessment/Plan Pneumoperitoneum - unknown source Respiratory Failure secondary to Covid-19 HTN I reviewed the CT's from [place], he actually had free air with first CT on 12/10; but CT from 12/12 now shows free fluid, free air and inflammation around small bowel. He also has radiolucent objects in abdomen, most likely the shrapnel was talking about. I had long discussion with and sister of pt, who then spoke to one of his sons. My concern is that he has diffuse peritonitis and even though his WBC is normal, he has something very bad going on in his abdomen. Bad enough that I think it could cause ; of course, I can't be sure but in my medical opinion he needs surgery to correct this. Unfortunately, this will be complicated by the fact that he has Covid and his lungs look much worse in just 2 days. He will almost certainly go back to ICU on ventilator and then may not ever come off. It is also highly likely he may from the Covid-19. stated she understood and son had said to go through with surgery (this is even in the face of fact that family/children did not want him intubated). We will get consent for Exploratory Laparotomy and all other indicated procedures. I went over other risks and complications with including but not limited to pain, bleeding, infection, scar, damage to bowel and even Ostomy. All questions answered to her satisfaction. Clinical Quality Measures DVT/VTE Risk/Contraindication: Contraindications-Pharm: Other *list below* Other: needs OR for bowel perforation GEMA GOODMAN DO Dec 13, 2021 14:31
[2021-12-13] MEDS: NS IV 1000 ML 1,000 ML IV PRN ×2 (14:58→16:08)
[2021-12-13] MEDS ORDERED: HYDROmorphone 2 MG/ML VIAL (DILAUDID) ONE ×2 (16:05→16:42)
[2021-12-13] MEDS ORDERED: ISOFLURANE (FORANE) 15 ML/15 MIN INHALATION ONE (16:25)
[2021-12-13] MEDS ORDERED: ROCURONIUM 50 MG/5 ML (ZEMURON) VIAL IV ONE (16:43)
[2021-12-13] MEDS ORDERED: HYDROmorphone 2 MG/ML VIAL (DILAUDID) IV ONE (17:30)
--- NOTE | 2021-12-13 17:33 | Progress Note-Post Operative ---
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
--- NOTE | 2021-12-13 17:43 | Progress Note-Post Operative ---
Post-Operative Progess Note Surgeon (s)/Decker Operator (s) Surgeon GEMA GOODMAN DO Decker Operator: none Pre-Operative Diagnosis Venous insufficiency Post-Operative Diagnosis same Procedure & Operative Findings Date of Procedure 12/13/21 Procedure Performed/Findings Central line placent The patient was in the OR on the table, was prepped and draped in a sterile fashion. A surgical pause was performed. Ultrasound was used to locate the Left internal jugular vein. Once located an 18 gauge finder needle was advanced and watched with the US; the left internal jugular vein was accessed. Dark nonpulsatile blood was withdrawn. The wire was inserted and checked with US could see the wire in the IJ. The needle was removed. A [#11] blade scalpel was used to make a stab incision along the guidewire. Dilator sheath was then advanced over the wire using Seldinger technique and the dilator was removed. The [place]ong catheter was inserted over the guide wire using the Seldinger technique. The [place] wire was removed. The catheter was then accessed in all three ports without difficulty. Good flash of blood was seen and it was then flushed with saline. The catheter was sutured in place with 3-0 silk on a karla needle. The areas were then washed and dried. Sterile dressing was placed over incision. The patient tolerated the procedure well without complication. Anesthesia Type Intubated in OR Estimated Blood Loss Estimated blood loss (mL): scant Specimens/Packing Specimens Removed none GEMA GOODMAN DO Dec 13, 2021 17:42
[2021-12-13] MEDS ORDERED: DexMEDEtomidine 250 ML DRIP 250 ML IV ONE (18:20)
[2021-12-13] MEDS ORDERED: fentaNYL DRIP PRE-MIX 250 ML IV ONE (18:20)
[2021-12-13] MEDS: fentaNYL DRIP PRE-MIX 250 ML IV SCH (18:27)
[2021-12-13] MEDS: DexMEDEtomidine 250 ML DRIP 250 ML IV SCH (18:27)
--- NOTE | 2021-12-13 18:40 | Diagnostic Imaging Report ---
INDICATION: Covid pneumonia, central line placement. COMPARISON: Imaging from the same date. TECHNIQUE: Two frontal radiographs of the chest were obtained dated December 13, 2021. FINDINGS: Interval placement of an endotracheal tube with the distal tip overlying the tracheal air column above the level of the bessy. Interval placement of a left IJ central venous catheter with the distal tip overlying the expected location of the mid aspect of the superior vena cava. Interval placement of an enteric catheter, which extends into the upper abdomen. The cardiac silhouette is stable. Patchy bilateral pulmonary opacities are again identified, greatest within the lung bases. No pneumothorax. Osseous structures appear stable. IMPRESSION: 1. Interval placement of endotracheal tube, enteric catheter and left IJ central venous catheter, as described above. 2. Persistent pulmonary infiltrates. Dictated by: Dictated on workstation # [id number]
[2021-12-13 18:59] LABS: ABG BASE EXCESS -7.9 MMOL/L (-2.5-2.5); ABG OXYGEN SATURATION 93 % (94-100); ABG PCO2 48 MMHG (35-45); ABG PO2 81 MMHG (79-93)
[2021-12-13 19:01] LABS: ABG PH 7.21 (7.37-7.43)
[2021-12-13 19:02] LABS: INSPIRED O2 80%; PATIENT TEMP 99.1; VENTILATOR NO
--- NOTE | 2021-12-13 19:35 | Tele-ICU Progress Note ---
Progress Note Pt with COVID pneumonia , bilateral infiltrtaes. Post OP underwent SB resection of SB perforation s/p Exp Lap. and abdominal wash out. Nurse called to review ABG. Reviewed. RR increased to 18 as Pt is not breathing over the vent , sedated to RASS -3 LACTIC ACID AND REPEAT ABG FOR 10 PM ORDERED AND D/W THE BEDSIDE NURSE. Interventions Minor-Other: Resp and metabolic acidosis post OP Focused Exam Height, Weight, BMI Height: '" Weight: lbs. oz. kg; 33.35 BMI Method: RADHA STYLES MD Dec 13, 2021 19:35
[2021-12-13] MEDS ORDERED: NOREPINEPHRINE 8 MG/250 ML 250 ML IV ONE (21:30)
[2021-12-13] MEDS ORDERED: LACTATED RINGERS 1,000 ML IV ONE (21:30)
--- NOTE | 2021-12-13 21:42 | Tele-ICU Progress Note ---
Progress Note Called by the nurse with Hypotension. Chart reviewed, Pt septic post OP , 500 ml LR x 1 ordered and Levophed ordered to maintain SBP 90 mmhg. Pt with coviod pneumonia , CXR reviewed - Patchy bilateral infiltrates, Interventions Major-Hypotension - evaluation and management Will give 1 L total. Focused Exam Lactate Level 12/13/21 20:14: Lactic Acid Level 1.45 Height, Weight, BMI Height: '" Weight: lbs. oz. kg; 33.35 BMI Method: Lactic Acid Level Laboratory Tests Test 12/13/21 20:14 Lactic Acid Level 1.45 MMOL/L (0.50-2.00) RADHA STYLES MD Dec 13, 2021 21:42
[2021-12-13] MEDS: LACTATED RINGERS 1,000 ML IV SCH ×3 (21:46→23:45)
--- NOTE | 2021-12-13 22:04 | OPERATIVE REPORT ---
DATE OF SERVICE: 12/13/2021 PREOPERATIVE DIAGNOSES: Pneumoperitoneum, COVID-19 respiratory failure. POSTOPERATIVE DIAGNOSES: 1. Perforated small bowel jejunum. 2. Small bowel diverticula. 3. COVID-19 respiratory failure. SURGEON: Gema Craig, LEGAL RECOVERY SPECIALIST: Stephan Guadalupe MS4. PROCEDURE: Exploratory laparotomy with small bowel resection and abdominal washout. BLOOD LOSS: Approximately 100 mL. ANESTHESIA: General endotracheal tube. SPECIMEN: Portion of small bowel. INDICATION FOR PROCEDURE: The patient is a 81-year-old male, who had increasing abdominal pain, peritonitis. CT showed pneumoperitoneum. He also had COVID-19 respiratory failure. FINDINGS: The patient had a very large amount of contamination in the abdomen, some bile, some looked purulent and found to have a hole in the small bowel, it was in the jejunum just about 40 cm past the ligament of Treitz. He had a lot of the small bowel diverticula as well. PROCEDURE NOTE: After informed consent was obtained from the , the patient was brought to the operating room, placed on the operating table in supine position. He was sterilely prepped and draped in normal fashion. I made an incision in the midline with a #10 blade, carried down through the skin into subcutaneous tissue. This was started about 3 or 4 inches above the umbilicus, so the umbilicus carried down through the skin into subcutaneous tissue, then deepened down to subcutaneous tissue with Bovie electrocautery down to the fascia. Fascia was then incised with a Bovie electrocautery and then bluntly entered the abdomen, increased the incision. There was some omentum underneath here. Once we moved the omentum out away and immediately got what looked like purulent yellowish fluid. At this point, then elected to increase the incision superiorly and inferiorly going up to below the xiphoid and then down just past the umbilicus with a Bovie electrocautery going through the skin and subcutaneous tissue and then fascia then elected to place the Omni retractor. Placed 4 Delgadillo retractors to hold the abdomen open pulled the omentum out of the way and then started suctioning out all of the fluid, it looked like it was purulent fluid as well as some bile staining found, there is some fibrinous material on the intestine as well, found the cecum and then started running the intestine almost had twisting the intestine found the perforation hole and then some necrotic looking or ischemic looking small intestine. Elected to go distal to this, made a defect in the mesentery with the Bovie electrocautery and then used a YESICA 55 clamped and fired transected, then went proximal to good portion of intestine, then made another defect in the mesentery and then another YESICA 55 clamped and fired and transected, then started taking this portion out coming across the mesentery with the LigaSure, clamping, coagulating and transecting in this fashion removing this. Once we did this, the intestine was kind of twisted around this area, able to pull this out and then by pulling this out, able to run started from the cecum running the terminal ileum back encountered some diverticula towards the end of the jejunum and then we found the area of resection noticed that this was then into the jejunum the proximal portion was right about 20 cm past the ligament of Treitz. There was no more holes. At this point, irrigated with 2 liters of warm normal saline, suctioned this out. Then, elected to create anastomosis, did a [id number] functional end-to-end anastomosis grasped the ends of the small bowel with Allises and then made a defect in the antimesenteric border of the small intestine with a Bovie electrocautery, then placed a YESICA 55 on either side on the antimesenteric border and then clamped together, held for 30 seconds. At this point, used a 3-0 Vicryl to throw crotch stitch to hold this in place and then fired thereby transecting creating a [id number] functional end-to-end anastomosis. Used a TA 60 to come across the enteroenterotomy to close this hole and then used a 3-0 Vicryl to close the mesenteric defect. At this point, then copiously irrigated with another 5 liters of warm normal saline until we get basically clear irrigated above the liver, right and left side in the stomach, made sure that the NG tube was down in the stomach. Ran the small bowel again did not find any further holes. There was still some fibrinous material and some bile staining, but it all looked good. It was laid nicely up in the abdomen and then down across the left and right side. At this point, then pulled the omentum down over this and then closed the midline incision, closing the fascia with #1 double stranded PDS suture running from superior portion to inferior portion tying to itself, then irrigated the midline incision, then closed the skin with raysa. Area was cleaned and dried, dressings placed and the patient then transferred back to ICU in stable condition. Sponge, instrument and needle count correct at the end of the case. Job ID: [id number] DocumentID: [id number] Dictated Date: 12/13/2021 17:38:58 Welt Rander Date: 12/13/2021 22:04:08 Dictated By: GEMA CRAIG DO
[2021-12-14 02:45] VITALS: BP 133/62
[2021-12-14] MEDS: LACTATED RINGERS 1,000 ML IV SCH ×11 (03:14→16:00)
[2021-12-14 03:48] LABS: ABG BASE EXCESS -6.5 MMOL/L (-2.5-2.5); ABG OXYGEN SATURATION 75 % (94-100); ABG PCO2 36 MMHG (35-45); ABG PO2 44 MMHG (79-93); ABG TCO2 19.4 MMOL/L (21.0-31.0); BASOPHILS # (AUTO) 0.1 10^3/uL (0.0-0.1); BASOPHILS % (AUTO) 1 % (0-10); EOSINOPHILS % (AUTO) 0 % (0-10); HEMATOCRIT 39 % (40-54); HEMOGLOBIN 12.7 g/dL (13.3-17.7); LYMPHOCYTES # (AUTO) 0.5 10^3/uL (1.0-4.0); LYMPHOCYTES % (AUTO) 4 % (12-44); MEAN CORPUSCULAR HEMOGLOBIN 30 pg (25-34); MEAN CORPUSCULAR HGB CONC 32 g/dL (32-36); MEAN CORPUSCULAR VOLUME 91 fL (80-99); MEAN PLATELET VOLUME 10.1 fL (9.0-12.2); MONOCYTES # (AUTO) 0.3 10^3/uL (0.0-1.0); MONOCYTES % (AUTO) 3 % (0-12); NEUTROPHILS # (AUTO) 9.5 10^3/uL (1.8-7.8); NEUTROPHILS % (AUTO) 91 % (42-75); PLATELET COUNT 370 10^3/uL (130-400); WHITE BLOOD COUNT 10.4 10^3/uL (4.3-11.0)
[2021-12-14 03:50] LABS: ALLENS TEST ARTLINE; INSPIRED O2 90%; VENTILATOR YES
[2021-12-14 03:51] LABS: ABG PH 7.33 (7.37-7.43)
[2021-12-14 04:02] LABS: ALBUMIN 2.3 GM/DL (3.2-4.5)
[2021-12-14 04:03] LABS: CALCIUM 7.4 MG/DL (8.5-10.1)
[2021-12-14 04:04] LABS: TOTAL PROTEIN 5.2 GM/DL (6.4-8.2)
[2021-12-14 04:06] LABS: BILIRUBIN,TOTAL 2.4 MG/DL (0.1-1.0)
[2021-12-14 04:07] LABS: PHOSPHORUS 3.1 MG/DL (2.3-4.7)
[2021-12-14 04:08] LABS: CREATININE SERUM 1.56 MG/DL (0.60-1.30)
[2021-12-14 04:11] LABS: MAGNESIUM 2.3 MG/DL (1.6-2.4)
[2021-12-14] MEDS: POTASSIUM CL 10MEQ/50ML IVPB 50 ML IV SCH (04:23)
[2021-12-14] MEDS: MAGNESIUM 1 GM/100 ML IVPB 100 ML IV SCH (04:24)
[2021-12-14] MEDS: KCL 20 MEQ TAB (K-DUR) PO SCH (04:24)
[2021-12-14 06:45] VITALS: BP 143/64
[2021-12-14] MEDS: UMECLIDINIUM BROMIDE (INCRUSE ELLIPTA) 7'S IH SCH (07:11)
[2021-12-14] MEDS: RT-ALBUTEROL HFA 8.5 GM INHALER IH SCH ×4 (07:12→22:39)
--- NOTE | 2021-12-14 07:34 | Diagnostic Imaging Report ---
INDICATION: Intubation. Comparison made with prior examination of 12/13/2021. FINDINGS: The heart size is normal. There is mild venous congestion. There are patchy bibasilar infiltrates. No pleural effusion or pneumothorax. The lines and tubes are in satisfactory position. IMPRESSION: Mild venous congestion with patchy bibasilar pulmonary infiltrates. Dictated by: Dictated on workstation # [id number]
[2021-12-14] MEDS ORDERED: PROPOFOL DRIP (ICU) 100 ML IV ONE (08:23)
[2021-12-14] MEDS: metroNIDAZOLE 500MG/100ML IVPB 100 ML IV SCH ×2 (08:25→21:13)
[2021-12-14] MEDS: PROPOFOL DRIP (ICU) 100 ML IV SCH ×3 (08:32→17:48)
[2021-12-14] MEDS: DexMEDEtomidine 250 ML DRIP 250 ML IV SCH (08:57)
[2021-12-14] MEDS: ACETAMINOPHEN 650 MG SUPP (TYLENOL) PR PRN ×3 (09:08→17:42)
[2021-12-14] MEDS ORDERED: NS IV 1000 ML 1,000 ML IV SCH (09:15)
[2021-12-14] MEDS: NOREPINEPHRINE 8 MG/250 ML 250 ML IV SCH (09:56)
--- NOTE | 2021-12-14 10:10 | Progress Note - Surgery ---
Subjective Time Seen by a Provider: 09:35 Subjective/Events-last exam Pt seen and examined, sedated and intubated Review of Systems unable to obtain, pt sedated and intubated Focused Exam Lactate Level 12/13/21 20:14: Lactic Acid Level 1.45 Objective Exam Vital Signs Date Time Temp Pulse Resp B/P (MAP) Pulse Ox O2 Delivery O2 Flow Rate FiO2 12/14/21 09:57 38.7 12/14/21 09:56 130 148/99 12/14/21 09:08 38.8 12/14/21 09:00 105 19 219/124 92 Mechanical Ventilator 90.00 12/14/21 08:57 79 89/53 12/14/21 08:32 79 89/53 12/14/21 08:00 36.5 12/14/21 08:00 75 19 150/54 97 Mechanical Ventilator 90.00 12/14/21 07:00 79 12/14/21 07:00 74 19 134/66 97 Mechanical Ventilator 90.00 12/14/21 06:00 75 18 134/61 97 Mechanical Ventilator 90.00 12/14/21 05:00 75 18 131/58 98 Mechanical Ventilator 90.00 12/14/21 04:00 36.9 12/14/21 04:00 75 18 126/55 96 Mechanical Ventilator 90.00 12/14/21 04:00 93 Mechanical Ventilator 100 12/14/21 03:15 75 18 96 Mechanical Ventilator 90.00 12/14/21 03:00 92 18 125/64 94 Mechanical Ventilator 100.00 12/14/21 02:45 74 16 98 100 12/14/21 02:00 71 18 112/54 98 Mechanical Ventilator 100.00 12/14/21 01:10 71 18 95/47 98 Mechanical Ventilator 100.00 12/14/21 01:04 73 18 100/52 97 Mechanical Ventilator 100.00 12/14/21 01:00 73 12/14/21 00:00 37.2 12/14/21 00:00 92 18 125/64 94 Mechanical Ventilator 100.00 12/13/21 23:59 93 Mechanical Ventilator 100 12/13/21 23:15 104 18 131/82 94 Mechanical Ventilator 100.00 12/13/21 23:00 90 18 100/59 91 Mechanical Ventilator 100.00 12/13/21 22:00 89 18 150/65 96 Mechanical Ventilator 100.00 12/13/21 21:49 72 23 96 100 12/13/21 21:45 84 97/54 12/13/21 21:15 90 18 109/69 93 Mechanical Ventilator 100.00 12/13/21 21:00 80 18 91/61 93 Mechanical Ventilator 100.00 12/13/21 20:57 83 92/53 12/13/21 20:00 93 Mechanical Ventilator 100 12/13/21 20:00 98 18 124/75 94 Mechanical Ventilator 100.00 12/13/21 19:13 99 16 94 100 12/13/21 19:00 100 18 108/60 93 Mechanical Ventilator 100.00 12/13/21 19:00 100 12/13/21 18:27 109 129/54 12/13/21 18:00 Mechanical Ventilator 12/13/21 18:00 110 15 93 Mechanical Ventilator 100.00 12/13/21 18:00 37.2 16 118/64 (82) 93 Mechanical Ventilator 12/13/21 17:54 Mechanical Ventilator 12/13/21 17:50 16 123/64 (83) 93 Mechanical Ventilator 12/13/21 17:49 Mechanical Ventilator 12/13/21 17:40 16 114/61 (78) 93 Mechanical Ventilator 12/13/21 17:39 Mechanical Ventilator 12/13/21 17:33 Mechanical Ventilator 12/13/21 17:30 16 115/69 (84) 93 Mechanical Ventilator 12/13/21 17:25 Mechanical Ventilator 12/13/21 17:20 16 112/61 (78) 93 Mechanical Ventilator 12/13/21 17:15 112 16 95 100 12/13/21 17:11 93 Mechanical Ventilator 100 12/13/21 17:10 37.5 16 122/52 (75) 95 Mechanical Ventilator 12/13/21 17:10 Mechanical Ventilator 12/13/21 14:30 98 28 94 80.00 12/13/21 14:00 95 25 144/74 93 NIV Bilevel 80.00 12/13/21 13:00 100 29 154/70 93 NIV Bilevel 80.00 12/13/21 12:46 99 12/13/21 12:00 91 19 148/78 93 NIV Bilevel 80.00 12/13/21 12:00 94 NIV Bilevel 80 12/13/21 12:00 37.6 12/13/21 11:00 96 32 142/89 94 NIV Bilevel 80.00 12/13/21 10:34 101 36 93 80.00 I & O 12/14/21 07:00 Intake Total 2000 ml Output Total 1375 ml Balance 625 ml Capillary Refill : Less Than 3 Seconds General Appearance: Obese, Other (sedated and intubated) Respiratory: Decreased Breath Sounds, Rhonci, Wheezing Cardiovascular: Tachycardia Gastrointestinal: soft, distended, other (incision c/d/i) Results Lab Laboratory Tests 12/13/21 11:22: Glucometer 165H 12/13/21 13:00: Sodium Level 139, Potassium Level 5.1H, Chloride Level 112H, Carbon Dioxide Level 14L, Anion Gap 13, Blood Urea Nitrogen 33H, Creatinine 1.25, Estimat Glomerular Filtration Rate 59, BUN/Creatinine Ratio 26, Glucose Level 176H, Calcium Level 8.1L 12/13/21 18:10: Glucometer 165H 12/13/21 18:37: Blood Gas Puncture Site NA, Blood Gas Patient Temperature 99.1, Arterial Blood pH 7.21*L, Arterial Blood Partial Pressure CO2 48H, Arterial Blood Partial Pressure O2 81, Arterial Blood HCO3 19L, Arterial Blood Total CO2 20.0L, Arterial Blood Oxygen Saturation 93L, Arterial Blood Base Excess -7.9L, Mikhail Test NA, Blood Gas Ventilator Setting NO, Blood Gas Inspired Oxygen 80% 12/13/21 20:14: Lactic Acid Level 1.45 12/14/21 03:37: White Blood Count 10.4, Red Blood Count 4.31, Hemoglobin 12.7L, Hematocrit 39L, Mean Corpuscular Volume 91, Mean Corpuscular Hemoglobin 30, Mean Corpuscular Hemoglobin Concent 32, Red Cell Distribution Width 13.3, Platelet Count 370, Mean Platelet Volume 10.1, Immature Granulocyte % (Auto) 1, Neutrophils (%) (Auto) 91H, Lymphocytes (%) (Auto) 4L, Monocytes (%) (Auto) 3, Eosinophils (%) (Auto) 0, Basophils (%) (Auto) 1, Neutrophils # (Auto) 9.5H, Lymphocytes # (Auto) 0.5L, Monocytes # (Auto) 0.3, Eosinophils # (Auto) 0.0, Basophils # (Auto) 0.1, Immature Granulocyte # (Auto) 0.1, Blood Gas Puncture Site ARTLINE, Blood Gas Patient Temperature 37.0, Arterial Blood pH 7.33*L, Arterial Blood Partial Pressure CO2 36, Arterial Blood Partial Pressure O2 44L, Arterial Blood HCO3 18L, Arterial Blood Total CO2 19.4L, Arterial Blood Oxygen Saturation 75L, Arterial Blood Base Excess -6.5L, Mikhail Test ARTLINE, Blood Gas Ventilator Setting YES, Blood Gas Inspired Oxygen 90%, Sodium Level 142, Potassium Level 5.0, Chloride Level 115H, Carbon Dioxide Level 15L, Anion Gap 12, Blood Urea Nitrogen 39H, Creatinine 1.56H, Estimat Glomerular Filtration Rate 45, BUN/Creatinine Ratio 25, Glucose Level 159H, Calcium Level 7.4L, Corrected Calcium 8.8, Phosphorus Level 3.1, Magnesium Level 2.3, Total Bilirubin 2.4H, Aspartate Amino Transf (AST/SGOT) 42H, Alanine Aminotransferase (ALT/SGPT) 42, Alkaline Phosphatase 51, Total Protein 5.2L, Albumin 2.3L Microbiology 12/13/21 MRSA Screen - Final, Complete MRSA not isolated Assessment/Plan Assessment/Plan Assessment/Plan S/P Ex Lap for perforated Jejunum Respiratory Failure secondary to Covid-19 HTN Pt is doing ok, but still on vent. O2 slightly down; will discuss with Critical care possibility of weaning parameters. [facility]. Clinical Quality Measures DVT/VTE Risk/Contraindication: Contraindications-Pharm: Other *list below* Other: needs OR for bowel perforation GEMA GOODMAN DO Dec 14, 2021 10:10
--- NOTE | 2021-12-14 10:23 | Tele-ICU Progress Note ---
Subjective Date Seen by a Provider: Dec 14, 2021 Time Seen by a Provider: 08:25 Subjective/Events-last exam This virtual visit was conducted using real time audio/video. Thank you for asking us to see this patient for respiratory insufficiency due to Covid pna complicated by jejunal perf. with subsequent ex lap. Recent events: Ex lap. 12/13. Hypotensive earlier w temp 101.8. One L NS bolus ordered. Latest BP 121/81 PE: Obese. Tachycardic. O2 sat 98% on 80%/+8. HEENT: No obvious masses, adenopathy or JVD. Chest: clear to auscultation. CV: Tachycardic. S1 S2 No murmur or added sounds. Abd: Non-tender. Bowel sounds Y. : Unremarkable. Baires Y. PAN SHOVER/psychiatric: Grossly intact. No obvious focal findings. Extremities: Trace edema. Capillary refill < 3 seconds. Skin: unremarkable. Results: Elevated BUN 39, Creat 1.56. Decreased HB 12.7, Albumin 2.3. B.33/36/44. CXR: B infilts. Available chart/ vitals / labs / images reviewed. Video assessment done using teleICU camera, rest of exam as per RN. A/P: Respiratory insufficiency: Continue present management with vent, Incruse, BDs, Fentanyl, Prec. Propofol added. Critical Care: critically ill patient. Cont. Dex., Levoquin, Flagyl. Reducing Levophed. Discussed with SUBHA Damian. Asked RN to reach out to eICU if any questions or concerns later. Time spent with patient/coordination of care with other health professionals (mins): 30 Sepsis Event Evaluation Height, Weight, BMI Height: '" Weight: lbs. oz. kg; 33.35 BMI Method: Focused Exam Lactate Level 12/13/21 20:14: Lactic Acid Level 1.45 Exam Exam Patient acknowledged, consented, and participated in this virtual visit which was conducted using real time audio/video Vital Signs Date Time Temp Pulse Resp B/P (MAP) Pulse Ox O2 Delivery O2 Flow Rate FiO2 12/14/21 09:57 38.7 12/14/21 09:56 130 148/99 12/14/21 09:08 38.8 12/14/21 09:00 105 19 219/124 92 Mechanical Ventilator 90.00 12/14/21 08:57 79 89/53 12/14/21 08:32 79 89/53 12/14/21 08:00 36.5 12/14/21 08:00 75 19 150/54 97 Mechanical Ventilator 90.00 12/14/21 07:00 79 12/14/21 07:00 74 19 134/66 97 Mechanical Ventilator 90.00 12/14/21 06:00 75 18 134/61 97 Mechanical Ventilator 90.00 12/14/21 05:00 75 18 131/58 98 Mechanical Ventilator 90.00 12/14/21 04:00 36.9 12/14/21 04:00 75 18 126/55 96 Mechanical Ventilator 90.00 12/14/21 04:00 93 Mechanical Ventilator 100 12/14/21 03:15 75 18 96 Mechanical Ventilator 90.00 12/14/21 03:00 92 18 125/64 94 Mechanical Ventilator 100.00 12/14/21 02:45 74 16 98 100 12/14/21 02:00 71 18 112/54 98 Mechanical Ventilator 100.00 12/14/21 01:10 71 18 95/47 98 Mechanical Ventilator 100.00 12/14/21 01:04 73 18 100/52 97 Mechanical Ventilator 100.00 12/14/21 01:00 73 12/14/21 00:00 37.2 12/14/21 00:00 92 18 125/64 94 Mechanical Ventilator 100.00 12/13/21 23:59 93 Mechanical Ventilator 100 12/13/21 23:15 104 18 131/82 94 Mechanical Ventilator 100.00 12/13/21 23:00 90 18 100/59 91 Mechanical Ventilator 100.00 12/13/21 22:00 89 18 150/65 96 Mechanical Ventilator 100.00 12/13/21 21:49 72 23 96 100 12/13/21 21:45 84 97/54 12/13/21 21:15 90 18 109/69 93 Mechanical Ventilator 100.00 12/13/21 21:00 80 18 91/61 93 Mechanical Ventilator 100.00 12/13/21 20:57 83 92/53 12/13/21 20:00 93 Mechanical Ventilator 100 12/13/21 20:00 98 18 124/75 94 Mechanical Ventilator 100.00 12/13/21 19:13 99 16 94 100 12/13/21 19:00 100 18 108/60 93 Mechanical Ventilator 100.00 12/13/21 19:00 100 12/13/21 18:27 109 129/54 12/13/21 18:00 Mechanical Ventilator 12/13/21 18:00 110 15 93 Mechanical Ventilator 100.00 12/13/21 18:00 37.2 16 118/64 (82) 93 Mechanical Ventilator 12/13/21 17:54 Mechanical Ventilator 12/13/21 17:50 16 123/64 (83) 93 Mechanical Ventilator 12/13/21 17:49 Mechanical Ventilator 12/13/21 17:40 16 114/61 (78) 93 Mechanical Ventilator 12/13/21 17:39 Mechanical Ventilator 12/13/21 17:33 Mechanical Ventilator 12/13/21 17:30 16 115/69 (84) 93 Mechanical Ventilator 12/13/21 17:25 Mechanical Ventilator 12/13/21 17:20 16 112/61 (78) 93 Mechanical Ventilator 12/13/21 17:15 112 16 95 100 12/13/21 17:11 93 Mechanical Ventilator 100 12/13/21 17:10 37.5 16 122/52 (75) 95 Mechanical Ventilator 12/13/21 17:10 Mechanical Ventilator 12/13/21 14:30 98 28 94 80.00 12/13/21 14:00 95 25 144/74 93 NIV Bilevel 80.00 12/13/21 13:00 100 29 154/70 93 NIV Bilevel 80.00 12/13/21 12:46 99 12/13/21 12:00 91 19 148/78 93 NIV Bilevel 80.00 12/13/21 12:00 94 NIV Bilevel 80 12/13/21 12:00 37.6 12/13/21 11:00 96 32 142/89 94 NIV Bilevel 80.00 12/13/21 10:34 101 36 93 80.00 I & O 12/14/21 06:59 Intake Total 2000 ml Output Total 1375 ml Balance 625 ml Height & Weight Height: '" Weight: lbs. oz. kg; 33.35 BMI Method: General Appearance: Obese, Other (sedated and intubated) Respiratory: Decreased Breath Sounds, Rhonci, Wheezing Cardiovascular: Tachycardia Capillary Refill: Less Than 3 Seconds Gastrointestinal: soft, distended, other (incision c/d/i) Results Lab Laboratory Tests 12/13/21 04:45 12/13/21 04:55 12/13/21 13:00 12/14/21 03:37 Assessment/Plan Assessment/Plan See free text. Critical Care: Ventilator Management CAS HURTADO MD Dec 14, 2021 10:23
[2021-12-14] MEDS: NS IV 1000 ML 1,000 ML IV SCH ×2 (10:40→16:50)
[2021-12-14 11:04] VITALS: BP 149/73
[2021-12-14] MEDS ORDERED: DIGOXIN 0.25 MG/ML (LANOXIN) 2 ML AMP IV NR (12:00)
[2021-12-14] MEDS: dilTIAZem DRIP PRE-MIX 125 ML IV SCH (12:08)
--- NOTE | 2021-12-14 13:17 | Consultation-Cardiology ---
HPI-Cardiology Cardiology Consultation: Date of Consultation 12/14/21 Time Seen by a Provider: 12:50 Date of Admission 12-12-21 Attending Physician Doris Tate MD Admitting Physician Gasper Ernst Consulting Physician Loc Fatima MD HPI: Chief Complaint: New onset a-fib with RVR Mr. Hendrix is a 81 yr old male admitted to ICU 5. He is currently intubated and sedated. Information has been obtained via chart review and discussion with nursing. [place] [facility] and COVID +. He underwent exp lap with small bowel resection d/t small bowel perf by Dr. Craig. He has a fever. He converted to a-fib with RVR. Per nursing staff they spoke with the spouse and she reported no known h/o a-fib, but he has been seen by Dr. Ireland in the past for cardiac testing. Details unknown. Review of Systems-Cardiology Review of Systems Other comments Unable to obtain d/t intubation and sedation LHN-Comrab-Caazsn Hx Patient Social History Marrital Status: Employed/Student: retired Smoking Status: Former Smoker Have you traveled recently?: No Alcohol Use?: No Pt feels they are or have been: No Tobacco type used: Cigarettes Immunizations Up To Date Date of Influenza Vaccine: Oct 13, 2021 Past Medical History PMH As described under Assessment. Family Medical History Family Medical History: Unable to obtain d/t intubation and sedation Allergies and Home Medications Allergies Coded Allergies: Penicillins (Unverified Allergy, Intermediate, ITCHING, 12/14/19) Patient Home Medication List Home Medication List Reviewed: Yes Albuterol Sulfate (Proair Hfa) 1 Puff Puff, 2 PUFF IH Q4H, (Reported) Entered as Reported by: HERRERA MORENO on 12/13/2149 Last Action: New Order Aspirin (Aspirin) 81 Mg Tab.chew, 81 MG PO HS, (Reported) Entered as Reported by: HERRERA MORENO on 12/13/2149 Last Action: New Order Buspirone HCl (Buspirone HCl) 10 Mg Tablet, 10 MG PO BID, (Reported) Entered as Reported by: HERRERA MORENO on 12/13/2149 Last Action: New Order Fluticasone Propion/Salmeterol ([place] 250-50 Inhub) 1 Each Blst.w.dev, 1 EACH IH DAILY, (Reported) Entered as Reported by: HERRERA MORENO on 12/13/2149 Last Action: New Order Fluticasone Propionate (Fluticasone Propionate) 16 Gm [place].susp, 50 MCG NSEACH DAILY, (Reported) Entered as Reported by: HERRERA MORENO on 12/13/2149 Last Action: New Order Garlic (Garlic) 1,000 Mg Capsule, 1,000 MG PO DAILY, (Reported) Entered as Reported by: HERRERA MORENO on 12/13/2149 Last Action: New Order Loratadine (Loratadine) 10 Mg Tab.rapdis, 10 MG PO DAILY, (Reported) Entered as Reported by: HERRERA MORENO on 12/13/2149 Last Action: New Order Losartan Potassium (Losartan Potassium) 50 Mg Tablet, 50 MG PO DAILY, (Reported) Entered as Reported by: HERRERA MORENO on 12/13/2149 Last Action: New Order Meloxicam, Submicronized (Meloxicam) 10 Mg Capsule, 15 MG PO DAILY, (Reported) Entered as Reported by: HERRERA MORENO on 12/13/2149 Last Action: New Order Montelukast Sodium (Montelukast Sodium) 10 Mg Tablet, 10 MG PO HS, (Reported) Entered as Reported by: HERRERA MORENO on 12/13/2149 Last Action: New Order Multivitamin with Folic Acid (One Daily Multivitamin Tablet) 400 Mcg Tablet, 400 MCG PO DAILY, (Reported) Entered as Reported by: HERRERA MORENO on 12/13/2149 Last Action: New Order [place]-3 Fatty Acids/Fish Oil ([place] 3 1,000 mg Softgel) 1 Each Capsule, 1 EACH PO DAILY, (Reported) Entered as Reported by: HERRERA MORENO on 12/13/2149 Last Action: New Order Tiotropium [place] (Spiriva Respimat 2.5MCG/ACTUATION) 4 Gm Mist.inhal, 2 PUFF IH BID, (Reported) Entered as Reported by: HERRERA MORENO on 12/13/2149 Last Action: New Order Verapamil HCl (Verapamil HCl) 120 Mg Tablet, 120 MG PO DAILY, (Reported) Entered as Reported by: HERRERA MORENO on 12/13/2149 Last Action: New Order Vortioxetine Hydrobromide (Trintellix) 10 Mg Tablet, 10 MG PO DAILY, (Reported) Entered as Reported by: HERRERA MORENO on 12/13/2149 Last Action: New Order Physical Exam-Cardiology Physical Exam Vital Signs/I&O 12/14/21 12/14/21 12/14/21 12/14/21 21:30 22:00 22:39 22:45 Temp 38.4 38.4 38.2 Pulse 70 69 Resp 18 17 16 B/P (MAP) 150/73 157/68 Pulse Ox 100 100 100 O2 Delivery Mechanical Ventilator Mechanical Ventilator O2 Flow Rate 100.00 60.00 FiO2 100 12/14/21 12/14/21 12/14/21 12/15/21 22:50 23:00 23:59 00:00 Temp 38.0 38.0 37.4 Pulse 70 Resp 18 B/P (MAP) 158/71 Pulse Ox 99 93 O2 Delivery Mechanical Ventilator Mechanical Ventilator Mechanical Ventilator O2 Flow Rate 60.00 60.00 FiO2 60 12/15/21 12/15/21 12/15/21 12/15/21 00:00 01:00 01:00 01:30 Temp 37.8 37.7 37.7 Pulse 67 65 65 Resp 18 18 B/P (MAP) 156/74 154/70 Pulse Ox 100 100 O2 Delivery Mechanical Ventilator Mechanical Ventilator O2 Flow Rate 60.00 60.00 12/15/21 12/15/21 12/15/21 12/15/21 02:00 02:31 03:00 04:00 Temp 37.7 37.6 37.6 Pulse 63 62 63 62 Resp 18 17 18 18 B/P (MAP) 140/70 144/69 133/68 Pulse Ox 100 100 98 99 O2 Delivery Mechanical Ventilator Mechanical Ventilator Mechanical Ventilator O2 Flow Rate 60.00 60.00 50.00 FiO2 60 12/15/21 12/15/21 12/15/21 12/15/21 04:00 04:00 04:23 04:24 Temp 37.7 Pulse 62 62 B/P (MAP) 143/70 143/70 Pulse Ox 93 O2 Delivery Mechanical Ventilator O2 Flow Rate 50.00 FiO2 50 12/15/21 12/15/21 12/15/21 12/15/21 04:25 04:55 05:00 06:00 Temp 37.7 37.2 37.6 37.4 Pulse 60 58 Resp 18 18 B/P (MAP) 134/64 141/64 Pulse Ox 99 99 O2 Delivery Mechanical Ventilator Mechanical Ventilator O2 Flow Rate 50.00 50.00 12/15/21 12/15/21 12/15/21 06:09 06:12 07:39 Temp 37.3 Pulse 87 54 Resp 16 B/P (MAP) 145/78 Pulse Ox 99 FiO2 40 12/15/21 00:00 Intake Total 0 ml Output Total 1000 ml Balance -1000 ml Capillary Refill : Less Than 3 Seconds Constitutional: No AAO x 3; well-developed, well-nourished, other (sedated) Neck: No carotid bruit; carotid pulses are 2 + bilaterally Respiratory: No accessory muscle use, No respiratory distress; chest expansion is symmetric, chest is bilaterally symmetric, other (fair air entry; intubated) Cardiovascular: irregularly irregular; No JVD; S1 and S2 Gastrointestinal: No audible bowel sounds; other (s/p abdominal surgery; dressing in place which is D&I) Extremities: no lower extremity edema bilateral Neurologic/Psychiatric: other (unable to assess d/t sedation) Skin: No rash on exposed areas, No ulcerations on exposed areas Data Review Labs Laboratory Tests 12/14/21 17:30: Glucometer 147H 12/15/21 04:50: White Blood Count 10.7, Red Blood Count 4.07L, Hemoglobin 12.0L, Hematocrit 38L, Mean Corpuscular Volume 93, Mean Corpuscular Hemoglobin 30, Mean Corpuscular Hemoglobin Concent 32, Red Cell Distribution Width 13.6, Platelet Count 318, Mean Platelet Volume 10.3, Immature Granulocyte % (Auto) 2, Neutrophils (%) (Auto) 84H, Lymphocytes (%) (Auto) 10L, Monocytes (%) (Auto) 4, Eosinophils (%) (Auto) 0, Basophils (%) (Auto) 0, Neutrophils # (Auto) 9.1H, Lymphocytes # (Auto) 1.0, Monocytes # (Auto) 0.4, Eosinophils # (Auto) 0.0, Basophils # (Auto) 0.0, Immature Granulocyte # (Auto) 0.2H, Sodium Level 145, Potassium Level 5.3H, Chloride Level 118H, Carbon Dioxide Level 15L, Anion Gap 12, Blood Urea Nitrogen 35H, Creatinine 1.35H, Estimat Glomerular Filtration Rate 53, BUN/Creatinine Ratio 26, Glucose Level 167H, Calcium Level 7.2L, Corrected Calcium 8.7, Phosph orus Level 3.6, Magnesium Level 2.8H, Total Bilirubin 1.8H, Aspartate Amino Transf (AST/SGOT) 35H, Alanine Aminotransferase (ALT/SGPT) 33, Alkaline Phosphatase 51, Total Protein 5.4L, Albumin 2.1L 12/15/21 05:02: Blood Gas Puncture Site RIGHT RADIAL, Blood Gas Patient Temperature 37.2, Arterial Blood pH 7.31*L, Arterial Blood Partial Pressure CO2 34L, Arterial Blood Partial Pressure O2 68L, Arterial Blood HCO3 17*L, Arterial Blood Total CO2 17.7L, Arterial Blood Oxygen Saturation 94, Arterial Blood Base Excess -8.6L , Mikhail Test YES-POS, Blood Gas Ventilator Setting YES, Blood Gas Inspired Oxygen 50% Microbiology 12/13/21 MRSA Screen - Final, Complete MRSA not isolated 12/13/21 Urine Culture - Final, Complete NO GROWTH Radiology NAME: SAMANTHA HENDRIX [facility] REC#: [id number] PT STATUS: ADM IN : 1940 PHYSICIAN: CHRISTY HATHAWAY DO ADMIT DATE: 12/12/21/ICU Signed Date of Exam:12/14/21 CHEST 1 VIEW, AP/PA ONLY INDICATION: Intubation. Comparison made with prior examination of 12/13/2021. FINDINGS: The heart size is normal. There is mild venous congestion. There are patchy bibasilar infiltrates. No pleural effusion or pneumothorax. The lines and tubes are in satisfactory position. IMPRESSION: Mild venous congestion with patchy bibasilar pulmonary infiltrates. Dictated by: Dictated on workstation # [id number] Dict: 12/14/21727 Trans: 12/14/21923 CV [id number] Interpreted by: ARDEN DODSON MD Electronically signed by: ARDEN DODSON MD 12/14/21923 ECG Impression ECG Comment A-fib with RVR A/P-Cardiology Assessment/Admission Diagnosis New onset a-fib with RVR - first diagnosed on EKG of 12-14-21 - rate improved with Cardizem gtt - advise initiation of anticoagulation for stroke prophylaxis when ok from surgical stand point Abd pain - s/p bowel resection by Dr. Craig COVID (+) pneumonia - management per medical services/eICU Discussion and Recomendations New onset a-fib with RVR - rate controlled with IV Cardizem and Dig - continue Advise initiation of anticoagulation for stroke prophylaxis when ok with surgical services Request records from [facility], Dr. Ireland Monitor lab closely Replace electrolytes as indicated Management of COVID (+) pneumonia per medical/eICU services We would like to thank medical services for this consult Clinical Quality Measures DVT/VTE Risk/Contraindication: Contraindications-Pharm: Other *list below* Other: needs OR for bowel perforation ELLIS BARRETT Dec 14, 2021 13:17
[2021-12-14] MEDS: fentaNYL DRIP PRE-MIX 250 ML IV SCH ×2 (13:26→22:30)
--- NOTE | 2021-12-14 15:13 | Consultation-Cardiology ---
HPI-Cardiology Cardiology Consultation: Date of Consultation 12/14/21 Time Seen by a Provider: 13:30 Date of Admission Attending Physician Doris Tate MD Admitting Physician Gasper Ernst Consulting Physician SHAYAN MONACO MD, FACP, [facility] HPI: Chief Complaint: New onset a-fib with RVR Mr. Garcia is a 81 yr old male admitted to ICU 5. He is currently intubated and sedated. Information has been obtained via chart review and discussion with nursing. He presented to [facility] [place] with abd pain and COVID +. He underwent exp lap with small bowel resection d/t small bowel perf by Dr. Craig. He has a fever. He converted to a-fib with RVR. Per nursing staff they spoke with the spouse and she reported no known h/o a-fib, but he has been seen by Dr. Ireland in the past for cardiac testing. Details unknown. NDX-[id number]-Xybuvp Hx Patient Social History Marrital Status: Employed/Student: retired Smoking Status: Former Smoker Have you traveled recently?: No Alcohol Use?: No Pt feels they are or have been: No Tobacco type used: Cigarettes Immunizations Up To Date Date of Influenza Vaccine: Oct 13, 2021 Past Medical History PMH As described under Assessment. Family Medical History Family Medical History: Unable to obtain d/t intubation and sedation Allergies and Home Medications Allergies Coded Allergies: Penicillins (Unverified Allergy, Intermediate, ITCHING, 12/14/19) Patient Home Medication List Home Medication List Reviewed: Yes Albuterol Sulfate (Proair Hfa) 1 Puff Puff, 2 PUFF IH Q4H, (Reported) Entered as Reported by: HERRERA MORENO on 12/13/2149 Last Action: New Order Aspirin (Aspirin) 81 Mg Tab.chew, 81 MG PO HS, (Reported) Entered as Reported by: HERRERA MORENO on 12/13/2149 Last Action: New Order Buspirone HCl (Buspirone HCl) 10 Mg Tablet, 10 MG PO BID, (Reported) Entered as Reported by: HERRERA MORENO on 12/13/2149 Last Action: New Order Fluticasone Propion/Salmeterol ([place] 250-50 Inhub) 1 Each Blst.w.dev, 1 EACH IH DAILY, (Reported) Entered as Reported by: HERRERA MORENO on 12/13/2149 Last Action: New Order Fluticasone Propionate (Fluticasone Propionate) 16 Gm [place].susp, 50 MCG NSEACH DAILY, (Reported) Entered as Reported by: HERRERA MORENO on 12/13/2149 Last Action: New Order Garlic (Garlic) 1,000 Mg Capsule, 1,000 MG PO DAILY, (Reported) Entered as Reported by: HERRERA MORENO on 12/13/2149 Last Action: New Order Loratadine (Loratadine) 10 Mg Tab.rapdis, 10 MG PO DAILY, (Reported) Entered as Reported by: HERRERA MORENO on 12/13/2149 Last Action: New Order Losartan Potassium (Losartan Potassium) 50 Mg Tablet, 50 MG PO DAILY, (Reported) Entered as Reported by: HERRERA MORENO on 12/13/2149 Last Action: New Order Meloxicam, Submicronized (Meloxicam) 10 Mg Capsule, 15 MG PO DAILY, (Reported) Entered as Reported by: HERRERA MORENO on 12/13/2149 Last Action: New Order Montelukast Sodium (Montelukast Sodium) 10 Mg Tablet, 10 MG PO HS, (Reported) Entered as Reported by: HERRERA MORENO on 12/13/2149 Last Action: New Order Multivitamin with Folic Acid (One Daily Multivitamin Tablet) 400 Mcg Tablet, 400 MCG PO DAILY, (Reported) Entered as Reported by: HERRERA MORENO on 12/13/2149 Last Action: New Order [place]-3 Fatty Acids/Fish Oil ([place] 3 1,000 mg Softgel) 1 Each Capsule, 1 EACH PO DAILY, (Reported) Entered as Reported by: HERRERA MORENO on 12/13/2149 Last Action: New Order Tiotropium [place] (Spiriva Respimat 2.5MCG/ACTUATION) 4 Gm Mist.inhal, 2 PUFF IH BID, (Reported) Entered as Reported by: HERRERA MORENO on 12/13/2149 Last Action: New Order Verapamil HCl (Verapamil HCl) 120 Mg Tablet, 120 MG PO DAILY, (Reported) Entered as Reported by: HERRERA MORENO on 12/13/2149 Last Action: New Order Vortioxetine Hydrobromide (Trintellix) 10 Mg Tablet, 10 MG PO DAILY, (Reported) Entered as Reported by: HERRERA MORENO on 12/13/2149 Last Action: New Order Physical Exam-Cardiology Physical Exam Vital Signs/I&O 12/14/21 12/14/21 12/14/21 12/14/21 03:15 04:00 04:00 04:00 Temp 36.9 Pulse 75 75 Resp 18 18 B/P (MAP) 126/55 Pulse Ox 96 93 96 O2 Delivery Mechanical Ventilator Mechanical Ventilator Mechanical Ventilator O2 Flow Rate 90.00 90.00 FiO2 100 12/14/21 12/14/21 12/14/21 12/14/21 05:00 06:00 07:00 07:00 Pulse 75 75 74 79 Resp 18 18 19 B/P (MAP) 131/58 134/61 134/66 Pulse Ox 98 97 97 O2 Delivery Mechanical Ventilator Mechanical Ventilator Mechanical Ventilator O2 Flow Rate 90.00 90.00 90.00 12/14/21 12/14/21 12/14/21 12/14/21 08:00 08:00 08:32 08:35 Temp 36.5 Pulse 75 79 Resp 19 B/P (MAP) 150/54 89/53 Pulse Ox 97 93 O2 Delivery Mechanical Ventilator Mechanical Ventilator O2 Flow Rate 90.00 FiO2 90 12/14/21 12/14/21 12/14/21 12/14/21 08:57 09:00 09:08 09:56 Temp 38.8 Pulse 79 105 130 Resp 19 B/P (MAP) 89/53 219/124 148/99 Pulse Ox 92 O2 Delivery Mechanical Ventilator O2 Flow Rate 90.00 12/14/21 12/14/21 12/14/21 12/14/21 09:57 10:00 11:00 11:04 Temp 38.7 Pulse 156 134 152 Resp 20 18 20 B/P (MAP) 154/82 121/96 Pulse Ox 95 96 96 O2 Delivery Mechanical Ventilator Mechanical Ventilator O2 Flow Rate 90.00 90.00 FiO2 70 12/14/21 12/14/21 12/14/21 12/14/21 12:00 12:00 12:36 12:48 Temp 39.5 Pulse 154 108 Resp 15 B/P (MAP) 107/62 Pulse Ox 94 93 O2 Delivery Mechanical Ventilator Mechanical Ventilator O2 Flow Rate 90.00 FiO2 70 12/14/21 12/14/21 12/14/21 13:00 13:12 13:22 Temp 39.7 Pulse 113 113 Resp 13 B/P (MAP) 123/73 117/53 Pulse Ox 94 O2 Delivery Mechanical Ventilator O2 Flow Rate 90.00 12/13/21 23:59 Intake Total 2000 ml Output Total 575 ml Balance 1425 ml Capillary Refill : Less Than 3 Seconds Constitutional: No AAO x 3; well-developed, well-nourished, other (sedated) Neck: No carotid bruit; carotid pulses are 2 + bilaterally Respiratory: No accessory muscle use, No respiratory distress; chest expansion is symmetric, chest is bilaterally symmetric, other (fair air entry; intubated) Cardiovascular: irregularly irregular; No JVD; S1 and S2 Gastrointestinal: No audible bowel sounds; other (s/p abdominal surgery; dressing in place which is D&I) Extremities: no lower extremity edema bilateral Neurologic/Psychiatric: other (unable to assess d/t sedation) Skin: No rash on exposed areas, No ulcerations on exposed areas Data Review Labs Laboratory Tests 12/13/21 18:10: Glucometer 165H 12/13/21 18:37: Blood Gas Puncture Site NA, Blood Gas Patient Temperature 99.1, Arterial Blood pH 7.21*L, Arterial Blood Partial Pressure CO2 48H, Arterial Blood Partial Pressure O2 81, Arterial Blood HCO3 19L, Arterial Blood Total CO2 20.0L, Arterial Blood Oxygen Saturation 93L, Arterial Blood Base Excess -7.9L, Mikhail Test NA, Blood Gas Ventilator Setting NO, Blood Gas Inspired Oxygen 80% 12/13/21 20:14: Lactic Acid Level 1.45 12/14/21 03:37: Blood Gas Puncture Site ARTLINE, Blood Gas Patient Temperature 37.0, Arterial Blood pH 7.33*L, Arterial Blood Partial Pressure CO2 36, Arterial Blood Partial Pressure O2 44L, Arterial Blood HCO3 18L, Arterial Blood Total CO2 19.4L, Arterial Blood Oxygen Saturation 75L, Arterial Blood Base Excess -6.5L, Mikhail Test ARTLINE, Blood Gas Ventilator Setting YES, Blood Gas Inspired Oxygen 90%, White Blood Count 10.4, Red Blood Count 4.31, Hemoglobin 12.7L, Hematocrit 39L, Mean Corpuscular Volume 91, Mean Corpuscular Hemoglobin 30, Mean Corpuscular Hemoglobin Concent 32, Red Cell Distribution Width 13.3, Platelet Count 370, Mean Platelet Volume 10.1, Immature Granulocyte % (Auto) 1, Neutrophils (%) (Auto) 91H, Lymphocytes (%) (Auto) 4L, Monocytes (%) (Auto) 3, Eosinophils (%) (Auto) 0, Basophils (%) (Auto) 1, Neutrophils # (Auto) 9.5H, Lymphocytes # (Auto) 0.5L, Monocytes # (Auto) 0.3, Eosinophils # (Auto) 0.0, Basophils # (Auto) 0.1, Immature Granulocyte # (Auto) 0.1, Sodium Level 142, Potassium Level 5.0, Chloride Level 115H, Carbon Dioxide Level 15L, Anion Gap 12, Blood Urea Nitrogen 39H, Creatinine 1.56H, Estimat Glomerular Filtration Rate 45, BUN/Creatinine Ratio 25, Glucose Level 159H, Calcium Level 7.4L, Corrected Calcium 8.8, Phosphorus Level 3.1, Magnesium Level 2.3, Total Bilirubin 2.4H, Aspartate Amino Transf (AST/SGOT) 42H, Alanine Aminotransferase (ALT/SGPT) 42, Alkaline Phosphatase 51, Total Protein 5.2L, Albumin 2.3L Microbiology 12/13/21 MRSA Screen - Final, Complete MRSA not isolated 12/13/21 Urine Culture - Final, Complete NO GROWTH A/P-Cardiology Assessment/Admission Diagnosis New onset a-fib with RVR - first diagnosed on EKG of 12-14-21 - rate improved with Cardizem gtt - advise initiation of anticoagulation for stroke prophylaxis when ok from surgical stand point Abd pain - s/p bowel resection by Dr. Craig COVID (+) pneumonia - management per medical services/eICU Discussion and Recomendations New onset a-fib with RVR - rate controlled with IV Cardizem and Dig - continue Advise initiation of anticoagulation for stroke prophylaxis when ok with surgical services Request records from [facility], Dr. Ireland Monitor lab closely Replace electrolytes as indicated Management of COVID (+) pneumonia per medical/eICU services We would like to thank medical services for this consult Clinical Quality Measures DVT/VTE Risk/Contraindication: Contraindications-Pharm: Other *list below* Other: needs OR for bowel perforation Physician Assessment Physician Assessment I evaluated the patient collaboratively with the Cardiology team. To limit exposure of the team to COVID, only one person performed the physical exam (Chelsea Eddy APRN). Our Assessment and Recommendations are listed above SHAYAN MONACO MD FACP FAC CCDS Dec 14, 2021 15:13
[2021-12-14 15:24] VITALS: BP 149/52
--- NOTE | 2021-12-14 19:08 | Progress Note - Hospitalist ---
Subjective HPI/CC On Admission Date Seen by Provider: Dec 14, 2021 Time Seen by Provider: 11:20 Chief complaint: Bowel perforation with COVID-19 pneumonia History of present illness: This is a 81-year-old white male who presented from [facility] ER for higher level of care due to bowel perforation and COVID-19 pneumonia with acute hypoxic respiratory failure requiring oxygen. Family wanted DO NOT INTUBATE. BiPAP was placed with 16/10 and 80%. Potassium 5.4 and creatinine 1.3 with decreased urinary output. Patient was placed on Levaquin and Flagyl empirically. Dr. Craig will take him to surgery but high risk for intubation long-term. Subjective/Events-last exam He remains intubated and sedated. Focused Exam Lactate Level 12/13/21 20:14: Lactic Acid Level 1.45 Objective Exam Vital Signs Vital Signs Date Time Temp Pulse Resp B/P (MAP) Pulse Ox O2 Delivery O2 Flow Rate FiO2 12/14/21 18:00 39.2 110 13 164/78 94 Mechanical Ventilator 90.00 12/14/21 16:04 70 Capillary Refill : Less Than 3 Seconds General Appearance: No Apparent Distress, Obese, Other (intubated and sedated) Respiratory: Lungs Clear, No Respiratory Distress, Other (intubated and mechanically ventilated) Cardiovascular: No Murmur, Irregularly Irregular, Tachycardia Gastrointestinal: Soft, Abnormal Bowel Sounds (hypoactive) Extremity: Normal Inspection, Pedal Edema Neurologic/Psychiatric: Other (sedated) Skin: Normal Color, Warm/Dry Results/Procedures Lab Laboratory Tests 12/14/21 03:37 Patient resulted labs reviewed. Imaging: Reviewed Imaging Report Assessment/Plan Assessment and Plan Assess & Plan/Chief Complaint Small bowel perforation s/p small bowel resection Surgery following s/p resection 12/13 Acute respiratory failure due to COVID-19 TeleICU following Remains intubated Decadron Shock Requiring Levophed AFib with RVR Cardiology consulted Cardizem gtt Therapeutic anticoagulation when ok with surgery ALVARADO on CKD IV fluids HTN COPD Obesity Poor prognosis Critical Care Critically Ill Patient Diagnosis/Problems Diagnosis/Problems (1) Bowel perforation Status: Acute (2) S/P small bowel resection Status: Acute (3) Acute respiratory failure due to COVID-19 Status: Acute (4) Shock Status: Acute (5) Acute kidney injury superimposed on chronic kidney disease Status: Acute (6) HTN (hypertension) Status: Chronic (7) COPD (chronic obstructive pulmonary disease) Status: Chronic (8) Obesity Status: Chronic Clinical Quality Measures DVT/VTE Risk/Contraindication: Contraindications-Pharm: Other *list below* Other: needs OR for bowel perforation CAMILA COVARRUBIAS MD Dec 14, 2021 19:08
[2021-12-14 19:15] VITALS: BP 146/52
[2021-12-14] MEDS ORDERED: LORazepam INJ 2 MG/ML (ATIVAN) VIAL ONE (19:47)
--- NOTE | 2021-12-14 19:53 | Tele-ICU Progress Note ---
Subjective Date Seen by a Provider: Dec 14, 2021 Time Seen by a Provider: 19:52 Sepsis Event Evaluation Height, Weight, BMI Height: '" Weight: lbs. oz. kg; 33.35 BMI Method: Focused Exam Lactate Level 12/13/21 20:14: Lactic Acid Level 1.45 Exam Exam Patient acknowledged, consented, and participated in this virtual visit which was conducted using real time audio/video Vital Signs Date Time Temp Pulse Resp B/P (MAP) Pulse Ox O2 Delivery O2 Flow Rate FiO2 12/14/21 19:15 98 17 95 60 12/14/21 18:00 39.2 110 13 164/78 94 Mechanical Ventilator 90.00 12/14/21 17:48 102 129/61 12/14/21 17:42 39.2 12/14/21 17:00 39.0 104 18 132/90 95 Mechanical Ventilator 90.00 12/14/21 16:38 39.0 12/14/21 16:04 93 Mechanical Ventilator 70 12/14/21 16:00 101 8 142/73 94 Mechanical Ventilator 90.00 12/14/21 15:24 98 17 95 60 12/14/21 15:00 99 11 128/67 96 Mechanical Ventilator 90.00 12/14/21 14:00 39.6 109 12 129/67 96 Mechanical Ventilator 90.00 12/14/21 13:45 39.2 12/14/21 13:22 113 117/53 12/14/21 13:12 39.7 12/14/21 13:00 113 13 123/73 94 Mechanical Ventilator 90.00 12/14/21 12:48 108 12/14/21 12:36 93 Mechanical Ventilator 70 12/14/21 12:00 154 15 107/62 94 Mechanical Ventilator 90.00 12/14/21 12:00 39.5 12/14/21 11:04 152 20 96 70 12/14/21 11:00 134 18 121/96 96 Mechanical Ventilator 90.00 12/14/21 10:00 156 20 154/82 95 Mechanical Ventilator 90.00 12/14/21 09:57 38.7 12/14/21 09:56 130 148/99 12/14/21 09:08 38.8 12/14/21 09:00 105 19 219/124 92 Mechanical Ventilator 90.00 12/14/21 08:57 79 89/53 12/14/21 08:35 93 Mechanical Ventilator 90 12/14/21 08:32 79 89/53 12/14/21 08:00 36.5 12/14/21 08:00 75 19 150/54 97 Mechanical Ventilator 90.00 12/14/21 07:00 79 12/14/21 07:00 74 19 134/66 97 Mechanical Ventilator 90.00 12/14/21 06:45 74 20 96 80 12/14/21 06:00 75 18 134/61 97 Mechanical Ventilator 90.00 12/14/21 05:00 75 18 131/58 98 Mechanical Ventilator 90.00 12/14/21 04:00 36.9 12/14/21 04:00 75 18 126/55 96 Mechanical Ventilator 90.00 12/14/21 04:00 93 Mechanical Ventilator 100 12/14/21 03:15 75 18 96 Mechanical Ventilator 90.00 12/14/21 03:00 92 18 125/64 94 Mechanical Ventilator 100.00 12/14/21 02:45 74 16 98 100 12/14/21 02:00 71 18 112/54 98 Mechanical Ventilator 100.00 12/14/21 01:10 71 18 95/47 98 Mechanical Ventilator 100.00 12/14/21 01:04 73 18 100/52 97 Mechanical Ventilator 100.00 12/14/21 01:00 73 12/14/21 00:00 37.2 12/14/21 00:00 92 18 125/64 94 Mechanical Ventilator 100.00 12/13/21 23:59 93 Mechanical Ventilator 100 12/13/21 23:15 104 18 131/82 94 Mechanical Ventilator 100.00 12/13/21 23:00 90 18 100/59 91 Mechanical Ventilator 100.00 12/13/21 22:00 89 18 150/65 96 Mechanical Ventilator 100.00 12/13/21 21:49 72 23 96 100 12/13/21 21:45 84 97/54 12/13/21 21:15 90 18 109/69 93 Mechanical Ventilator 100.00 12/13/21 21:00 80 18 91/61 93 Mechanical Ventilator 100.00 12/13/21 20:57 83 92/53 12/13/21 20:00 93 Mechanical Ventilator 100 12/13/21 20:00 98 18 124/75 94 Mechanical Ventilator 100.00 I & O 12/14/21 07:00 Intake Total 2000 ml Output Total 1375 ml Balance 625 ml Height & Weight Height: '" Weight: lbs. oz. kg; 33.35 BMI Method: General Appearance: No Apparent Distress, Obese, Other (intubated and sedated) Respiratory: Lungs Clear, No Respiratory Distress, Other (intubated and mechanically ventilated) Cardiovascular: No Murmur, Irregularly Irregular, Tachycardia Capillary Refill: Less Than 3 Seconds Gastrointestinal: soft, distended, other (incision c/d/i) Extremity: Normal Inspection, Pedal Edema Neurologic/Psychiatric: Other (sedated) Skin: Normal Color, Warm/Dry Results Lab Laboratory Tests 12/13/21 04:45 12/13/21 04:55 12/13/21 13:00 12/14/21 03:37 Assessment/Plan Assessment/Plan pt developed seizures 3 min; ativan given ; ct head ro cva; loaded with BEBETO Mckeon MD Dec 14, 2021 19:53
[2021-12-14] MEDS ORDERED: LORazepam INJ 2 MG/ML (ATIVAN) VIAL IVP ONE (20:00)
--- NOTE | 2021-12-14 21:07 | Diagnostic Imaging Report ---
PROCEDURE: CT head without contrast. TECHNIQUE: Multiple contiguous axial images were obtained through the brain without the use of intravenous contrast. Auto Exposure Controls were utilized during the CT exam to meet ALARA standards for radiation dose reduction. INDICATION: Intubated, confusion, Covid, seizure. FINDINGS: Age-related cerebral volume loss and chronic microvascular changes are present. There is no focus of acute ischemia or hemorrhage. There is no midline shift or mass effect. Atherosclerosis is seen involving the carotid siphons. The paranasal sinuses and mastoids are clear. The bony calvarium normal. IMPRESSION: No acute intracranial abnormalities. Dictated by: Dictated on workstation # [id number]
[2021-12-14] MEDS: ENOXAPARIN 40 MG/0.4 ML (LOVENOX) SYR SC SCH (21:13)
[2021-12-14] MEDS ORDERED: NS (IVPB) 100 ML ONE (21:24)
[2021-12-14 22:39] VITALS: BP 158/71
[2021-12-15] MEDS: NS IV 1000 ML 1,000 ML IV SCH ×4 (00:19→18:21)
[2021-12-15 02:31] VITALS: BP 143/72
[2021-12-15] MEDS: RT-ALBUTEROL HFA 8.5 GM INHALER IH SCH ×3 (02:31→21:04)
[2021-12-15] MEDS: NOREPINEPHRINE 8 MG/250 ML 250 ML IV SCH ×2 (04:23→13:12)
[2021-12-15] MEDS: DexMEDEtomidine 250 ML DRIP 250 ML IV SCH (04:24)
[2021-12-15] MEDS: ACETAMINOPHEN 650 MG SUPP (TYLENOL) PR PRN (04:25)
[2021-12-15 04:58] LABS: BASOPHILS % (AUTO) 0 % (0-10); EOSINOPHILS % (AUTO) 0 % (0-10); HEMATOCRIT 38 % (40-54); LYMPHOCYTES % (AUTO) 10 % (12-44); MEAN CORPUSCULAR HEMOGLOBIN 30 pg (25-34); MEAN CORPUSCULAR HGB CONC 32 g/dL (32-36); MEAN CORPUSCULAR VOLUME 93 fL (80-99); MEAN PLATELET VOLUME 10.3 fL (9.0-12.2); MONOCYTES # (AUTO) 0.4 10^3/uL (0.0-1.0); MONOCYTES % (AUTO) 4 % (0-12); NEUTROPHILS # (AUTO) 9.1 10^3/uL (1.8-7.8); NEUTROPHILS % (AUTO) 84 % (42-75); PLATELET COUNT 318 10^3/uL (130-400); WHITE BLOOD COUNT 10.7 10^3/uL (4.3-11.0)
[2021-12-15 05:12] LABS: ABG BASE EXCESS -8.6 MMOL/L (-2.5-2.5); ABG OXYGEN SATURATION 94 % (94-100); ABG PCO2 34 MMHG (35-45); ABG PO2 68 MMHG (79-93); ABG TCO2 17.7 MMOL/L (21.0-31.0)
[2021-12-15 05:13] LABS: ALLENS TEST YES-POS; VENTILATOR YES
[2021-12-15 05:14] LABS: ALBUMIN 2.1 GM/DL (3.2-4.5); POTASSIUM 5.3 MMOL/L (3.6-5.0)
[2021-12-15 05:14] LABS: ABG PH 7.31 (7.37-7.43)
[2021-12-15 05:15] LABS: CALCIUM 7.2 MG/DL (8.5-10.1)
[2021-12-15 05:16] LABS: TOTAL PROTEIN 5.4 GM/DL (6.4-8.2)
[2021-12-15 05:18] LABS: BILIRUBIN,TOTAL 1.8 MG/DL (0.1-1.0)
[2021-12-15 05:18] LABS: INSPIRED O2 50%
[2021-12-15 05:19] LABS: PATIENT TEMP 37.2
[2021-12-15 05:20] LABS: CREATININE SERUM 1.35 MG/DL (0.60-1.30); PHOSPHORUS 3.6 MG/DL (2.3-4.7)
[2021-12-15 05:25] LABS: MAGNESIUM 2.8 MG/DL (1.6-2.4)
[2021-12-15] MEDS: POTASSIUM CL 10MEQ/50ML IVPB 50 ML IV SCH (06:11)
[2021-12-15] MEDS: MAGNESIUM 1 GM/100 ML IVPB 100 ML IV SCH (06:11)
[2021-12-15] MEDS: KCL 20 MEQ TAB (K-DUR) PO SCH (06:11)
[2021-12-15] MEDS: PROPOFOL DRIP (ICU) 100 ML IV SCH ×3 (06:12→18:05)
[2021-12-15 07:39] VITALS: BP 138/68
[2021-12-15] MEDS: UMECLIDINIUM BROMIDE (INCRUSE ELLIPTA) 7'S IH SCH (07:48)
[2021-12-15] MEDS: fentaNYL DRIP PRE-MIX 250 ML IV SCH ×3 (08:20→21:49)
[2021-12-15] MEDS: metroNIDAZOLE 500MG/100ML IVPB 100 ML IV SCH ×2 (08:21→20:40)
--- NOTE | 2021-12-15 08:52 | Progress Note - Surgery ---
SIVA ARMENDARIZ 12/15/21 0852: Subjective Date Seen by a Provider: Dec 15, 2021 Time Seen by a Provider: 06:50 Subjective/Events-last exam Patient continues to be sedated and on the vent. Per chart review patient had a 3 minute clonic Tonic Seizure yesterday and a 39.2 degree celcius temperature at that time. Neurology was consulted and CT of the head was performed which revealed atherosclerosis of cartoid siphons, but no acute abnormalities. Patient has not had any repeat events since. Vitals this morning were stable with a 145/78 BP and 87 BPM pulse with Norepinephrine going at 18.956 ml/hr. ROS was unable to be obtained. Focused Exam Lactate Level 12/13/21 20:14: Lactic Acid Level 1.45 Objective Exam Vital Signs Date Time Temp Pulse Resp B/P (MAP) Pulse Ox O2 Delivery O2 Flow Rate FiO2 12/15/21 07:39 54 16 99 40 12/15/21 06:12 87 145/78 12/15/21 06:09 37.3 12/15/21 06:00 37.4 58 18 141/64 99 Mechanical Ventilator 50.00 12/15/21 05:00 37.6 60 18 134/64 99 Mechanical Ventilator 50.00 12/15/21 04:55 37.2 12/15/21 04:25 37.7 12/15/21 04:24 62 143/70 12/15/21 04:23 62 143/70 12/15/21 04:00 37.7 50.00 12/15/21 04:00 93 Mechanical Ventilator 50 12/15/21 04:00 37.6 62 18 133/68 99 Mechanical Ventilator 50.00 12/15/21 03:00 37.6 63 18 144/69 98 Mechanical Ventilator 60.00 12/15/21 02:31 62 17 100 60 12/15/21 02:00 37.7 63 18 140/70 100 Mechanical Ventilator 60.00 12/15/21 01:30 37.7 12/15/21 01:00 37.7 65 18 154/70 100 Mechanical Ventilator 60.00 12/15/21 01:00 65 12/15/21 00:00 37.8 67 18 156/74 100 Mechanical Ventilator 60.00 12/15/21 00:00 37.4 Mechanical Ventilator 60.00 12/14/21 23:59 93 Mechanical Ventilator 60 12/14/21 23:00 38.0 70 18 158/71 99 Mechanical Ventilator 60.00 12/14/21 22:50 38.0 12/14/21 22:45 38.2 16 157/68 100 Mechanical Ventilator 60.00 12/14/21 22:39 69 17 100 100 12/14/21 22:00 38.4 70 18 150/73 100 Mechanical Ventilator 100.00 12/14/21 21:30 38.4 12/14/21 21:00 38.4 78 18 166/73 100 Mechanical Ventilator 100.00 12/14/21 20:30 38.8 Mechanical Ventilator 100.00 12/14/21 20:14 39.1 12/14/21 20:00 93 Mechanical Ventilator 100 12/14/21 20:00 38.9 93 18 119/65 Mechanical Ventilator 90.00 12/14/21 19:53 102 12/14/21 19:45 39.2 12/14/21 19:15 98 17 95 60 12/14/21 19:00 109 12/14/21 19:00 39.2 109 18 184/95 94 Mechanical Ventilator 90.00 12/14/21 18:12 39.2 12/14/21 18:00 39.2 110 13 164/78 94 Mechanical Ventilator 90.00 12/14/21 17:48 102 129/61 12/14/21 17:42 39.2 12/14/21 17:00 39.0 104 18 132/90 95 Mechanical Ventilator 90.00 12/14/21 16:38 39.0 12/14/21 16:04 93 Mechanical Ventilator 70 12/14/21 16:00 101 8 142/73 94 Mechanical Ventilator 90.00 12/14/21 15:24 98 17 95 60 12/14/21 15:00 99 11 128/67 96 Mechanical Ventilator 90.00 12/14/21 14:00 39.6 109 12 129/67 96 Mechanical Ventilator 90.00 12/14/21 13:45 39.2 12/14/21 13:22 113 117/53 12/14/21 13:12 39.7 12/14/21 13:00 113 13 123/73 94 Mechanical Ventilator 90.00 12/14/21 12:48 108 12/14/21 12:36 93 Mechanical Ventilator 70 12/14/21 12:00 154 15 107/62 94 Mechanical Ventilator 90.00 12/14/21 12:00 39.5 12/14/21 11:04 152 20 96 70 12/14/21 11:00 134 18 121/96 96 Mechanical Ventilator 90.00 12/14/21 10:00 156 20 154/82 95 Mechanical Ventilator 90.00 12/14/21 09:57 38.7 12/14/21 09:56 130 148/99 12/14/21 09:08 38.8 12/14/21 09:00 105 19 219/124 92 Mechanical Ventilator 90.00 12/14/21 08:57 79 89/53 I & O 12/15/21 07:00 Intake Total 1100 ml Output Total 1675 ml Balance -575 ml Capillary Refill : Less Than 3 Seconds General Appearance: No Apparent Distress, Obese, Other (intubated and sedated) Respiratory: Lungs Clear, No Respiratory Distress, Other (intubated and mechanically ventilated) Cardiovascular: Regular Rate, Rhythm, No Murmur Gastrointestinal: normal bowel sounds, soft, other (incision was covered. Appeared to have minimal serosanguineous drainage on bandage, w/ no spreading erythema. did not remove bandage at this time. ) Extremity: Normal Inspection, Pedal Edema Neurologic/Psychiatric: Other (sedated) Skin: Normal Color, Warm/Dry Results Lab Laboratory Tests 12/14/21 17:30: Glucometer 147H 12/15/21 04:50: White Blood Count 10.7, Red Blood Count 4.07L, Hemoglobin 12.0L, Hematocrit 38L, Mean Corpuscular Volume 93, Mean Corpuscular Hemoglobin 30, Mean Corpuscular Hemoglobin Concent 32, Red Cell Distribution Width 13.6, Platelet Count 318, Mean Platelet Volume 10.3, Immature Granulocyte % (Auto) 2, Neutrophils (%) (Auto) 84H, Lymphocytes (%) (Auto) 10L, Monocytes (%) (Auto) 4, Eosinophils (%) (Auto) 0, Basophils (%) (Auto) 0, Neutrophils # (Auto) 9.1H, Lymphocytes # (Auto) 1.0, Monocytes # (Auto) 0.4, Eosinophils # (Auto) 0.0, Basophils # (Auto) 0.0, Immature Granulocyte # (Auto) 0.2H, Sodium Level 145, Potassium Level 5.3H, Chloride Level 118H, Carbon Dioxide Level 15L, Anion Gap 12, Blood Urea Nitrogen 35H, Creatinine 1.35H, Estimat Glomerular Filtration Rate 53, BUN/Creatinine Ratio 26, Glucose Level 167H, Calcium Level 7.2L, Corrected Calcium 8.7, Phosphorus Level 3.6, Magnesium Level 2.8H, Total Bilirubin 1.8H, Aspartate Amino Transf (AST/SGOT) 35H, Alanine Aminotransferase (ALT/SGPT) 33, Alkaline Phosphatase 51, Total Protein 5.4L, Albumin 2.1L 12/15/21 05:02: Blood Gas Puncture Site RIGHT RADIAL, Blood Gas Patient Temperature 37.2, Arterial Blood pH 7.31*L, Arterial Blood Partial Pressure CO2 34L, Arterial Blood Partial Pressure O2 68L, Arterial Blood HCO3 17*L, Arterial Blood Total CO2 17.7L, Arterial Blood Oxygen Saturation 94, Arterial Blood Base Excess -8.6L , Mikhail Test YES-POS, Blood Gas Ventilator Setting YES, Blood Gas Inspired Oxygen 50% Microbiology 12/13/21 MRSA Screen - Final, Complete MRSA not isolated 12/13/21 Urine Culture - Final, Complete NO GROWTH Radiology [facility], [place] NAME: SAMANTHA HENDRIX [facility] REC#: [id number] PT STATUS: ADM IN : 1940 PHYSICIAN: CHRISTY HATHAWAY DO ADMIT DATE: 12/12/21/ICU Signed Date of Exam:12/14/21 CHEST 1 VIEW, AP/PA ONLY INDICATION: Intubation. Comparison made with prior examination of 12/13/2021. FINDINGS: The heart size is normal. There is mild venous congestion. There are patchy bibasilar infiltrates. No pleural effusion or pneumothorax. The lines and tubes are in satisfactory position. IMPRESSION: Mild venous congestion with patchy bibasilar pulmonary infiltrates. Dictated by: Dictated on workstation # [id number] Dict: 12/14/21 0728 Trans: 12/14/21923 CVB [id number] Interpreted by: ARDEN DODSON MD Electronically signed by: ARDEN DODSON MD 12/14/21 0924 Assessment/Plan Assessment/Plan Assessment/Plan S/P Ex Lap for perforated Jejunum - Incision appears to be healing well w/ no obvious signs of infection. Will continue to monitor for now. Respiratory Failure secondary to Covid-19 -Pt is doing ok, but still on vent. O2 flow rate and FiO2 continue to be weened and tolerated by patient. Will continue to follow with IM. Clinical Quality Measures DVT/VTE Risk/Contraindication: Contraindications-Pharm: Other *list below* Other: needs OR for bowel perforation GEMA GOODMAN DO 12/15/21 1347: Subjective Time Seen by a Provider: 11:16 Subjective/Events-last exam Pt seen and examined, sedated on vent. Nurse states he is relatively stable and they are coming down on O2 requirements; however, every time they turn off Levophed his SBP drops into the 50's. Review of Systems unable to obtain pt intubated and sedated Objective Exam General Appearance: Obese, Other (intubated and sedated) Respiratory: Crackles, Decreased Breath Sounds (especially at bases), Wheezing Cardiovascular: Regular Rate, Rhythm Gastrointestinal: other (incision was covered. Appeared to have minimal serosanguineous drainage on bandage, w/ no spreading erythema. did not remove bandage at this time. ) Assessment/Plan Assessment/Plan Assessment/Plan S/P Ex Lap for perforated Jejunum - Incision appears to be healing well w/ no obvious signs of infection. Will continue to monitor for now. Respiratory Failure secondary to Covid-19 -Pt is doing ok, but still on vent. O2 flow rate and FiO2 continue to be weaned and tolerated by patient. Supervisory-Addendum Brief Verification & Attestation Participated in pt care: history, MDM, physical Personally performed: exam, history, MDM, supervision of care Care discussed with: Medical Student Procedures: n/a Verification and Attestation of Medical Student E/M Service A medical student performed and documented this service. I then reviewed and verified all information documented by the medical student and made modifications to such information, when appropriate. I personally performed a physical exam, medical decision making and then discussed any differences between the notes and made revisions as necessary to create one note. Gema Goodman , 12/15/21 , 13:47 SIVA ARMENDARIZ Dec 15, 2021 08:52 GEMA GOODMAN DO Dec 15, 2021 13:47
[2021-12-15] MEDS ORDERED: VERA120T74 PO (09:43)
[2021-12-15] MEDS ORDERED: ASPI-1238 PO (09:43)
[2021-12-15] MEDS ORDERED: DEXA2TAB PO (09:43)
[2021-12-15] MEDS ORDERED: FAMO20TA5 PO (09:43)
[2021-12-15] MEDS ORDERED: BUDE0.5A NEB (09:43)
[2021-12-15] MEDS ORDERED: FENO145T26 PO (09:43)
[2021-12-15] MEDS ORDERED: UBID100C44 PO (09:43)
[2021-12-15] MEDS ORDERED: MULT-1136 PO (09:43)
[2021-12-15] MEDS ORDERED: DOXY100C5 PO (09:43)
[2021-12-15 10:58] VITALS: BP 150/66
[2021-12-15] MEDS: dilTIAZem DRIP PRE-MIX 125 ML IV SCH (11:33)
--- NOTE | 2021-12-15 11:45 | Tele-ICU Progress Note ---
Subjective Date Seen by a Provider: Dec 15, 2021 Time Seen by a Provider: 11:45 Sepsis Event Evaluation Height, Weight, BMI Height: '" Weight: lbs. oz. kg; 33.35 BMI Method: Focused Exam Lactate Level 12/13/21 20:14: Lactic Acid Level 1.45 Exam Exam Patient acknowledged, consented, and participated in this virtual visit which was conducted using real time audio/video Vital Signs Date Time Temp Pulse Resp B/P (MAP) Pulse Ox O2 Delivery O2 Flow Rate FiO2 12/15/21 10:58 83 16 96 40 12/15/21 10:57 155/78 12/15/21 09:00 37.1 38 16 84/53 99 Mechanical Ventilator 50.00 12/15/21 08:30 Mechanical Ventilator 40 12/15/21 08:01 54 12/15/21 08:00 37.1 53 15 80/51 97 Mechanical Ventilator 50.00 12/15/21 07:39 54 16 99 40 12/15/21 07:00 37.2 56 15 136/71 99 Mechanical Ventilator 50.00 12/15/21 06:12 87 145/78 12/15/21 06:09 37.3 12/15/21 06:00 37.4 58 18 141/64 99 Mechanical Ventilator 50.00 12/15/21 05:00 37.6 60 18 134/64 99 Mechanical Ventilator 50.00 12/15/21 04:55 37.2 12/15/21 04:25 37.7 12/15/21 04:24 62 143/70 12/15/21 04:23 62 143/70 12/15/21 04:00 37.7 50.00 12/15/21 04:00 93 Mechanical Ventilator 50 12/15/21 04:00 37.6 62 18 133/68 99 Mechanical Ventilator 50.00 12/15/21 03:00 37.6 63 18 144/69 98 Mechanical Ventilator 60.00 12/15/21 02:31 62 17 100 60 12/15/21 02:00 37.7 63 18 140/70 100 Mechanical Ventilator 60.00 12/15/21 01:30 37.7 12/15/21 01:00 37.7 65 18 154/70 100 Mechanical Ventilator 60.00 12/15/21 01:00 65 12/15/21 00:00 37.8 67 18 156/74 100 Mechanical Ventilator 60.00 12/15/21 00:00 37.4 Mechanical Ventilator 60.00 12/14/21 23:59 93 Mechanical Ventilator 60 12/14/21 23:00 38.0 70 18 158/71 99 Mechanical Ventilator 60.00 12/14/21 22:50 38.0 12/14/21 22:45 38.2 16 157/68 100 Mechanical Ventilator 60.00 12/14/21 22:39 69 17 100 100 12/14/21 22:00 38.4 70 18 150/73 100 Mechanical Ventilator 100.00 12/14/21 21:30 38.4 12/14/21 21:00 38.4 78 18 166/73 100 Mechanical Ventilator 100.00 12/14/21 20:30 38.8 Mechanical Ventilator 100.00 12/14/21 20:14 39.1 12/14/21 20:00 93 Mechanical Ventilator 100 12/14/21 20:00 38.9 93 18 119/65 Mechanical Ventilator 90.00 12/14/21 19:53 102 12/14/21 19:45 39.2 12/14/21 19:15 98 17 95 60 12/14/21 19:00 109 12/14/21 19:00 39.2 109 18 184/95 94 Mechanical Ventilator 90.00 12/14/21 18:12 39.2 12/14/21 18:00 39.2 110 13 164/78 94 Mechanical Ventilator 90.00 12/14/21 17:48 102 129/61 12/14/21 17:42 39.2 12/14/21 17:00 39.0 104 18 132/90 95 Mechanical Ventilator 90.00 12/14/21 16:38 39.0 12/14/21 16:04 93 Mechanical Ventilator 70 12/14/21 16:00 101 8 142/73 94 Mechanical Ventilator 90.00 12/14/21 15:24 98 17 95 60 12/14/21 15:00 99 11 128/67 96 Mechanical Ventilator 90.00 12/14/21 14:00 39.6 109 12 129/67 96 Mechanical Ventilator 90.00 12/14/21 13:45 39.2 12/14/21 13:22 113 117/53 12/14/21 13:12 39.7 12/14/21 13:00 113 13 123/73 94 Mechanical Ventilator 90.00 12/14/21 12:48 108 12/14/21 12:36 93 Mechanical Ventilator 70 12/14/21 12:00 154 15 107/62 94 Mechanical Ventilator 90.00 12/14/21 12:00 39.5 I & O 12/15/21 07:00 Intake Total 1100 ml Output Total 1675 ml Balance -575 ml Height & Weight Height: '" Weight: lbs. oz. kg; 33.35 BMI Method: General Appearance: No Apparent Distress, Obese, Other (intubated and sedated) Respiratory: Lungs Clear, No Respiratory Distress, Other (intubated and mechanically ventilated) Cardiovascular: Regular Rate, Rhythm, No Murmur Capillary Refill: Less Than 3 Seconds Gastrointestinal: normal bowel sounds, soft, other (incision was covered. Appeared to have minimal serosanguineous drainage on bandage, w/ no spreading erythema. did not remove bandage at this time. ) Extremity: Normal Inspection, Pedal Edema Neurologic/Psychiatric: Other (sedated) Skin: Normal Color, Warm/Dry Results Lab Laboratory Tests 12/13/21 13:00 12/14/21 03:37 12/15/21 04:50 Assessment/Plan Assessment/Plan (Tele-ICU Physician , Progress Note ) Available chart/ vitals / labs / Images reviewed Video assessment done using teleICU camera, rest of exam as per RN Discussed with RN , EXAM PER RN Events overnight : Afebrile FiO2 - 50 I/O = neg Drips: Pressors: LEVO 0.07 , hemodynamically stable Consultants: sx propofol 30 precedex 0.4 , propofol Hospital course: 12/12 transfer- ? bowel per, ARF 12/13- S/P Ex Lap for perforated Jejunum , on VENT post OR A/P ARF - Intubated in OR 12/13 - ac 50% peep 8 - ? SBT tomorrow , of mental status nbetter and no Sz Shock - pressors need improving ALVARADO - mild improvement - follow elsy carranza in - hydration to cont NS 125 S/P Ex Lap for perforated Jejunum 12/13 - as per sx New onset a-fib with RVR - rate controlled with IV Cardizem and Dig - as per cards - AC - as per cards ans Sx COvid + - on steroids -? remdesiovir - as per bedise Encephalopathy/ NEW seisure 12/14 - CTH 12/14 - WNL - Keppra IV 12/14 Lines : left IJ 12/13 (Central Line Necessity Reviewed) Baires: + OG: Nutrition: npo Analgesia: Anxiety/ delirium VTE Prophylaxis: christy 40 Stress Ulcer Prophylaxis: Plans in collaboration with bedside consultants and IM MDs. Discussed with RN to reach out if any questions or concerns A total of 31 minutes of critical care time was devoted to this patient today, required to treat and/or prevent further deterioration of critical care condition ( as above) . BERRY AGUERO MD Dec 15, 2021 11:45
[2021-12-15 15:34] LABS: POTASSIUM 4.9 MMOL/L (3.6-5.0)
[2021-12-15 15:35] LABS: CALCIUM 7.2 MG/DL (8.5-10.1)
[2021-12-15 15:39] LABS: CREATININE SERUM 1.15 MG/DL (0.60-1.30)
[2021-12-15 16:11] VITALS: BP 118/56
--- NOTE | 2021-12-15 17:39 | Progress Note - Cardiology ---
Cardiology SOAP Progress Note Subjective: On [facility] vent, unable to communicate Objective: I&O/Vital Signs 12/15/21 12/15/21 12/15/21 12/15/21 06:00 06:09 06:12 07:00 Temp 37.4 37.3 37.2 Pulse 58 87 56 Resp 18 15 B/P (MAP) 141/64 145/78 136/71 Pulse Ox 99 99 O2 Delivery Mechanical Ventilator Mechanical Ventilator O2 Flow Rate 50.00 50.00 12/15/21 12/15/21 12/15/21 12/15/21 07:39 08:00 08:01 08:30 Temp 37.1 Pulse 54 53 54 Resp 16 15 B/P (MAP) 80/51 Pulse Ox 99 97 O2 Delivery Mechanical Ventilator Mechanical Ventilator O2 Flow Rate 50.00 FiO2 40 40 12/15/21 12/15/21 12/15/21 12/15/21 09:00 10:00 10:57 10:58 Temp 37.1 37.0 Pulse 38 57 83 Resp 16 15 16 B/P (MAP) 84/53 155/78 155/78 Pulse Ox 99 94 96 O2 Delivery Mechanical Ventilator Mechanical Ventilator O2 Flow Rate 50.00 50.00 FiO2 40 12/15/21 12/15/21 12/15/21 12/15/21 11:00 12:00 12:31 12:58 Temp 36.5 36.0 Pulse 78 65 61 Resp 10 13 B/P (MAP) 156/71 160/71 Pulse Ox 96 95 O2 Delivery Mechanical Ventilator Mechanical Ventilator Mechanical Ventilator O2 Flow Rate 50.00 50.00 FiO2 40 12/15/21 12/15/21 12/15/21 12/15/21 13:00 14:00 15:00 16:11 Temp 36.0 36.0 36.0 Pulse 61 58 57 56 Resp 14 16 16 16 B/P (MAP) 139/72 132/72 132/72 Pulse Ox 96 95 97 100 O2 Delivery Mechanical Ventilator Mechanical Ventilator Mechanical Ventilator O2 Flow Rate 50.00 50.00 50.00 FiO2 40 12/15/21 00:00 Intake Total 0 ml Output Total 1000 ml Balance -1000 ml Constitutional: No AAO x 3; well-developed, well-nourished, other (sedated) Respiratory: No accessory muscle use, No respiratory distress; chest expansion is symmetric, chest is bilaterally symmetric, other (fair air entry; intubated) Cardiovascular: irregularly irregular; No JVD; S1 and S2 Gastrointestional: No audible bowel sounds; other (s/p abdominal surgery; dressing in place which is D&I) Extremities: no lower extremity edema bilateral Neurologic/Psychiatric: other (unable to assess d/t sedation) Skin: No rash on exposed areas, No ulcerations on exposed areas Results/Procedures: Labs Laboratory Tests 12/15/21 04:50: White Blood Count 10.7, Red Blood Count 4.07L, Hemoglobin 12.0L, Hematocrit 38L, Mean Corpuscular Volume 93, Mean Corpuscular Hemoglobin 30, Mean Corpuscular Hemoglobin Concent 32, Red Cell Distribution Width 13.6, Platelet Count 318, Mean Platelet Volume 10.3, Immature Granulocyte % (Auto) 2, Neutrophils (%) (Auto) 84H, Lymphocytes (%) (Auto) 10L, Monocytes (%) (Auto) 4, Eosinophils (%) (Auto) 0, Basophils (%) (Auto) 0, Neutrophils # (Auto) 9.1H, Lymphocytes # (Auto) 1.0, Monocytes # (Auto) 0.4, Eosinophils # (Auto) 0.0, Basophils # (Auto) 0.0, Immature Granulocyte # (Auto) 0.2H, Sodium Level 145, Potassium Level 5.3H, Chloride Level 118H, Carbon Dioxide Level 15L, Anion Gap 12, Blood Urea Nitrogen 35H, Creatinine 1.35H, Estimat Glomerular Filtration Rate 53, BUN/Creatinine Ratio 26, Glucose Level 167H, Calcium Level 7.2L, Corrected Calcium 8.7, Phosphorus Level 3.6, Magnesium Level 2.8H, Total Bilirubin 1.8H, Aspartate Amino Transf (AST/SGOT) 35H, Alanine Aminotransferase (ALT/SGPT) 33, Alkaline Phosphatase 51, Total Protein 5.4L, Albumin 2.1L 12/15/21 05:02: Blood Gas Puncture Site RIGHT RADIAL, Blood Gas Patient Temperature 37.2, Arterial Blood pH 7.31*L, Arterial Blood Partial Pressure CO2 34L, Arterial Blood Partial Pressure O2 68L, Arterial Blood HCO3 17*L, Arterial Blood Total CO2 17.7L, Arterial Blood Oxygen Saturation 94, Arterial Blood Base Excess -8.6L , Mikhail Test YES-POS, Blood Gas Ventilator Setting YES, Blood Gas Inspired Oxygen 50% 12/15/21 11:53: Glucometer 161H 12/15/21 15:15: Sodium Level 146H, Potassium Level 4.9, Chloride Level 119H, Carbon Dioxide Level 15L, Anion Gap 12, Blood Urea Nitrogen 32H, Creatinine 1.15, Estimat Glomerular Filtration Rate 65, BUN/Creatinine Ratio 28, Glucose Level 180H, Calcium Level 7.2L, Troponin I 0.498*H Microbiology 12/13/21 MRSA Screen - Final, Complete MRSA not isolated 12/13/21 Urine Culture - Final, Complete NO GROWTH A/P: Assessment: New onset a-fib with RVR - first diagnosed on EKG of 12-14-21 - currently NSR. Change iv dilt to oral when oral intake acceptable - currently on low-dose Lovenox; we advise initiation of full anticoagulation fo r stroke prophylaxis when ok from surgical stand point Abd pain due to bowel perf - s/p bowel resection by Dr. Craig COVID (+) pneumonia - management per medical services/eICU Mildly elevated troponin - serial ECG stable and w/o any evidence of ACS - type 2 MD due A Fib with RVR and due to COVID pneumonia Plan: Rate controlled with IV Cardizem and Dig - continue Advise initiation of anticoagulation for stroke prophylaxis when ok with surgical services Monitor lab closely Replace electrolytes as indicated Management of COVID (+) pneumonia per Medical/eICU services SHAYAN MONACO MD FACP FAC CCDS Dec 15, 2021 17:39
[2021-12-15 18:45] VITALS: BP 104/60
--- NOTE | 2021-12-15 19:44 | Progress Note - Hospitalist ---
Subjective HPI/CC On Admission Date Seen by Provider: Dec 15, 2021 Time Seen by Provider: 10:50 Chief complaint: Bowel perforation with COVID-19 pneumonia History of present illness: This is a 81-year-old white male who presented from [facility] ER for higher level of care due to bowel perforation and COVID-19 pneumonia with acute hypoxic respiratory failure requiring oxygen. Family wanted DO NOT INTUBATE. BiPAP was placed with 16/10 and 80%. Potassium 5.4 and creatinine 1.3 with decreased urinary output. Patient was placed on Levaquin and Flagyl empirically. Dr. Craig will take him to surgery but high risk for intubation long-term. Subjective/Events-last exam He remains intubated and sedated. Focused Exam Lactate Level 12/13/21 20:14: Lactic Acid Level 1.45 Objective Exam Vital Signs Vital Signs Date Time Temp Pulse Resp B/P (MAP) Pulse Ox O2 Delivery O2 Flow Rate FiO2 12/15/21 18:45 54 16 100 40 12/15/21 18:05 106/60 12/15/21 18:00 36.3 Mechanical Ventilator 50.00 Capillary Refill : Less Than 3 Seconds General Appearance: No Apparent Distress, Obese, Other (intubated and sedated) Respiratory: Lungs Clear, No Respiratory Distress, Other (intubated and mechanically ventilated) Cardiovascular: No Murmur, Bradycardia Gastrointestinal: Soft, Abnormal Bowel Sounds Extremity: Normal Inspection, Pedal Edema Neurologic/Psychiatric: Other (sedated) Skin: Normal Color, Warm/Dry Results/Procedures Lab Laboratory Tests 12/15/21 04:50 12/15/21 15:15 Patient resulted labs reviewed. Imaging: Reviewed Imaging Report Assessment/Plan Assessment and Plan Assess & Plan/Chief Complaint Small bowel perforation s/p small bowel resection Surgery following s/p resection 12/13 Acute respiratory failure due to COVID-19 TeleICU following Remains intubated Oxygen requirement improving Decadron Shock Requiring Levophed AFib with RVR Cardiology consulted Cardizem gtt Therapeutic anticoagulation when ok with surgery ALVARADO on CKD Hypernatremia Improving Switch to 1/2 NS, decrease rate HTN COPD Obesity Poor prognosis Critical Care Critically Ill Patient Diagnosis/Problems Diagnosis/Problems (1) Bowel perforation Status: Acute (2) S/P small bowel resection Status: Acute (3) Acute respiratory failure due to COVID-19 Status: Acute (4) Shock Status: Acute (5) Acute kidney injury superimposed on chronic kidney disease Status: Acute (6) HTN (hypertension) Status: Chronic (7) COPD (chronic obstructive pulmonary disease) Status: Chronic (8) Obesity Status: Chronic Clinical Quality Measures DVT/VTE Risk/Contraindication: Contraindications-Pharm: Other *list below* Other: needs OR for bowel perforation CAMILA COVARRUBIAS MD Dec 15, 2021 19:44
[2021-12-15] MEDS ORDERED: 1/2 NS IV SOLUTION 1,000 ML IV ONE (20:07)
[2021-12-15] MEDS: ENOXAPARIN 40 MG/0.4 ML (LOVENOX) SYR SC SCH (20:40)
[2021-12-15] MEDS: 1/2 NS IV SOLUTION 1,000 ML IV SCH (20:55)
[2021-12-15 21:04] VITALS: BP 92/58
[2021-12-16] MEDS: PROPOFOL DRIP (ICU) 100 ML IV SCH ×5 (00:35→19:45)
[2021-12-16 02:50] VITALS: BP 109/59
[2021-12-16] MEDS: RT-ALBUTEROL HFA 8.5 GM INHALER IH SCH ×4 (02:50→18:56)
[2021-12-16] MEDS: NOREPINEPHRINE 8 MG/250 ML 250 ML IV SCH ×2 (03:33→12:13)
[2021-12-16 04:16] LABS: ABG BASE EXCESS -7.9 MMOL/L (-2.5-2.5); ABG OXYGEN SATURATION 88 % (94-100); ABG PCO2 36 MMHG (35-45); ABG PO2 59 MMHG (79-93); ABG TCO2 18.7 MMOL/L (21.0-31.0)
[2021-12-16 04:18] LABS: BASOPHILS # (AUTO) 0.1 10^3/uL (0.0-0.1); BASOPHILS % (AUTO) 0 % (0-10); EOSINOPHILS % (AUTO) 0 % (0-10); HEMATOCRIT 36 % (40-54); HEMOGLOBIN 11.4 g/dL (13.3-17.7); LYMPHOCYTES # (AUTO) 0.9 10^3/uL (1.0-4.0); LYMPHOCYTES % (AUTO) 8 % (12-44); MEAN CORPUSCULAR HEMOGLOBIN 30 pg (25-34); MEAN CORPUSCULAR HGB CONC 32 g/dL (32-36); MEAN CORPUSCULAR VOLUME 94 fL (80-99); MEAN PLATELET VOLUME 10.3 fL (9.0-12.2); MONOCYTES # (AUTO) 0.6 10^3/uL (0.0-1.0); MONOCYTES % (AUTO) 5 % (0-12); NEUTROPHILS % (AUTO) 85 % (42-75); PLATELET COUNT 242 10^3/uL (130-400); WHITE BLOOD COUNT 11.7 10^3/uL (4.3-11.0)
[2021-12-16] MEDS: fentaNYL DRIP PRE-MIX 250 ML IV SCH ×4 (04:25→23:45)
[2021-12-16 04:26] LABS: ALLENS TEST YES-POS; INSPIRED O2 80% BIPAP; VENTILATOR NO
[2021-12-16 04:27] LABS: PATIENT TEMP 35.8
[2021-12-16 04:28] LABS: ALBUMIN 2.2 GM/DL (3.2-4.5)
[2021-12-16 04:29] LABS: POTASSIUM 5.2 MMOL/L (3.6-5.0)
[2021-12-16 04:30] LABS: CALCIUM 7.7 MG/DL (8.5-10.1)
[2021-12-16 04:31] LABS: TOTAL PROTEIN 5.4 GM/DL (6.4-8.2)
[2021-12-16 04:34] LABS: PHOSPHORUS 3.4 MG/DL (2.3-4.7)
[2021-12-16 04:35] LABS: CREATININE SERUM 1.22 MG/DL (0.60-1.30)
[2021-12-16 04:38] LABS: MAGNESIUM 2.6 MG/DL (1.6-2.4)
[2021-12-16] MEDS: KCL 20 MEQ TAB (K-DUR) PO SCH (05:12)
[2021-12-16] MEDS: POTASSIUM CL 10MEQ/50ML IVPB 50 ML IV SCH (05:12)
[2021-12-16] MEDS: MAGNESIUM 1 GM/100 ML IVPB 100 ML IV SCH (05:12)
--- NOTE | 2021-12-16 07:16 | Progress Note - Surgery ---
FADI PIERRE MED STUDENT 12/16/21 0716: Subjective Date Seen by a Provider: Dec 16, 2021 Time Seen by a Provider: 07:00 Subjective/Events-last exam Pt is in bed on vent, does open his eyes to stimulation, cannot follow command to squeeze fingers. NG tube in with ~300mL of contents. He is sedated on vent, settings 16/500/40/8. Abdominal incision looks clean and dry, healing well. He is receiving pressers. Review of Systems General: Other (Pt intubated and sedated, unable to communicate) Focused Exam Lactate Level 12/13/21 20:14: Lactic Acid Level 1.45 Objective Exam Vital Signs Date Time Temp Pulse Resp B/P (MAP) Pulse Ox O2 Delivery O2 Flow Rate FiO2 12/16/21 06:00 37.0 54 18 122/64 95 Mechanical Ventilator 40.00 12/16/21 05:18 54 100/58 12/16/21 05:00 37.0 57 18 117/67 91 Mechanical Ventilator 40.00 12/16/21 04:00 37.0 56 18 110/59 91 Mechanical Ventilator 40.00 12/16/21 04:00 Mechanical Ventilator 40 12/16/21 03:30 Mechanical Ventilator 40.00 12/16/21 03:00 36.9 55 18 110/60 94 Mechanical Ventilator 30.00 12/16/21 02:50 56 17 94 40 12/16/21 02:00 36.8 54 18 105/61 92 Mechanical Ventilator 30.00 12/16/21 01:00 36.7 55 18 110/60 93 Mechanical Ventilator 30.00 12/16/21 01:00 55 12/16/21 00:35 56 108/59 12/16/21 00:00 36.6 55 18 138/68 92 Mechanical Ventilator 30.00 12/15/21 23:59 Mechanical Ventilator 30 12/15/21 23:45 56 140/67 12/15/21 23:00 36.6 54 18 139/70 92 Mechanical Ventilator 30.00 12/15/21 22:00 36.7 56 18 110/69 92 Mechanical Ventilator 30.00 12/15/21 21:45 53 85/50 12/15/21 21:30 79/48 12/15/21 21:10 53 80/43 12/15/21 21:04 53 17 96 30 12/15/21 21:00 36.6 53 18 92/58 97 Mechanical Ventilator 30.00 12/15/21 20:53 98 Mechanical Ventilator 30.00 12/15/21 20:00 36.5 53 18 101/59 100 Mechanical Ventilator 50.00 12/15/21 20:00 Mechanical Ventilator 40 12/15/21 19:00 53 12/15/21 19:00 36.4 53 16 102/60 100 Mechanical Ventilator 50.00 Arterial Line 12/15/21 18:45 54 16 100 40 12/15/21 18:05 106/60 12/15/21 18:00 36.3 55 14 106/60 100 Mechanical Ventilator 50.00 12/15/21 17:00 36.1 56 14 106/59 100 Mechanical Ventilator 50.00 12/15/21 16:11 56 16 100 40 12/15/21 16:00 36.0 56 14 108/59 100 Mechanical Ventilator 50.00 12/15/21 15:50 Mechanical Ventilator 40 12/15/21 15:00 36.0 57 16 132/72 97 Mechanical Ventilator 50.00 12/15/21 14:00 36.0 58 16 132/72 95 Mechanical Ventilator 50.00 12/15/21 13:00 36.0 61 14 139/72 96 Mechanical Ventilator 50.00 12/15/21 12:58 61 12/15/21 12:31 Mechanical Ventilator 40 12/15/21 12:00 36.0 65 13 160/71 95 Mechanical Ventilator 50.00 12/15/21 11:00 36.5 78 10 156/71 96 Mechanical Ventilator 50.00 12/15/21 10:58 83 16 96 40 12/15/21 10:57 155/78 12/15/21 10:00 37.0 57 15 155/78 94 Mechanical Ventilator 50.00 12/15/21 09:00 37.1 38 16 84/53 99 Mechanical Ventilator 50.00 12/15/21 08:30 Mechanical Ventilator 40 12/15/21 08:01 54 12/15/21 08:00 37.1 53 15 80/51 97 Mechanical Ventilator 50.00 12/15/21 07:39 54 16 99 40 I & O 12/16/21 07:00 Intake Total 1460 ml Output Total 1475 ml Balance -15 ml Capillary Refill : Less Than 3 Seconds General Appearance: No Apparent Distress, Obese, Other (intubated and sedated) Respiratory: Lungs Clear, No Respiratory Distress, Other (intubated and mechanically ventilated, coarse, decreased breath sounds. ) Cardiovascular: Regular Rate, Rhythm, No Edema (Slight edema of LE), No Murmur, Bradycardia Peripheral Pulses: 2+ Radial Pulses (R) Gastrointestinal: soft (slightly firm but not hard), abnormal bowel sounds (hypoactive), distended, other (incision was covered. Appeared to have minimal serosanguineous drainage on bandage, w/ no spreading erythema. ) Extremity: Normal Inspection, Pedal Edema Neurologic/Psychiatric: Other (sedated) Skin: Normal Color, Warm/Dry Results Lab Laboratory Tests 12/15/21 11:53: Glucometer 161H 12/15/21 15:15: Sodium Level 146H, Potassium Level 4.9, Chloride Level 119H, Carbon Dioxide Level 15L, Anion Gap 12, Blood Urea Nitrogen 32H, Creatinine 1.15, Estimat Glomerular Filtration Rate 65, BUN/Creatinine Ratio 28, Glucose Level 180H, Calcium Level 7.2L, Troponin I 0.498*H 12/15/21 18:02: Glucometer 164H 12/16/21 00:32: Glucometer 159H 12/16/21 04:05: White Blood Count 11.7H, Red Blood Count 3.84L, Hemoglobin 11.4L, Hematocrit 36L , Mean Corpuscular Volume 94, Mean Corpuscular Hemoglobin 30, Mean Corpuscular Hemoglobin Concent 32, Red Cell Distribution Width 13.8, Platelet Count 242, Mean Platelet Volume 10.3, Immature Granulocyte % (Auto) 2, Neutrophils (%) (Auto) 85H, Lymphocytes (%) (Auto) 8L, Monocytes (%) (Auto) 5, Eosinophils (%) (Auto) 0, Basophils (%) (Auto) 0, Neutrophils # (Auto) 10.0H, Lymphocytes # (Auto) 0.9L, Monocytes # (Auto) 0.6, Eosinophils # (Auto) 0.0, Basophils # (Auto) 0.1, Immature Granulocyte # (Auto) 0.2H, Blood Gas Puncture Site RIGHT RADIAL, Blood Gas Patient Temperature 35.8, Arterial Blood pH 7.30*L, Arterial Blood Partial Pressure CO2 36, Arterial Blood Partial Pressure O2 59L, Arterial Blood HCO3 18L, Arterial Blood Total CO2 18.7L, Arterial Blood Oxygen Saturation 88L, Arterial Blood Base Excess -7.9L, Mikhail Test YES-POS, Blood Gas Ventilator Setting NO, Blood Gas Inspired Oxygen 80% BIPAP, Sodium Level 144, Potassium Level 5.2H, Chloride Level 119H, Carbon Dioxide Level 15L, Anion Gap 10, Blood Urea Nitrogen 39H, Creatinine 1.22, Estimat Glomerular Filtration Rate 60, BUN/Creatinine Ratio 32, Glucose Level 148H, Calcium Level 7.7L, Corrected Calcium 9.1, Phosphorus Level 3.4, Magnesium Level 2.6H, Total Bilirubin 1.0, Aspartate Amino Transf (AST/SGOT) 28, Alanine Aminotransferase (ALT/SGPT) 29, Alkaline Phosphatase 44, Total Protein 5.4L, Albumin 2.2L Microbiology 12/13/21 MRSA Screen - Final, Complete MRSA not isolated 12/13/21 Urine Culture - Final, Complete NO GROWTH Assessment/Plan Assessment/Plan Assessment/Plan S/P Ex Lap for perforated Jejunum - Incision appears to be healing well w/ no obvious signs of infection. Will continue to monitor for now. Respiratory Failure secondary to Covid-19 -Pt is doing ok, but still on vent. O2 flow rate and FiO2 continue to be weaned and tolerated by patient. Settings this morning 16/500/40/8 Clinical Quality Measures DVT/VTE Risk/Contraindication: Contraindications-Pharm: Other *list below* Other: needs OR for bowel perforation PADILLA CRAIG DO 12/16/21 1054: Subjective Time Seen by a Provider: 09:32 Subjective/Events-last exam Pt seen and examined, sedated on vent. Nurse states he was off Levophed for 12 hours, but just went back on low dose. His vent settings are the same as yesterday and they plan to do sedation vacation today. Review of Systems unable to obtain, pt sedated and intubated Objective Exam Respiratory: Lungs Clear, No Accessory Muscle Use, No Respiratory Distress, Other (intubated and mechanically ventilated, coarse, decreased breath sounds. ) Cardiovascular: No Murmur, Bradycardia Gastrointestinal: soft (slightly firm but not hard), abnormal bowel sounds (hypoactive), distended (mild), other (incision was covered. Appeared to have minimal serosanguineous drainage on bandage, w/ no spreading erythema. ) Assessment/Plan Assessment/Plan Assessment/Plan S/P Ex Lap for perforated Jejunum - Incision appears to be healing well w/ no obvious signs of infection. Will continue to monitor for now. Respiratory Failure secondary to Covid-19 -Pt is doing ok, but still on vent. O2 flow rate and FiO2 continue to be weaned and tolerated by patient. Settings this morning 16/500/40/8 Agree with sedation vacation, will help with weaning parameters. Critical care wants to keep him intubated one more day. Supervisory-Addendum Brief Verification & Attestation Participated in pt care: history, MDM, physical Personally performed: exam, history, MDM, supervision of care Care discussed with: Medical Student Procedures: n/a Verification and Attestation of Medical Student E/M Service A medical student performed and documented this service. I then reviewed and verified all information documented by the medical student and made modifications to such information, when appropriate. I personally performed a physical exam, medical decision making and then discussed any differences between the notes and made revisions as necessary to create one note. Padilla Craig , 12/16/21 , 11:14 FADI PIERRE MED STUDENT Dec 16, 2021 07:16 PADILLA CRAIG DO Dec 16, 2021 10:54
[2021-12-16 07:21] VITALS: BP 124/82
[2021-12-16] MEDS: UMECLIDINIUM BROMIDE (INCRUSE ELLIPTA) 7'S IH SCH (07:30)
[2021-12-16] MEDS: metroNIDAZOLE 500MG/100ML IVPB 100 ML IV SCH ×2 (08:01→19:49)
[2021-12-16] MEDS: 1/2 NS IV SOLUTION 1,000 ML IV SCH ×2 (08:04→20:11)
--- NOTE | 2021-12-16 08:40 | Tele-ICU Progress Note ---
Subjective Date Seen by a Provider: Dec 16, 2021 Time Seen by a Provider: 08:39 Subjective/Events-last exam This patient admitted with COVID-positive pneumonia with hypoxia as well as a pneumoperitoneum subsequently underwent exploratory laparotomy and found to have a jejunal perforation and underwent small bowel resection. Postoperatively he remained on mechanical ventilation. Currently he is on dexamethasone, Lovenox, Levaquin and Flagyl. He is also on a Cardizem drip for new onset atrial fibrillation. Video visit made and discussed with the CLINICAL DATA SPECIALIST Sepsis Event Evaluation Height, Weight, BMI Height: '" Weight: lbs. oz. kg; 33.35 BMI Method: Focused Exam Lactate Level 12/13/21 20:14: Lactic Acid Level 1.45 Exam Exam Patient acknowledged, consented, and participated in this virtual visit which wa s conducted using real time audio/video Vital Signs Date Time Temp Pulse Resp B/P (MAP) Pulse Ox O2 Delivery O2 Flow Rate FiO2 12/16/21 07:21 56 17 93 40 12/16/21 07:00 56 12/16/21 06:00 37.0 54 18 122/64 95 Mechanical Ventilator 40.00 12/16/21 05:18 54 100/58 12/16/21 05:00 37.0 57 18 117/67 91 Mechanical Ventilator 40.00 12/16/21 04:00 37.0 56 18 110/59 91 Mechanical Ventilator 40.00 12/16/21 04:00 Mechanical Ventilator 40 12/16/21 03:30 Mechanical Ventilator 40.00 12/16/21 03:00 36.9 55 18 110/60 94 Mechanical Ventilator 30.00 12/16/21 02:50 56 17 94 40 12/16/21 02:00 36.8 54 18 105/61 92 Mechanical Ventilator 30.00 12/16/21 01:00 36.7 55 18 110/60 93 Mechanical Ventilator 30.00 12/16/21 01:00 55 12/16/21 00:35 56 108/59 12/16/21 00:00 36.6 55 18 138/68 92 Mechanical Ventilator 30.00 12/15/21 23:59 Mechanical Ventilator 30 12/15/21 23:45 56 140/67 12/15/21 23:00 36.6 54 18 139/70 92 Mechanical Ventilator 30.00 12/15/21 22:00 36.7 56 18 110/69 92 Mechanical Ventilator 30.00 12/15/21 21:45 53 85/50 12/15/21 21:30 79/48 12/15/21 21:10 53 80/43 12/15/21 21:04 53 17 96 30 12/15/21 21:00 36.6 53 18 92/58 97 Mechanical Ventilator 30.00 12/15/21 20:53 98 Mechanical Ventilator 30.00 12/15/21 20:00 36.5 53 18 101/59 100 Mechanical Ventilator 50.00 12/15/21 20:00 Mechanical Ventilator 40 12/15/21 19:00 53 12/15/21 19:00 36.4 53 16 102/60 100 Mechanical Ventilator 50.00 Arterial Line 12/15/21 18:45 54 16 100 40 12/15/21 18:05 106/60 12/15/21 18:00 36.3 55 14 106/60 100 Mechanical Ventilator 50.00 12/15/21 17:00 36.1 56 14 106/59 100 Mechanical Ventilator 50.00 12/15/21 16:11 56 16 100 40 12/15/21 16:00 36.0 56 14 108/59 100 Mechanical Ventilator 50.00 12/15/21 15:50 Mechanical Ventilator 40 12/15/21 15:00 36.0 57 16 132/72 97 Mechanical Ventilator 50.00 12/15/21 14:00 36.0 58 16 132/72 95 Mechanical Ventilator 50.00 12/15/21 13:00 36.0 61 14 139/72 96 Mechanical Ventilator 50.00 12/15/21 12:58 61 12/15/21 12:31 Mechanical Ventilator 40 12/15/21 12:00 36.0 65 13 160/71 95 Mechanical Ventilator 50.00 12/15/21 11:00 36.5 78 10 156/71 96 Mechanical Ventilator 50.00 12/15/21 10:58 83 16 96 40 12/15/21 10:57 155/78 12/15/21 10:00 37.0 57 15 155/78 94 Mechanical Ventilator 50.00 12/15/21 09:00 37.1 38 16 84/53 99 Mechanical Ventilator 50.00 I & O 12/16/21 07:00 Intake Total 2060 ml Output Total 1475 ml Balance 585 ml Height & Weight Height: '" Weight: lbs. oz. kg; 33.35 BMI Method: General Appearance: No Apparent Distress, Obese, Other (intubated and sedated) Respiratory: Lungs Clear, No Respiratory Distress, Other (intubated and mechanically ventilated, coarse, decreased breath sounds. ) Cardiovascular: Regular Rate, Rhythm, No Edema (Slight edema of LE), No Murmur, Bradycardia Capillary Refill: Less Than 3 Seconds Peripheral Pulses: 2+ Radial Pulses (R) Gastrointestinal: soft (slightly firm but not hard), abnormal bowel sounds (hypoactive), distended, other (incision was covered. Appeared to have minimal serosanguineous drainage on bandage, w/ no spreading erythema. ) Extremity: Normal Inspection, Pedal Edema Neurologic/Psychiatric: Other (sedated) Skin: Normal Color, Warm/Dry Other comments PE PER RN Results Lab Laboratory Tests 12/15/21 04:50 12/15/21 15:15 12/16/21 04:05 Assessment/Plan Assessment/Plan 1. Small bowel perforation with peritonitis. 2. Status post exploratory laparotomy and small bowel resection. 3. COVID19 viral pneumonia 4. Acute hypoxic respiratory failure requiring mechanical ventilation. 5. Acute peritonitis secondary to perforation. Recommendations. We will continue dexamethasone, Lovenox and Levaquin and Flagyl per primary care. Cardizem drip per cardiology service 2. we will start on a Protonix IV. 3. Continue current mechanical ventilatory support with tidal volume of 500 PEEP of 8 and FiO2 40% until he maintains hemodynamic stability. 4. As patient is relatively unresponsive we will decrease his fentanyl drip and discontinue Precedex drip. If he continues to be unresponsive we will discontinue propofol also and see underlying mental status. Discussed with the CLINICAL DATA SPECIALIST. We will continue monitor electrolytes, BUN/creatinine and blood gases Critical Care: Ventilator Management Time spent with patient (mins): 35 CARA PEÑA MD Dec 16, 2021 08:39
[2021-12-16] MEDS: dilTIAZem DRIP PRE-MIX 125 ML IV SCH (09:34)
[2021-12-16] MEDS: PANTOPRAZOLE 40 MG (PROTONIX) VIAL IV SCH (09:49)
--- NOTE | 2021-12-16 10:04 | Progress Note - Cardiology ---
Cardiology SOAP Progress Note Subjective: Remains intubated and sedate Objective: I&O/Vital Signs 12/17/21 12/17/21 12/17/21 12/17/21 21:00 21:10 22:00 23:00 Temp 36.0 Pulse 56 54 53 Resp 14 20 15 B/P (MAP) 119/61 125/64 122/61 Pulse Ox 98 95 96 95 O2 Delivery Mechanical Ventilator Mechanical Ventilator Mechanical Ventilator Mechanical Ventilator O2 Flow Rate 30.00 25.00 25.00 25.00 12/17/21 12/18/21 12/18/21 12/18/21 23:20 00:00 00:21 00:21 Pulse 57 60 57 Resp 20 16 B/P (MAP) 143/70 143/70 Pulse Ox 99 91 O2 Delivery Mechanical Ventilator O2 Flow Rate 25.00 FiO2 30 12/18/21 12/18/21 12/18/21 12/18/21 00:22 00:26 01:00 01:00 Temp 36.0 Pulse 56 56 Resp 14 B/P (MAP) 134/66 Pulse Ox 94 93 O2 Delivery Mechanical Ventilator Mechanical Ventilator O2 Flow Rate 25.00 FiO2 25 12/18/21 12/18/21 12/18/21 12/18/21 02:00 02:50 03:00 04:00 Pulse 49 50 51 Resp 14 19 14 B/P (MAP) 131/64 133/61 Pulse Ox 92 93 94 94 O2 Delivery Mechanical Ventilator Mechanical Ventilator Mechanical Ventilator O2 Flow Rate 25.00 25.00 FiO2 30 25 12/18/21 12/18/21 12/18/21 12/18/21 04:00 04:38 04:55 05:00 Temp 36.0 Pulse 52 58 Resp 12 12 B/P (MAP) 129/59 130/70 126/62 Pulse Ox 94 94 O2 Delivery Mechanical Ventilator Mechanical Ventilator O2 Flow Rate 25.00 25.00 12/18/21 12/18/21 12/18/21 12/18/21 06:00 07:00 07:00 07:41 Pulse 57 53 52 60 Resp 12 10 20 B/P (MAP) 125/65 118/63 Pulse Ox 94 93 93 O2 Delivery Mechanical Ventilator Mechanical Ventilator O2 Flow Rate 25.00 25.00 FiO2 25 12/18/21 12/18/21 08:00 08:32 Temp 36.1 Pulse 56 Resp 15 B/P (MAP) 124/57 Pulse Ox 95 O2 Delivery Mechanical Ventilator O2 Flow Rate 25.00 12/18/21 00:00 Intake Total 200 ml Output Total 3425 ml Balance -3225 ml Constitutional: No AAO x 3; well-developed, well-nourished, other (sedated) Respiratory: No accessory muscle use, No respiratory distress; chest expansion is symmetric, chest is bilaterally symmetric, other (fair air entry; intubated) Cardiovascular: irregularly irregular; No JVD; S1 and S2 Gastrointestional: No audible bowel sounds; other (s/p abdominal surgery; dressing in place which is D&I) Extremities: no lower extremity edema bilateral Neurologic/Psychiatric: other (unable to assess d/t sedation) Skin: No rash on exposed areas, No ulcerations on exposed areas Results/Procedures: Labs Laboratory Tests 12/17/21 09:24: Blood Gas Puncture Site RR, Blood Gas Patient Temperature 35.7, Arterial Blood pH 7.38, Arterial Blood Partial Pressure CO2 30L, Arterial Blood Partial Pressure O2 57L, Arterial Blood HCO3 18L, Arterial Blood Total CO2 18.5L, Arterial Blood Oxygen Saturation 91L, Arterial Blood Base Excess -6.8L, Mikhail Test YES-POS, Blood Gas Ventilator Setting NO, Blood Gas Inspired Oxygen 30% 12/18/21 04:43: Blood Gas Puncture Site LEFT RAD, Blood Gas Patient Temperature 36, Arterial Blood pH 7.41, Arterial Blood Partial Pressure CO2 29L, Arterial Blood Partial Pressure O2 54L, Arterial Blood HCO3 19L, Arterial Blood Total CO2 19.4L, Arterial Blood Oxygen Saturation 88L, Arterial Blood Base Excess -5.4L, Mikhail Test YES-POS, Blood Gas Ventilator Setting YES, Blood Gas Inspired Oxygen 25%, White Blood Count 7.8, Red Blood Count 3.80L, Hemoglobin 11.0L, Hematocrit 35L, Mean Corpuscular Volume 91, Mean Corpuscular Hemoglobin 29, Mean Corpuscular Hemoglobin Concent 32, Red Cell Distribution Width 13.2, Platelet Count 165, Mean Platelet Volume 10.1, Immature Granulocyte % (Auto) 3, Neutrophils (%) (Auto) 80H, Lymphocytes (%) (Auto) 12, Monocytes (%) (Auto) 5, Eosinophils (%) (Auto) 0, Basophils (%) (Auto) 0, Neutrophils # (Auto) 6.3, Lymphocytes # (Auto) 1.0, Monocytes # (Auto) 0.4, Eosinophils # (Auto) 0.0, Basophils # (Auto) 0.0, Immature Granulocyte # (Auto) 0.2H, Sodium Level 143, Potassium Level 4.6, Chloride Level 116H, Carbon Dioxide Level 20L, Anion Gap 7, Blood Urea Nitrogen 42H, Creatinine 1.11, Estimat Glomerular Filtration Rate 68, BUN/Creatinine Ratio 38, Glucose Level 120H, Calcium Level 7.4L, Corrected Calcium 8.8, Phosphorus Level 3.2, Magnesium Level 2.4, Total Bilirubin 1.3H, Aspartate Amino Transf (AST/SGOT) 36H, Alanine Aminotransferase (ALT/SGPT) 33, Alkaline P hosphatase 44, Total Protein 4.9L, Albumin 2.2L Microbiology 12/13/21 MRSA Screen - Final, Complete MRSA not isolated 12/13/21 Urine Culture - Final, Complete NO GROWTH A/P: Assessment: New onset a-fib with RVR - first diagnosed on EKG of 12-14-21 - currently NSR - converted on IV Cardizem - Cardizem is currently off - maintaining SR - currently on low-dose Lovenox; we advise initiation of full anticoagulation for stroke prophylaxis when ok from surgical stand point Abd pain due to bowel perf - s/p bowel resection by Dr. Craig COVID (+) pneumonia - management per medical services/eICU Mildly elevated troponin - serial ECG stable and w/o any evidence of ACS - type 2 [place] due A Fib with RVR and due to COVID pneumonia Plan: Rate controlled with IV Cardizem and Dig - continue Advise initiation of anticoagulation for stroke prophylaxis when ok with surgical services Currently receiving Lovenox DVT prophylaxis Monitor lab closely Replace electrolytes as indicated Management of COVID (+) pneumonia per Medical/eICU services ELLIS BARRETT Dec 16, 2021 10:04
[2021-12-16 10:10] VITALS: BP 132/66
[2021-12-16 14:33] VITALS: BP 159/68
--- NOTE | 2021-12-16 16:00 | Progress Note - Hospitalist ---
Subjective HPI/CC On Admission Date Seen by Provider: Dec 16, 2021 Time Seen by Provider: 09:45 Chief complaint: Bowel perforation with COVID-19 pneumonia History of present illness: This is a 81-year-old white male who presented from [facility] ER for higher level of care due to bowel perforation and COVID-19 pneumonia with acute hypoxic respiratory failure requiring oxygen. Family wanted DO NOT INTUBATE. BiPAP was placed with 16/10 and 80%. Potassium 5.4 and creatinine 1.3 with decreased urinary output. Patient was placed on Levaquin and Flagyl empirically. Dr. Craig will take him to surgery but high risk for intubation long-term. Subjective/Events-last exam He remains intubated and sedated. Focused Exam Lactate Level 12/13/21 20:14: Lactic Acid Level 1.45 Objective Exam Vital Signs Vital Signs Date Time Temp Pulse Resp B/P (MAP) Pulse Ox O2 Delivery O2 Flow Rate FiO2 12/16/21 15:00 36.3 70 14 134/60 98 Mechanical Ventilator 40.00 12/16/21 14:33 40 Capillary Refill : Less Than 3 Seconds General Appearance: No Apparent Distress, Obese, Other (intubated and sedated) Respiratory: Lungs Clear, No Respiratory Distress Cardiovascular: Regular Rate, Rhythm, No Murmur Gastrointestinal: Soft, Abnormal Bowel Sounds (hypoactive) Extremity: Normal Inspection, No Pedal Edema Neurologic/Psychiatric: Other (sedated) Skin: Normal Color, Warm/Dry Results/Procedures Lab Laboratory Tests 12/16/21 04:05 Patient resulted labs reviewed. Imaging: Reviewed Imaging Report Assessment/Plan Assessment and Plan Assess & Plan/Chief Complaint Small bowel perforation s/p small bowel resection Surgery following s/p resection 12/13 Acute respiratory failure due to COVID-19 TeleICU following Remains intubated Oxygen requirement improving Decadron Shock Requiring Levophed AFib with RVR Cardiology consulted Off Cardizem Therapeutic anticoagulation when ok with surgery ALVARADO on CKD Improving 1/2 NS HTN COPD Obesity Poor prognosis DVT prophylaxis: Lovenox Hypernatremia, resolved Critical Care Ventilator Management Diagnosis/Problems Diagnosis/Problems (1) Bowel perforation Status: Acute (2) S/P small bowel resection Status: Acute (3) Acute respiratory failure due to COVID-19 Status: Acute (4) Shock Status: Acute (5) Acute kidney injury superimposed on chronic kidney disease Status: Acute (6) HTN (hypertension) Status: Chronic (7) COPD (chronic obstructive pulmonary disease) Status: Chronic (8) Obesity Status: Chronic Clinical Quality Measures DVT/VTE Risk/Contraindication: Contraindications-Pharm: Other *list below* Other: needs OR for bowel perforation CAMILA COVARRUBIAS MD Dec 16, 2021 16:00
[2021-12-16] MEDS: DexMEDEtomidine 250 ML DRIP 250 ML IV SCH (16:52)
[2021-12-16 18:56] VITALS: BP 130/56
[2021-12-16] MEDS: ENOXAPARIN 40 MG/0.4 ML (LOVENOX) SYR SC SCH (19:49)
[2021-12-16 22:05] VITALS: BP 114/52
[2021-12-17] MEDS: PROPOFOL DRIP (ICU) 100 ML IV SCH ×4 (01:25→18:18)
[2021-12-17 03:06] VITALS: BP 120/57
[2021-12-17] MEDS: NOREPINEPHRINE 8 MG/250 ML 250 ML IV SCH ×2 (03:06→18:36)
[2021-12-17] MEDS: RT-ALBUTEROL HFA 8.5 GM INHALER IH SCH ×4 (03:06→18:48)
[2021-12-17 05:12] LABS: BASOPHILS % (AUTO) 0 % (0-10); EOSINOPHILS % (AUTO) 0 % (0-10); HEMATOCRIT 34 % (40-54); HEMOGLOBIN 10.6 g/dL (13.3-17.7); LYMPHOCYTES # (AUTO) 0.7 10^3/uL (1.0-4.0); LYMPHOCYTES % (AUTO) 8 % (12-44); MEAN CORPUSCULAR HEMOGLOBIN 29 pg (25-34); MEAN CORPUSCULAR HGB CONC 32 g/dL (32-36); MEAN CORPUSCULAR VOLUME 92 fL (80-99); MEAN PLATELET VOLUME 10.8 fL (9.0-12.2); MONOCYTES # (AUTO) 0.5 10^3/uL (0.0-1.0); MONOCYTES % (AUTO) 6 % (0-12); NEUTROPHILS # (AUTO) 6.7 10^3/uL (1.8-7.8); NEUTROPHILS % (AUTO) 84 % (42-75); PLATELET COUNT 176 10^3/uL (130-400); WHITE BLOOD COUNT 7.9 10^3/uL (4.3-11.0)
[2021-12-17 06:13] LABS: ALBUMIN 2.2 GM/DL (3.2-4.5)
[2021-12-17 06:14] LABS: POTASSIUM 4.6 MMOL/L (3.6-5.0)
[2021-12-17 06:15] LABS: CALCIUM 7.4 MG/DL (8.5-10.1)
[2021-12-17 06:18] LABS: BILIRUBIN,TOTAL 1.1 MG/DL (0.1-1.0)
[2021-12-17 06:19] LABS: PHOSPHORUS 2.8 MG/DL (2.3-4.7)
[2021-12-17 06:20] LABS: CREATININE SERUM 1.14 MG/DL (0.60-1.30)
[2021-12-17 06:23] LABS: MAGNESIUM 2.5 MG/DL (1.6-2.4)
[2021-12-17] MEDS: POTASSIUM CL 10MEQ/50ML IVPB 50 ML IV SCH (07:21)
[2021-12-17] MEDS: KCL 20 MEQ TAB (K-DUR) PO SCH (07:21)
[2021-12-17] MEDS: MAGNESIUM 1 GM/100 ML IVPB 100 ML IV SCH (07:21)
--- NOTE | 2021-12-17 07:26 | Progress Note - Surgery ---
FADI PIERRE MED STUDENT 12/17/21 0726: Subjective Date Seen by a Provider: Dec 17, 2021 Time Seen by a Provider: 07:10 Subjective/Events-last exam Mr. Garcia is in bed this morning and is intubated and sedated. Nurse states he has not had a bowel movement, suggested reglan. She also states that he is able to follow commands better on the right. He was able to squeeze my fingers with his R hand when asked. RT in the room states his vent setting has been decresed a bit since yesterday O2% to 30 from 40% and peep from 8 to 5. They tried to reduce his sedation, may try SBT today. Review of Systems General: Other (Intubated and sedated, not able to communicate) Objective Exam Vital Signs Date Time Temp Pulse Resp B/P (MAP) Pulse Ox O2 Delivery O2 Flow Rate FiO2 12/17/21 06:00 36.5 75 15 155/97 96 Mechanical Ventilator 30.00 12/17/21 05:00 36.5 77 15 160/75 95 Mechanical Ventilator 30.00 12/17/21 04:00 36.3 65 16 127/58 95 Mechanical Ventilator 30.00 12/17/21 03:50 Mechanical Ventilator 30 12/17/21 03:06 120/57 12/17/21 03:06 68 19 100 35 12/17/21 03:00 36.4 64 15 128/69 97 Mechanical Ventilator 30.00 12/17/21 02:00 36.5 73 13 121/54 98 Mechanical Ventilator 30.00 12/17/21 01:25 113/55 12/17/21 01:00 36.4 60 16 113/55 97 Mechanical Ventilator 30.00 12/17/21 01:00 60 12/17/21 00:30 98 Mechanical Ventilator 30.00 12/17/21 00:00 Mechanical Ventilator 35 12/17/21 00:00 36.0 58 14 112/53 97 Mechanical Ventilator 35.00 12/16/21 23:00 36.4 59 15 107/52 96 Mechanical Ventilator 35.00 12/16/21 22:05 61 19 97 35 12/16/21 22:00 36.4 63 13 111/54 97 Mechanical Ventilator 35.00 12/16/21 21:00 36.5 72 16 124/52 98 Mechanical Ventilator 35.00 12/16/21 20:00 37.1 12/16/21 20:00 36.5 86 16 166/66 99 Mechanical Ventilator 35.00 12/16/21 20:00 Mechanical Ventilator 40 12/16/21 19:45 73 12/16/21 19:00 36.4 63 16 130/54 100 Mechanical Ventilator 35.00 12/16/21 19:00 63 12/16/21 18:56 61 19 100 35 12/16/21 18:00 36.3 63 14 132/56 100 Mechanical Ventilator 40.00 12/16/21 17:00 36.3 79 15 135/56 100 Mechanical Ventilator 40.00 12/16/21 16:52 70 134/60 12/16/21 16:00 Mechanical Ventilator 40 12/16/21 16:00 36.4 12/16/21 16:00 36.4 62 15 166/71 99 Mechanical Ventilator 40.00 12/16/21 15:00 36.3 70 14 134/60 98 Mechanical Ventilator 40.00 12/16/21 14:46 71 159/68 12/16/21 14:33 71 17 99 40 12/16/21 14:00 36.4 63 14 144/65 98 Mechanical Ventilator 40.00 12/16/21 13:00 36.5 70 14 132/59 98 Mechanical Ventilator 40.00 12/16/21 13:00 70 12/16/21 12:13 61 132/66 12/16/21 12:00 36.5 64 16 145/70 99 Mechanical Ventilator 40.00 12/16/21 12:00 Mechanical Ventilator 40 12/16/21 11:00 36.4 62 16 129/60 97 Mechanical Ventilator 40.00 12/16/21 10:10 61 17 97 40 12/16/21 10:00 36.5 60 14 126/58 97 Mechanical Ventilator 40.00 12/16/21 09:50 56 134/64 12/16/21 09:00 36.5 64 15 134/64 97 Mechanical Ventilator 40.00 12/16/21 08:00 Mechanical Ventilator 40 12/16/21 08:00 36.7 64 15 134/64 97 Mechanical Ventilator 40.00 I & O 12/17/21 07:00 Intake Total 1070 ml Output Total 2575 ml Balance -1505 ml Capillary Refill : Less Than 3 Seconds General Appearance: No Apparent Distress, Obese, Other (intubated and sedated, looking around room and can follow commands) HEENT: Moist Mucous Membranes Respiratory: Other (Intubated, coarse breath sounds bilaterally, no wheezing noted 16/500/30/5) Cardiovascular: Regular Rate, Rhythm, No Murmur, Normal Peripheral Pulses, Other (mild edema of LE) Peripheral Pulses: 2+ Radial Pulses (R), 2+ Radial Pulses (L) Gastrointestinal: soft (slightly firm but not hard), abnormal bowel sounds (none heard this morning), distended, other (incision was covered with bulky bandage, no leaking or soiling noted) Extremity: Normal Inspection, No Pedal Edema Neurologic/Psychiatric: Other (sedated, able to squeeze fingers and tracks with eyes) Skin: Normal Color, Warm/Dry Results Lab Laboratory Tests 12/17/21 05:09: White Blood Count 7.9, Red Blood Count 3.63L, Hemoglobin 10.6L, Hematocrit 34L, Mean Corpuscular Volume 92, Mean Corpuscular Hemoglobin 29, Mean Corpuscular Hemoglobin Concent 32, Red Cell Distribution Width 13.3, Platelet Count 176, Mean Platelet Volume 10.8, Immature Granulocyte % (Auto) 1, Neutrophils (%) (Auto) 84H, Lymphocytes (%) (Auto) 8L, Monocytes (%) (Auto) 6, Eosinophils (%) (Auto) 0, Basophils (%) (Auto) 0, Neutrophils # (Auto) 6.7, Lymphocytes # (Auto) 0.7L, Monocytes # (Auto) 0.5, Eosinophils # (Auto) 0.0, Basophils # (Auto) 0.0, Immature Granulocyte # (Auto) 0.1, Sodium Level 142, Potassium Level 4.6, Chloride Level 116H, Carbon Dioxide Level 16L, Anion Gap 10, Blood Urea Nitrogen 40H, Creatinine 1.14, Estimat Glomerular Filtration Rate 65, BUN/Creatinine Ratio 35, Glucose Level 164H, Calcium Level 7.4L, Corrected Calcium 8.8, Phosphorus Level 2.8, Magnesium Level 2.5H, Total Bilirubin 1.1H, Aspartate Amino Transf (AST/SGOT) 23, Alanine Aminotransferase (ALT/SGPT) 25, Alkaline Phosphatase 41, Total Protein 5.0L, Albumin 2.2L Microbiology 12/13/21 MRSA Screen - Final, Complete MRSA not isolated 12/13/21 Urine Culture - Final, Complete NO GROWTH Assessment/Plan Assessment/Plan Assessment/Plan S/P Ex Lap for perforated Jejunum - Incision appears to be healing well w/ no obvious signs of infection. Will continue to monitor for now. New dressing this morning. No BM since surgery. Respiratory Failure secondary to Covid-19 -Pt is doing ok, but still on vent. O2 flow rate and FiO2 continue to be weaned and tolerated by patient. Settings this morning 16/500/30/5, down from 16/500/40/8. Nursing states may try an SBT today. Has been weaning off sedation . Clinical Quality Measures DVT/VTE Risk/Contraindication: Contraindications-Pharm: Other *list below* Other: needs OR for bowel perforation PADILLA CRAIG DO 12/17/21 1257: Subjective Time Seen by a Provider: 11:01 Subjective/Events-last exam Pt seen and examined, still intubated on vent. Nurse states they were going to try to extubate, but that he started having breathing problems and they thought he might be in flash pulmonary edema. Has not had a BM or passed gas. When he started having breathing problems, he also had new onset of Afib. Review of Systems unable to obtain, intubated and sedated Objective Exam General Appearance: Obese, Other (intubated and sedated, looking around room and can follow commands) HEENT: Other (ET tube in place) Cardiovascular: No Murmur, Irregularly Irregular, Other (mild edema of LE) Gastrointestinal: soft (slightly firm but not hard), abnormal bowel sounds (no ne heard this morning), distended, other (incision was covered with bulky bandage, no leaking or soiling noted) Assessment/Plan Assessment/Plan Assessment/Plan New Onset of Afib -Cardiology wants to increase Lovenox, that is probably ok. Had a CXR to ck for flash pulmonary edema; which showed some increased congestion compared to 3 days ago, but not a lot worse and when I looked I didn't see any free air below diaphragm S/P Ex Lap for perforated Jejunum - Incision appears to be healing well w/ no obvious signs of infection. Will try Dulcolax suppository and monitor abd, return of bowel fxn will be harder because he is not moving at all. Respiratory Failure secondary to Covid-19 -Pt is doing ok, but still on vent. O2 flow rate and FiO2 continue to be weaned and tolerated by patient. Settings this morning 16/500/30/5, down from 1 6/500/40/8. Supervisory-Addendum Brief Verification & Attestation Participated in pt care: history, MDM, physical Personally performed: exam, history, MDM, supervision of care Care discussed with: Medical Student Procedures: n/a Verification and Attestation of Medical Student E/M Service A medical student performed and documented this service. I then reviewed and verified all information documented by the medical student and made modifications to such information, when appropriate. I personally performed a physical exam, medical decision making and then discussed any differences between the notes and made revisions as necessary to create one note. Padilla Craig , 12/17/21 , 12:58 FADI PIERRE MED STUDENT Dec 17, 2021 07:26 PADILLA CRAIG DO Dec 17, 2021 12:57
--- NOTE | 2021-12-17 08:02 | Tele-ICU Progress Note ---
Subjective Date Seen by a Provider: Dec 17, 2021 Time Seen by a Provider: 08:01 Subjective/Events-last exam Patient diarrhea is more alert and following simple commands hence he is tried CPAP trial. He did fairly well and in the initial phase but later developed atrial fibrillation with rapid ventricular rate and also has increasing secretions where the trach can say chest x-ray done on a stat basis H which revealed evidence of pulmonary edema. Hence he is put back on assist control. He is given Lopressor IV stat and on a scheduled basis. After the Lopressor he still continues to have slightly increased heart rate in the range of 120s hands I have ordered a digoxin IV. Also ordered IV Lasix. I decreased to the IV fluids. We will hold off for SBT trial today. If he is stable we will try SBT tomorrow. Sepsis Event Evaluation Height, Weight, BMI Height: '" Weight: lbs. oz. kg; 33.35 BMI Method: Exam Exam Patient acknowledged, consented, and participated in this virtual visit which was conducted using real time audio/video Vital Signs Date Time Temp Pulse Resp B/P (MAP) Pulse Ox O2 Delivery O2 Flow Rate FiO2 12/17/21 07:13 93 29 100 30 12/17/21 06:00 36.5 75 15 155/97 96 Mechanical Ventilator 30.00 12/17/21 05:00 36.5 77 15 160/75 95 Mechanical Ventilator 30.00 12/17/21 04:00 36.3 65 16 127/58 95 Mechanical Ventilator 30.00 12/17/21 03:50 Mechanical Ventilator 30 12/17/21 03:06 120/57 12/17/21 03:06 68 19 100 35 12/17/21 03:00 36.4 64 15 128/69 97 Mechanical Ventilator 30.00 12/17/21 02:00 36.5 73 13 121/54 98 Mechanical Ventilator 30.00 12/17/21 01:25 113/55 12/17/21 01:00 36.4 60 16 113/55 97 Mechanical Ventilator 30.00 12/17/21 01:00 60 12/17/21 00:30 98 Mechanical Ventilator 30.00 12/17/21 00:00 Mechanical Ventilator 35 12/17/21 00:00 36.0 58 14 112/53 97 Mechanical Ventilator 35.00 12/16/21 23:00 36.4 59 15 107/52 96 Mechanical Ventilator 35.00 12/16/21 22:05 61 19 97 35 12/16/21 22:00 36.4 63 13 111/54 97 Mechanical Ventilator 35.00 12/16/21 21:00 36.5 72 16 124/52 98 Mechanical Ventilator 35.00 12/16/21 20:00 37.1 12/16/21 20:00 36.5 86 16 166/66 99 Mechanical Ventilator 35.00 12/16/21 20:00 Mechanical Ventilator 40 12/16/21 19:45 73 12/16/21 19:00 36.4 63 16 130/54 100 Mechanical Ventilator 35.00 12/16/21 19:00 63 12/16/21 18:56 61 19 100 35 12/16/21 18:00 36.3 63 14 132/56 100 Mechanical Ventilator 40.00 12/16/21 17:00 36.3 79 15 135/56 100 Mechanical Ventilator 40.00 12/16/21 16:52 70 134/60 12/16/21 16:00 Mechanical Ventilator 40 12/16/21 16:00 36.4 12/16/21 16:00 36.4 62 15 166/71 99 Mechanical Ventilator 40.00 12/16/21 15:00 36.3 70 14 134/60 98 Mechanical Ventilator 40.00 12/16/21 14:46 71 159/68 12/16/21 14:33 71 17 99 40 12/16/21 14:00 36.4 63 14 144/65 98 Mechanical Ventilator 40.00 12/16/21 13:00 36.5 70 14 132/59 98 Mechanical Ventilator 40.00 12/16/21 13:00 70 12/16/21 12:13 61 132/66 12/16/21 12:00 36.5 64 16 145/70 99 Mechanical Ventilator 40.00 12/16/21 12:00 Mechanical Ventilator 40 12/16/21 11:00 36.4 62 16 129/60 97 Mechanical Ventilator 40.00 12/16/21 10:10 61 17 97 40 12/16/21 10:00 36.5 60 14 126/58 97 Mechanical Ventilator 40.00 12/16/21 09:50 56 134/64 12/16/21 09:00 36.5 64 15 134/64 97 Mechanical Ventilator 40.00 I & O 12/17/21 07:00 Intake Total 1070 ml Output Total 2575 ml Balance -1505 ml Height & Weight Height: '" Weight: lbs. oz. kg; 33.35 BMI Method: General Appearance: No Apparent Distress, Obese, Other (intubated and sedated, looking around room and can follow commands) HEENT: Moist Mucous Membranes Respiratory: Other (Intubated, coarse breath sounds bilaterally, no wheezing noted 16/500/30/5) Cardiovascular: Regular Rate, Rhythm, No Murmur, Normal Peripheral Pulses, Other (mild edema of LE) Capillary Refill: Less Than 3 Seconds Peripheral Pulses: 2+ Radial Pulses (R), 2+ Radial Pulses (L) Gastrointestinal: soft (slightly firm but not hard), abnormal bowel sounds (none heard this morning), distended, other (incision was covered with bulky bandage, no leaking or soiling noted) Extremity: Normal Inspection, No Pedal Edema Neurologic/Psychiatric: Other (sedated, able to squeeze fingers and tracks with eyes) Skin: Normal Color, Warm/Dry Other comments PE PER RN Results Lab Laboratory Tests 12/15/21 15:15 12/16/21 04:05 12/17/21 05:09 Assessment/Plan Assessment/Plan .1. Small bowel perforation with peritonitis. 2. Status post exploratory laparotomy and small bowel resection. 3. COVID19 viral pneumonia 4. Acute hypoxic respiratory failure requiring mechanical ventilation. Faile sbt on 12/17/21 due to afib with RVR 5. Acute peritonitis secondary to perforation. 6. Afibe with RVR 7.Fluid OVER LOAD Recommendations. 1.We will continue dexamethasone, Lovenox and Levaquin and Flagyl per primary care. 2. IV LOPRESSOR AND DIGOXIN to control rvr 3. Continue current mechanical ventilatory support with tidal volume of 500 PEEP of 8 and FiO2 30%. as he failed SBT today 4. Decrease ivf to kvo and give lasix. 5. if stable will try SBT on 12/18/21. Critical Care: Ventilator Management Time spent with patient (mins): 36 CARA PEÑA MD Dec 17, 2021 08:01
[2021-12-17] MEDS: PANTOPRAZOLE 40 MG (PROTONIX) VIAL IV SCH (08:05)
[2021-12-17] MEDS: metroNIDAZOLE 500MG/100ML IVPB 100 ML IV SCH ×2 (08:05→21:02)
[2021-12-17] MEDS: 1/2 NS IV SOLUTION 1,000 ML IV SCH (09:12)
[2021-12-17 09:27] LABS: ABG BASE EXCESS -6.8 MMOL/L (-2.5-2.5); ABG OXYGEN SATURATION 91 % (94-100); ABG PCO2 30 MMHG (35-45); ABG PH 7.38 (7.37-7.43); ABG PO2 57 MMHG (79-93); ABG TCO2 18.5 MMOL/L (21.0-31.0)
[2021-12-17 09:29] LABS: ALLENS TEST YES-POS; INSPIRED O2 30%; PATIENT TEMP 35.7; VENTILATOR NO
[2021-12-17] MEDS ORDERED: meTOprolol 5 MG/5 ML (LOPRESSOR) VIAL ONE (10:00)
[2021-12-17] MEDS ORDERED: meTOprolol 5 MG/5 ML (LOPRESSOR) VIAL IV ONE (10:00)
[2021-12-17] MEDS: UMECLIDINIUM BROMIDE (INCRUSE ELLIPTA) 7'S IH SCH (10:06)
[2021-12-17] MEDS: fentaNYL DRIP PRE-MIX 250 ML IV SCH ×2 (10:16→18:18)
--- NOTE | 2021-12-17 10:26 | Diagnostic Imaging Report ---
INDICATION: CHF. TIME OF EXAM: 10:10 AM Correlation is made with prior chest from 12/14/2021. FINDINGS: ET tube has tip above the bessy. Congestive changes in both lungs are noted. The vascularity is prominent. There appears to be some mild infiltrate in the mid and lower lung grayson. No significant effusion is seen. There is no pneumothorax. Left-sided line has tip overlying the SVC. IMPRESSION: Findings of congestive failure, slightly increased since exam 3 days earlier. Dictated by: Dictated on workstation # [id number]
[2021-12-17] MEDS ORDERED: FUROSEMIDE 40 MG/4 ML INJ (LASIX) IVP NR (10:45)
[2021-12-17] MEDS ORDERED: DIGOXIN 0.25 MG/ML (LANOXIN) 2 ML AMP IV NR (11:45)
[2021-12-17] MEDS: meTOprolol 5 MG/5 ML (LOPRESSOR) VIAL IV SCH ×2 (11:45→18:03)
[2021-12-17] MEDS ORDERED: meTOprolol 5 MG/5 ML (LOPRESSOR) VIAL IV SCH (12:00)
[2021-12-17] MEDS: dilTIAZem DRIP PRE-MIX 125 ML IV SCH (12:09)
--- NOTE | 2021-12-17 12:46 | Progress Note - Hospitalist ---
Subjective HPI/CC On Admission Date Seen by Provider: Dec 17, 2021 Time Seen by Provider: 10:25 Chief complaint: Bowel perforation with COVID-19 pneumonia History of present illness: This is a 81-year-old white male who presented from [facility] ER for higher level of care due to bowel perforation and COVID-19 pneumonia with acute hypoxic respiratory failure requiring oxygen. Family wanted DO NOT INTUBATE. BiPAP was placed with 16/10 and 80%. Potassium 5.4 and creatinine 1.3 with decreased urinary output. Patient was placed on Levaquin and Flagyl empirically. Dr. Craig will take him to surgery but high risk for intubation long-term. Subjective/Events-last exam He remains intubated and sedated. Objective Exam Vital Signs Vital Signs Date Time Temp Pulse Resp B/P (MAP) Pulse Ox O2 Delivery O2 Flow Rate FiO2 12/17/21 11:50 36.1 12/17/21 10:45 120 99/76 12/17/21 10:07 29 100 30 12/17/21 10:00 Mechanical Ventilator 30.00 Capillary Refill : Less Than 3 Seconds General Appearance: No Apparent Distress, Obese, Other (intubated and sedated) Respiratory: Lungs Clear, No Respiratory Distress, Other (intubated and mechanically ventilated) Cardiovascular: Regular Rate, Rhythm, No Murmur Gastrointestinal: Soft, Abnormal Bowel Sounds (absent), Distended Extremity: Normal Inspection, Pedal Edema Neurologic/Psychiatric: Other (sedated) Skin: Normal Color, Warm/Dry Results/Procedures Lab Laboratory Tests 12/17/21 05:09 Patient resulted labs reviewed. Imaging: Reviewed Imaging Report Assessment/Plan Assessment and Plan Assess & Plan/Chief Complaint Small bowel perforation s/p small bowel resection Surgery following s/p resection 12/13 Levaquin and Flagyl Awaiting bowel function to return Acute respiratory failure due to COVID-19 TeleICU following Remains intubated Oxygen requirement improving Decadron Shock Requiring Levophed AFib with RVR Cardiology consulted Cardizem Begin therapeutic Lovenox ALVARADO on CKD Improving 1/2 NS HTN COPD Obesity Poor prognosis DVT prophylaxis: Lovenox Hypernatremia, resolved Critical Care Critically Ill Patient Diagnosis/Problems Diagnosis/Problems (1) Bowel perforation Status: Acute (2) S/P small bowel resection Status: Acute (3) Acute respiratory failure due to COVID-19 Status: Acute (4) Shock Status: Acute (5) Acute kidney injury superimposed on chronic kidney disease Status: Acute (6) HTN (hypertension) Status: Chronic (7) COPD (chronic obstructive pulmonary disease) Status: Chronic (8) Obesity Status: Chronic Clinical Quality Measures DVT/VTE Risk/Contraindication: Contraindications-Pharm: Other *list below* Other: needs OR for bowel perforation CAMILA COVARRUBIAS MD Dec 17, 2021 12:46
[2021-12-17] MEDS ORDERED: ENOXAPARIN 100 MG/1 ML (LOVENOX) SYR SC SCH (17:00)
[2021-12-17] MEDS: ENOXAPARIN 300 MG/3 ML (LOVENOX) MULTI-DOSE VIAL SQ SCH (18:03)
[2021-12-17 18:49] VITALS: BP 118/58
[2021-12-17 23:19] VITALS: BP 146/75
[2021-12-17 23:20] VITALS: BP 118/58
[2021-12-18] MEDS: PROPOFOL DRIP (ICU) 100 ML IV SCH ×5 (00:21→20:55)
[2021-12-18] MEDS: meTOprolol 5 MG/5 ML (LOPRESSOR) VIAL IV SCH ×4 (00:21→17:34)
[2021-12-18] MEDS: DexMEDEtomidine 250 ML DRIP 250 ML IV SCH ×2 (00:21→17:57)
[2021-12-18 02:50] VITALS: BP 126/68
[2021-12-18] MEDS: RT-ALBUTEROL HFA 8.5 GM INHALER IH SCH ×4 (02:50→19:03)
[2021-12-18] MEDS: ENOXAPARIN 300 MG/3 ML (LOVENOX) MULTI-DOSE VIAL SQ SCH (04:54)
[2021-12-18] MEDS: fentaNYL DRIP PRE-MIX 250 ML IV SCH (04:55)
[2021-12-18 04:57] LABS: ABG BASE EXCESS -5.4 MMOL/L (-2.5-2.5); ABG OXYGEN SATURATION 88 % (94-100); ABG PCO2 29 MMHG (35-45); ABG PH 7.41 (7.37-7.43); ABG PO2 54 MMHG (79-93); ABG TCO2 19.4 MMOL/L (21.0-31.0)
[2021-12-18 05:01] LABS: BASOPHILS % (AUTO) 0 % (0-10); EOSINOPHILS % (AUTO) 0 % (0-10); HEMATOCRIT 35 % (40-54); LYMPHOCYTES % (AUTO) 12 % (12-44); MEAN CORPUSCULAR HEMOGLOBIN 29 pg (25-34); MEAN CORPUSCULAR HGB CONC 32 g/dL (32-36); MEAN CORPUSCULAR VOLUME 91 fL (80-99); MEAN PLATELET VOLUME 10.1 fL (9.0-12.2); MONOCYTES # (AUTO) 0.4 10^3/uL (0.0-1.0); MONOCYTES % (AUTO) 5 % (0-12); NEUTROPHILS # (AUTO) 6.3 10^3/uL (1.8-7.8); NEUTROPHILS % (AUTO) 80 % (42-75); PLATELET COUNT 165 10^3/uL (130-400); WHITE BLOOD COUNT 7.8 10^3/uL (4.3-11.0)
[2021-12-18 05:05] LABS: ALLENS TEST YES-POS
[2021-12-18 05:06] LABS: INSPIRED O2 25%; PATIENT TEMP 36; VENTILATOR YES
[2021-12-18 05:19] LABS: ALBUMIN 2.2 GM/DL (3.2-4.5)
[2021-12-18 05:20] LABS: POTASSIUM 4.6 MMOL/L (3.6-5.0)
[2021-12-18 05:21] LABS: CALCIUM 7.4 MG/DL (8.5-10.1)
[2021-12-18 05:22] LABS: TOTAL PROTEIN 4.9 GM/DL (6.4-8.2)
[2021-12-18 05:24] LABS: BILIRUBIN,TOTAL 1.3 MG/DL (0.1-1.0)
[2021-12-18 05:25] LABS: PHOSPHORUS 3.2 MG/DL (2.3-4.7)
[2021-12-18 05:26] LABS: CREATININE SERUM 1.11 MG/DL (0.60-1.30)
[2021-12-18 05:28] LABS: MAGNESIUM 2.4 MG/DL (1.6-2.4)
[2021-12-18] MEDS: POTASSIUM CL 10MEQ/50ML IVPB 50 ML IV SCH (06:44)
[2021-12-18] MEDS: KCL 20 MEQ TAB (K-DUR) PO SCH (06:45)
[2021-12-18] MEDS: MAGNESIUM 1 GM/100 ML IVPB 100 ML IV SCH (06:45)
[2021-12-18] MEDS: UMECLIDINIUM BROMIDE (INCRUSE ELLIPTA) 7'S IH SCH (07:34)
[2021-12-18 07:41] VITALS: BP 118/59
--- NOTE | 2021-12-18 07:55 | Progress Note - Surgery ---
SIVA ARMENDARIZ 12/18/21 0755: Subjective Date Seen by a Provider: Dec 18, 2021 Time Seen by a Provider: 07:40 Subjective/Events-last exam Patient was intubated and lightly sedated when I saw him this morning. It seemed like he acknowledged my presence when I first started talking to him, but he wouldn't follow my commands. Patient still has not had a BM or reports of gas since his procedure. Vent settings continue to improve slightly. Today his setting sare 16/500/25/5. Yesterday they were 16/500/30/5. They tried CPAP yesterday and patient tolerated at first but then went into afib and had to be placed back on vent. Has since converted to normal sinus rhythm. Spoke with Nurse this morning and she had nothing new to report. Says she hopes they can try de-intubating again today. Objective Exam Vital Signs Date Time Temp Pulse Resp B/P (MAP) Pulse Ox O2 Delivery O2 Flow Rate FiO2 12/18/21 07:41 60 20 93 25 12/18/21 07:00 52 12/18/21 07:00 53 10 118/63 93 Mechanical Ventilator 25.00 12/18/21 06:00 57 12 125/65 94 Mechanical Ventilator 25.00 12/18/21 05:00 58 12 126/62 94 Mechanical Ventilator 25.00 12/18/21 04:55 130/70 12/18/21 04:38 36.0 12/18/21 04:00 52 12 129/59 94 Mechanical Ventilator 25.00 12/18/21 04:00 94 Mechanical Ventilator 25 12/18/21 03:00 51 14 133/61 94 Mechanical Ventilator 25.00 12/18/21 02:50 50 19 93 30 12/18/21 02:00 49 14 131/64 92 Mechanical Ventilator 25.00 12/18/21 01:00 56 14 134/66 93 Mechanical Ventilator 25.00 12/18/21 01:00 56 12/18/21 00:26 94 Mechanical Ventilator 25 12/18/21 00:22 36.0 12/18/21 00:21 143/70 12/18/21 00:21 57 12/18/21 00:00 60 16 143/70 91 Mechanical Ventilator 25.00 12/17/21 23:20 57 20 99 30 12/17/21 23:00 53 15 122/61 95 Mechanical Ventilator 25.00 12/17/21 22:00 54 20 125/64 96 Mechanical Ventilator 25.00 12/17/21 21:10 36.0 95 Mechanical Ventilator 25.00 12/17/21 21:00 56 14 119/61 98 Mechanical Ventilator 30.00 12/17/21 20:00 57 14 120/59 100 Mechanical Ventilator 30.00 12/17/21 20:00 100 Mechanical Ventilator 30 12/17/21 19:00 58 14 122/58 100 Mechanical Ventilator 30.00 12/17/21 19:00 58 12/17/21 18:49 57 20 99 30 12/17/21 18:36 54 98/61 12/17/21 18:24 54 12/17/21 18:18 113 98/61 12/17/21 18:10 Mechanical Ventilator 30.00 12/17/21 18:00 125 11 98/61 100 Mechanical Ventilator 40.00 12/17/21 17:00 105 25 100/65 100 Mechanical Ventilator 40.00 12/17/21 16:30 36.4 12/17/21 16:25 Mechanical Ventilator 40 12/17/21 16:00 113 11 103/73 99 Mechanical Ventilator 40.00 12/17/21 15:14 122 93/64 12/17/21 15:00 121 11 107/71 98 Mechanical Ventilator 40.00 12/17/21 14:30 Mechanical Ventilator 40.00 12/17/21 14:00 122 92/73 100 Mechanical Ventilator 30.00 12/17/21 13:52 128 16 98 50 12/17/21 13:00 112 122/73 99 Mechanical Ventilator 30.00 12/17/21 13:00 97 12/17/21 12:35 Mechanical Ventilator 50 12/17/21 12:00 35.8 12/17/21 12:00 112 119/79 100 Mechanical Ventilator 30.00 12/17/21 11:50 36.1 12/17/21 11:00 120 125/76 100 Mechanical Ventilator 30.00 12/17/21 10:45 120 99/76 12/17/21 10:07 93 29 100 30 12/17/21 10:00 170 22 99/76 Mechanical Ventilator 30.00 12/17/21 09:00 36.1 105 18 200/120 92 Mechanical Ventilator 30.00 12/17/21 08:00 36.1 12/17/21 08:00 36.0 90 22 187/77 99 Mechanical Ventilator 30.00 12/17/21 08:00 Mechanical Ventilator 30 I & O 12/18/21 07:00 Intake Total 900 ml Output Total 4575 ml Balance -3675 ml Capillary Refill : Less Than 3 Seconds General Appearance: No Apparent Distress, Obese, Other (intubated and sedated, looking around room. Not following commands) HEENT: Moist Mucous Membranes Respiratory: No Accessory Muscle Use, Rhonci, Other (Intubated, coarse breath sounds bilaterally. Vent settings: 16/500/25/5) Cardiovascular: No Murmur, Normal Peripheral Pulses, Bradycardia, Other (Regular sinus rhythm. ) Peripheral Pulses: 2+ Radial Pulses (R), 2+ Radial Pulses (L) Gastrointestinal: soft (Minimally firm.), abnormal bowel sounds (hypoactive), distended (very minimally so), other (incision was covered with bulky bandage, was able to visualize part of incision. Was C/D/I. No signs of erythema or purulent leakage elsewhere.) Extremity: Normal Inspection, No Pedal Edema, Other (Thickened yellow toenails) Neurologic/Psychiatric: Other (Light sedation. Looking around room continuously, not following commands.) Skin: Normal Color, Warm/Dry Results Lab Laboratory Tests 12/17/21 09:24: Blood Gas Puncture Site RR, Blood Gas Patient Temperature 35.7, Arterial Blood pH 7.38, Arterial Blood Partial Pressure CO2 30L, Arterial Blood Partial Pressure O2 57L, Arterial Blood HCO3 18L, Arterial Blood Total CO2 18.5L, Ar terial Blood Oxygen Saturation 91L, Arterial Blood Base Excess -6.8L, Mikhail Test YES-POS, Blood Gas Ventilator Setting NO, Blood Gas Inspired Oxygen 30% 12/18/21 04:43: Blood Gas Puncture Site LEFT RAD, Blood Gas Patient Temperature 36, Arterial Blood pH 7.41, Arterial Blood Partial Pressure CO2 29L, Arterial Blood Partial Pressure O2 54L, Arterial Blood HCO3 19L, Arterial Blood Total CO2 19.4L, Arterial Blood Oxygen Saturation 88L, Arterial Blood Base Excess -5.4L, Mikhail Test YES-POS, Blood Gas Ventilator Setting YES, Blood Gas Inspired Oxygen 25%, White Blood Count 7.8, Red Blood Count 3.80L, Hemoglobin 11.0L, Hematocrit 35L, Mean Corpuscular Volume 91, Mean Corpuscular Hemoglobin 29, Mean Corpuscular Hemoglobin Concent 32, Red Cell Distribution Width 13.2, Platelet Count 165, Mean Platelet Volume 10.1, Immature Granulocyte % (Auto) 3, Neutrophils (%) (Auto) 80H, Lymphocytes (%) (Auto) 12, Monocytes (%) (Auto) 5, Eosinophils (%) (Auto) 0, Basophils (%) (Auto) 0, Neutrophils # (Auto) 6.3, Lymphocytes # (Auto) 1.0, Monocytes # (Auto) 0.4, Eosinophils # (Auto) 0.0, Basophils # (Auto) 0.0, Immature Granulocyte # (Auto) 0.2H, Sodium Level 143, Potassium Level 4.6, Chloride Level 116H, Carbon Dioxide Level 20L, Anion Gap 7, Blood Urea Nitrogen 42H, Creatinine 1.11, Estimat Glomerular Filtration Rate 68, BUN/Creatinine Ratio 38, Glucose Level 120H, Calcium Level 7.4L, Corrected Calcium 8.8, Phosphorus Level 3.2, Magnesium Level 2.4, Total Bilirubin 1.3H, Aspartate Amino Transf (AST/SGOT) 36H, Alanine Aminotransferase (ALT/SGPT) 33, Alkaline Phosphatase 44, Total Protein 4.9L, Albumin 2.2L Microbiology 12/13/21 MRSA Screen - Final, Complete MRSA not isolated 12/13/21 Urine Culture - Final, Complete NO GROWTH Assessment/Plan Assessment/Plan Assessment/Plan New Onset of Afib yesterday -Has since converted to regular sinus rhythm. Slightly bradycardic (57 bpm). Metoprolol and Diltiazem are currently being held. Currently on Enoxaparin 120 mg Q12hr for DVT and stroke prophylaxis. S/P Ex Lap for perforated Jejunum - Incision appears to be healing well w/ no obvious signs of infection. Belly isn't too firm or distended at this time. Will try Dulcolax suppository and monitor for now. Hopefully patient can be de-intubated and can increase movement soon to help return of bowel function. Respiratory Failure secondary to Covid-19 -Pt is doing ok, but still on vent. Settings this morning 16/500/325/5, down from 16/500/30/5 yesterday. May try de-intubating again today and see how pernell puente tolerates. Clinical Quality Measures DVT/VTE Risk/Contraindication: Contraindications-Pharm: Other *list below* Other: needs OR for bowel perforation MAGIPREMAGEMA B DO 12/18/21 1019: Subjective Time Seen by a Provider: 09:56 Subjective/Events-last exam Pt seen and examined, seems to be moving around more today. Nurse states they were unable to extubate yesterday but they are going to try today. Still no BM. Review of Systems unable to obtain pt intubated Objective Exam General Appearance: No Apparent Distress, Obese, Other (intubated and mildly sedated, looking around room. Not following commands) Respiratory: No Accessory Muscle Use, Rhonci, Other (Intubated, coarse breath sounds bilaterally. Vent settings: 16/500/25/5) Cardiovascular: No Murmur, Bradycardia Gastrointestinal: soft (Minimally firm.), abnormal bowel sounds (hypoactive), distended (very minimally so), other (incision was C/D/I. No signs of erythema or purulent leakage ) Extremity: No Pedal Edema, Other (Thickened yellow toenails) Neurologic/Psychiatric: Other (Light sedation. Looking around room continuo usly, not following commands.) Assessment/Plan Assessment/Plan Assessment/Plan S/P Ex Lap for perforated Jejunum - Incision appears to be healing well w/ no obvious signs of infection. Belly isn't too firm or distended at this time. Will try Dulcolax suppository and monitor for now. Hopefully patient can be extubated and can increase movement soon to help return of bowel function. New Onset of Afib yesterday -Has since converted to a sinus rhythm; slightly bradycardic (57 bpm). Metoprolol and Diltiazem are currently being held. Currently on Enoxaparin 120 mg Q12hr for DVT and stroke prophylaxis. Respiratory Failure secondary to Covid-19 -Pt is doing ok, but still on vent. Settings this morning 16/500/325/5, down from 16/500/30/5 yesterday. May try extubating again today and see how patient tolerates. Supervisory-Addendum Brief Verification & Attestation Participated in pt care: history, MDM, physical Personally performed: exam, history, MDM, supervision of care Care discussed with: Medical Student Procedures: n/a Verification and Attestation of Medical Student E/M Service A medical student performed and documented this service. I then reviewed and verified all information documented by the medical student and made modifications to such information, when appropriate. I personally performed a physical exam, medical decision making and then discussed any differences between the notes and made revisions as necessary to create one note. Gema Goodman , 12/18/21 , 10:19 SIVA ARMENDARIZ Dec 18, 2021 07:55 GEMA GOODMAN DO Dec 18, 2021 10:19
[2021-12-18] MEDS: NOREPINEPHRINE 8 MG/250 ML 250 ML IV SCH ×2 (08:33→20:45)
[2021-12-18] MEDS: PANTOPRAZOLE 40 MG (PROTONIX) VIAL IV SCH (08:33)
--- NOTE | 2021-12-18 08:39 | Progress Note - Cardiology ---
Cardiology SOAP Progress Note Subjective: Remains intubated Sedation being weaned off for possible extubation later today Objective: I&O/Vital Signs 12/18/21 12/18/21 12/18/21 12/18/21 01:00 01:00 02:00 02:50 Pulse 56 56 49 50 Resp 14 14 19 B/P (MAP) 134/66 131/64 Pulse Ox 93 92 93 O2 Delivery Mechanical Ventilator Mechanical Ventilator O2 Flow Rate 25.00 25.00 FiO2 30 12/18/21 12/18/21 12/18/21 12/18/21 03:00 04:00 04:00 04:38 Temp 36.0 Pulse 51 52 Resp 14 12 B/P (MAP) 133/61 129/59 Pulse Ox 94 94 94 O2 Delivery Mechanical Ventilator Mechanical Ventilator Mechanical Ventilator O2 Flow Rate 25.00 25.00 FiO2 25 12/18/21 12/18/21 12/18/21 12/18/21 04:55 05:00 06:00 07:00 Pulse 58 57 53 Resp 12 12 10 B/P (MAP) 130/70 126/62 125/65 118/63 Pulse Ox 94 94 93 O2 Delivery Mechanical Ventilator Mechanical Ventilator Mechanical Ventilator O2 Flow Rate 25.00 25.00 25.00 12/18/21 12/18/21 12/18/21 12/18/21 07:00 07:41 07:48 08:00 Pulse 52 60 56 Resp 20 15 B/P (MAP) 124/57 Pulse Ox 93 98 95 O2 Delivery Mechanical Ventilator Mechanical Ventilator O2 Flow Rate 25.00 FiO2 25 25 12/18/21 12/18/21 12/18/21 12/18/21 08:32 08:33 09:00 10:00 Temp 36.1 Pulse 56 55 56 Resp 11 18 B/P (MAP) 124/57 118/56 129/59 Pulse Ox 95 95 O2 Delivery Mechanical Ventilator Mechanical Ventilator O2 Flow Rate 25.00 25.00 12/18/21 12/18/21 12/18/21 12/18/21 10:55 11:00 11:13 12:00 Pulse 65 64 64 56 Resp 22 18 12 B/P (MAP) 143/68 143/68 126/68 Pulse Ox 92 100 94 O2 Delivery Mechanical Ventilator Mechanical Ventilator O2 Flow Rate 25.00 25.00 FiO2 25 12/18/21 12:23 Pulse 58 12/18/21 00:00 Intake Total 200 ml Output Total 3425 ml Balance -3225 ml Constitutional: No AAO x 3; well-developed, well-nourished, other (sedated) Respiratory: No accessory muscle use, No respiratory distress; chest expansion is symmetric, chest is bilaterally symmetric, other (fair air entry; intubated) Cardiovascular: irregularly irregular; No JVD; S1 and S2 Gastrointestional: No audible bowel sounds; other (s/p abdominal surgery; dressing in place which is D&I) Extremities: no lower extremity edema bilateral Neurologic/Psychiatric: other (unable to assess d/t sedation) Skin: No rash on exposed areas, No ulcerations on exposed areas Results/Procedures: Labs Laboratory Tests 12/18/21 04:43: White Blood Count 7.8, Red Blood Count 3.80L, Hemoglobin 11.0L, Hematocrit 35L, Mean Corpuscular Volume 91, Mean Corpuscular Hemoglobin 29, Mean Corpuscular Hemoglobin Concent 32, Red Cell Distribution Width 13.2, Platelet Count 165, Mean Platelet Volume 10.1, Immature Granulocyte % (Auto) 3, Neutrophils (%) (Auto) 80H, Lymphocytes (%) (Auto) 12, Monocytes (%) (Auto) 5, Eosinophils (%) (Auto) 0, Basophils (%) (Auto) 0, Neutrophils # (Auto) 6.3, Lymphocytes # (Auto) 1.0, Monocytes # (Auto) 0.4, Eosinophils # (Auto) 0.0, Basophils # (Auto) 0.0, Immature Granulocyte # (Auto) 0.2H, Blood Gas Puncture Site LEFT RAD, Blood Gas Patient Temperature 36, Arterial Blood pH 7.41, Arterial Blood Partial Pressure CO2 29L, Arterial Blood Partial Pressure O2 54L, Arterial Blood HCO3 19L, Arterial Blood Total CO2 19.4L, Arterial Blood Oxygen Saturation 88L, Arterial Blood Base Excess -5.4L, Mikhail Test YES-POS, Blood Gas Ventilator Setting YES, Blood Gas Inspired Oxygen 25%, Sodium Level 143, Potassium Level 4.6, Chloride Level 116H, Carbon Dioxide Level 20L, Anion Gap 7, Blood Urea Nitrogen 42H, Creatinine 1.11, Estimat Glomerular Filtration Rate 68, BUN/Creatinine Ratio 38, Glucose Level 120H, Calcium Level 7.4L, Corrected Calcium 8.8, Phosphorus Level 3.2, Magnesium Level 2.4, Total Bilirubin 1.3H, Aspartate Amino Transf (AST/SGOT) 36H, Alanine Aminotransferase (ALT/SGPT) 33, Alkaline Phosphatase 44, Total Protein 4.9L, Albumin 2.2L Microbiology 12/13/21 MRSA Screen - Final, Complete MRSA not isolated 12/13/21 Urine Culture - Final, Complete NO GROWTH A/P: Assessment: New onset a-fib with RVR - first diagnosed on EKG of 12-14-21 - currently NSR - converted on IV Cardizem - Cardizem is currently off - was maintaining SR - converted to a-fib with RVR on 12-17-21 which was treated with IV BB and Dig - again has converted to SR - currently on low-dose Lovenox; we advise initiation of full anticoagulation for stroke prophylaxis when ok from surgical stand point Abd pain due to bowel perf - s/p bowel resection by Dr. Craig COVID (+) pneumonia - management per medical services/eICU Mildly elevated troponin - serial ECG stable and w/o any evidence of ACS - type 2 NM due A Fib with RVR and due to COVID pneumonia Plan: Converted to a-fib with RVR yesterday - treated with IV BB and Dig - has converted to SR Rate controlled with IV Cardizem and Dig - continue Currently receiving treatment dosing Lovenox - change to OAC when taking p.o intake Monitor lab closely Replace electrolytes as indicated Management of COVID (+) pneumonia per Medical/eICU services Physician Assessment Physician Assessment I have evaluated the patient collaboratively with Chelsea Eddy APRN. To reduce COVID exposure to the Cardiology team, I did not enter the patient's room today. I did review his VS, hospital notes, tele data, and labs. Our Assessment and Recs are outline above ELLIS EDDY Dec 18, 2021 08:39 SHAYAN MONACO MD FACP FAC CCDS Dec 18, 2021 12:29
[2021-12-18] MEDS ORDERED: BISACODYL 10 MG SUPP (DULCOLAX) PR ONE (10:00)
[2021-12-18 10:55] VITALS: BP 132/82
[2021-12-18] MEDS: 1/2 NS IV SOLUTION 1,000 ML IV SCH (11:12)
--- NOTE | 2021-12-18 11:56 | Tele-ICU Progress Note ---
Subjective Date Seen by a Provider: Dec 18, 2021 Time Seen by a Provider: 09:45 Sepsis Event Evaluation Height, Weight, BMI Height: '" Weight: lbs. oz. kg; 33.35 BMI Method: Exam Exam Patient acknowledged, consented, and participated in this virtual visit which was conducted using real time audio/video Vital Signs Date Time Temp Pulse Resp B/P (MAP) Pulse Ox O2 Delivery O2 Flow Rate FiO2 12/18/21 11:13 64 143/68 12/18/21 11:00 64 18 143/68 100 Mechanical Ventilator 25.00 12/18/21 10:55 65 22 92 25 12/18/21 10:00 56 18 129/59 95 Mechanical Ventilator 25.00 12/18/21 09:00 55 11 118/56 95 Mechanical Ventilator 25.00 12/18/21 08:33 56 124/57 12/18/21 08:32 36.1 12/18/21 08:00 56 15 124/57 95 Mechanical Ventilator 25.00 12/18/21 07:48 98 Mechanical Ventilator 25 12/18/21 07:41 60 20 93 25 12/18/21 07:00 52 12/18/21 07:00 53 10 118/63 93 Mechanical Ventilator 25.00 12/18/21 06:00 57 12 125/65 94 Mechanical Ventilator 25.00 12/18/21 05:00 58 12 126/62 94 Mechanical Ventilator 25.00 12/18/21 04:55 130/70 12/18/21 04:38 36.0 12/18/21 04:00 52 12 129/59 94 Mechanical Ventilator 25.00 12/18/21 04:00 94 Mechanical Ventilator 25 12/18/21 03:00 51 14 133/61 94 Mechanical Ventilator 25.00 12/18/21 02:50 50 19 93 30 12/18/21 02:00 49 14 131/64 92 Mechanical Ventilator 25.00 12/18/21 01:00 56 14 134/66 93 Mechanical Ventilator 25.00 12/18/21 01:00 56 12/18/21 00:26 94 Mechanical Ventilator 25 12/18/21 00:22 36.0 12/18/21 00:21 143/70 12/18/21 00:21 57 12/18/21 00:00 60 16 143/70 91 Mechanical Ventilator 25.00 12/17/21 23:20 57 20 99 30 12/17/21 23:00 53 15 122/61 95 Mechanical Ventilator 25.00 12/17/21 22:00 54 20 125/64 96 Mechanical Ventilator 25.00 12/17/21 21:10 36.0 95 Mechanical Ventilator 25.00 12/17/21 21:00 56 14 119/61 98 Mechanical Ventilator 30.00 12/17/21 20:00 57 14 120/59 100 Mechanical Ventilator 30.00 12/17/21 20:00 100 Mechanical Ventilator 30 12/17/21 19:00 58 14 122/58 100 Mechanical Ventilator 30.00 12/17/21 19:00 58 12/17/21 18:49 57 20 99 30 12/17/21 18:36 54 98/61 12/17/21 18:24 54 12/17/21 18:18 113 98/61 12/17/21 18:10 Mechanical Ventilator 30.00 12/17/21 18:00 125 11 98/61 100 Mechanical Ventilator 40.00 12/17/21 17:00 105 25 100/65 100 Mechanical Ventilator 40.00 12/17/21 16:30 36.4 12/17/21 16:25 Mechanical Ventilator 40 12/17/21 16:00 113 11 103/73 99 Mechanical Ventilator 40.00 12/17/21 15:14 122 93/64 12/17/21 15:00 121 11 107/71 98 Mechanical Ventilator 40.00 12/17/21 14:30 Mechanical Ventilator 40.00 12/17/21 14:00 122 92/73 100 Mechanical Ventilator 30.00 12/17/21 13:52 128 16 98 50 12/17/21 13:00 112 122/73 99 Mechanical Ventilator 30.00 12/17/21 13:00 97 12/17/21 12:35 Mechanical Ventilator 50 12/17/21 12:00 35.8 12/17/21 12:00 112 119/79 100 Mechanical Ventilator 30.00 I & O 12/18/21 07:00 Intake Total 900 ml Output Total 4575 ml Balance -3675 ml Height & Weight Height: '" Weight: lbs. oz. kg; 33.35 BMI Method: General Appearance: No Apparent Distress, Obese, Other (intubated and mildly sedated, looking around room. Not following commands) HEENT: Moist Mucous Membranes Respiratory: No Accessory Muscle Use, Rhonci, Other (Intubated, coarse breath sounds bilaterally. Vent settings: 16/500/25/5) Cardiovascular: No Murmur, Bradycardia Capillary Refill: Less Than 3 Seconds Peripheral Pulses: 2+ Radial Pulses (R), 2+ Radial Pulses (L) Gastrointestinal: soft (Minimally firm.), abnormal bowel sounds (hypoactive), distended (very minimally so), other (incision was C/D/I. No signs of erythema or purulent leakage ) Extremity: No Pedal Edema, Other (Thickened yellow toenails) Neurologic/Psychiatric: Other (Light sedation. Looking around room continuously, not following commands.) Skin: Normal Color, Warm/Dry Results Lab Laboratory Tests 12/17/21 05:09 12/18/21 04:43 Assessment/Plan Assessment/Plan (Tele-ICU Physician , Progress Note ) Available chart/ vitals / labs / Images reviewed Video assessment done using teleICU camera, rest of exam as per RN Discussed with RN , EXAM PER RN Events overnight : Afebrile FiO2 - 50 I/O = neg 4l Drips: Pressors: , hemodynamically stable Consultants: sx propofol 30 precedex 0.4 , propofol Hospital course: 12/12 transfer- ? bowel per, ARF 12/13- S/P Ex Lap for perforated Jejunum , on VENT post OR A/P ARF - Intubated in OR 12/13 - ac 25 % peep 5 - SBT today to try Shock - pressors need improving ALVARADO - mild improvement - follow bmp , chin in - hydration to cont NS 125 S/P Ex Lap for perforated Jejunum 12/13 - as per sx New onset a-fib with RVR - rate controlled with IV Cardizem and Dig - as per cards - AC - as per cards ans Sx - lovenox 120 bid COvid + - on steroids -? remdesiovir - as per bedise Encephalopathy/ NEW seisure 12/14 - CTH 12/14 - WNL - Keppra IV 12/14 Lines : left IJ 12/13 (Central Line Necessity Reviewed) Chin: + OG: Nutrition: npo Analgesia: Anxiety/ delirium VTE Prophylaxis: lovenox 120 bid Stress Ulcer Prophylaxis: Plans in collaboration with bedside consultants and IM MDs. Discussed with RN to reach out if any questions or concerns A total of 31 minutes of critical care time was devoted to this patient today, required to treat and/or prevent further deterioration of critical care condition ( as above) . BERRY AGUERO MD Dec 18, 2021 11:56
[2021-12-18 14:51] VITALS: BP 124/66
[2021-12-18] MEDS: dilTIAZem DRIP PRE-MIX 125 ML IV SCH (15:02)
--- NOTE | 2021-12-18 17:03 | Progress Note - Hospitalist ---
Subjective HPI/CC On Admission Date Seen by Provider: Dec 18, 2021 Time Seen by Provider: 09:35 Chief complaint: Bowel perforation with COVID-19 pneumonia History of present illness: This is a 81-year-old white male who presented from [facility] ER for higher level of care due to bowel perforation and COVID-19 pneumonia with acute hypoxic respiratory failure requiring oxygen. Family wanted DO NOT INTUBATE. BiPAP was placed with 16/10 and 80%. Potassium 5.4 and creatinine 1.3 with decreased urinary output. Patient was placed on Levaquin and Flagyl empirically. Dr. Craig will take him to surgery but high risk for intubation long-term. Subjective/Events-last exam He remains intubated and sedated. His sedation is decreased this morning and he does open his eyes and move extremities spontaneously. He does not follow commands. Objective Exam Vital Signs Vital Signs Date Time Temp Pulse Resp B/P (MAP) Pulse Ox O2 Delivery O2 Flow Rate FiO2 12/18/21 16:18 57 131/59 12/18/21 16:07 96 Mechanical Ventilator 24 12/18/21 16:00 12 24.00 12/18/21 15:56 36.6 Capillary Refill : Less Than 3 Seconds General Appearance: No Apparent Distress, Obese, Other (intubated and sedated) Respiratory: No Respiratory Distress, Decreased Breath Sounds, Other (intubated and mechanically ventilated) Cardiovascular: Regular Rate, Rhythm, No Murmur Gastrointestinal: Normal Bowel Sounds, Non Tender, Soft Extremity: Normal Inspection, Non Tender, No Pedal Edema Neurologic/Psychiatric: Alert, Oriented x3, Normal Mood/Affect Skin: Normal Color, Warm/Dry Results/Procedures Lab Laboratory Tests 12/18/21 04:43 Patient resulted labs reviewed. Imaging: Reviewed Imaging Report Assessment/Plan Assessment and Plan Assess & Plan/Chief Complaint Small bowel perforation s/p small bowel resection Surgery following s/p resection 12/13 Levaquin and Flagyl Awaiting bowel function to return Acute respiratory failure due to COVID-19 Endotracheally intubated TeleICU following Remains intubated Oxygen requirement improving Decadron Shock Improving AFib with RVR Cardiology consulted Cardizem Lovenox HTN COPD Obesity Poor prognosis DVT prophylaxis: Lovenox Hypernatremia, resolved ALVARADO on CKD, resolved Critical Care Ventilator Management Diagnosis/Problems Diagnosis/Problems (1) Bowel perforation Status: Acute (2) S/P small bowel resection Status: Acute (3) Acute respiratory failure due to COVID-19 Status: Acute (4) Shock Status: Acute (5) Acute kidney injury superimposed on chronic kidney disease Status: Acute (6) HTN (hypertension) Status: Chronic (7) COPD (chronic obstructive pulmonary disease) Status: Chronic (8) Obesity Status: Chronic Clinical Quality Measures DVT/VTE Risk/Contraindication: Contraindications-Pharm: Other *list below* Other: needs OR for bowel perforation CAMILA COVARRUBIAS MD Dec 18, 2021 17:03
[2021-12-18] MEDS: ENOXAPARIN 120 MG/0.8 ML (LOVENOX) SQ SCH (17:35)
[2021-12-18 19:04] VITALS: BP 128/65
[2021-12-18 22:00] VITALS: BP 128/65
[2021-12-19] MEDS: meTOprolol 5 MG/5 ML (LOPRESSOR) VIAL IV SCH ×4 (01:04→18:33)
[2021-12-19 02:31] VITALS: BP 117/57
[2021-12-19] MEDS: RT-ALBUTEROL HFA 8.5 GM INHALER IH SCH ×4 (02:31→18:51)
[2021-12-19] MEDS: PROPOFOL DRIP (ICU) 100 ML IV SCH ×5 (03:21→20:32)
[2021-12-19] MEDS: fentaNYL DRIP PRE-MIX 250 ML IV SCH ×4 (03:21→23:09)
[2021-12-19 03:28] LABS: BASOPHILS % (AUTO) 0 % (0-10); EOSINOPHILS % (AUTO) 0 % (0-10); HEMATOCRIT 36 % (40-54); HEMOGLOBIN 11.8 g/dL (13.3-17.7); LYMPHOCYTES # (AUTO) 1.3 10^3/uL (1.0-4.0); LYMPHOCYTES % (AUTO) 14 % (12-44); MEAN CORPUSCULAR HEMOGLOBIN 30 pg (25-34); MEAN CORPUSCULAR HGB CONC 33 g/dL (32-36); MEAN CORPUSCULAR VOLUME 90 fL (80-99); MEAN PLATELET VOLUME 10.8 fL (9.0-12.2); MONOCYTES # (AUTO) 0.4 10^3/uL (0.0-1.0); MONOCYTES % (AUTO) 4 % (0-12); NEUTROPHILS # (AUTO) 7.2 10^3/uL (1.8-7.8); NEUTROPHILS % (AUTO) 79 % (42-75); PLATELET COUNT 196 10^3/uL (130-400); WHITE BLOOD COUNT 9.2 10^3/uL (4.3-11.0)
[2021-12-19 03:45] LABS: ALBUMIN 2.4 GM/DL (3.2-4.5)
[2021-12-19 03:46] LABS: POTASSIUM 4.2 MMOL/L (3.6-5.0)
[2021-12-19 03:47] LABS: CALCIUM 7.5 MG/DL (8.5-10.1)
[2021-12-19 03:48] LABS: TOTAL PROTEIN 5.3 GM/DL (6.4-8.2)
[2021-12-19 03:50] LABS: BILIRUBIN,TOTAL 1.8 MG/DL (0.1-1.0)
[2021-12-19 03:51] LABS: PHOSPHORUS 2.7 MG/DL (2.3-4.7)
[2021-12-19 03:52] LABS: CREATININE SERUM 0.98 MG/DL (0.60-1.30)
[2021-12-19 03:55] LABS: MAGNESIUM 2.2 MG/DL (1.6-2.4)
[2021-12-19] MEDS: KCL 20 MEQ TAB (K-DUR) PO SCH (05:54)
[2021-12-19] MEDS: POTASSIUM CL 10MEQ/50ML IVPB 50 ML IV SCH (05:54)
[2021-12-19] MEDS: ENOXAPARIN 120 MG/0.8 ML (LOVENOX) SQ SCH ×2 (05:54→17:14)
[2021-12-19] MEDS: MAGNESIUM 1 GM/100 ML IVPB 100 ML IV SCH (05:54)
[2021-12-19 06:00] LABS: ABG BASE EXCESS -3.9 MMOL/L (-2.5-2.5); ABG OXYGEN SATURATION 86 % (94-100); ABG PCO2 32 MMHG (35-45); ABG PH 7.41 (7.37-7.43); ABG PO2 57 MMHG (79-93)
[2021-12-19 06:05] LABS: ALLENS TEST YES-POS
[2021-12-19 06:06] LABS: INSPIRED O2 25%; PATIENT TEMP 36.8; VENTILATOR YES
[2021-12-19 06:37] VITALS: BP 130/60
[2021-12-19] MEDS: UMECLIDINIUM BROMIDE (INCRUSE ELLIPTA) 7'S IH SCH (06:37)
[2021-12-19] MEDS: PANTOPRAZOLE 40 MG (PROTONIX) VIAL IV SCH (08:01)
[2021-12-19] MEDS: NOREPINEPHRINE 8 MG/250 ML 250 ML IV SCH ×2 (08:38→23:09)
--- NOTE | 2021-12-19 09:48 | Tele-ICU Progress Note ---
Subjective Date Seen by a Provider: Dec 19, 2021 Time Seen by a Provider: 08:20 Subjective/Events-last exam This virtual visit was conducted using real time audio/video. Thank you for asking us to see this patient for respiratory insufficiency due to Covid pna, complicated by Jejunal perf. S/P ex lap. New seiz 12/14/2021. PAF. Recent events: Now in NSR. PE: Sedated on vent. Obese. VSS. O2 sat 90% on 40%/+5 HEENT: No obvious masses, adenopathy or JVD. Chest: coarse, diminished. CV: RRR S1 S2 No murmur or added sounds. Abd: Non-tender. Bowel sounds Y. : Unremarkable. Baires Y. QUALIFICATION ENGINEER/psychiatric: Grossly intact. No obvious focal findings. Extremities: 1+ edema. Capillary refill < 3 seconds. Skin: unremarkable. Results: Elevated BUN 38. Decreased Hb 11.8, Alb 2.4. B.41/32/57. CXR: B infilts. Available chart/ vitals / labs / images reviewed. Video assessment done using teleICU camera, rest of exam as per RN. A/P: Respiratory insufficiency: Continue present management with vent AC 16/500/40%/+5. Cont. BDs, Prop., Prec., Fent. Monitor for increasing oxygenation needs. Critical Care: critically ill patient. Cont. Adele., Dex., Keppra, SSI. Discussed with RN Yuly. Asked RN to reach out to eICU if any questions or concerns later. Time spent with patient/coordination of care with other health professionals (mins): 30 Sepsis Event Evaluation Height, Weight, BMI Height: '" Weight: lbs. oz. kg; 33.35 BMI Method: Exam Exam Patient acknowledged, consented, and participated in this virtual visit which was conducted using real time audio/video Vital Signs Date Time Temp Pulse Resp B/P (MAP) Pulse Ox O2 Delivery O2 Flow Rate FiO2 12/19/21 09:00 55 12 100/47 91 Mechanical Ventilator 40.00 12/19/21 08:00 59 11 113/53 90 Mechanical Ventilator 40.00 12/19/21 07:59 37.1 12/19/21 07:00 56 12/19/21 07:00 54 15 113/57 93 Mechanical Ventilator 40.00 12/19/21 06:37 58 17 93 40 12/19/21 06:32 93 Mechanical Ventilator 40.00 12/19/21 06:32 118/62 12/19/21 06:00 56 15 116/54 97 Mechanical Ventilator 25.00 12/19/21 05:56 95 Mechanical Ventilator 25.00 12/19/21 05:00 55 15 118/60 97 Mechanical Ventilator 30.00 12/19/21 04:00 94 Mechanical Ventilator 30 12/19/21 04:00 36.8 12/19/21 04:00 55 15 117/58 96 Mechanical Ventilator 30.00 12/19/21 03:21 164/70 12/19/21 03:00 73 18 139/84 97 Mechanical Ventilator 30.00 12/19/21 02:31 56 19 97 24 12/19/21 02:00 61 13 120/63 97 Mechanical Ventilator 30.00 12/19/21 01:05 Mechanical Ventilator 30.00 12/19/21 01:00 61 18 135/59 91 Mechanical Ventilator 24.00 12/19/21 01:00 53 12/19/21 00:00 54 22 124/62 95 Mechanical Ventilator 24.00 12/19/21 00:00 94 Mechanical Ventilator 24 12/19/21 00:00 36.6 12/18/21 23:00 51 15 129/61 95 Mechanical Ventilator 24.00 12/18/21 22:00 52 23 98 24 12/18/21 22:00 50 14 119/65 97 Mechanical Ventilator 24.00 12/18/21 21:00 52 10 128/63 95 Mechanical Ventilator 24.00 12/18/21 20:55 136/76 12/18/21 20:00 94 Mechanical Ventilator 24 12/18/21 20:00 52 17 125/63 95 Mechanical Ventilator 24.00 12/18/21 20:00 36.0 12/18/21 19:04 52 23 98 24 12/18/21 19:00 52 12/18/21 19:00 53 13 128/65 95 Mechanical Ventilator 24.00 12/18/21 18:00 53 10 128/68 96 Mechanical Ventilator 24.00 12/18/21 17:57 53 118/62 12/18/21 17:00 53 14 118/62 97 Mechanical Ventilator 24.00 12/18/21 16:18 57 131/59 12/18/21 16:07 96 Mechanical Ventilator 24 12/18/21 16:00 57 12 131/59 96 Mechanical Ventilator 24.00 12/18/21 15:56 36.6 12/18/21 15:38 Mechanical Ventilator 24.00 12/18/21 15:00 60 14 132/59 94 Mechanical Ventilator 25.00 12/18/21 14:51 56 22 96 24 12/18/21 14:00 61 16 128/57 96 Mechanical Ventilator 25.00 12/18/21 13:00 55 10 131/74 97 Mechanical Ventilator 25.00 12/18/21 12:35 96 Mechanical Ventilator 25 12/18/21 12:23 58 12/18/21 12:00 56 12 126/68 94 Mechanical Ventilator 25.00 12/18/21 11:13 64 143/68 12/18/21 11:00 64 18 143/68 100 Mechanical Ventilator 25.00 12/18/21 10:55 65 22 92 25 12/18/21 10:00 56 18 129/59 95 Mechanical Ventilator 25.00 I & O 12/19/21 07:00 Intake Total 210 ml Output Total 2950 ml Balance -2740 ml Height & Weight Height: '" Weight: lbs. oz. kg; 33.35 BMI Method: General Appearance: No Apparent Distress, Obese, Other (intubated and sedated) HEENT: Moist Mucous Membranes Respiratory: No Respiratory Distress, Decreased Breath Sounds, Other (intubated and mechanically ventilated) Cardiovascular: Regular Rate, Rhythm, No Murmur Capillary Refill: Less Than 3 Seconds Peripheral Pulses: 2+ Radial Pulses (R), 2+ Radial Pulses (L) Gastrointestinal: soft (Minimally firm.), abnormal bowel sounds (hypoactive), distended (very minimally so), other (incision was C/D/I. No signs of erythema or purulent leakage ) Extremity: Normal Inspection, Non Tender, No Pedal Edema Neurologic/Psychiatric: Alert, Oriented x3, Normal Mood/Affect Skin: Normal Color, Warm/Dry Results Lab Laboratory Tests 12/18/21 04:43 12/19/21 03:10 Assessment/Plan Assessment/Plan See free text Critical Care: Ventilator Management CAS HURTADO MD Dec 19, 2021 09:48
[2021-12-19] MEDS ORDERED: BISACODYL 10 MG SUPP (DULCOLAX) PR PRN (10:00)
[2021-12-19 10:34] VITALS: BP 131/67
--- NOTE | 2021-12-19 11:22 | Progress Note ---
Subjective Date Seen by a Provider: Dec 19, 2021 Time Seen by a Provider: 10:00 Subjective/Events-last exam patient stable. on vent/sedated. no bowel fxn yet. no abdominal distention. wound clean/dry. Objective Exam Vital Signs Date Time Temp Pulse Resp B/P (MAP) Pulse Ox O2 Delivery O2 Flow Rate FiO2 12/19/21 11:00 64 15 157/72 91 Mechanical Ventilator 40.00 12/19/21 10:34 63 20 91 40 12/19/21 10:00 60 10 132/66 90 Mechanical Ventilator 40.00 12/19/21 09:00 55 12 100/47 91 Mechanical Ventilator 40.00 12/19/21 08:00 59 11 113/53 90 Mechanical Ventilator 40.00 12/19/21 07:59 37.1 12/19/21 07:00 56 12/19/21 07:00 54 15 113/57 93 Mechanical Ventilator 40.00 12/19/21 06:37 58 17 93 40 12/19/21 06:32 93 Mechanical Ventilator 40.00 12/19/21 06:32 118/62 12/19/21 06:00 56 15 116/54 97 Mechanical Ventilator 25.00 12/19/21 05:56 95 Mechanical Ventilator 25.00 12/19/21 05:00 55 15 118/60 97 Mechanical Ventilator 30.00 12/19/21 04:00 94 Mechanical Ventilator 30 12/19/21 04:00 36.8 12/19/21 04:00 55 15 117/58 96 Mechanical Ventilator 30.00 12/19/21 03:21 164/70 12/19/21 03:00 73 18 139/84 97 Mechanical Ventilator 30.00 12/19/21 02:31 56 19 97 24 12/19/21 02:00 61 13 120/63 97 Mechanical Ventilator 30.00 12/19/21 01:05 Mechanical Ventilator 30.00 12/19/21 01:00 61 18 135/59 91 Mechanical Ventilator 24.00 12/19/21 01:00 53 12/19/21 00:00 54 22 124/62 95 Mechanical Ventilator 24.00 12/19/21 00:00 94 Mechanical Ventilator 24 12/19/21 00:00 36.6 12/18/21 23:00 51 15 129/61 95 Mechanical Ventilator 24.00 12/18/21 22:00 52 23 98 24 12/18/21 22:00 50 14 119/65 97 Mechanical Ventilator 24.00 12/18/21 21:00 52 10 128/63 95 Mechanical Ventilator 24.00 12/18/21 20:55 136/76 12/18/21 20:00 94 Mechanical Ventilator 24 12/18/21 20:00 52 17 125/63 95 Mechanical Ventilator 24.00 12/18/21 20:00 36.0 12/18/21 19:04 52 23 98 24 12/18/21 19:00 52 12/18/21 19:00 53 13 128/65 95 Mechanical Ventilator 24.00 12/18/21 18:00 53 10 128/68 96 Mechanical Ventilator 24.00 12/18/21 17:57 53 118/62 12/18/21 17:00 53 14 118/62 97 Mechanical Ventilator 24.00 12/18/21 16:18 57 131/59 12/18/21 16:07 96 Mechanical Ventilator 24 12/18/21 16:00 57 12 131/59 96 Mechanical Ventilator 24.00 12/18/21 15:56 36.6 12/18/21 15:38 Mechanical Ventilator 24.00 12/18/21 15:00 60 14 132/59 94 Mechanical Ventilator 25.00 12/18/21 14:51 56 22 96 24 12/18/21 14:00 61 16 128/57 96 Mechanical Ventilator 25.00 12/18/21 13:00 55 10 131/74 97 Mechanical Ventilator 25.00 12/18/21 12:35 96 Mechanical Ventilator 25 12/18/21 12:23 58 12/18/21 12:00 56 12 126/68 94 Mechanical Ventilator 25.00 I & O 12/19/21 07:00 Intake Total 210 ml Output Total 2950 ml Balance -2740 ml Capillary Refill : Less Than 3 Seconds General Appearance: No Apparent Distress HEENT: TMs Normal Neck: Full Range of Motion Respiratory: Decreased Breath Sounds, Rhonci Cardiovascular: Regular Rate, Rhythm Gastrointestinal: non tender, soft, other (inc clean/dry) Neurologic/Psychiatric: Other (vent/sedated) Skin: Normal Color Lymphatic: No Adenopathy Results Lab Laboratory Tests 12/19/21 03:10: White Blood Count 9.2, Red Blood Count 4.00L, Hemoglobin 11.8L, Hematocrit 36L, Mean Corpuscular Volume 90, Mean Corpuscular Hemoglobin 30, Mean Corpuscular Hemoglobin Concent 33, Red Cell Distribution Width 13.0, Platelet Count 196, Mean Platelet Volume 10.8, Immature Granulocyte % (Auto) 3, Neutrophils (%) (Auto) 79H, Lymphocytes (%) (Auto) 14, Monocytes (%) (Auto) 4, Eosinophils (%) (Auto) 0, Basophils (%) (Auto) 0, Neutrophils # (Auto) 7.2, Lymphocytes # (Auto) 1.3, Monocytes # (Auto) 0.4, Eosinophils # (Auto) 0.0, Basophils # (Auto) 0.0, Immature Granulocyte # (Auto) 0.3H, Sodium Level 144, Potassium Level 4.2, Chloride Level 115H, Carbon Dioxide Level 18L, Anion Gap 11, Blood Urea Nitrogen 38H, Creatinine 0.98, Estimat Glomerular Filtration Rate 78, BUN/Creatinine Ratio 39, Glucose Level 91, Calcium Level 7.5L, Corrected Calcium 8.8, Phosphorus Level 2.7, Magnesium Level 2.2, Total Bilirubin 1.8H, Aspartate Amino Transf (AST/SGOT) 57H, Alanine Aminotransferase (ALT/SGPT) 46, Alkaline Phosphatase 56, Total Protein 5.3L, Albumin 2.4L 12/19/21 05:51: Blood Gas Puncture Site LEFT RADIAL, Blood Gas Patient Temperature 36.8, Arterial Blood pH 7.41, Arterial Blood Partial Pressure CO2 32L, Arterial Blood Partial Pressure O2 57L, Arterial Blood HCO3 20L, Arterial Blood Total CO2 21.0, Arterial Blood Oxygen Saturation 86L, Arterial Blood Base Excess -3.9L, Mikhail Test YES-POS, Blood Gas Ventilator Setting YES, Blood Gas Inspired Oxygen 25% Microbiology 12/13/21 MRSA Screen - Final, Complete MRSA not isolated 12/13/21 Urine Culture - Final, Complete NO GROWTH Assessment/Plan Assessment/Plan Assess & Plan/Chief Complaint covid s/p small bowel resection for perforation. cont critical care management. likely ileus. cont NGT for now and await more bowel fxn. Clinical Quality Measures DVT/VTE Risk/Contraindication: Contraindications-Pharm: Other *list below* Other: needs OR for bowel perforation AMILCAR GARCÍA MD Dec 19, 2021 11:22
[2021-12-19] MEDS: dilTIAZem DRIP PRE-MIX 125 ML IV SCH (12:00)
[2021-12-19 15:01] VITALS: BP 113/61
[2021-12-19] MEDS: 1/2 NS IV SOLUTION 1,000 ML IV SCH (17:14)
[2021-12-19] MEDS: DexMEDEtomidine 250 ML DRIP 250 ML IV SCH (17:14)
[2021-12-19 18:51] VITALS: BP 118/64
--- NOTE | 2021-12-19 19:54 | Progress Note - Hospitalist ---
Subjective HPI/CC On Admission Date Seen by Provider: Dec 19, 2021 Time Seen by Provider: 11:00 Chief complaint: Bowel perforation with COVID-19 pneumonia History of present illness: This is a 81-year-old white male who presented from [facility] ER for higher level of care due to bowel perforation and COVID-19 pneumonia with acute hypoxic respiratory failure requiring oxygen. Family wanted DO NOT INTUBATE. BiPAP was placed with 16/10 and 80%. Potassium 5.4 and creatinine 1.3 with decreased urinary output. Patient was placed on Levaquin and Flagyl empirically. Dr. Craig will take him to surgery but high risk for intubation long-term. Subjective/Events-last exam He remains intubated and sedated. Objective Exam Vital Signs Vital Signs Date Time Temp Pulse Resp B/P (MAP) Pulse Ox O2 Delivery O2 Flow Rate FiO2 12/19/21 19:50 36.4 12/19/21 18:51 51 19 92 40 12/19/21 18:00 124/60 Mechanical Ventilator 40.00 Capillary Refill : Less Than 3 Seconds General Appearance: No Apparent Distress, Obese, Other (intubated and sedated) Respiratory: Lungs Clear, No Respiratory Distress, Other (intubated and mechanically ventilated) Cardiovascular: Regular Rate, Rhythm, No Murmur Gastrointestinal: Soft, Abnormal Bowel Sounds (absent), Distended Extremity: Normal Inspection, Pedal Edema Neurologic/Psychiatric: Other (opens eyes to painful stimuli, not following commands) Skin: Normal Color, Warm/Dry Results/Procedures Lab Laboratory Tests 12/19/21 03:10 Patient resulted labs reviewed. Imaging: Reviewed Imaging Report Assessment/Plan Assessment and Plan Assess & Plan/Chief Complaint Small bowel perforation s/p small bowel resection Surgery following s/p resection 12/13 Levaquin and Flagyl Awaiting bowel function to return Acute respiratory failure due to COVID-19 Endotracheally intubated TeleICU following Remains intubated Oxygen requirement improving Decadron Shock Improving AFib with RVR Cardiology consulted Cardizem Lovenox HTN COPD Obesity Poor prognosis DVT prophylaxis: Lovenox Hypernatremia, resolved ALVARADO on CKD, resolved Critical Care Ventilator Management Diagnosis/Problems Diagnosis/Problems (1) Bowel perforation Status: Acute (2) S/P small bowel resection Status: Acute (3) Acute respiratory failure due to COVID-19 Status: Acute (4) Shock Status: Acute (5) Acute kidney injury superimposed on chronic kidney disease Status: Acute (6) HTN (hypertension) Status: Chronic (7) COPD (chronic obstructive pulmonary disease) Status: Chronic (8) Obesity Status: Chronic Clinical Quality Measures DVT/VTE Risk/Contraindication: Contraindications-Pharm: Other *list below* Other: needs OR for bowel perforation CAMILA COVARRUBIAS MD Dec 19, 2021 19:54
[2021-12-20] MEDS: PROPOFOL DRIP (ICU) 100 ML IV SCH ×4 (01:35→15:01)
[2021-12-20] MEDS: meTOprolol 5 MG/5 ML (LOPRESSOR) VIAL IV SCH ×5 (01:49→23:50)
[2021-12-20] MEDS: RT-ALBUTEROL HFA 8.5 GM INHALER IH SCH ×4 (03:16→22:17)
[2021-12-20 03:17] VITALS: BP 147/70
[2021-12-20 04:12] LABS: BASOPHILS % (AUTO) 0 % (0-10); EOSINOPHILS % (AUTO) 0 % (0-10); HEMATOCRIT 35 % (40-54); HEMOGLOBIN 11.4 g/dL (13.3-17.7); LYMPHOCYTES # (AUTO) 0.5 10^3/uL (1.0-4.0); LYMPHOCYTES % (AUTO) 7 % (12-44); MEAN CORPUSCULAR HEMOGLOBIN 29 pg (25-34); MEAN CORPUSCULAR HGB CONC 32 g/dL (32-36); MEAN CORPUSCULAR VOLUME 91 fL (80-99); MEAN PLATELET VOLUME 10.5 fL (9.0-12.2); MONOCYTES # (AUTO) 0.2 10^3/uL (0.0-1.0); MONOCYTES % (AUTO) 2 % (0-12); NEUTROPHILS # (AUTO) 6.5 10^3/uL (1.8-7.8); NEUTROPHILS % (AUTO) 85 % (42-75); PLATELET COUNT 189 10^3/uL (130-400); WHITE BLOOD COUNT 7.6 10^3/uL (4.3-11.0)
[2021-12-20 04:13] LABS: ABG BASE EXCESS -4.2 MMOL/L (-2.5-2.5); ABG OXYGEN SATURATION 92 % (94-100); ABG PCO2 34 MMHG (35-45); ABG PH 7.38 (7.37-7.43); ABG PO2 71 MMHG (79-93); ABG TCO2 20.6 MMOL/L (21.0-31.0)
[2021-12-20 04:15] LABS: ALLENS TEST YES-POS; INSPIRED O2 50%; PATIENT TEMP 38.6; VENTILATOR YES
[2021-12-20 04:29] LABS: ALBUMIN 2.4 GM/DL (3.2-4.5); POTASSIUM 4.3 MMOL/L (3.6-5.0)
[2021-12-20 04:30] LABS: CALCIUM 7.4 MG/DL (8.5-10.1)
[2021-12-20 04:31] LABS: TOTAL PROTEIN 5.2 GM/DL (6.4-8.2)
[2021-12-20 04:33] LABS: BILIRUBIN,TOTAL 1.4 MG/DL (0.1-1.0)
[2021-12-20 04:34] LABS: PHOSPHORUS 2.7 MG/DL (2.3-4.7)
[2021-12-20 04:35] LABS: CREATININE SERUM 0.93 MG/DL (0.60-1.30)
[2021-12-20] MEDS: POTASSIUM CL 10MEQ/50ML IVPB 50 ML IV SCH (04:37)
[2021-12-20 04:38] LABS: MAGNESIUM 2.1 MG/DL (1.6-2.4)
[2021-12-20] MEDS: MAGNESIUM 1 GM/100 ML IVPB 100 ML IV SCH (04:38)
[2021-12-20] MEDS: KCL 20 MEQ TAB (K-DUR) PO SCH (04:38)
[2021-12-20] MEDS: ENOXAPARIN 120 MG/0.8 ML (LOVENOX) SQ SCH ×2 (05:17→16:26)
[2021-12-20] MEDS: ACETAMINOPHEN 650 MG SUPP (TYLENOL) PR PRN ×3 (05:17→20:48)
[2021-12-20] MEDS: fentaNYL DRIP PRE-MIX 250 ML IV SCH ×3 (05:29→16:12)
[2021-12-20] MEDS: UMECLIDINIUM BROMIDE (INCRUSE ELLIPTA) 7'S IH SCH (07:55)
[2021-12-20 08:08] VITALS: BP 138/64
[2021-12-20] MEDS: PANTOPRAZOLE 40 MG (PROTONIX) VIAL IV SCH (08:42)
--- NOTE | 2021-12-20 10:14 | Tele-ICU Progress Note ---
Subjective Date Seen by a Provider: Dec 20, 2021 Time Seen by a Provider: 08:30 Subjective/Events-last exam This virtual visit was conducted using real time audio/video. Thank you for asking us to see this patient for respiratory insufficiency due to Covid pna, complicated by Jejunal perf. S/P ex lap. New seiz 12/14/2021. PAF. Recent events: FiO2 now 55%. PE: Sedated on vent. Obese. VSS. O2 sat 93% on 55%/+5 HEENT: No obvious masses, adenopathy or JVD. Chest: coarse, diminished. CV: RRR S1 S2 No murmur or added sounds. Abd: Non-tender. Bowel sounds Y. : Unremarkable. Baires Y. GRADUATE RESEARCH ASSISTANT/psychiatric: Grossly intact. No obvious focal findings. Extremities: 1+ edema. Capillary refill < 3 seconds. Skin: unremarkable. Results: Elevated BUN 34. Decreased Hb 11.4, Alb 2.4. B.38/34/71. CXR: B infilts. Available chart/ vitals / labs / images reviewed. Video assessment done using teleICU camera, rest of exam as per RN. A/P: Respiratory insufficiency: Continue present management with vent AC 16/500 /40%/+5. Cont. BDs, Prop., Prec., Fent., Incruse. Monitor for increasing oxygenation needs. Will recheck CXR Critical Care: critically ill patient. Cont. Adele., Dex., Keppra, SSI. Discussed with SUBHA Emery. Asked RN to reach out to eICU if any questions or concerns later. Time spent with patient/coordination of care with other health professionals (mins): 30 Sepsis Event Evaluation Height, Weight, BMI Height: '" Weight: lbs. oz. kg; 33.35 BMI Method: Exam Exam Patient acknowledged, consented, and participated in this virtual visit which was conducted using real time audio/video Vital Signs Date Time Temp Pulse Resp B/P (MAP) Pulse Ox O2 Delivery O2 Flow Rate FiO2 12/20/21 10:00 39.0 100 17 157/80 93 Mechanical Ventilator 55.00 12/20/21 09:00 38.8 94 28 224/117 94 Mechanical Ventilator 55.00 12/20/21 08:08 65 16 92 55 12/20/21 08:00 67 8 138/64 92 Mechanical Ventilator 50.00 1/23/22 07:00 69 10 154/67 92 Mechanical Ventilator 50.00 12/20/21 07:00 69 12/20/21 06:00 72 13 154/65 93 Mechanical Ventilator 50.00 12/20/21 05:47 38.8 12/20/21 05:28 193/81 12/20/21 05:17 38.6 12/20/21 05:00 76 17 168/73 93 Mechanical Ventilator 50.00 12/20/21 04:07 91 Mechanical Ventilator 50 12/20/21 04:05 38.6 12/20/21 04:00 73 16 189/68 91 Mechanical Ventilator 50.00 12/20/21 03:17 67 18 89 50 12/20/21 03:00 66 16 145/58 90 Mechanical Ventilator 50.00 12/20/21 02:00 69 17 184/78 92 Mechanical Ventilator 50.00 12/20/21 01:35 189/94 12/20/21 01:00 57 15 138/66 94 Mechanical Ventilator 50.00 12/20/21 01:00 56 12/20/21 00:00 59 16 135/61 93 Mechanical Ventilator 50.00 12/20/21 00:00 37.9 Mechanical Ventilator 50.00 12/19/21 23:34 91 Mechanical Ventilator 45 12/19/21 23:00 54 16 132/57 90 Mechanical Ventilator 45.00 12/19/21 22:00 52 14 123/63 91 Mechanical Ventilator 45.00 12/19/21 21:00 54 16 120/60 91 Mechanical Ventilator 45.00 12/19/21 20:38 90 Mechanical Ventilator 45.00 12/19/21 20:32 117/59 12/19/21 20:00 50 15 119/57 91 Mechanical Ventilator 40.00 12/19/21 20:00 94 Mechanical Ventilator 40 12/19/21 19:50 36.4 12/19/21 19:00 51 12/19/21 19:00 54 16 121/59 92 Mechanical Ventilator 40.00 12/19/21 18:51 51 19 92 40 12/19/21 18:00 51 14 124/60 92 Mechanical Ventilator 40.00 12/19/21 17:14 52 141/74 12/19/21 17:00 52 14 141/74 93 Mechanical Ventilator 40.00 12/19/21 16:57 53 128/60 12/19/21 16:39 37.1 12/19/21 16:00 94 Mechanical Ventilator 40 12/19/21 16:00 54 15 117/60 92 Mechanical Ventilator 40.00 12/19/21 15:44 36.4 12/19/21 15:01 53 19 92 40 12/19/21 15:00 51 16 113/61 92 Mechanical Ventilator 40.00 12/19/21 14:00 51 15 110/57 92 Mechanical Ventilator 40.00 12/19/21 13:00 56 11 116/60 92 Mechanical Ventilator 40.00 12/19/21 12:35 58 12/19/21 12:00 57 10 127/66 91 Mechanical Ventilator 40.00 12/19/21 12:00 94 Mechanical Ventilator 40 12/19/21 11:55 36.9 12/19/21 11:20 73 12/19/21 11:00 64 15 157/72 91 Mechanical Ventilator 40.00 12/19/21 10:34 63 20 91 40 I & O 12/20/21 07:00 Intake Total 1470 ml Output Total 2325 ml Balance -855 ml Height & Weight Height: '" Weight: lbs. oz. kg; 33.35 BMI Method: General Appearance: No Apparent Distress, Obese, Other (intubated and sedated) HEENT: TMs Normal Neck: Full Range of Motion Respiratory: Lungs Clear, No Respiratory Distress, Other (intubated and mechanically ventilated) Cardiovascular: Regular Rate, Rhythm, No Murmur Capillary Refill: Less Than 3 Seconds Peripheral Pulses: 2+ Radial Pulses (R), 2+ Radial Pulses (L) Gastrointestinal: non tender, soft, other (inc clean/dry) Extremity: Normal Inspection, Pedal Edema Neurologic/Psychiatric: Other (opens eyes to painful stimuli, not following commands) Skin: Normal Color, Warm/Dry Lymphatic: No Adenopathy Results Lab Laboratory Tests 12/19/21 03:10 12/20/21 03:55 Assessment/Plan Assessment/Plan see free text Critical Care: Ventilator Management CAS HURTADO MD Dec 20, 2021 10:14
[2021-12-20 10:15] VITALS: BP 96/48
--- NOTE | 2021-12-20 11:00 | Progress Note ---
Subjective Date Seen by a Provider: Dec 20, 2021 Time Seen by a Provider: 10:00 Subjective/Events-last exam on vent/sedated. trial of sedation ween. no bowel fxn yet abd soft. Objective Exam Vital Signs Date Time Temp Pulse Resp B/P (MAP) Pulse Ox O2 Delivery O2 Flow Rate FiO2 12/20/21 10:50 89 12/20/21 10:00 39.0 100 17 157/80 93 Mechanical Ventilator 55.00 12/20/21 09:00 38.8 94 28 224/117 94 Mechanical Ventilator 55.00 12/20/21 08:08 65 16 92 55 12/20/21 08:00 67 8 138/64 92 Mechanical Ventilator 50.00 12/20/21 07:00 69 10 154/67 92 Mechanical Ventilator 50.00 12/20/21 07:00 69 12/20/21 06:00 72 13 154/65 93 Mechanical Ventilator 50.00 12/20/21 05:47 38.8 12/20/21 05:28 193/81 12/20/21 05:17 38.6 12/20/21 05:00 76 17 168/73 93 Mechanical Ventilator 50.00 12/20/21 04:07 91 Mechanical Ventilator 50 12/20/21 04:05 38.6 12/20/21 04:00 73 16 189/68 91 Mechanical Ventilator 50.00 12/20/21 03:17 67 18 89 50 12/20/21 03:00 66 16 145/58 90 Mechanical Ventilator 50.00 12/20/21 02:00 69 17 184/78 92 Mechanical Ventilator 50.00 12/20/21 01:35 189/94 12/20/21 01:00 57 15 138/66 94 Mechanical Ventilator 50.00 12/20/21 01:00 56 12/20/21 00:00 59 16 135/61 93 Mechanical Ventilator 50.00 12/20/21 00:00 37.9 Mechanical Ventilator 50.00 12/19/21 23:34 91 Mechanical Ventilator 45 12/19/21 23:00 54 16 132/57 90 Mechanical Ventilator 45.00 12/19/21 22:00 52 14 123/63 91 Mechanical Ventilator 45.00 12/19/21 21:00 54 16 120/60 91 Mechanical Ventilator 45.00 12/19/21 20:38 90 Mechanical Ventilator 45.00 12/19/21 20:32 117/59 12/19/21 20:00 50 15 119/57 91 Mechanical Ventilator 40.00 12/19/21 20:00 94 Mechanical Ventilator 40 12/19/21 19:50 36.4 12/19/21 19:00 51 12/19/21 19:00 54 16 121/59 92 Mechanical Ventilator 40.00 12/19/21 18:51 51 19 92 40 12/19/21 18:00 51 14 124/60 92 Mechanical Ventilator 40.00 12/19/21 17:14 52 141/74 12/19/21 17:00 52 14 141/74 93 Mechanical Ventilator 40.00 12/19/21 16:57 53 128/60 12/19/21 16:39 37.1 12/19/21 16:00 94 Mechanical Ventilator 40 12/19/21 16:00 54 15 117/60 92 Mechanical Ventilator 40.00 12/19/21 15:44 36.4 12/19/21 15:01 53 19 92 40 12/19/21 15:00 51 16 113/61 92 Mechanical Ventilator 40.00 12/19/21 14:00 51 15 110/57 92 Mechanical Ventilator 40.00 12/19/21 13:00 56 11 116/60 92 Mechanical Ventilator 40.00 12/19/21 12:35 58 12/19/21 12:00 57 10 127/66 91 Mechanical Ventilator 40.00 12/19/21 12:00 94 Mechanical Ventilator 40 12/19/21 11:55 36.9 12/19/21 11:20 73 12/19/21 11:00 64 15 157/72 91 Mechanical Ventilator 40.00 I & O 12/20/21 07:00 Intake Total 1470 ml Output Total 2325 ml Balance -855 ml Capillary Refill : Less Than 3 Seconds General Appearance: No Apparent Distress HEENT: TMs Normal Neck: Full Range of Motion Respiratory: Decreased Breath Sounds, Rhonci Cardiovascular: Regular Rate, Rhythm Gastrointestinal: soft, other (incision clean/dry) Extremity: Normal Capillary Refill Neurologic/Psychiatric: Other (vent/sedated) Skin: Normal Color Lymphatic: No Adenopathy Results Lab Laboratory Tests 12/19/21 11:32: Glucometer 146H 12/19/21 17:57: Glucometer 104 12/20/21 03:55: White Blood Count 7.6, Red Blood Count 3.90L, Hemoglobin 11.4L, Hematocrit 35L, Mean Corpuscular Volume 91, Mean Corpuscular Hemoglobin 29, Mean Corpuscular Hemoglobin Concent 32, Red Cell Distribution Width 13.2, Platelet Count 189, Mean Platelet Volume 10.5, Immature Granulocyte % (Auto) 5, Neutrophils (%) (Auto) 85H, Lymphocytes (%) (Auto) 7L, Monocytes (%) (Auto) 2, Eosinophils (%) (Auto) 0, Basophils (%) (Auto) 0, Neutrophils # (Auto) 6.5, Lymphocytes # (Auto) 0.5L, Monocytes # (Auto) 0.2, Eosinophils # (Auto) 0.0, Basophils # (Auto) 0.0, Immature Granulocyte # (Auto) 0.4H, Blood Gas Puncture Site LEFT RADIAL, Blood Gas Patient Temperature 38.6, Arterial Blood pH 7.38, Arterial Blood Partial Pressure CO2 34L, Arterial Blood Partial Pressure O2 71L, Arterial Blood HCO3 20L, Arterial Blood Total CO2 20.6L, Arterial Blood Oxygen Saturation 92L, Arterial Blood Base Excess -4.2L, Mikhail Test YES-POS, Blood Gas Ventilator Setting YES, Blood Gas Inspired Oxygen 50%, Sodium Level 142, Potassium Level 4.3, Chloride Level 115H, Carbon Dioxide Level 18L, Anion Gap 9, Blood Urea Nitrogen 34H, Creatinine 0.93, Estimat Glomerular Filtration Rate 84, BUN/Creatinine Ratio 37, Glucose Level 107H, Calcium Level 7.4L, Corrected Calcium 8.7, Phosphorus Level 2.7, Magnesium Level 2.1, Total Bilirubin 1.4H, Aspartate Amino Transf (AST/SGOT) 64H, Alanine Aminotransferase (ALT/SGPT) 60H, Alkaline Phosphatase 78, Total Protein 5.2L, Albumin 2.4L Microbiology 12/18/21 Gram Stain - Final, Resulted 12/18/21 Sputum Culture - Preliminary, Resulted Usual upper respiratory kelli 12/13/21 Urine Culture - Final, Complete NO GROWTH Assessment/Plan Assessment/Plan Assess & Plan/Chief Complaint covid s/p small bowel resection for perforation. cont critical care management/vent ween likely ileus. cont NGT for now and await more bowel fxn. Clinical Quality Measures DVT/VTE Risk/Contraindication: Contraindications-Pharm: Other *list below* Other: needs OR for bowel perforation KIDO,TAKAAKI MD Dec 20, 2021 11:00
--- NOTE | 2021-12-20 11:12 | Diagnostic Imaging Report ---
INDICATION: Respiratory distress Frontal chest obtained at 10:27 a.m. and compared to 12/17/2021. There is cardiomegaly. There is worsening perihilar infiltrate with central vascular congestion and cardiomegaly. There is no pneumothorax. There are small bilateral pleural effusions. ET tube and NG tube and left IJ catheter are unchanged. The NG tube is partially looped over the neck. IMPRESSION: Stable ET tube and left IJ catheter, the NG tube tip is not well seen but the tube is partially looped over the neck. There is central vascular congestion and cardiomegaly. There is some worsening of perihilar infiltrates compared to the prior study. Dictated by: Dictated on workstation # [id number]
[2021-12-20] MEDS: 1/2 NS IV SOLUTION 1,000 ML IV SCH (11:34)
[2021-12-20] MEDS: dilTIAZem DRIP PRE-MIX 125 ML IV SCH (13:44)
[2021-12-20] MEDS: NOREPINEPHRINE 8 MG/250 ML 250 ML IV SCH (13:44)
[2021-12-20 14:31] VITALS: BP 87/48
[2021-12-20] MEDS: DexMEDEtomidine 250 ML DRIP 250 ML IV SCH (16:26)
[2021-12-20 16:54] VITALS: BP 169/85
[2021-12-20 17:38] LABS: ABG BASE EXCESS -5.5 MMOL/L (-2.5-2.5); ABG OXYGEN SATURATION 93 % (94-100); ABG PCO2 44 MMHG (35-45); ABG PO2 72 MMHG (79-93); ABG TCO2 21.2 MMOL/L (21.0-31.0)
[2021-12-20 17:48] LABS: ABG PH 7.28 (7.37-7.43); ALLENS TEST YES-POS; INSPIRED O2 35; PATIENT TEMP 37.8; VENTILATOR YES
[2021-12-20] MEDS ORDERED: morphine INJ 4 MG/ML 1 ML (VIAL/SYRINGE) ONE ×2 (18:00→22:27)
[2021-12-20] MEDS ORDERED: LORazepam INJ 2 MG/ML (ATIVAN) VIAL ONE ×2 (18:01→22:28)
[2021-12-20] MEDS ORDERED: LABETALOL HCL 20 MG/4 ML VIAL ONE (20:41)
--- NOTE | 2021-12-20 20:43 | Progress Note - Hospitalist ---
Subjective HPI/CC On Admission Date Seen by Provider: Dec 20, 2021 Time Seen by Provider: 11:20 Chief complaint: Bowel perforation with COVID-19 pneumonia History of present illness: This is a 81-year-old white male who presented from [facility] ER for higher level of care due to bowel perforation and COVID-19 pneumonia with acute hypoxic respiratory failure requiring oxygen. Family wanted DO NOT INTUBATE. BiPAP was placed with 16/10 and 80%. Potassium 5.4 and creatinine 1.3 with decreased urinary output. Patient was placed on Levaquin and Flagyl empirically. Dr. Craig will take him to surgery but high risk for intubation long-term. Subjective/Events-last exam He remains intubated and sedated. Objective Exam Vital Signs Vital Signs Date Time Temp Pulse Resp B/P (MAP) Pulse Ox O2 Delivery O2 Flow Rate FiO2 12/20/21 18:18 Non Rebreather 15.00 12/20/21 18:00 38.0 78 21 195/99 89 12/20/21 16:54 35 Capillary Refill : Less Than 3 Seconds General Appearance: No Apparent Distress, Obese, Other (intubated and sedated) Respiratory: Lungs Clear, No Respiratory Distress Cardiovascular: Regular Rate, Rhythm, No Murmur Gastrointestinal: Soft, Abnormal Bowel Sounds Extremity: Normal Inspection, Non Tender, No Pedal Edema Neurologic/Psychiatric: Other (sedated) Skin: Normal Color, Warm/Dry Results/Procedures Lab Laboratory Tests 12/20/21 03:55 Patient resulted labs reviewed. Imaging: Reviewed Imaging Report Assessment/Plan Assessment and Plan Assess & Plan/Chief Complaint Small bowel perforation s/p small bowel resection Surgery following s/p resection 12/13 s/p Levaquin and Flagyl Awaiting bowel function to return Acute respiratory failure due to COVID-19 Endotracheally intubated TeleICU following Remains intubated Decadron Shock Improving AFib with RVR Cardiology consulted Cardizem Lovenox HTN COPD Obesity Poor prognosis DVT prophylaxis: Lovenox Hypernatremia, resolved ALVARADO on CKD, resolved Critical Care Critically Ill Patient Diagnosis/Problems Diagnosis/Problems (1) Bowel perforation Status: Acute (2) S/P small bowel resection Status: Acute (3) Acute respiratory failure due to COVID-19 Status: Acute (4) Shock Status: Acute (5) Acute kidney injury superimposed on chronic kidney disease Status: Acute (6) HTN (hypertension) Status: Chronic (7) COPD (chronic obstructive pulmonary disease) Status: Chronic (8) Obesity Status: Chronic Clinical Quality Measures DVT/VTE Risk/Contraindication: Contraindications-Pharm: Other *list below* Other: needs OR for bowel perforation CAMILA COVARRUBIAS MD Dec 20, 2021 20:43
[2021-12-20] MEDS ORDERED: LABETALOL HCL 20 MG/4 ML VIAL IV PRN (20:45)
[2021-12-20] MEDS ORDERED: PROMETHAZINE INJ 25 MG/ML (PHENERGAN) AMP IVP PRN (22:30)
[2021-12-20] MEDS ORDERED: SALIVA STIMULANT MOUTH SPRAY (BIOTENE) 1.5 OZ MM PRN (22:30)
[2021-12-20] MEDS ORDERED: ONDANSETRON 4 MG/2 ML (SDV) Z0FRAN IVP PRN (22:30)
[2021-12-20] MEDS ORDERED: RT-ALBUTEROL/IPRATROPIUM 3 ML (DUONEB) VIAL INH PRN (22:30)
[2021-12-20] MEDS ORDERED: ARTIFICAL TEARS 0.4 ML UNIT DOSE (REFRESH PLUS) OU PRN (22:30)
[2021-12-21] MEDS: morphine INJ 4 MG/ML 1 ML (VIAL/SYRINGE) IV PRN ×5 (00:59→13:04)
[2021-12-21] MEDS: GLYCOPYRROLATE 0.2 MG/ML (ROBINUL) 2 ML VIAL IV PRN ×3 (00:59→10:00)
[2021-12-21] MEDS: LORazepam INJ 2 MG/ML (ATIVAN) VIAL IVP PRN ×5 (00:59→13:04)
[2021-12-21] MEDS: NOREPINEPHRINE 8 MG/250 ML 250 ML IV SCH (01:29)
[2021-12-21] MEDS: ACETAMINOPHEN 650 MG SUPP (TYLENOL) PR PRN (03:36)
[2021-12-21] MEDS: PANTOPRAZOLE 40 MG (PROTONIX) VIAL IV SCH (10:55)
[2021-12-21] MEDS: UMECLIDINIUM BROMIDE (INCRUSE ELLIPTA) 7'S IH SCH (11:28)
[2021-12-21] MEDS: 1/2 NS IV SOLUTION 1,000 ML IV SCH (11:45)
[2021-12-21] MEDS: fentaNYL INJ 100 MCG/2 ML AMP IVP PRN (13:04)
== END 2021-12-21 15:10 | disposition expired | DRG 329 ==
LOC: ICU 23:49
PROVIDERS: ADMIT Internal Medicine; ATTEND Internal Medicine
PROC: 5A09357 Assistance with Respiratory Ventilation, Less than 24 Consecutive Hours, Continuous Positive Airway Pressure (ICD-10-PCS; 2021-12-13)
PROC: 0DB80ZZ Excision of Small Intestine, Open Approach (ICD-10-PCS; principal; 2021-12-13 14:58)
PROC: 5A1955Z Respiratory Ventilation, Greater than 96 Consecutive Hours (ICD-10-PCS; 2021-12-13 14:58)
DX: K57.00 Diverticulitis of small intestine with perforation and abscess without bleeding (principal); K65.0 Generalized (acute) peritonitis; U07.1 COVID-19; J12.82 Pneumonia due to coronavirus disease 2019; J96.01 Acute respiratory failure with hypoxia; I21.A1 Myocardial infarction type 2; R57.9 Shock, unspecified; N17.9 Acute kidney failure, unspecified; G93.40 Encephalopathy, unspecified; E87.0 Hyperosmolality and hypernatremia; K56.7 Ileus, unspecified; Z66 Do not resuscitate; Z51.5 Encounter for palliative care; R56.9 Unspecified convulsions; E87.70 Fluid overload, unspecified; I48.0 Paroxysmal atrial fibrillation; I12.9 Hypertensive chronic kidney disease with stage 1 through stage 4 chronic kidney disease, or unspecified chronic kidney disease; N18.9 Chronic kidney disease, unspecified; J44.9 Chronic obstructive pulmonary disease, unspecified; E78.00 Pure hypercholesterolemia, unspecified; F41.9 Anxiety disorder, unspecified; F32.A Depression, unspecified; E66.9 Obesity, unspecified; Z68.33 Body mass index [BMI] 33.0-33.9, adult; H54.7 Unspecified visual loss; H91.90 Unspecified hearing loss, unspecified ear; Z87.891 Personal history of nicotine dependence; Z88.0 Allergy status to penicillin; Z79.82 Long term (current) use of aspirin; Z73.0 Burn-out
CPT/HCPCS: 36415; 70450; 71045; 80048; 80053; 81000; 82805; 82947; 83605; 83735; 84100; 84484; 85007; 85025; 85027; 87070; 87081; 87088; 87205; 88307; 93005; 94002; 94003; 94640; 94660; 94799